=== PATIENT | female | born 1945 | race Caucasian/White ===

== ENCOUNTER → 2021-02-28 | Outpatient (CLI) | payer MEDICARE ==
--- NOTE | 2021-03-12 10:32 | EM ---
EVENT MONITOR SEVEN-DAY EVENT MONITOR: INDICATION: Palpitations. This event monitor shows sinus rhythm with frequent PVCs. There were occasional PVCs also noted. There were episodes of atrial tachycardia. There was one episode of paroxysmal atrial fibrillation. CONCLUSIONS: 1. This seven-day event monitor shows sinus rhythm with frequent PVCs, ventricular bigeminy. 2. There were episodes of paroxysmal atrial tachycardia. 3. There was one episode of paroxysmal atrial fibrillation. MMODL / IJN: [id number] /
== END | disposition home or self-care (01) ==
LOC: RADECHMAIN 12:04
PROVIDERS: ATTEND Family Medicine
DX: I47.1 Supraventricular tachycardia (principal); I48.0 Paroxysmal atrial fibrillation
CPT/HCPCS: 93270

== ENCOUNTER 2022-01-24 15:10 | Inpatient (IN) | payer MEDICARE ==
[2022-01-24 15:44] LABS: Basophils % (A) 1 %; Eosinophils # (A) 0.1 k/uL (0-0.7); Eosinophils % (A) 3 %; HCT 27.1 % (34.0-46.0); HGB 8.7 gm/dL (11.4-16.0); Lymphocytes % (A) 24 %; MCH 36.7 pg (25.0-35.0); MCHC 32.2 g/dL (31.0-37.0); MCV 114.1 fL (80.0-100.0); Macrocytosis Marked; Mean Platelet Volume 7.5; Monocytes # (A) 0.3 k/uL (0-1.0); Monocytes % (A) 7 %; Neutrophils # (A) 2.7 k/uL (1.3-7.7); Neutrophils % (A) 63 %; Platelet Count 251 k/uL (150-450); RBC 2.37 m/uL (3.80-5.40); RDW 13.8 % (11.5-15.5); WBC 4.4 k/uL (3.8-10.6)
--- NOTE | 2022-01-24 15:45 | ED ---
General Adult HPI - General Chief complaint: GI Bleed Stated complaint: fatigue Time Seen by Provider: 01/24/22 15:20 Source: patient, EMS Mode of arrival: EMS Limitations: no limitations - History of Present Illness Initial comments: Dictation was produced using [employer] dictation software. please excuse any grammatical, word or spelling errors. Chief Complaint: 76-year-old female presents to the emergency department for black tarry stools, exertional fatigue and nausea History of Present Illness: 26-year-old female she has multiple comorbidities. Patient has history of A. fib on anticoagulation medications. For the last 5 days patient has been feeling fatigued especially noticeable with exertion. She states she feels so weak and having difficulty ambulating short distances. Patient has been trying to taper herself from alcohol. She does have a history of alcohol abuse. 5 days ago she did have symptoms of myalgias, retching but no vomiting. She does not report any constitutional symptoms. Patient has had black tarry stools. She normally has dark stools because of iron supplementation however her stools were loose and black. Patient states the running black stools has improved over the last 24-48 hours. She does take anticoagulation medications. Patient is brought in by EMS and was found to be hypoxic in the high 80s. She is placed on 2 L nasal cannula. Patient does not were supplemental oxygen at home. The ROS documented in this emergency department record has been reviewed and confirmed by me. Those systems with pertinent positive or negative responses have been documented in the HPI. All other systems are other negative and/or noncontributory. PHYSICAL EXAM: General Impression: Alert and oriented x3, not in acute distress HEENT: Normocephalic atraumatic, extra-ocular movements intact, pupils equal and reactive to light bilaterally, mucous membranes moist. Cardiovascular: Heart regular rate and rhythm Chest: Able to complete full sentences, no retractions, no tachypnea Abdomen: abdomen soft, non-tender, non-distended, no organomegaly Musculoskeletal: Pulses present and equal in all extremities, no peripheral edema Motor: no focal deficits noted Neurological: CN II-XII grossly intact, no focal motor or sensory deficits noted Skin: Intact with no visualized rashes Psych: Normal affect and mood Rectal exam: No fissures, no hemorrhoids, no active bleeding ED course: 76-year-old female presents to the emergency department for multiple complaints. She is to have more systemic constitutional symptoms. She does have reported black tarry stools that have reportedly spontaneously resolved. Vital signs upon arrival are within acceptable limits. She is 99% on 2 L nasal cannula. Laboratory evaluation obtained. Hemoglobin 8.7. Coag panel is unremarkable. Metabolic panel is within acceptable limits. Some occult blood is positive. Patient monitored in the emergency department for 2 hours patient is reevaluated bedside at 5:30 PM found in stable medical condition. Patient has multiple high-risk features given her age, history of anticoagulation use and symptoms of anemia. Patient be admitted to [facility] with consultation to gastroenterology. EKG interpretation: Ventricular rate 67, sinus rhythm,. 179, QS 90, QTC 411. No MN prolongation, no QTC prolongation, no ST changes noted. There is an isolated T-wave inversion in lead 3 No old EKG for comparison. Overall, this EKG is nonspecific - Related Data Allergies Allergy/AdvReac Type Severity Reaction Status Date / Time Sulfa (Sulfonamide Allergy Unknown Verified 01/24/22 15:44 Antibiotics) Review of Systems ROS Statement: Those systems with pertinent positive or pertinent negative responses have been documented in the HPI. ROS Other: All systems not noted in ROS Statement are negative. Past Medical History Past Medical History: Atrial Fibrillation, Hypertension Additional Past Medical History / Comment(s): ETOH abuse History of Any Multi-Drug Resistant Organisms: None Reported Past Surgical History: Cholecystectomy, Hysterectomy, Orthopedic Surgery Additional Past Surgical History / Comment(s): bariatric 2000 Past Psychological History: No Psychological Hx Reported, Anxiety Smoking Status: Never smoker Past Alcohol Use History: Abuse Past Drug Use History: None Reported General Exam Limitations: no limitations Course Vital Signs 01/24/22 15:11 Temperature 97.5 F L Pulse Rate 66 Respiratory 18 Rate Blood Pressure 111/58 O2 Sat by Pulse 99 Oximetry Medical Decision Making - Lab Data Result diagrams: 01/24/22 15:40 01/24/22 15:40 Lab Results 01/24/22 01/24/22 01/24/22 Range/Units 15:40 15:40 15:40 WBC 4.4 (3.8-10.6) k/uL RBC 2.37 L (3.80-5.40) m/uL Hgb 8.7 L (11.4-16.0) gm/dL Hct 27.1 L (34.0-46.0) % MCV 114.1 H (80.0-100.0) fL MCH 36.7 H (25.0-35.0) pg MCHC 32.2 (31.0-37.0) g/dL RDW 13.8 (11.5-15.5) % Plt Count 251 (150-450) k/uL MPV 7.5 Neutrophils % 63 % Lymphocytes % 24 % Monocytes % 7 % Eosinophils % 3 % Basophils % 1 % Neutrophils # 2.7 (1.3-7.7) k/uL Lymphocytes # 1.0 (1.0-4.8) k/uL Monocytes # 0.3 (0-1.0) k/uL Eosinophils # 0.1 (0-0.7) k/uL Basophils # 0.0 (0-0.2) k/uL Manual Slide Review Performed Poikilocytosis (manual Present Macrocytosis Marked A Stomatocytes Present PT 13.4 H (9.0-12.0) sec INR 1.3 H (<1.2) APTT 28.7 (22.0-30.0) sec Sodium 134 L (137-145) mmol/L Potassium 4.1 (3.5-5.1) mmol/L Chloride 104 (98-107) mmol/L Carbon Dioxide 26 (22-30) mmol/L Anion Gap 4 mmol/L BUN 16 (7-17) mg/dL Creatinine 0.89 (0.52-1.04) mg/dL Est GFR (CKD-EPI)AfAm 74 (>60 ml/min/1.73 sqM) Est GFR (CKD-EPI)NonAf 64 (>60 ml/min/1.73 sqM) Glucose 108 H (74-99) mg/dL Plasma Lactic Acid Marcelo (0.7-2.0) mmol/L Calcium 8.4 (8.4-10.2) mg/dL Total Bilirubin 0.5 (0.2-1.3) mg/dL AST 94 H (14-36) U/L ALT 69 H (4-34) U/L Alkaline Phosphatase 119 (38-126) U/L Total Protein 6.2 L (6.3-8.2) g/dL Albumin 3.2 L (3.5-5.0) g/dL Stool Occult Blood (Negative) Blood Type Blood Type Confirm Blood Type Recheck Bld Type Recheck Status Antibody Screen Spec Expiration Date 01/24/22 01/24/22 01/24/22 Range/Units 15:43 15:43 15:43 WBC (3.8-10.6) k/uL RBC (3.80-5.40) m/uL Hgb (11.4-16.0) gm/dL Hct (34.0-46.0) % MCV (80.0-100.0) fL MCH (25.0-35.0) pg MCHC (31.0-37.0) g/dL RDW (11.5-15.5) % Plt Count (150-450) k/uL MPV Neutrophils % % Lymphocytes % % Monocytes % % Eosinophils % % Basophils % % Neutrophils # (1.3-7.7) k/uL Lymphocytes # (1.0-4.8) k/uL Monocytes # (0-1.0) k/uL Eosinophils # (0-0.7) k/uL Basophils # (0-0.2) k/uL Manual Slide Review Poikilocytosis (manual Macrocytosis Stomatocytes PT (9.0-12.0) sec INR (<1.2) APTT (22.0-30.0) sec Sodium (137-145) mmol/L Potassium (3.5-5.1) mmol/L Chloride (98-107) mmol/L Carbon Dioxide (22-30) mmol/L Anion Gap mmol/L BUN (7-17) mg/dL Creatinine (0.52-1.04) mg/dL Est GFR (CKD-EPI)AfAm (>60 ml/min/1.73 sqM) Est GFR (CKD-EPI)NonAf (>60 ml/min/1.73 sqM) Glucose (74-99) mg/dL Plasma Lactic Acid Marcelo 1.2 (0.7-2.0) mmol/L Calcium (8.4-10.2) mg/dL Total Bilirubin (0.2-1.3) mg/dL AST (14-36) U/L ALT (4-34) U/L Alkaline Phosphatase (38-126) U/L Total Protein (6.3-8.2) g/dL Albumin (3.5-5.0) g/dL Stool Occult Blood Positive H (Negative) Blood Type O Positive Blood Type Confirm Blood Type Recheck No Previous Record Bld Type Recheck Status CABO Indicated Antibody Screen NEGATIVE Spec Expiration Date 01/27/2022 - 234201/24/22 Range/Units 15:51 WBC (3.8-10.6) k/uL RBC (3.80-5.40) m/uL Hgb (11.4-16.0) gm/dL Hct (34.0-46.0) % MCV (80.0-100.0) fL MCH (25.0-35.0) pg MCHC (31.0-37.0) g/dL RDW (11.5-15.5) % Plt Count (150-450) k/uL MPV Neutrophils % % Lymphocytes % % Monocytes % % Eosinophils % % Basophils % % Neutrophils # (1.3-7.7) k/uL Lymphocytes # (1.0-4.8) k/uL Monocytes # (0-1.0) k/uL Eosinophils # (0-0.7) k/uL Basophils # (0-0.2) k/uL Manual Slide Review Poikilocytosis (manual Macrocytosis Stomatocytes PT (9.0-12.0) sec INR (<1.2) APTT (22.0-30.0) sec Sodium (137-145) mmol/L Potassium (3.5-5.1) mmol/L Chloride (98-107) mmol/L Carbon Dioxide (22-30) mmol/L Anion Gap mmol/L BUN (7-17) mg/dL Creatinine (0.52-1.04) mg/dL Est GFR (CKD-EPI)AfAm (>60 ml/min/1.73 sqM) Est GFR (CKD-EPI)NonAf (>60 ml/min/1.73 sqM) Glucose (74-99) mg/dL Plasma Lactic Acid Marcelo (0.7-2.0) mmol/L Calcium (8.4-10.2) mg/dL Total Bilirubin (0.2-1.3) mg/dL AST (14-36) U/L ALT (4-34) U/L Alkaline Phosphatase (38-126) U/L Total Protein (6.3-8.2) g/dL Albumin (3.5-5.0) g/dL Stool Occult Blood (Negative) Blood Type Blood Type Confirm O Positive Blood Type Recheck Bld Type Recheck Status Antibody Screen Spec Expiration Date Disposition Clinical Impression: Symptomatic anemia Disposition: ADMITTED IP TO THIS HOSP Condition: Fair Referrals: Benjamin Ashton MD [Primary Care Provider] - 1-2 days Decision Time: 17:37
[2022-01-24 15:52] LABS: Albumin 3.2 g/dL (3.5-5.0); Calcium 8.4 mg/dL (8.4-10.2); Potassium 4.1 mmol/L (3.5-5.1); Total Bilirubin 0.5 mg/dL (0.2-1.3); Total Protein 6.2 g/dL (6.3-8.2)
--- NOTE | 2022-01-24 15:58 | XR ---
EXAMINATION TYPE: XR chest 2V DATE OF EXAM: 01/24/2022 COMPARISON: NONE HISTORY: Shortness of breath TECHNIQUE: Frontal and lateral views of the chest are obtained. FINDINGS: Scattered senescent parenchymal changes noted. No evidence for infiltrate. No evidence for atelectasis. Heart size is stable. Mediastinal structures are stable and grossly unremarkable. No evidence for hilar prominence. Degenerative changes dorsal spine. IMPRESSION: 1. No evidence for acute pulmonary disease.
[2022-01-24 16:24] LABS: INR 1.3 (<1.2); Partial Thromboplastin Time 28.7 sec (22.0-30.0); Prothrombin Time 13.4 sec (9.0-12.0)
[2022-01-24] MEDS ORDERED: PANTOPRAZOLE 40 MG/10 ML VIAL IVP STA (16:42)
[2022-01-24 16:45] LABS: Poikilocytosis (M) Present; Stomatocytes Present
[2022-01-24] MEDS ORDERED: NALOXONE 0.4 MG/ML 1 ML VIAL IV PRN (17:34)
[2022-01-24] MEDS ORDERED: ONDANSETRON 4 MG/2 ML VIAL IVP PRN (17:34)
[2022-01-24] MEDS: SODIUM CHLORIDE 0.9% 1,000 ML IV SCH (17:56)
[2022-01-24] MEDS: LEVOTHYROXINE 75 MCG TAB PO SCH (21:33)
[2022-01-24] MEDS: busPIRone HCl 5 MG TAB PO SCH (21:33)
[2022-01-25] MEDS: ZOLPIDEM 5 MG TAB PO PRN ×2 (00:26→23:00)
--- NOTE | 2022-01-25 01:16 | P.HPIM ---
History of Present Illness H&P Date: 01/24/22 Chief Complaint: GI bleed 76-year-old female with paroxysmal A. fib on Xarelto, hypertension, alcohol abuse Patient comes into the hospital due to 5 day history of progressive fatigue generalized weakness and difficulty ambulating due to feeling weak. She admits to history of heavy alcohol consumption she drinks over 7 beers every day however she's been trying to cut back and she has dropped down to 1 beer a day. Her last drink was 2 days ago however she's been progressively getting weak and tired and she has noticed over the past 2 days some episodes of black tarry stool she reports that Saturday which is yesterday this has started to improve to become mixed with brown stool and since then she hasn't had any bowel movements yet however she comes in today due to increase of feeling weakness and palpitations she gets very fatigued and sweaty when she tries to be active. She denies any passing out or falling. . She denies any history of GI bleeding she reports normal colonoscopies in the past most recent was over 10 years ago. She admits to taking blood thinners for paroxysmal A. fib but denies any NSAIDs however she does admit that on rare occasions she would take 800 mg of ibuprofen but she hasn't done that recently. She denies any recent illness she denies any diarrhea denies any abdominal pain denies any chest pain or trouble breathing denies any history of peptic ulcer disease. In the ED workup showed slightly elevated AST and ALT, virus panel was negative occult blood test and stool was positive INR was 1.3 blood work showed macrocytic anemia there is no baseline blood work to compare She denies any further episodes of GI bleeding for over 24 hours now denies any tobacco smoking or illicit drugs Review of Systems Pertinent positives as noted in HPI. All other systems were reviewed and are negative Past Medical History Past Medical History: Atrial Fibrillation, Hypertension Additional Past Medical History / Comment(s): ETOH abuse History of Any Multi-Drug Resistant Organisms: None Reported Past Surgical History: Cholecystectomy, Hysterectomy, Orthopedic Surgery Additional Past Surgical History / Comment(s): bariatric 2000 Past Psychological History: No Psychological Hx Reported, Anxiety Smoking Status: Never smoker Past Alcohol Use History: Abuse Past Drug Use History: None Reported - Past Family History Mother Additional Family Medical History / Comment(s): kidney cancer. Medications and Allergies Home Medications Medication Instructions Recorded Confirmed Type Ibandronate Sodium 150 mg PO Q30D 01/24/22 01/24/22 History Ibuprofen [Motrin] 800 mg PO Q8H 01/24/22 01/24/22 History Irbesartan [Avapro] 150 mg PO DAILY 01/24/22 01/24/22 History Levothyroxine Sodium [Synthroid] 75 mcg PO HS 01/24/22 01/24/22 History Metoprolol Succinate (ER) [Toprol 100 mg PO DAILY 01/24/22 01/24/22 History Xl] Rivaroxaban [Xarelto] 20 mg PO DAILY 01/24/22 01/24/22 History Venlafaxine HCl [Effexor XR] 225 mg PO DAILY 01/24/22 01/24/22 History busPIRone HCL [Buspar] 7.5 mg PO BID 01/24/22 01/24/22 History traMADol HCL 50 mg PO DAILY@1500 01/24/22 01/24/22 History traMADol HCL 100 mg PO DAILY 01/24/22 01/24/22 History Allergies Allergy/AdvReac Type Severity Reaction Status Date / Time Sulfa (Sulfonamide Allergy Unknown Verified 01/24/22 17:52 Antibiotics) Childhood Physical Exam Vitals: Vital Signs Temp Pulse Resp BP Pulse Ox 01/24/22 18:43 68 18 146/67 99 01/24/22 15:11 97.5 F L 66 18 111/58 99 Intake and Output 01/24/22 01/24/22 01/24/22 06:59 14:59 22:59 Other: Weight 93.894 kg Constitutional: No acute distress, conversant, pleasant Eyes: Anicteric sclerae, moist conjunctiva, Pupils equal round reactive to light ENMT: NC/AT Oropharynx clear, no erythema, or exudates Neck: Supple, FROM, no masses, or JVD No carotid bruits No thyromegaly Lungs: Clear to auscultation Clear to percussion Normal respiratory effort, no accessory muscle use Cardiovascular: Heart regular in rate and rhythm, No murmurs, gallops, or rubs No peripheral edema Abdominal: Soft Nontender, no guarding, rebound or rigidity Abdomen moving with respiration Normoactive bowel sounds No hepatomegaly, No splenomegaly No palpable mass No abdominal wall hernia noted Skin: Normal temperature, tone, texture, turgor No induration No subcutaneous nodules No rash, lesions No ulcers Extremities: No digital cyanosis No clubbing Pedal pulses intact and symmetrical Radial pulses intact and symmetrical No calf tenderness Psychiatric: Alert and oriented to person, place and time Appropriate affect fair judgement Neuro Muscles Strength 4/5 in all 4 extremities Sensation to light touch grossly present throughout Cranial nerves II-XII grossly intact No focal sensory deficits Lymphatics: no palpable cervical or supraclavicular , or inguinal lymph nodes Results CBC & Chem 7: 01/24/22 15:40 01/24/22 15:40 Labs: Abnormal Lab Results - Last 24 Hours (Table) 01/24/22 01/24/22 01/24/22 Range/Units 15:40 15:40 15:40 RBC 2.37 L (3.80-5.40) m/uL Hgb 8.7 L (11.4-16.0) gm/dL Hct 27.1 L (34.0-46.0) % MCV 114.1 H (80.0-100.0) fL MCH 36.7 H (25.0-35.0) pg Macrocytosis Marked A PT 13.4 H (9.0-12.0) sec INR 1.3 H (<1.2) Sodium 134 L (137-145) mmol/L Glucose 108 H (74-99) mg/dL AST 94 H (14-36) U/L ALT 69 H (4-34) U/L Total Protein 6.2 L (6.3-8.2) g/dL Albumin 3.2 L (3.5-5.0) g/dL Stool Occult Blood (Negative) 01/24/22 Range/Units 15:43 RBC (3.80-5.40) m/uL Hgb (11.4-16.0) gm/dL Hct (34.0-46.0) % MCV (80.0-100.0) fL MCH (25.0-35.0) pg Macrocytosis PT (9.0-12.0) sec INR (<1.2) Sodium (137-145) mmol/L Glucose (74-99) mg/dL AST (14-36) U/L ALT (4-34) U/L Total Protein (6.3-8.2) g/dL Albumin (3.5-5.0) g/dL Stool Occult Blood Positive H (Negative) Assessment and Plan Assessment: Symptomatic anemia secondary to GI bleeding Monitor hemoglobin Monitor for any episodes of GI bleeding Fall precautions Gentle IV fluid hydration Nothing by mouth GI consultation Protonix twice a day Hold blood thinners Paroxysmal A. fib on Xarelto Hold blood thinners due to GI bleeding Cardiac monitoring Resume metoprolol Hypertension resume metoprolol and losartan Blood pressure controlled History of alcohol abuse Patient cut back significantly Thiamine twice a day Monitor for any signs and symptoms of alcohol withdrawal DVT prophylaxis mechanical Full code
[2022-01-25 02:06] VITALS: RESP 16
[2022-01-25] MEDS: SODIUM CHLORIDE 0.9% 1,000 ML IV SCH ×2 (05:06→12:08)
[2022-01-25] MEDS: PANTOPRAZOLE 40 MG TABLET PO SCH ×2 (07:58→17:46)
[2022-01-25] MEDS: VENLAFAXINE HCL ER 75 MG CAP PO SCH (08:00)
[2022-01-25] MEDS: METOPROLOL SUCCINATE (ER) 100 MG TAB.ER.24H PO SCH (08:00)
[2022-01-25] MEDS: LOSARTAN 50 MG TAB PO SCH (08:00)
[2022-01-25] MEDS: THIAMINE 100 MG TAB PO SCH (08:00)
[2022-01-25] MEDS: traMADol 50 MG TAB PO SCH ×2 (08:01→15:13)
[2022-01-25] MEDS: busPIRone HCl 5 MG TAB PO SCH ×2 (08:01→20:12)
[2022-01-25] MEDS ORDERED: PANTOPRAZOLE 40 MG/10 ML VIAL IV SCH (09:00)
[2022-01-25 10:48] LABS: HGB 7.5 g/dL (12.0-15.0); MCH 36.2 pg (27.0-32.0); MCHC 31.3 g/dL (32.0-37.0); MCV 115.9 fL (80.0-97.0); Mean Platelet Volume 9.9 fL (9.5-12.2); NRBC Per 100 WBC 0 /100 WBCS (0.0-0.0); Platelet Count 190 X 10*3/uL (140-440); RBC 2.07 X 10*6/uL (4.10-5.20); RDW 14.1 % (11.5-14.5); WBC 4.15 X 10*3/uL (4.50-10.00)
[2022-01-25 10:56] LABS: African American GFR (CKD) 86.5 (60.0-200.0); Anion Gap 9.2 mmol/L (10.00-18.00); BUN/Creat Ratio 12.79 Ratio (12.00-20.00); Calcium 8.1 mg/dL (8.7-10.3); Carbon Dioxide 22.3 mmol/L (20.0-27.5); Non-African American GFR(CKD) 74.7 (60.0-200.0); Potassium 4.1 mmol/L (3.5-5.5)
[2022-01-25 13:46] LABS: Basophils # (A) 0.03 X 10*3/uL (0.00-0.10); Basophils % (A) 0.7 %; Eosinophils # (A) 0.15 X 10*3/uL (0.04-0.35); Eosinophils % (A) 3.6 %; Immature Grans, Automated 0.5 %; Lymphocytes # (A) 1.08 X 10*3/uL (0.90-5.00); Monocytes # (A) 0.47 X 10*3/uL (0.20-1.00); Monocytes % (A) 11.3 %; Neutrophils % (A) 57.9 %
[2022-01-25 13:47] LABS: Macrocytosis (M) 2+
--- NOTE | 2022-01-25 14:08 | P.CONS ---
History of Present Illness - Reason for Consult Consult date: 01/25/22 GI bleed Requesting physician: Shayan Mata - Chief Complaint Melena - History of Present Illness This is a pleasant 76-year-old white female who presented to the emergency department yesterday afternoon and she thought she just had the flu. She has past medical history including atrial fibrillation hypertension, gastric bypass and alcohol abuse. Since Saturday she started having black tarry stools. She continued to have them yesterday so she came to the emergency department for further evaluation. She states she has been feeling increased fatigue and sh ortness of breath with exertion. Denies any previous history of GI bleed. She does take Xarelto last dose on 713. Last colonoscopy was 15 years ago. She has no history of peptic ulcer disease or GERD. She denies any NSAIDs. No previous history of EGD. States she did have a cologuard 3-4 years ago that was normal. Patient does admit to drinking 616 ounce cans of beer a day recently cut back to 2 a day. Last drink was on Saturday. Admitting hemoglobin 8.7 repeat 7.5 Admitting labs WBC 4.4 hemoglobin 8.7 hematocrit 27 MCV 114 MCH 36.7 platelet count 251,000 INR 1.3 BUN 16 creatinine 0.89 total bilirubin 0.5 AST 94 ALT 60 stool occult blood positive Review of Systems REVIEW OF SYSTEMS: CARDIOPULMONARY: No chest pain or shortness of breath. Dyspnea with exertion Gastrointestinal: No abdominal pain. No nausea or vomiting. No hematemesis, coffee-ground emesis. No rectal bleeding, black tarry stool. GENITOURINARY: No dysuria or hematuria. MUSCULOSKELETAL: Reports normal range of motion. SKIN: No rashes. No jaundice. ENDOCRINE: No chills, fevers. No excessive weight gain or loss. No polydipsia or polyuria. PSYCHIATRIC: Alcohol abuse, drinks 616 ounce cans of beer a day, recently down to 216 ounce cans a day. NEUROLOGY: No change in mental status. Denies dizziness, headache. ENT: Vision unremarkable. CONSTITUTIONAL: No recent weight loss. No fever, chills, night sweats. Past Medical History Past Medical History: Atrial Fibrillation, Hypertension Additional Past Medical History / Comment(s): ETOH abuse History of Any Multi-Drug Resistant Organisms: None Reported Past Surgical History: Cholecystectomy, Hysterectomy, Orthopedic Surgery Additional Past Surgical History / Comment(s): bariatric 1999 Past Psychological History: No Psychological Hx Reported, Anxiety Smoking Status: Never smoker Past Alcohol Use History: Abuse Past Drug Use History: None Reported - Past Family History Mother Additional Family Medical History / Comment(s): kidney cancer. Medications and Allergies Home Medications Medication Instructions Recorded Confirmed Type Ibandronate Sodium 150 mg PO Q30D 01/24/22 01/24/22 History Ibuprofen [Motrin] 800 mg PO Q8H 01/24/22 01/24/22 History Irbesartan [Avapro] 150 mg PO DAILY 01/24/22 01/24/22 History Levothyroxine Sodium [Synthroid] 75 mcg PO HS 01/24/22 01/24/22 History Metoprolol Succinate (ER) [Toprol 100 mg PO DAILY 01/24/22 01/24/22 History Xl] Rivaroxaban [Xarelto] 20 mg PO DAILY 01/24/22 01/24/22 History Venlafaxine HCl [Effexor XR] 225 mg PO DAILY 01/24/22 01/24/22 History busPIRone HCL [Buspar] 7.5 mg PO BID 01/24/22 01/24/22 History traMADol HCL 50 mg PO DAILY@1500 01/24/22 01/24/22 History traMADol HCL 100 mg PO DAILY 01/24/22 01/24/22 History Allergies Allergy/AdvReac Type Severity Reaction Status Date / Time Sulfa (Sulfonamide Allergy Unknown Verified 01/24/22 17:52 Antibiotics) Childhood Physical Exam Vitals: Vital Signs Temp Pulse Pulse Resp BP BP Pulse Ox 01/25/22 02:00 97.9 F 80 16 138/82 96 01/24/22 20:03 18 01/24/22 18:43 68 18 146/67 99 01/24/22 15:11 97.5 F L 66 18 111/58 99 Intake and Output 01/24/22 01/25/22 01/25/22 22:59 06:59 14:59 Intake Total 1440 Balance 1440 Intake: Intake, IV Titration 1440 Amount Sodium Chloride 0.9% 1, 1440 000 ml @ 120 mls/hr IV . Q8H20M [facility] Rx#:[id number] Other: Voiding Method Toilet # Voids 2 # Bowel Movements 0 0 Weight 93.894 kg General appearance: The patient is alert, oriented, appears in no acute distress. HET: Head is normocephalic and atraumatic. Conjunctiva pink. Sclera anicteric. Neck: Supple without lymphadenopathy. Trachea midline. Heart: S1 S2. Regular rate and rhythm. Lungs: Clear to auscultation. Abdomen: Soft, nontender, nondistended with bowel sounds. No guarding or rigidity. Skin: No rashes. No jaundice. Extremities: Normal skin color and turgor. No pedal edema. Neurological: No focal deficits. Alert and oriented x3. Results CBC & Chem 7: 01/25/22 06:56 01/25/22 06:56 Labs: Abnormal Lab Results - Last 24 Hours (Table) 01/24/22 01/24/22 01/24/22 Range/Units 15:40 15:40 15:40 RBC 2.37 L (3.80-5.40) m/uL Hgb 8.7 L (11.4-16.0) gm/dL Hct 27.1 L (34.0-46.0) % MCV 114.1 H (80.0-100.0) fL MCH 36.7 H (25.0-35.0) pg Macrocytosis Marked A PT 13.4 H (9.0-12.0) sec INR 1.3 H (<1.2) Sodium 134 L (137-145) mmol/L Glucose 108 H (74-99) mg/dL AST 94 H (14-36) U/L ALT 69 H (4-34) U/L Total Protein 6.2 L (6.3-8.2) g/dL Albumin 3.2 L (3.5-5.0) g/dL Stool Occult Blood (Negative) 01/24/22 Range/Units 15:43 RBC (3.80-5.40) m/uL Hgb (11.4-16.0) gm/dL Hct (34.0-46.0) % MCV (80.0-100.0) fL MCH (25.0-35.0) pg Macrocytosis PT (9.0-12.0) sec INR (<1.2) Sodium (137-145) mmol/L Glucose (74-99) mg/dL AST (14-36) U/L ALT (4-34) U/L Total Protein (6.3-8.2) g/dL Albumin (3.5-5.0) g/dL Stool Occult Blood Positive H (Negative) Assessment and Plan (1) Symptomatic anemia Narrative/Plan: 76-year-old female with a past medical history of atrial fibrillation on Xarelto who presented with complaints of black tarry stool 3 days. The patient also states she has been having some exertional dyspnea and is feeling run down. She was known to have a hemoglobin 8.7 on admission with a drop to 7.5 today. She does admit that she drinks 62-616 ounce cans of beer a day. She has been drinking for several years. She denies any previous history of GI bleed her esophageal varices. Denies any history of peptic ulcer disease or GERD. Denies any use of NSAIDs. No prior history of GI bleed and last colonoscopy was approximately 15 years ago, no prior EGD. Likely we are dealing with an upper GI source of bleeding however cannot rule out a lower source and considering patient has not had colonoscopy in greater than 15 years with recommend proceeding with both upper and lower endoscopy. Patient is agreeable. Current Visit: Yes Status: Acute Code(s): D64.9 - ANEMIA, UNSPECIFIED SNOMED Code(s): 747506195 (2) Melena Current Visit: Yes Status: Acute Code(s): K92.1 - MELENA SNOMED Code(s): 9895379 (3) Alcohol abuse Current Visit: Yes Status: Acute Code(s): F10.10 - ALCOHOL ABUSE, UNCOMPLICATED SNOMED Code(s): 99347939 Plan: 1. Continue symptomatic and supportive care 2. Protonix 40 mg twice a day 3. Daily CBC, transfuse her hemoglobin less than 7 4. Clear liquid diet 5. Nothing by mouth after midnight 6. Bowel prep this evening 7. Alcohol abstinence Thank you for this consultation, we'll continue to follow. Dr. Rico Juares I agree with the dictator's note, documented as a scribe by Faiza Barton.
--- NOTE | 2022-01-25 16:16 | P.PN ---
Subjective Progress Note Date: 01/25/22 Principal diagnosis: Melena Patient seen and examined. No acute events overnight. Patient reports no current complaints. No bowel movement today. Hemoglobin dropped to 7.5. She denies any chest pain, shortness of breath or palpitations. No lightheadedness. Plans for EGD and colonoscopy tomorrow. Objective - Vital Signs Vital signs: Vital Signs Temp 99.1 F 01/25/22 08:00 Pulse 85 01/25/22 08:00 Resp 16 01/25/22 08:00 BP 127/68 01/25/22 08:00 Pulse Ox 96 01/25/22 08:00 FiO2 Intake & Output 01/24/22 01/25/22 01/25/22 18:59 06:59 18:59 Intake Total 1440 Balance 1440 Weight 93.894 kg 93.894 kg Intake: Intake, IV Titration 1440 Amount Sodium Chloride 0.9% 1, 1440 000 ml @ 120 mls/hr IV . Q8H20M [facility] Rx#:[id number] Other: Voiding Method Toilet # Voids 2 # Bowel Movements 0 - Exam General: [non toxic], [no distress], [appears at stated age] Derm: [warm], [dry] Head: [atraumatic], [normocephalic], [symmetric] Eyes: [EOMI], [no lid lag], [anicteric sclera] Mouth: [no lip lesion], [mucus membranes moist] Cardiovascular: [S1S2 reg], [no murmur] Lungs: [CTA bilateral], [no rhonchi, no rales] , [no accessory muscle use] Abdominal: [soft], [ nontender to palpation], [no guarding], [no appreciable organomegaly] Ext: [no gross muscle atrophy], [no edema], [no contractures] Neuro: [no focal neuro deficits] Psych: [Alert], [oriented], [appropriate affect] - Labs CBC & Chem 7: 01/25/22 06:56 01/25/22 06:56 Labs: Abnormal Lab Results - Last 24 Hours (Table) 01/24/22 01/25/22 01/25/22 Range/Units 15:40 06:56 06:56 WBC 4.15 L (4.50-10.00) X 10*3/uL RBC 2.07 L (4.10-5.20) X 10*6/uL Hgb 7.5 L (12.0-15.0) g/dL Hct 24.0 L (37.2-46.3) % MCV 115.9 H (80.0-97.0) fL MCH 36.2 H (27.0-32.0) pg MCHC 31.3 L (32.0-37.0) g/dL PT 13.4 H (9.0-12.0) sec INR 1.3 H (<1.2) Anion Gap 9.20 L (10.00-18.00) mmol/L Calcium 8.1 L (8.7-10.3) mg/dL Assessment and Plan Assessment: Symptomatic anemia secondary to GI bleeding Monitor hemoglobin Monitor for any episodes of GI bleeding Fall precautions Gentle IV fluid hydration Nothing by mouth GI consultation Protonix twice a day Hold blood thinners Plans for EGD tomorrow Paroxysmal A. fib on Xarelto Hold blood thinners due to GI bleeding Cardiac monitoring Resume metoprolol Hypertension resume metoprolol and losartan Blood pressure controlled History of alcohol abuse Patient cut back significantly Thiamine twice a day Monitor for any signs and symptoms of alcohol withdrawal DVT prophylaxis mechanical FULL CODE
[2022-01-25] MEDS ORDERED: PEG 3350 (236 GM/BTL) + LYTES 4,000 ML BOTTLE PO ONE (17:00)
[2022-01-25] MEDS: LEVOTHYROXINE 75 MCG TAB PO SCH (20:12)
[2022-01-26] MEDS: SODIUM CHLORIDE 0.9% 1,000 ML IV SCH ×3 (08:03→13:55)
[2022-01-26] MEDS: METOPROLOL SUCCINATE (ER) 100 MG TAB.ER.24H PO SCH (08:03)
[2022-01-26] MEDS: LOSARTAN 50 MG TAB PO SCH (08:03)
[2022-01-26] MEDS: traMADol 50 MG TAB PO SCH ×2 (08:03→16:08)
[2022-01-26] MEDS: PANTOPRAZOLE 40 MG TABLET PO SCH ×2 (08:03→17:18)
[2022-01-26] MEDS: busPIRone HCl 5 MG TAB PO SCH (08:03)
[2022-01-26] MEDS: VENLAFAXINE HCL ER 75 MG CAP PO SCH (08:03)
[2022-01-26] MEDS: THIAMINE 100 MG TAB PO SCH (08:05)
[2022-01-26 09:15] LABS: % Iron Saturation 15.32 (12.00-45.00)
[2022-01-26 12:56] LABS: HCT 26.3 % (34.0-46.0); HGB 8.3 gm/dL (11.4-16.0); Hypochromasia Moderate; MCH 36.8 pg (25.0-35.0); MCHC 31.4 g/dL (31.0-37.0); MCV 117.1 fL (80.0-100.0); Mean Platelet Volume 8.8; Platelet Count 255 k/uL (150-450); RBC 2.25 m/uL (3.80-5.40); RDW 14.4 % (11.5-15.5)
[2022-01-26 12:58] LABS: Macrocytosis Marked
[2022-01-26 15:42] VITALS: BP 123/70; PULSE 66; TEMP 98.3
[2022-01-26] MEDS ORDERED: LACTATED RINGERS 1,000 ML IV ONE ×2 (15:47→16:03)
--- NOTE | 2022-01-26 16:04 | P.PCN ---
Date of Procedure: 01/26/22 Procedure(s) Performed: Brief history: Patient is a pleasant 76-year-old white female admitted hospital with symptomatic anemia and black tarry stools. Hemoglobin was 7.4 g/dL. She has been on Xarelto for A. fib which is currently on hold. She is scheduled for an upper endoscopy as well as colonoscopy to evaluate the source of GI bleed Procedure performed: Esophagogastroduodenoscopy with biopsy Colonoscopy with cold biopsy Preoperative diagnosis: After stools and severe symptomatic anemia Anesthesia: MAC Procedure: After informed consent was obtained from the patient was brought into the endoscopy unit and IV sedation was administered by anesthesia under continuous monitoring. Initially upper endoscopy was done. The Olympus GF 160 video endoscope was inserted inserted into the mouth and esophagus intubated without any difficulty and was gradually advanced into the gastric pouch and there was evidence of Belen-en-Y anastomosis noted. The scope was advanced into the jejunum and appeared normal. 60 cm of the jejunum was visualized and appeared normal. Biopsies were done from this area. The scope was then withdrawn into the gastric pouch and the mucosa appeared normal. The scope was then withdrawn into the esophagus. Hiatal hernia noted. The GE junction was located at 40 cm to the incisors. It appeared regular with no erythema erosions or ulcerations. Rest of the esophagus appeared normal. Patient tolerated the procedure well. At this time the patient continued to remain sedation. Initial digital rectal examination was normal. Olympus CF 160 video colonoscope was then inserted into the rectum and gradually advanced to the cecum without any difficulty. Careful examination was performed as the scope was gradually being withdrawn. The prep was excellent. The cecum, ascending colon, appeared normal .n the transverse colon there was a 5 mm polyp that was removed by cold biopsy. Rest of the transverse colon, descending colon, sigmoid colon and rectum appeared normal. The sigmoid diverticulosis. Retroflexion was performed in the rectum and no lesions were noted. Patient tolerated the procedure well. Impression: 1. Upper endoscopy revealed evidence of previous gastric bypass surgery with Belen-en-Y anastomosis appeared normal. No evidence of anastomotic ulcer 2. Colonoscopy will a 5 mm transverse colon polyp status post cold biopsy and scattered sigmoid diverticulosis Recommendations: Findings of this examination were discussed with the patient as well as her family. She was advised to follow with the biopsy results. Start iron supplementation monitor CBC . She has persistent iron deficiency anemia will consider a small bowel capsule endoscopy as an outpatient. Resume anticoagulation.
--- NOTE | 2022-01-26 16:17 | P.DS ---
Providers Date of admission: 01/24/22 17:35 Expected date of discharge: 01/26/22 Attending physician: Jasvir Shaikh MD Consults: 01/24/22 17:34 Consult Physician Routine Consulting Provider: Huong Juares Consult Reason/Comments: gi bleed Do you want consulting provider notified?: Yes Primary care physician: [facility] Course: 76-year-old female with paroxysmal A. fib on Xarelto, hypertension, alcohol abuse Patient comes into the hospital due to 5 day history of progressive fatigue generalized weakness and difficulty ambulating due to feeling weak. She admits to history of heavy alcohol consumption she drinks over 7 beers every day however she's been trying to cut back and she has dropped down to 1 beer a day. Her last drink was 2 days ago however she's been progressively getting weak and tired and she has noticed over the past 2 days some episodes of black tarry stool she reports that Saturday which is yesterday this has started to improve to become mixed with brown stool and since then she hasn't had any bowel movements yet however she comes in today due to increase of feeling weakness and palpitations she gets very fatigued and sweaty when she tries to be active. She denies any passing out or falling. . She denies any history of GI bleeding she reports normal colonoscopies in the past most recent was over 10 years ago. She admits to taking blood thinners for paroxysmal A. fib but denies any NSAIDs however she does admit that on rare occasions she would take 800 mg of ibuprofen but she hasn't done that recently. She denies any recent illness she denies any diarrhea denies any abdominal pain denies any chest pain or trouble breathing denies any history of peptic ulcer disease. In the ED workup showed slightly elevated AST and ALT, virus panel was negative occult blood test and stool was positive INR was 1.3 blood work showed macrocytic anemia there is no baseline blood work to compare She denies any further episodes of GI bleeding for over 24 hours now denies any tobacco smoking or illicit drugs. Her Xarelto was held and she was started on Protonix by mouth twice a day. She had no further melena during her hospitalization. Hemoglobin trended 8.7, 7.5 and 8.3. GI was consulted and recommended EGD and colonoscopy. Colonoscopy showed a 5 mm transverse colonic polyp which was biopsied. GI recommended restarting anticoagulation. Patient was discharged on 01/26/2022. General: [non toxic], [no distress], [appears at stated age] Derm: [warm], [dry] Head: [atraumatic], [normocephalic], [symmetric] Eyes: [EOMI], [no lid lag], [anicteric sclera] Mouth: [no lip lesion], [mucus membranes moist] Cardiovascular: [S1S2 reg], [no murmur] Lungs: [CTA bilateral], [no rhonchi, no rales] , [no accessory muscle use] Abdominal: [soft], [ nontender to palpation], [no guarding], [no appreciable organomegaly] Ext: [no gross muscle atrophy], [no edema], [no contractures] Neuro: [no focal neuro deficits] Psych: [Alert], [oriented], [appropriate affect] Discharge diagnosis: Microcytic anemia due to GI bleed Transaminitis Paroxysmal atrial for ablation on Xarelto Hypertension History of alcohol abuse This complex discharge took about 45 minutes to complete. Pertinent Studies: Chest x-ray, EKG Procedures: EGD, colonoscopy Patient Condition at Discharge: Stable Plan - Discharge Summary Discharge Rx Participant: Yes New Discharge Prescriptions: New Pantoprazole [Protonix] 40 mg PO AC-BID #60 tab Continue Ibandronate Sodium 150 mg PO Q30D traMADol HCL 100 mg PO DAILY Venlafaxine HCl [Effexor XR] 225 mg PO DAILY Rivaroxaban [Xarelto] 20 mg PO DAILY Metoprolol Succinate (ER) [Toprol XL] 100 mg PO DAILY Levothyroxine Sodium [Synthroid] 75 mcg PO HS Irbesartan [Avapro] 150 mg PO DAILY traMADol HCL 50 mg PO DAILY@1500 busPIRone HCL [Buspar] 7.5 mg PO BID Discontinued Ibuprofen [Motrin] 800 mg PO Q8H Discharge Medication List Ibandronate Sodium 150 mg PO Q30D 01/24/22 [History] Irbesartan [Avapro] 150 mg PO DAILY 01/24/22 [History] Levothyroxine Sodium [Synthroid] 75 mcg PO HS 01/24/22 [History] Metoprolol Succinate (ER) [Toprol XL] 100 mg PO DAILY 01/24/22 [History] Rivaroxaban [Xarelto] 20 mg PO DAILY 01/24/22 [History] Venlafaxine HCl [Effexor XR] 225 mg PO DAILY 01/24/22 [History] busPIRone HCL [Buspar] 7.5 mg PO BID 01/24/22 [History] traMADol HCL 50 mg PO DAILY@1500 01/24/22 [History] traMADol HCL 100 mg PO DAILY 01/24/22 [History] Pantoprazole [Protonix] 40 mg PO AC-BID #60 tab 01/26/22 [Rx] Follow up Appointment(s)/Referral(s): Benjamin Ashton MD [Primary Care Provider] - 1-2 days Huong Juares MD [STAFF PHYSICIAN] - 1 Week Activity/Diet/Wound Care/Special Instructions: Diet: Cardiac Follow-up with PCP within 1-2 days of discharge. Follow-up with GI within 1 week of discharge. Take all medications as advised. Come back to the ED for worsening rectal bleeding, chest pain, shortness of breath, palpitations or lightheadedness. Discharge Disposition: HOME SELF-CARE
== END 2022-01-26 17:39 | disposition home or self-care (01) | DRG 379 ==
LOC: EC 15:10 → 4SSUR 17:35
PROVIDERS: ADMIT Student in an Organized Health Care Education/Training Program; ATTEND Student in an Organized Health Care Education/Training Program
PROC: 0DBL8ZX Excision of Transverse Colon, Via Natural or Artificial Opening Endoscopic, Diagnostic (ICD-10-PCS; principal; 2022-01-24)
PROC: 0DBA8ZX Excision of Jejunum, Via Natural or Artificial Opening Endoscopic, Diagnostic (ICD-10-PCS; 2022-01-24)
DX: K57.31 Diverticulosis of large intestine without perforation or abscess with bleeding (principal); F10.10 Alcohol abuse, uncomplicated; I48.0 Paroxysmal atrial fibrillation; Z20.822 Contact with and (suspected) exposure to COVID-19; D50.0 Iron deficiency anemia secondary to blood loss (chronic); D53.9 Nutritional anemia, unspecified; I10 Essential (primary) hypertension; K44.9 Diaphragmatic hernia without obstruction or gangrene; K63.5 Polyp of colon; R09.02 Hypoxemia; Z79.899 Other long term (current) drug therapy; Z79.890 Hormone replacement therapy; Z79.01 Long term (current) use of anticoagulants; Z88.2 Allergy status to sulfonamides; Z80.51 Family history of malignant neoplasm of kidney; Z90.710 Acquired absence of both cervix and uterus; Z98.84 Bariatric surgery status; Z71.41 Alcohol abuse counseling and surveillance of alcoholic; Z90.49 Acquired absence of other specified parts of digestive tract
CPT/HCPCS: 36415; 71046; 80048; 80053; 80320; 82272; 82728; 83540; 83550; 83605; 85025; 85027; 85610; 85730; 86850; 86900; 86901; 87636; 93005

== ENCOUNTER → 2022-02-15 | Day surgery (SDC) | payer MEDICARE ==
[2022-02-08 11:12] VITALS: BMI 32.8
[~2022-02-15] MED LIST: SIMETHICONE 40 MG/0.6 ML DROPS 2,000 MG/30 ML BOTTLE PO ONE
[2022-02-15 06:25] VITALS: BP 117/68; PULSE 103; RESP 16; TEMP 97
== END ==
LOC: ORWHC2ENDO 06:02
PROVIDERS: ATTEND Internal Medicine Gastroenterology
DX: K92.1 Melena (principal); Z88.2 Allergy status to sulfonamides; Z79.890 Hormone replacement therapy; Z79.899 Other long term (current) drug therapy; Z79.01 Long term (current) use of anticoagulants; Z79.1 Long term (current) use of non-steroidal anti-inflammatories (NSAID); Z80.51 Family history of malignant neoplasm of kidney
CPT/HCPCS: 91110

== ENCOUNTER 2022-09-28 05:33 | Inpatient (IN) | payer MEDICARE ==
--- NOTE | 2022-09-28 06:00 | ED ---
General Adult HPI - General Chief complaint: Fall Stated complaint: Fall Time Seen by Provider: 09/28/22 05:50 Source: patient Mode of arrival: EMS Limitations: physical limitation - History of Present Illness Initial comments: Dictation was produced using [employer] dictation software. please excuse any grammatical, word or spelling errors. Chief Complaint: 77-year-old female presents with right hip pain History of Present Illness: Patient 77-year-old female she has a past medical history of A. fib. She takes anticoagulation medications. Patient has history of chronic debility. She stretches he has chairs allover household to help her ambulate area patient got up in the 90s the bathroom. She missed one of her chairs fell landing on her right hip. Patient that she has pain at the right proximal lower extremity. Denies any numbness and paresthesias to the right foot. Patient has a head injury. No head pain or neck pain. No chest pain or abdominal pain. The ROS documented in this emergency department record has been reviewed and confirmed by me. Those systems with pertinent positive or negative responses have been documented in the HPI. All other systems are other negative and/or noncontributory. PHYSICAL EXAM: General Impression: Alert and oriented x3, not in acute distress HEENT: Normocephalic atraumatic, extra-ocular movements intact, pupils equal and reactive to light bilaterally, mucous membranes moist. Cardiovascular: Heart regular rate and rhythm Chest: Able to complete full sentences, no retractions, no tachypnea Abdomen: abdomen soft, non-tender, non-distended, no organomegaly Musculoskeletal: Pulses present and equal in all extremities, no peripheral edema, shortened externally rotated right lower extremity Motor: no focal deficits noted Neurological: CN II-XII grossly intact, no focal motor or sensory deficits noted Skin: Intact with no visualized rashes Psych: Normal affect and mood ED course: 77-year-old female presents with right hip pain after fall. Physical examination is suspicious for right hip fracture. Vital signs upon arrival are within acceptable limits. Nursing notes and chart review was performed EKG interpreted by me: Ventricular rate 111, a flutter, QRS 90, QTC 382. no QTC prolongation, no ST or T-wave changes noted. Overall, this EKG is unremarkable Was pt. sent in by a medical professional or institution (, PA, MACHINIST HELPER MARINE, urgent care, hospital, or halfway...) When possible be specific @ -No Did you speak to anyone other than the patient for history (EMS, parent, family, police, friend...)? What history was obtained from this source @ -EMS Did you review nursing and triage notes (agree or disagree)? Why? @ -I reviewed and agree with nursing and triage notes Were old charts reviewed (outside hosp., previous admission, EMS record, old EKG, old radiological studies, urgent care reports/EKG's, halfway records)? Report findings @ -No old charts were reviewed Differential Diagnosis (chest pain, altered mental status, abdominal pain women, abdominal pain men, vaginal bleeding, musculoskeletal, weakness, fever, dyspnea, syncope, headache, dizziness, GI bleed, back pain, seizure, CVA, palpatations, mental health)? @ -Differential Musculoskeletal: Muscular strain, contusion, ligament sprain, fracture, arthritis, septic arthritis, bursitis, cellulitis, muscle spasm, nerve compression, DVT, arterial occlusion, herpes zoster, electrolyte abnormality, tumor.... This is not meant to be in all inclusive list EKG interpreted by me (3pts min.). @ -See above X-rays interpreted by me (1pt min.). @ -Chest x-ray nonacute. Pelvis x-ray and hip x-ray shows acute right femoral neck fracture CT interpreted by me (1pt min.). @ -CT brain and C-spine shows no acute traumatic injuries U/S interpreted by me (1pt. min.). @ -None done What testing was considered but not performed or refused? (CT, X-rays, U/S, labs)? Why? @ -See above What meds were considered but not given or refused? Why? @ -See above Did you discuss the management of the patient with other professionals (professionals i.e. Dr., PA, MACHINIST HELPER MARINE, lab, RT, psych nurse, psychotherapist social worker, hedis coordinator, teacher, protective officer, case packer and sealer)? Give summary @ -Case discussed with orthopedic surgery Dr. gardner for admission. Was smoking cessation discussed for >3mins.? @ -No Was critical care preformed (if so, how long)? @ -No Were there social determinants of health that impacted care today? How? (Homelessness, low income, unemployed, alcoholism, drug addiction, transportation, low edu. Level, literacy, decrease access to med. care, halfway, rehab)? @ -No Was there de-escalation of care discussed even if they declined (Discuss DNR or withdrawal of care, Hospice)? DNR status @ -No What co-morbidities impacted this encounter? (DM, HTN, Smoking, COPD, CAD, Cancer, CVA, ARF, Chemo, Hep., AIDS, mental health diagnosis, sleep apnea, morbid obesity)? @ -Debility Was patient admitted / discharged? Hospital course, mention meds given and route, prescriptions, significant lab abnormalities, going to OR and other pertinent info. @ -77-year-old male presents emergency department after mechanical fall. She is history of debility. She has a fracture to her right hip. No other traumati c injuries noted. Patient be admitted to orthopedic surgery Undiagnosed new problem with uncertain prognosis? @ -No Drug Therapy requiring intensive monitoring for toxicity (Heparin, Nitro, Insulin, Cardizem)? @ -No Were any procedures done? @ -No Diagnosis/symptom? Acute, or Chronic, or Acute on Chronic? Uncomplicated (without systemic symptoms) or Complicated (systemic symptoms)? @ -1. Acute right hip fracture Side effects of treatment? @ -No Exacerbation, Progression, or Severe Exacerbation? @ -No Poses a threat to life or bodily function? How? (Chest pain, [place], [place], pneumonia, PE, COPD, DKA, ARF, appy, cholecystitis, CVA, Diverticulitis, Homicidal, Suicidal, threat to staff... and all critical care pts) @ -yes - Related Data Home Medications Medication Instructions Recorded Confirmed Irbesartan [Avapro] 150 mg PO DAILY 01/24/22 02/08/22 Levothyroxine Sodium [Synthroid] 75 mcg PO DAILY 01/24/22 02/08/22 Metoprolol Succinate (ER) [Toprol 100 mg PO DAILY 01/24/22 02/08/22 XL] Rivaroxaban [Xarelto] 20 mg PO DAILY 01/24/22 02/08/22 Venlafaxine HCl [Effexor XR] 225 mg PO DAILY 01/24/22 02/08/22 busPIRone HCL [Buspar] 7.5 mg PO BID 01/24/22 02/08/22 traMADol HCL 50 mg PO BID 01/24/22 02/08/22 Calcium Carbonate [Calcium] 500 mg PO DAILY 02/08/22 02/08/22 Ferrous Sulfate [Feosol] 325 mg PO BID 02/08/22 02/08/22 Ibandronate Sodium [Boniva] 150 mg PO QMONTHLY 02/08/22 02/08/22 Multivit-Min/FA/Lycopen/Lutein 1 each PO DAILY 02/08/22 02/08/22 [Centrum Silver Tablet] Pantoprazole [Protonix] 40 mg PO DAILY 02/08/22 02/08/22 Vitamin B Complex 1 each PO DAILY 02/08/22 02/08/22 Allergies Allergy/AdvReac Type Severity Reaction Status Date / Time Sulfa (Sulfonamide Allergy Unknown Verified 09/28/22 05:39 Antibiotics) Childhood Review of Systems ROS Statement: Those systems with pertinent positive or pertinent negative responses have been documented in the HPI. ROS Other: All systems not noted in ROS Statement are negative. Past Medical History Past Medical History: Atrial Fibrillation, Hypertension, Osteoarthritis (OA), Sleep Apnea/CPAP/BIPAP, Thyroid Disorder Additional Past Medical History / Comment(s): ETOH abuse, back pain, states positive blood in stool-hospitalized 01/24 to 01/26/22 History of Any Multi-Drug Resistant Organisms: None Reported Past Surgical History: Bariatric Surgery, Cholecystectomy, Hernia Repair, Hysterectomy, Joint Replacement Additional Past Surgical History / Comment(s): bariatric -STOMACH STAPLING (DR ARORA 1999)., HERNIA WITH MESH & REACTION TO MESH WITH REMOVAL., TOTAL LEFT KNEE Past Anesthesia/Blood Transfusion Reactions: No Reported Reaction Past Psychological History: Anxiety, Depression Smoking Status: Former smoker Past Alcohol Use History: Abuse Past Drug Use History: None Reported - Past Family History Mother Additional Family Medical History / Comment(s): kidney cancer. Father Family Medical History: Cancer Additional Family Medical History / Comment(s): PROSTATE CANCER Sister(s) Family Medical History: Cancer Additional Family Medical History / Comment(s): ESOPHAGEAL AND THYROID CANCER General Exam Limitations: physical limitation Course Vital Signs 09/28/22 05:35 Temperature 97.7 F Pulse Rate 112 H Respiratory 16 Rate Blood Pressure 133/90 O2 Sat by Pulse 100 Oximetry Medical Decision Making - Lab Data Result diagrams: 09/28/22 05:43 Lab Results 09/28/22 Range/Units 05:43 WBC 5.2 (3.8-10.6) k/uL RBC 3.53 L (3.80-5.40) m/uL Hgb 12.5 (11.4-16.0) gm/dL Hct 37.6 (34.0-46.0) % MCV 106.7 H (80.0-100.0) fL MCH 35.4 H (25.0-35.0) pg MCHC 33.2 (31.0-37.0) g/dL RDW 13.0 (11.5-15.5) % Plt Count 326 (150-450) k/uL MPV 7.2 Neutrophils % 58 % Lymphocytes % 31 % Monocytes % 5 % Eosinophils % 2 % Basophils % 1 % Neutrophils # 3.1 (1.3-7.7) k/uL Lymphocytes # 1.6 (1.0-4.8) k/uL Monocytes # 0.3 (0-1.0) k/uL Eosinophils # 0.1 (0-0.7) k/uL Basophils # 0.0 (0-0.2) k/uL Macrocytosis Moderate Disposition Clinical Impression: Hip fracture Disposition: ADMITTED IP TO THIS HOSP Condition: Serious Referrals: Benjamin Ashton MD [Primary Care Provider] - 1-2 days Decision Time: 06:26
[2022-09-28] MEDS ORDERED: MORPHINE SULFATE 4 MG/ML SYRINGE IV STA (06:12)
--- NOTE | 2022-09-28 06:12 | XR ---
EXAMINATION TYPE: XR chest 1V portable DATE OF EXAM: 09/28/2022 COMPARISON: Chest x-ray January 24, 2022 HISTORY: Fall injury with pain TECHNIQUE: Single frontal supine view of the chest is obtained. FINDINGS: There is no suspicious narrowing focal air space opacity, pleural effusion, or pneumothora x seen. The cardiac silhouette size remains within normal limits. Surgical clips epigastric region are redemonstrated. Old left-sided rib fractures are again seen . IMPRESSION: No acute process.
[2022-09-28 06:14] LABS: Basophils % (A) 1 %; Eosinophils # (A) 0.1 k/uL (0-0.7); Eosinophils % (A) 2 %; HCT 37.6 % (34.0-46.0); HGB 12.5 gm/dL (11.4-16.0); Lymphocytes # (A) 1.6 k/uL (1.0-4.8); Lymphocytes % (A) 31 %; MCH 35.4 pg (25.0-35.0); MCHC 33.2 g/dL (31.0-37.0); MCV 106.7 fL (80.0-100.0); Macrocytosis Moderate; Mean Platelet Volume 7.2; Monocytes # (A) 0.3 k/uL (0-1.0); Monocytes % (A) 5 %; Neutrophils # (A) 3.1 k/uL (1.3-7.7); Neutrophils % (A) 58 %; Platelet Count 326 k/uL (150-450); RBC 3.53 m/uL (3.80-5.40); WBC 5.2 k/uL (3.8-10.6)
--- NOTE | 2022-09-28 06:14 | XR ---
EXAMINATION TYPE: XR Hip RT and AP Pelvis DATE OF EXAM: 09/28/2022 COMPARISON: NONE HISTORY: Fall injury with pain TECHNIQUE: A single AP view of the pelvis is obtained. Two views of the right hip are obtained. FINDINGS: There is acute basicervical femoral neck displaced comminuted impacted fracture of the righ t proximal femur. No hip joint dislocation. Vted-ak-fernilfe axial joint space loss in both hips no additional acute displaced fracture in the pelvis. Pubic symphysis is intact. Linear external densiti es overlie the bilateral superior pelvic rami. Sacroiliac joints are preserved. IMPRESSION: There is acute comminuted displaced impacted fracture basicervical level femoral neck of the right proximal femur.
--- NOTE | 2022-09-28 06:21 | CT ---
EXAMINATION TYPE: CT brain varinder figueroa DATE OF EXAM: 09/28/2022 COMPARISON: NONE HISTORY: fall injury with headache and neck pain CT DLP: 1515.9 mGycm. Automated Exposure Control for Dose Reduction was Utilized. TECHNIQUE: CT scan of the head and cervical spine are performed without contrast. FINDINGS: There is no acute intracranial hemorrhage or midline shift identified. There is mild to m oderate ventricular and sulcal prominence. There is mild low attenuation in the periventricular whit e matter. The calvarium is intact. The visualized sinuses are clear. Bilateral aphakia is present Cervical spine is visualized in its entirety from C1 through upper thoracic levels and demonstrates d extroconvex scoliosis centered in the thoracic spine with exaggerated cervical curvature with moderat e height loss and sclerosis consistent with subacute or chronic fracture at T3 level. No posterior re tropulsion. No linear lucency to suggest acute fracture. Vertebral body heights are maintained. Mild to moderate disc space narrowing C3-C4 and C5-C6 levels.. Prevertebral soft tissue appears within no rmal limits. The C1-C2 articulation is within normal limits on the coronal images. Posterior spur d isc complex effaces the anterior thecal sac at C5-C6 level. Axial images show multilevel uncovertebra l facet degenerative changes. Lung apices show no pneumothorax. 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 IMPRESSION: 1. There is no acute fracture or dislocation evident in the cervical spine. 2. No acute intracranial hemorrhage or midline shift is seen.
[2022-09-28] MEDS ORDERED: MORPHINE SULFATE 4 MG/ML SYRINGE IV PRN (06:23)
[2022-09-28] MEDS ORDERED: ACETAMINOPHEN TAB 325 MG TAB PO PRN (06:23)
[2022-09-28] MEDS ORDERED: ONDANSETRON 4 MG/2 ML VIAL IVP PRN (06:23)
[2022-09-28] MEDS ORDERED: NALOXONE 0.4 MG/ML 1 ML VIAL IV PRN (06:23)
[2022-09-28] MEDS: SODIUM CHLORIDE 0.9% 1,000 ML IV SCH ×3 (06:32→20:22)
[2022-09-28 06:33] LABS: Potassium 4.2 mmol/L (3.5-5.1)
[2022-09-28 06:41] LABS: INR 1.4 (<1.2); Partial Thromboplastin Time 31.8 sec (22.0-30.0); Prothrombin Time 14.5 sec (9.0-12.0)
[2022-09-28] MEDS ORDERED: CYCLOBENZAPRINE 10 MG TAB PO PRN (09:35)
--- NOTE | 2022-09-28 09:35 | P.HPOR ---
History of Present Illness H&P Date: 09/28/22 Chief Complaint: Right hip pain Patient is a 77-year-old female who presents to the emergency department at [facility] status post fall at home. Patient does have a past medical history of atrial fibrillation, osteoarthritis, hypertension, COPD. Patient was seen at bedside this morning in the emergency department lying in semirecumbent position with the right leg shortened and externally rotated. Patient says she woke this morning around 5 AM to get up and use the restroom and when she gets to the restroom she went to sit down on a chair when she slipped and fell landing on her right side. Patient denies hitting her head/losing consciousness. Patient states since the fall she has had right hip pain. Patient denies any other locations of pain. Patient says she was unable to get up under her own power after she fell. Patient complains of pain to the right hip. Patient denies numbness/tingling down the right leg. Patient rates the pain as 10/10 currently. Patient feels that the morphine has not touched her pain. Patient says she does take Xarelto for a blood thinner and her last dose of medication was yesterday. Patient does take this due to atrial fibrillation. Patient does have previous medical history of left total knee replacement pe rformed by Dr. Hinojosa patient believes in 2018.. Patient denies any other orthopedic surgical history. Patient says normally she does ambulate independently at home. Patient says she does live at home with her . Patient says she has had some breathing issues over the past few years. Patient denies chest pain, fever, increasing shortness of breath, nausea, vomiting, change in vision, loss of bowel/bladder control. Past Medical History Past Medical History: Atrial Fibrillation, Hypertension, Osteoarthritis (OA), Sleep Apnea/CPAP/BIPAP, Thyroid Disorder Additional Past Medical History / Comment(s): ETOH abuse, back pain, states positive blood in stool-hospitalized 01/24 to 01/26/22 History of Any Multi-Drug Resistant Organisms: None Reported Past Surgical History: Bariatric Surgery, Cholecystectomy, Hernia Repair, Hysterectomy, Joint Replacement Additional Past Surgical History / Comment(s): bariatric -STOMACH STAPLING (DR ARORA 1999)., HERNIA WITH MESH & REACTION TO MESH WITH REMOVAL., TOTAL LEFT KNEE Past Anesthesia/Blood Transfusion Reactions: No Reported Reaction Past Psychological History: Anxiety, Depression Smoking Status: Former smoker Past Alcohol Use History: Abuse Past Drug Use History: None Reported - Past Family History Mother Additional Family Medical History / Comment(s): kidney cancer. Father Family Medical History: Cancer Additional Family Medical History / Comment(s): PROSTATE CANCER Sister(s) Family Medical History: Cancer Additional Family Medical History / Comment(s): ESOPHAGEAL AND THYROID CANCER Medications and Allergies Home Medications Medication Instructions Recorded Confirmed Type Irbesartan [Avapro] 150 mg PO DAILY 01/24/22 09/28/22 History Levothyroxine Sodium [Synthroid] 75 mcg PO DAILY 01/24/22 09/28/22 History Metoprolol Succinate (ER) [Toprol 100 mg PO BID 01/24/22 09/28/22 History XL] Rivaroxaban [Xarelto] 20 mg PO HS 01/24/22 09/28/22 History Venlafaxine HCl [Effexor XR] 225 mg PO DAILY 01/24/22 09/28/22 History busPIRone HCL [Buspar] 7.5 mg PO BID 01/24/22 09/28/22 History traMADol HCL 50 mg PO TID PRN 01/24/22 09/28/22 History Pantoprazole [Protonix] 40 mg PO DAILY 02/08/22 09/28/22 History Amiodarone [Cordarone] 200 mg PO BID 09/28/22 09/28/22 History Furosemide [Lasix] 40 mg PO TUFR 09/28/22 09/28/22 History Allergies Allergy/AdvReac Type Severity Reaction Status Date / Time Sulfa (Sulfonamide Allergy Unknown Verified 09/28/22 07:26 Antibiotics) Childhood Physical Examination Inspection: Right leg is shortened and externally rotated. There is minimal bruising along the lateral aspect of the right hip. Negative for any open fractures, significant ecchymosis/erythema/ulcers. Sensation: Sensation is equal, symmetric, bilaterally intact throughout the upper and lower extremities. Palpation: Significant tenderness of sensation diffusely throughout the right hip. Nontender to palpation throughout rest exam Range of motion: Patient has full range of motion in bilateral upper extremities and left lower extremity on exam. Patient does have limited range of motion right lower extremity secondary to right hip fracture. Patient does have full range of motion right ankle in dorsi/plantar flexion. Motor: 5/5 in all major motor groups in bilateral upper extremities and left lower extremity on exam right lower extremity 4-/5 in resisted right ankle dorsi/plantar flexion. Right knee and right hip motor exam not performed due to injury. Neurovascular status: Radial pulses intact, 2+5. DVT pulses palpable bilaterally. Cap refill under 3 seconds in digits upper extremities. Special tests: Negative Homans bilaterally. Positive log roll maneuver on the right. Results - Labs Labs: Abnormal Lab Results - Last 24 Hours (Table) 09/28/22 09/28/22 09/28/22 Range/Units 05:43 05:43 05:43 RBC 3.53 L (3.80-5.40) m/uL MCV 106.7 H (80.0-100.0) fL MCH 35.4 H (25.0-35.0) pg PT 14.5 H (9.0-12.0) sec INR 1.4 H (<1.2) APTT 31.8 H (22.0-30.0) sec Sodium 133 L (137-145) mmol/L Carbon Dioxide 21 L (22-30) mmol/L Creatinine 1.14 H (0.52-1.04) mg/dL Glucose 105 H (74-99) mg/dL H & H 09/28/22 Range/Units 05:43 Hgb 12.5 (11.4-16.0) gm/dL Hct 37.6 (34.0-46.0) % Coagulation 09/28/22 Range/Units 05:43 INR 1.4 H (<1.2) Result Diagrams: 09/28/22 05:43 09/28/22 05:43 - Diagnostic results Hip x-ray: report reviewed, image reviewed (Right hip x-ray reveals right hip IT fracture) Assessment and Plan Assessment: 1. Right hip IT fracture 2. Multiple medical comorbidities Plan: 1. Right hip IT fracture - x-rays of the right hip does demonstrate right hip IT fracture. Patient stable at bedside this morning. Surgery has been scheduled for tomorrow, 09/29/2022 - right hip IM nail Patient to remain nothing by mouth beginning at midnight tonight. Nonweightbearing right lower extremity. Pain medication as needed. Patient does need medical and cardiac clearance. Patient does have a history of atrial fibrillation for which she takes Xarelto. We'll continue to follow patient during her stay in hospital 2. Appreciate medical management and cardiac management. Patient does need medical and cardiac clearance for surgery 3. Pain management - Morphine; tylenol; norco; flexeril 4. DVT prophylaxis - withhold thinners at this time 5. GI prophylaxis - senna 6. PT/OT - remain nonweightbearing right lower extremity 7. Encourage incentive spirometer use Time with Patient: Less than 30
[2022-09-28] MEDS: SENNOSIDES 8.6 MG TAB PO SCH ×2 (10:21→10:22)
[2022-09-28] MEDS: PANTOPRAZOLE 40 MG TABLET PO SCH (11:13)
[2022-09-28] MEDS: VENLAFAXINE HCL ER 75 MG CAP PO SCH (11:13)
[2022-09-28] MEDS: LEVOTHYROXINE 75 MCG TAB PO SCH (11:13)
[2022-09-28] MEDS: busPIRone HCl 5 MG TAB PO SCH ×2 (11:13→20:22)
[2022-09-28] MEDS: METOPROLOL SUCCINATE (ER) 100 MG TAB.ER.24H PO SCH ×2 (11:13→20:22)
[2022-09-28] MEDS: HYDROcodone/APAP 5-325MG 1 EACH TAB PO PRN ×3 (11:14→23:42)
[2022-09-28] MEDS: AMIODARONE 200 MG TAB PO SCH ×2 (11:16→20:22)
--- NOTE | 2022-09-28 12:47 | P.CRDCN ---
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 We consulted to see the patient for preoperative cardiac assessment before noncardiac surgery. The patient was in her usual state of health until this coin machine supervisor when she woke up from sleep to go to the bathroom and she tripped with a chair in the bathroom usually she uses it to get up. Apparently the patient fell on the ground and landed on the right side and she fractured her right femur. She was seen by the orthopedic surgery service. She was deemed to be benefits from hip surgery and we consulted to see the patient for further cardiac evaluation. The patient does not recall having any dizziness or lightheadedness or any heart racing or fluttering or any symptoms of chest pain or chest discomfort around episode. Before that episode she was quite active and she reported no pain in the chest or shortness of breath. She does have history of paroxysmal a chair fibrillation she has been maintaining normal sinus mechanism using amiodarone and she was receiving also oral anticoagulation. The patient was seen and evaluated this morning. She is not in any pain or any distress and she is not in any overt congestive heart failure. She is a slightly tachycardic with a resting heart rate around 110 which is likely related to the pain she is experiencing and currently she is on pain medication. Oral anticoagulation is on hold for potential surgery. Currently she is on metoprolol and amiodarone which was resumed. The examination is remarkable for tachycardia with systolic murmur at the right upper sternal border and left upper sternal border with clear breathing sounds bilaterally and no lower extremity edema noted. Assessment Status post fall with right hip fracture Paroxysmal atrial fibrillation on anticoagulation as well as an amiodarone and beta lorri Multiple comorbid conditions including hypertension and thyroid disease Plan Continue the current medical regimen Continue amiodarone and metoprolol The patient can proceed with the surgery Restart the patient back on oral anticoagulation as soon as possible and safe after the surgery Past Medical History Past Medical History: Atrial Fibrillation, Hypertension, Osteoarthritis (OA), Sleep Apnea/CPAP/BIPAP, Thyroid Disorder Additional Past Medical History / Comment(s): ETOH abuse, back pain, states positive blood in stool-hospitalized 01/24 to 01/26/22 History of Any Multi-Drug Resistant Organisms: None Reported Past Surgical History: Bariatric Surgery, Cholecystectomy, Hernia Repair, Hysterectomy, Joint Replacement Additional Past Surgical History / Comment(s): bariatric -STOMACH STAPLING (DR ARORA 1999)., HERNIA WITH MESH & REACTION TO MESH WITH REMOVAL., TOTAL LEFT KNEE Past Anesthesia/Blood Transfusion Reactions: No Reported Reaction Past Psychological History: Anxiety, Depression Smoking Status: Former smoker Past Alcohol Use History: Abuse Past Drug Use History: None Reported - Past Family History Mother Additional Family Medical History / Comment(s): kidney cancer. Father Family Medical History: Cancer Additional Family Medical History / Comment(s): PROSTATE CANCER Sister(s) Family Medical History: Cancer Additional Family Medical History / Comment(s): ESOPHAGEAL AND THYROID CANCER Medications and Allergies Home Medications Medication Instructions Recorded Confirmed Type Irbesartan [Avapro] 150 mg PO DAILY 01/24/22 09/28/22 History Levothyroxine Sodium [Synthroid] 75 mcg PO DAILY 01/24/22 09/28/22 History Metoprolol Succinate (ER) [Toprol 100 mg PO BID 01/24/22 09/28/22 History XL] Rivaroxaban [Xarelto] 20 mg PO HS 01/24/22 09/28/22 History Venlafaxine HCl [Effexor XR] 225 mg PO DAILY 01/24/22 09/28/22 History busPIRone HCL [Buspar] 7.5 mg PO BID 01/24/22 09/28/22 History traMADol HCL 50 mg PO TID PRN 01/24/22 09/28/22 History Pantoprazole [Protonix] 40 mg PO DAILY 02/08/22 09/28/22 History Amiodarone [Cordarone] 200 mg PO BID 09/28/22 09/28/22 History Furosemide [Lasix] 40 mg PO TUFR 09/28/22 09/28/22 History Allergies Allergy/AdvReac Type Severity Reaction Status Date / Time Sulfa (Sulfonamide Allergy Unknown Verified 09/28/22 07:26 Antibiotics) Childhood Physical Exam Vitals: Vital Signs Temp Pulse Pulse Resp BP BP Pulse Ox 09/28/22 12:01 97.8 F 116 H 18 136/91 97 09/28/22 08:49 97.7 F 113 H 18 134/90 97 09/28/22 07:25 113 H 18 134/90 97 09/28/22 05:35 97.7 F 112 H 16 133/90 100 Intake and Output 09/27/22 09/28/22 09/28/22 22:59 06:59 14:59 Other: Weight 81.193 kg 81.193 kg Results 09/28/22 05:43 09/28/22 05:43 Coagulation 09/28/22 Range/Units 05:43 PT 14.5 H (9.0-12.0) sec APTT 31.8 H (22.0-30.0) sec CBC 09/28/22 Range/Units 05:43 WBC 5.2 (3.8-10.6) k/uL RBC 3.53 L (3.80-5.40) m/uL Hgb 12.5 (11.4-16.0) gm/dL Hct 37.6 (34.0-46.0) % Plt Count 326 (150-450) k/uL Comprehensive Metabolic Panel 09/28/22 Range/Units 05:43 Sodium 133 L (137-145) mmol/L Potassium 4.2 (3.5-5.1) mmol/L Chloride 100 (98-107) mmol/L Carbon Dioxide 21 L (22-30) mmol/L BUN 12 (7-17) mg/dL Creatinine 1.14 H (0.52-1.04) mg/dL Glucose 105 H (74-99) mg/dL Calcium 9.0 (8.4-10.2) mg/dL Current Medications Generic Name Dose Route Start Last Admin Trade Name Freq PRN Reason Stop Dose Admin Acetaminophen 650 mg 09/28/22 06:23 Acetaminophen Tab 325 Mg Tab PO Q6HR PRN Mild Pain or Fever > 100.5 Hydrocodone Bitart/Acetaminophen 1 each 09/28/22 09:36 09/28/22 11:14 Hydrocodone/Apap 5-325mg 1 Each Tab PO 1 each Q6HR PRN Administration Pain Amiodarone HCl 200 mg 09/28/22 10:45 09/28/22 11:16 Amiodarone 200 Mg Tab PO 200 mg BID CONNER Administration Buspirone HCl 7.5 mg 09/28/22 10:45 09/28/22 11:13 Buspirone Hcl 5 Mg Tab PO 7.5 mg BID CONNER Administration Cyclobenzaprine HCl 10 mg 09/28/22 09:35 Cyclobenzaprine 10 Mg Tab PO BID PRN Muscle Spasm Sodium Chloride 1,000 mls @ 130 mls/hr 09/28/22 06:30 09/28/22 06:32 Saline 0.9% IV 130 mls/hr .[id number] CONNER Administration Levothyroxine Sodium 75 mcg 09/28/22 10:45 09/28/22 11:13 Levothyroxine 75 Mcg Tab PO 75 mcg DAILY@0630 CONNER Administration Metoprolol Succinate 100 mg 09/28/22 10:45 09/28/22 11:13 Metoprolol Succinate (Er) 100 Mg Tab.Er.24h PO 100 mg BID CONNER Administration Morphine Sulfate 4 mg 09/28/22 06:23 09/28/22 07:40 Morphine Sulfate 4 Mg/Ml Syringe IV 4 mg Q4HR PRN Administration Severe Pain (Scale 7 to 10) Naloxone HCl 0.2 mg 09/28/22 06:23 Naloxone 0.4 Mg/Ml 1 Ml Vial IV Q2M PRN Opioid Reversal Ondansetron HCl 4 mg 09/28/22 06:23 Ondansetron 4 Mg/2 Ml Vial IVP Q8HR PRN Nausea And Vomiting Pantoprazole Sodium 40 mg 09/28/22 10:45 09/28/22 11:13 Pantoprazole 40 Mg Tablet PO 40 mg [id number] CONNER Administration Senna 8.6 mg 09/28/22 09:45 09/28/22 10:22 Sennosides 8.6 Mg Tab PO Not Given DAILY CONNER Venlafaxine HCl 225 mg 09/28/22 10:45 09/28/22 11:13 Venlafaxine Hcl Er 75 Mg Cap PO 225 mg DAILY CONNER Administration Intake and Output 09/27/22 09/28/22 09/28/22 22:59 06:59 14:59 Other: Weight 81.193 kg 81.193 kg Patient Weight 09/29/22 06:59 Weight 81.193 kg 09/28/22 05:43 09/28/22 05:43
--- NOTE | 2022-09-28 15:10 | P.CONS ---
History of Present Illness - Reason for Consult Consult date: 09/28/22 - History of Present Illness Patient is a 77-year-old female with history of paroxysmal atrial fibrillation on anticoagulation, hypertension, hypothyroidism presenting after mechanical fall. She claims that she woke up at 4 AM, and went to the bathroom, tripped and fell while it was dark. She denies any chest pain, shortness of breath, abdominal pain, palpitations, lightheadedness, urinary or bowel complaints. [facility] physicians has been consulted for medical management and preoperative evaluation. In the ED, she was tachycardic up to 113, normotensive, respiratory rate 16, afebrile, saturating at 100% on room air. Right hip x-ray showed acute comminuted displaced impacted right proximal femoral fracture. Head and cervical spine CT showed no acute fractures. Chest x-ray showed no acute proc ess. EKG shows sinus tachycardia. Patient seen and examined at bedside. Pertinent positives and negatives as discussed in HPI, a complete review of systems was performed and all other systems are negative. Vital signs reviewed General: nontoxic, no distress, appears at stated age Derm: warm, dry Head: atraumatic, normocephalic, symmetric Eyes: EOMI, no lid lag, anicteric sclera, pupils equal round reactive to light ENT: Nose and ears atraumatic Neck: No thyromegaly, supple Mouth: no lip lesion, mucus membranes moist Cardiovascular: S1S2 reg, no murmur, no edema Lungs: clear to auscultation bilateral, no rhonchi, no rales, no wheeze, no accessory muscle use Abdominal: soft, nontender to palpation, no guarding, no appreciable organomegaly Ext: no gross muscle atrophy, unable to move right lower extremity due to pain, externally rotated Neuro: CN II-XII grossly intact Psych: Alert, oriented, appropriate affect Data reviewed today: Sodium 133, bicarbonate 21, creatinine 1.1. Chest x-ray independently interpreted, no opacities Assessment/Plan: Preoperative evaluation Traumatic right femoral fracture Paroxysmal atrial fibrillation Sinus tachycardia Mild acute kidney injury Mild hyponatremia, likely hypovolemic Hypertension Hypothyroidism Depression -Per NSQIP risk calculator, she has below average risk of serious complications of 5.6%, any complications at 7.4%, increased risk for discharge to [place] [facility] or rehab facility at 50.5%, however this is still lower than average risk compared to population in her age. -Cardiology note reviewed: Continue current management, restart anticoagulation when deemed safe by orthopedic surgery -Holding ARB in anticipation of surgery tomorrow -Continue amiodarone, metoprolol -EKG as independently interpreted, shows sinus tachycardia, likely in the setting of pain and dehydration -Continue telemetry -Currently on normal saline at 130 mL an hour -Repeat BMP tomorrow to monitor renal function -Rest of the medications reviewed and reconciled -Patient is medically optimized for surgical intervention tomorrow -Currently on IV morphine, oral [place], and oral Tylenol for pain Thank you for allowing us to participate in the care of this pleasant patient. Do not hesitate to contact us with questions. Someone can be reached from the [facility] hospitalist group all hours of the day at [phone] or via [employer]. Past Medical History Past Medical History: Atrial Fibrillation, Hypertension, Osteoarthritis (OA), Sleep Apnea/CPAP/BIPAP, Thyroid Disorder Additional Past Medical History / Comment(s): ETOH abuse, back pain, states positive blood in stool-hospitalized 01/24 to 01/26/22 History of Any Multi-Drug Resistant Organisms: None Reported Past Surgical History: Bariatric Surgery, Cholecystectomy, Hernia Repair, Hyster ectomy, Joint Replacement Additional Past Surgical History / Comment(s): bariatric -STOMACH STAPLING (DR ARORA 1999)., HERNIA WITH MESH & REACTION TO MESH WITH REMOVAL., TOTAL LEFT KNEE Past Anesthesia/Blood Transfusion Reactions: No Reported Reaction Past Psychological History: Anxiety, Depression Smoking Status: Former smoker Past Alcohol Use History: Abuse Past Drug Use History: None Reported - Past Family History Mother Additional Family Medical History / Comment(s): kidney cancer. Father Family Medical History: Cancer Additional Family Medical History / Comment(s): PROSTATE CANCER Sister(s) Family Medical History: Cancer Additional Family Medical History / Comment(s): ESOPHAGEAL AND THYROID CANCER Medications and Allergies Home Medications Medication Instructions Recorded Confirmed Type Irbesartan [Avapro] 150 mg PO DAILY 01/24/22 09/28/22 History Levothyroxine Sodium [Synthroid] 75 mcg PO DAILY 01/24/22 09/28/22 History Metoprolol Succinate (ER) [Toprol 100 mg PO BID 01/24/22 09/28/22 History XL] Rivaroxaban [Xarelto] 20 mg PO HS 01/24/22 09/28/22 History Venlafaxine HCl [Effexor XR] 225 mg PO DAILY 01/24/22 09/28/22 History busPIRone HCL [Buspar] 7.5 mg PO BID 01/24/22 09/28/22 History traMADol HCL 50 mg PO TID PRN 01/24/22 09/28/22 History Pantoprazole [Protonix] 40 mg PO DAILY 02/08/22 09/28/22 History Amiodarone [Cordarone] 200 mg PO BID 09/28/22 09/28/22 History Furosemide [Lasix] 40 mg PO TUFR 09/28/22 09/28/22 History Allergies Allergy/AdvReac Type Severity Reaction Status Date / Time Sulfa (Sulfonamide Allergy Unknown Verified 09/28/22 07:26 Antibiotics) Childhood Physical Exam Vitals: Vital Signs Temp Pulse Pulse Resp BP BP Pulse Ox 09/28/22 12:01 97.8 F 116 H 18 136/91 97 09/28/22 08:49 97.7 F 113 H 18 134/90 97 09/28/22 07:25 113 H 18 134/90 97 09/28/22 05:35 97.7 F 112 H 16 133/90 100 Intake and Output 09/27/22 09/28/22 09/28/22 22:59 06:59 14:59 Other: Weight 81.193 kg 81.193 kg Results CBC & Chem 7: 09/28/22 05:43 09/28/22 05:43 Labs: Abnormal Lab Results - Last 24 Hours (Table) 09/28/22 09/28/22 09/28/22 Range/Units 05:43 05:43 05:43 RBC 3.53 L (3.80-5.40) m/uL MCV 106.7 H (80.0-100.0) fL MCH 35.4 H (25.0-35.0) pg PT 14.5 H (9.0-12.0) sec INR 1.4 H (<1.2) APTT 31.8 H (22.0-30.0) sec Sodium 133 L (137-145) mmol/L Carbon Dioxide 21 L (22-30) mmol/L Creatinine 1.14 H (0.52-1.04) mg/dL Glucose 105 H (74-99) mg/dL
[2022-09-29] MEDS: LEVOTHYROXINE 75 MCG TAB PO SCH (06:05)
[2022-09-29] MEDS: SODIUM CHLORIDE 0.9% 1,000 ML IV SCH ×2 (06:05→17:53)
[2022-09-29] MEDS: PANTOPRAZOLE 40 MG TABLET PO SCH (07:32)
[2022-09-29] MEDS ORDERED: TRANEXAMIC ACID 1,000 MG in SODIUM CHLORIDE 0.9% 100 ML IVPB PRN (08:46)
[2022-09-29] MEDS: METOPROLOL SUCCINATE (ER) 100 MG TAB.ER.24H PO SCH ×3 (09:11→21:24)
[2022-09-29 09:45] LABS: African American GFR (CKD) 63.8 (60.0-200.0); Anion Gap 5.9 mmol/L (10.00-18.00); BUN/Creat Ratio 12.9 Ratio (12.00-20.00); Blood Urea Nitrogen 12.9 mg/dL (9.0-27.0); Calcium 8.3 mg/dL (8.7-10.3); Carbon Dioxide 26.1 mmol/L (20.0-27.5); Non-African American GFR(CKD) 55.1 (60.0-200.0); Potassium 5.4 mmol/L (3.5-5.5)
[2022-09-29 09:48] LABS: HCT 32.9 % (37.2-46.3); HGB 10.5 g/dL (12.0-15.0); MCH 34.9 pg (27.0-32.0); MCHC 31.9 g/dL (32.0-37.0); MCV 109.3 fL (80.0-97.0); Mean Platelet Volume 9.6 fL (9.5-12.2); NRBC Per 100 WBC 0 /100 WBCS (0.0-0.0); Platelet Count 271 X 10*3/uL (140-440); RBC 3.01 X 10*6/uL (4.10-5.20); RDW 13.6 % (11.5-14.5); WBC 7.25 X 10*3/uL (4.50-10.00)
[2022-09-29] MEDS ORDERED: DEXAMETHASONE SOD PHOS (MDV) 100 MG/10 ML VIAL ONE (09:52)
[2022-09-29] MEDS ORDERED: LACTATED RINGERS 1,000 ML IV ONE (09:52)
[2022-09-29] MEDS ORDERED: ONDANSETRON 4 MG/2 ML VIAL ONE (09:52)
[2022-09-29] MEDS ORDERED: SUCCINYLCHOLINE CHLORIDE 200 MG/10 ML VIAL IV ONE (09:52)
[2022-09-29] MEDS ORDERED: GLYCOPYRROLATE 0.2 MG/ML 2 ML VIAL ONE (09:52)
[2022-09-29] MEDS ORDERED: LIDOCAINE 2% INJ 20 MG/ML (2 ML VIAL) ONE (09:52)
[2022-09-29] MEDS ORDERED: ROCURONIUM 10 MG/ML (5 ML VIAL) IV ONE (09:52)
[2022-09-29] MEDS ORDERED: NEOSTIGMINE 1 MG/ML 10 ML VIAL ONE (09:52)
[2022-09-29] MEDS ORDERED: HYDROmorphone (PF) 1 MG/ML ONE (09:52)
[2022-09-29] MEDS ORDERED: TRANEXAMIC ACID IN NACL,ISO-OS 1,000 MG/100 ML BAG ONE (09:52)
[2022-09-29] MEDS ORDERED: fentaNYL (PF) 50 MCG/ML 2 ML AMP ONE (09:52)
[2022-09-29] MEDS ORDERED: PROPOFOL 10 MG/ML 20 ML VIAL IV ONE (09:52)
[2022-09-29] MEDS ORDERED: SODIUM CHLORIDE 0.9% 100 ML with ceFAZolin 2,000 MG IV ONE ×2 (10:10)
[2022-09-29] MEDS ORDERED: ceFAZolin 1,000 MG in SODIUM CHLORIDE 0.9% 1,000 ML IRRIGATION ONE (10:23)
[2022-09-29 10:48] LABS: Basophils # (A) 0.05 X 10*3/uL (0.00-0.10); Basophils % (A) 0.7 %; Eosinophils # (A) 0.05 X 10*3/uL (0.04-0.35); Eosinophils % (A) 0.7 %; Immature Grans, Automated 0.6 %; Lymphocytes # (A) 0.79 X 10*3/uL (0.90-5.00); Lymphocytes % (A) 10.9 %; Monocytes # (A) 0.89 X 10*3/uL (0.20-1.00); Monocytes % (A) 12.3 %; Neutrophils # (A) 5.43 X 10*3/uL (1.80-7.70); Neutrophils % (A) 74.8 %
[2022-09-29] MEDS ORDERED: NALOXONE 0.4 MG/ML 1 ML VIAL IV PRN (11:03)
[2022-09-29] MEDS ORDERED: HYDROmorphone 0.5 MG/0.5 ML SYRINGE IVP PRN ×3 (11:03)
--- NOTE | 2022-09-29 11:03 | P.OP ---
Date of Procedure: 09/29/22 Preoperative Diagnosis: Comminuted displaced right hip intertrochanteric fracture Postoperative Diagnosis: Comminuted displaced right hip intertrochanteric fracture Procedure(s) Performed: Trochanteric nailing right hip intertrochanteric fracture Implants: Arthrex trochanteric nail 11 x 130 with a 90 mm lag screw and a 32 mm 5.0 distal locking screw Anesthesia: MARIELENAA Surgeon: Aguilar Quiroz Lap Hand Tool #1: Juan Elizalde Estimated Blood Loss (ml): 25 Pathology: none sent Condition: stable Disposition: PACU Indications for Procedure: 77-year-old patient who was seen with a comminuted displaced right hip intertrochanteric fracture. I discussed trochanteric nailing. Patient was agreeable. Consent was obtained. Preoperative medical clearance was obtained. Operative Findings: See description of procedure Description of Procedure: Patient was taken to the operative suite. The patient underwent a general anesthetic by the department of anesthesia. The patient did receive preoperative IV antibiotics. The patient was transferred over to the [place] fracture table. The right lower extremity placed in standard longitudinal traction with adduction and internal rotation. The left lower extremity was placed in well-padded well-leg weber. The C-arm was brought into the field revealing adequate reduction of the fracture. The C-arm was pulled back. The right hip was prepped and draped in the normal sterile orthopedic fashion. The C-arm was brought in. We again noted adequate reduction of the comminuted displaced fracture. I now made an incision measuring approximately 6 cm proximal to the greater trochanter sharply through skin. I dissected down to the iliotibial band. I made a longitudinal incision through the iliotibial band. I now introduced my guidewire into the tip of the trochanter driving it down the intramedullary canal. I confirmed under fluoroscopic guidance. We now used a soft tissue protector along with a opening reamer. I now chose a Arthrex 11 mm with 130 short trochanteric nail. The nail was placed over the guidewire and introduced in the proximal femoral canal and then tapped down to the appropriate position confirming this under direct fluoroscopic guidance. I now utilized the outrigger for lag screw guidewire positioning. The skin incision was made. The the guide was introduced on the lateral cortex of the femur. The guidewire was driven into the head neck complex. I confirmed adequate positioning of the guidewire under AP and lateral intraoperative imaging. We then reamed over our guidewire. We then chose a 90 mm lag screw. The last was introduced into head neck complex noted good fixation and purchase. At was now locked in position. The guide was removed. I now utilized our distal femoral locking screw guide. An incision was made through the skin and that guide was placed through the outrigger pushing into the wound making sure it came up along the lateral cortex of that distal locking screw. Under fluoroscopic guidance we drill a distal locking screw. We chose a 5 mm x 32 mm distal locking screw. It was introduced with good fixation and purchase noted. The outrigger was now removed. The entire construct was reviewed under AP and lateral operative imaging. I noted adequate reduction of fracture and good positioning of internal fixation. Spot films were obtained to document that. The C-arm was pulled back. All wounds were copiously irrigated with sterile solution. The IT band proximal was repaired with #1 Vicryl. The subcu soft tissues repaired in layers with 2-0 Vicryl. All skin incisions were proximal skin tracy. Sterile dressings were now applied. The patient was awakened, transferred to a bed and recovery in stable condition. Refugio PEREIRA assisted with all aspect of this procedure.
--- NOTE | 2022-09-29 11:07 | P.PN ---
Subjective Progress Note Date: 09/29/22 Patient is a 77-year-old female with paroxysmal atrial fibrillation on anticoagulation with Xarelto, hypertension, and hypothyroidism who presented to the hospital with hip pain after a mechanical fall. In the ER she underwent an extensive evaluation and was found to have a acute, unit displaced impacted right proximal femoral fracture. CT head and cervical spine showed no acute process. Chest x-ray showed no acute process. EKG showed sinus tachycardia. She was subsequently admitted and we were consulted for medical clearance. Patient seen and examined at bedside. Vital signs reviewed General: nontoxic, no distress, appears at stated age Cardiovascular: S1S2 reg, no murmur, positive posterior tibial pulse bilateral, Lungs: CTA bilateral, no rhonchi, no rales , no accessory muscle use Abdominal: soft, nontender to palpation, no guarding, no appreciable organomegaly Ext: no gross muscle atrophy, no edema, no contractures Neuro: CN II-XI grossly intact, no focal neuro deficits Psych: Alert, oriented, appropriate affect Assessment: Patient is a 77 yo feaml admitted for right femoral fracute due to fall Paroxysmal atrial fibrillation Sinus tachycardia Hypertension Hypothyroidism Depression Mild acute kidney injury, resovled Mild hyponatremia, likely hypovolemic, resolved Data Review: Laboratory reviewed and remarkable for hemoglobin of 10.5, likely secondary to acute blood loss from fracture as well as IV hydration, sodium 135 (increased from yesterday at 133, creatinine 1 (decreased from yesterday at 1.14) Plan: -Plan is for OR today. -Continue with metoprolol 100 mg twice daily and amiodarone 200 mg twice daily -Synthroid 75 g daily -Cardiology note reviewed and they recommend resumption of anticoagulation as soon as possible after surgery -Orthopedic note reviewed and surgery planned for 09/29 with right hip IM nailing -Patient will need repeat CBC and basic metabolic profile given the need for surgery today to ensure stability of her renal function and hemoglobin. DVT prophylaxis: Per orthopedic surgery Thank you for allowing us to participate in the care of this pleasant patient. Do not hesitate to contact us with questions. Someone can be reached from the [facility] hospitalist group all hours of the day at [phone] or via [email or web address]. This dictation was prepared using [employer] voice recognition software. Though every attempt is made to correct errors during during dictation some may still exist. Objective - Vital Signs Vital signs: Vital Signs Temp 98.3 F 09/29/22 07:35 Pulse 113 H 09/29/22 07:35 Resp 18 09/29/22 07:35 BP 128/81 09/29/22 07:35 Pulse Ox 92 L 09/29/22 07:35 FiO2 Intake & Output 09/28/22 09/29/22 09/29/22 18:59 06:59 18:59 Intake Total 260 601 Output Total 75 Balance 260 526 Weight 81.193 kg Intake: IV 601 Intake, IV Titration 260 Amount Sodium Chloride 0.9% 1, 260 000 ml @ 130 mls/hr IV . Q7H42M [facility] Rx#:[id number] Output: Urine 50 Estimated Blood Loss 25 Other: Voiding Method External Catheter External Catheter # Voids 1 - Labs CBC & Chem 7: 09/29/22 05:37 09/29/22 05:37 Labs: Abnormal Lab Results - Last 24 Hours (Table) 09/29/22 09/29/22 Range/Units 05:37 05:37 RBC 3.01 L (4.10-5.20) X 10*6/uL Hgb 10.5 L (12.0-15.0) g/dL Hct 32.9 L (37.2-46.3) % MCV 109.3 H (80.0-97.0) fL MCH 34.9 H (27.0-32.0) pg MCHC 31.9 L (32.0-37.0) g/dL Lymphocytes # 0.79 L (0.90-5.00) X 10*3/uL Anion Gap 5.90 L (10.00-18.00) mmol/L Est GFR (CKD-EPI)NonAf 55.1 L (60.0-200.0) Glucose 127 H (70-110) mg/dL Calcium 8.3 L (8.7-10.3) mg/dL
[2022-09-29] MEDS ORDERED: SODIUM CHLORIDE 0.9% 1,000 ML IV SCH (11:15)
--- NOTE | 2022-09-29 11:18 | XR ---
EXAMINATION TYPE: XR Hip Complete RT, [place] guidance operating room DATE OF EXAM: 09/29/2022 Comparison: None Clinical History: 77-year-old female RT IT NAIL Findings: Intraoperative fluoroscopy. Antegrade intramedullary nail with screw fixation across the patient's IT fracture right hip. FLUOROSCOPY Fluoroscopy time of 42 seconds was used during right hip by female. 2 image/s document/s the procedu re. DAP: 3.695 IMPRESSION: Intraoperative fluoroscopy as above.
[2022-09-29] MEDS: busPIRone HCl 5 MG TAB PO SCH ×2 (12:36→21:24)
[2022-09-29] MEDS: AMIODARONE 200 MG TAB PO SCH ×2 (12:36→21:24)
[2022-09-29] MEDS: VENLAFAXINE HCL ER 75 MG CAP PO SCH (12:37)
[2022-09-29] MEDS: SENNOSIDES 8.6 MG TAB PO SCH (12:57)
[2022-09-29] MEDS: MULTIVITAMINS, THERA 1 EACH TAB PO SCH (12:57)
[2022-09-29 15:10] LABS: Basophils % (A) 0 %; Eosinophils % (A) 0 %; HCT 33.2 % (34.0-46.0); HGB 10.7 gm/dL (11.4-16.0); Lymphocytes # (A) 0.3 k/uL (1.0-4.8); Lymphocytes % (A) 4 %; MCH 35.4 pg (25.0-35.0); MCHC 32.3 g/dL (31.0-37.0); MCV 109.7 fL (80.0-100.0); Macrocytosis Marked; Mean Platelet Volume 7.4; Monocytes # (A) 0.2 k/uL (0-1.0); Monocytes % (A) 3 %; Neutrophils % (A) 93 %; Platelet Count 230 k/uL (150-450); RBC 3.02 m/uL (3.80-5.40); RDW 13.2 % (11.5-15.5); WBC 7.6 k/uL (3.8-10.6)
--- NOTE | 2022-09-29 15:48 | P.PN ---
Subjective The patient is a pleasant 77-year-old female patient who sees a power hair clipper out of the town with a past medical history significant for paroxysmal atrial fibrillation as well as hypertension and dyslipidemia and hypothyroidism as well as sleep apnea. We consulted to see the patient for preoperative cardiac assessment before noncardiac surgery. The patient was in her usual state of health until this calculation clerk when she woke up from sleep to go to the bathroom and she tripped with a chair in the bathroom usually she uses it to get up. Apparently the patient fell on the ground and landed on the right side and she fractured her right femur. She was seen by the orthopedic surgery service. She was deemed to be benefits from hip surgery and we consulted to see the patient for further cardiac evaluation. The patient does not recall having any dizziness or lightheadedness or any heart racing or fluttering or any symptoms of chest pain or chest discomfort around episode. Before that episode she was quite active and she reported no pain in the chest or shortness of breath. She does have history of paroxysmal a chair fibrillation she has been maintaining normal sinus mechanism using amiodarone and she was receiving also oral ant icoagulation. The patient was seen and evaluated this morning. She is not in any pain or any distress and she is not in any overt congestive heart failure. She is a slightly tachycardic with a resting heart rate around 110 which is likely related to the pain she is experiencing and currently she is on pain medication. Oral anticoagulation is on hold for potential surgery. Currently she is on metoprolol and amiodarone which was resumed. The examination is remarkable for tachycardia with systolic murmur at the right upper sternal border and left upper sternal border with clear breathing sounds bilaterally and no lower extremity edema noted. 09/29 Patient seen and examined. Patient remains in atrial flutter with heart rate predominantly fixed at 112-115. Denies any chest pain or pressure. Denies any change in chronic shortness breath. It appears she has been in atrial flutter and tachycardic in the past and primary power hair clipper has discussed possible repeat cardioversion. PHYSICAL EXAMINATION Vital signs reviewed. CONSTITUTIONAL: No apparent distress. HEENT: Head is normocephalic. Pupils are equal, round. Sclerae anicteric. Mucous membranes of the mouth are moist. No JVD. No carotid bruit. CHEST EXAMINATION: Lungs are clear to auscultation. No chest wall tenderness is noted on palpation or with deep breathing. HEART EXAMINATION: Tachy rate and regular rhythm. S1, S2 heard. No murmurs, gallops or rub. ABDOMEN: Soft, nontender. Positive bowel sounds. EXTREMITIES: 2+ peripheral pulses, no lower extremity edema and no calf tenderness. NEUROLOGIC EXAMINATION: Patient is awake, alert and oriented x3. Assessment Status post fall with right hip fracture Paroxysmal atrial fibrillation on anticoagulation as well as an amiodarone and beta lorri, s/p ablation Atypical atrial flutter/ atrial tachycardia Multiple comorbid conditions including hypertension and thyroid disease Plan Patient remains tachycardic however fairly well compensated. Patient underwent surgery without incident. She appears to be doing well. Restart anticoagulation when cleared from surgery. Discussed if she continues to be short of breath as an outpatient may consider repeat cardioversion. Continue with amiodarone and beta lorri. No further recommendations from cardiology standpoint. Please call with any questions. Objective - Vital Signs Vital signs: Vital Signs Temp 97.6 F 09/29/22 12:04 Pulse 109 H 09/29/22 12:04 Resp 18 09/29/22 12:04 BP 135/82 09/29/22 12:04 Pulse Ox 93 L 09/29/22 12:04 FiO2 Intake & Output 09/28/22 09/29/22 09/29/22 18:59 06:59 18:59 Intake Total 260 901 Output Total 75 Balance 260 826 Weight 81.193 kg Intake: IV 901 Intake, IV Titration 260 Amount Sodium Chloride 0.9% 1, 260 000 ml @ 130 mls/hr IV . Q7H42M [facility] Rx#:[id number] Output: Urine 50 Estimated Blood Loss 25 Other: Voiding Method External Catheter External Catheter # Voids 1 - Labs CBC & Chem 7: 09/29/22 14:34 09/29/22 05:37 Labs: Abnormal Lab Results - Last 24 Hours (Table) 09/29/22 09/29/22 09/29/22 Range/Units 05:37 05:37 14:34 RBC 3.01 L 3.02 L (4.10-5.20) X 10*6/uL Hgb 10.5 L 10.7 L (12.0-15.0) g/dL Hct 32.9 L 33.2 L (37.2-46.3) % MCV 109.3 H 109.7 H (80.0-97.0) fL MCH 34.9 H 35.4 H (27.0-32.0) pg MCHC 31.9 L (32.0-37.0) g/dL Lymphocytes # 0.79 L (0.90-5.00) X 10*3/uL Macrocytosis Marked A Anion Gap 5.90 L (10.00-18.00) mmol/L Est GFR (CKD-EPI)NonAf 55.1 L (60.0-200.0) Glucose 127 H (70-110) mg/dL Calcium 8.3 L (8.7-10.3) mg/dL
[2022-09-29] MEDS: HYDROcodone/APAP 5-325MG 1 EACH TAB PO PRN (16:12)
[2022-09-29] MEDS ORDERED: RIVAROXABAN 15 MG TAB PO SCH (17:30)
[2022-09-29] MEDS: SENNOSIDES-DOCUSATE SODIUM 1 EACH TAB PO SCH (21:24)
[2022-09-30] MEDS: LEVOTHYROXINE 75 MCG TAB PO SCH (05:35)
[2022-09-30] MEDS: HYDROcodone/APAP 5-325MG 1 EACH TAB PO PRN ×3 (05:40→20:47)
[2022-09-30] MEDS: AMIODARONE 200 MG TAB PO SCH ×2 (06:35→20:45)
[2022-09-30] MEDS: METOPROLOL SUCCINATE (ER) 100 MG TAB.ER.24H PO SCH ×2 (07:49→20:45)
[2022-09-30] MEDS: SENNOSIDES 8.6 MG TAB PO SCH (07:49)
[2022-09-30] MEDS: VENLAFAXINE HCL ER 75 MG CAP PO SCH (07:49)
[2022-09-30] MEDS: busPIRone HCl 5 MG TAB PO SCH ×2 (07:49→20:45)
[2022-09-30] MEDS: PANTOPRAZOLE 40 MG TABLET PO SCH (07:49)
[2022-09-30] MEDS ORDERED: ENOXAPARIN 40 MG/0.4 ML SYRINGE SQ SCH (09:00)
[2022-09-30 09:42] LABS: HCT 28.9 % (37.2-46.3); MCH 34.7 pg (27.0-32.0); MCHC 31.1 g/dL (32.0-37.0); MCV 111.6 fL (80.0-97.0); Mean Platelet Volume 9.9 fL (9.5-12.2); NRBC Per 100 WBC 0 /100 WBCS (0.0-0.0); Platelet Count 252 X 10*3/uL (140-440); RBC 2.59 X 10*6/uL (4.10-5.20); RDW 13.5 % (11.5-14.5); WBC 8.73 X 10*3/uL (4.50-10.00)
[2022-09-30 09:44] LABS: African American GFR (CKD) 72.5 (60.0-200.0); Anion Gap 7.2 mmol/L (10.00-18.00); BUN/Creat Ratio 13.56 Ratio (12.00-20.00); Blood Urea Nitrogen 12.2 mg/dL (9.0-27.0); Calcium 7.7 mg/dL (8.7-10.3); Carbon Dioxide 22.8 mmol/L (20.0-27.5); Non-African American GFR(CKD) 62.5 (60.0-200.0); Potassium 4.6 mmol/L (3.5-5.5)
--- NOTE | 2022-09-30 11:21 | P.PN ---
Subjective Progress Note Date: 09/30/22 Patient is a 77-year-old female with paroxysmal atrial fibrillation on anticoagulation with Xarelto, hypertension, and hypothyroidism who presented to the hospital with hip pain after a mechanical fall. In the ER she underwent an extensive evaluation and was found to have a acute, unit displaced impacted right proximal femoral fracture. CT head and cervical spine showed no acute process. Chest x-ray showed no acute process. EKG showed sinus tachycardia. She was subsequently admitted and we were consulted for medical clearance. She underwent IM nailing on 09/29 without any immediate postoperative complications. She was seen by cardiology and continued to have atrial tachycardia. Patient seen and examined at bedside. Denies any chest pain, shortness breath, nausea, vomiting. Her pain is well-controlled. She has not been out of bed yet. Vital signs reviewed General: nontoxic, no distress, appears at stated age Cardiovascular: S1S2 reg, no murmur, positive posterior tibial pulse bilateral, Lungs: Decreased bs bilateral, no rhonchi, no rales , no accessory muscle use Abdominal: soft, nontender to palpation, no guarding, no appreciable organomegaly Ext: no gross muscle atrophy, no edema, no contractures Neuro: CN II-XI grossly intact, no focal neuro deficits Psych: Alert, oriented, appropriate affect Assessment: Patient is a 77 yo feaml admitted for right femoral fracute due to fall Paroxysmal atrial fibrillation, atrial tachycardia Acute blood loss anemia Hypertension Hypothyroidism Depression Mild acute kidney injury, resolved Mild hyponatremia, likely hypovolemic, resolved Imaging: None new other than fluoro intraop Data Review: Laboratory analysis from 09/30 reviewed and remarkable for hemoglobin 9 (down from 10.7), MCV 111.6, BUN 12, creatinine 0.9 Plan: - D/W paz Elizalde from ortho and Ethan for Xarelto, he has placed the order - will continue to monitor HR, currently asymptomatic. Continue Amio 200 mg BID and Toprol 100 mg daily - Pain control with norco, require Dilaudid 0.5 mg X 1 in the last 24 hours. - follow BP - no indication for transfusion, repeat CBC in AM to ensure stability of HgB. DVT prophylaxis: Donaldo Thank you for allowing us to participate in the care of this pleasant patient. Do not hesitate to contact us with questions. Someone can be reached from the [facility] hospitalist group all hours of the day at [phone] or via [employer] serve. This dictation was prepared using [employer] voice recognition software. Though every attempt is made to correct errors during during dictation some may still exist. Objective - Vital Signs Vital signs: Vital Signs Temp 98.3 F 09/30/22 06:37 Pulse 122 H 09/30/22 06:37 Resp 18 09/30/22 06:37 BP 103/71 09/30/22 06:37 Pulse Ox 94 L 09/30/22 06:37 FiO2 Intake & Output 09/29/22 09/30/22 09/30/22 18:59 06:59 18:59 Intake Total 1381 118 Output Total 75 1050 Balance 1306 -932 Intake: IV 901 Intake, IV Titration 480 Amount Sodium Chloride 0.9% 1, 480 000 ml @ 80 mls/hr IV . [id number] [facility] Rx#:[id number] Oral 118 Output: Urine 50 1050 Estimated Blood Loss 25 Other: Voiding Method External Catheter Indwelling Catheter - Labs CBC & Chem 7: 09/30/22 05:28 09/30/22 05:28 Labs: Abnormal Lab Results - Last 24 Hours (Table) 09/29/22 09/30/22 09/30/22 Range/Units 14:34 05:28 05:28 RBC 3.02 L 2.59 L (3.80-5.40) m/uL Hgb 10.7 L 9.0 L (11.4-16.0) gm/dL Hct 33.2 L 28.9 L (34.0-46.0) % MCV 109.7 H 111.6 H (80.0-100.0) fL MCH 35.4 H 34.7 H (25.0-35.0) pg MCHC 31.1 L (32.0-37.0) g/dL Lymphocytes # 0.3 L (1.0-4.8) k/uL Macrocytosis Marked A Anion Gap 7.20 L (10.00-18.00) mmol/L Calcium 7.7 L (8.7-10.3) mg/dL
--- NOTE | 2022-09-30 12:36 | P.PN ---
Subjective Progress Note Date: 09/30/22 Principal diagnosis: Status post IM nail of right intertrochanteric femur fracture patient evaluated at bedside today, she is resting comfortably. Patient's having minimal pain at this time, she did notice an increase when ambulating with therapy. She denies headaches, lightheadedness, chest pain or shortness of breath. Objective - Vital Signs Vital signs: Vital Signs Temp 98.3 F 09/30/22 06:37 Pulse 122 H 09/30/22 06:37 Resp 18 09/30/22 06:37 BP 103/71 09/30/22 06:37 Pulse Ox 94 L 09/30/22 06:37 FiO2 Intake & Output 09/29/22 09/30/22 09/30/22 18:59 06:59 18:59 Intake Total 1381 118 Output Total 75 1050 40 Balance 1306 -932 -40 Intake: IV 901 Intake, IV Titration 480 Amount Sodium Chloride 0.9% 1, 480 000 ml @ 80 mls/hr IV . [id number] [facility] Rx#:[id number] Oral 118 Output: Urine 50 1050 40 Estimated Blood Loss 25 Other: Voiding Method External Catheter Indwelling Catheter - Exam Right lower extremity: Postoperative dressing is in good position and condition, no active drainage visualized. There is minimal soft tissue swelling and ecchymosis surrounding the medial and lateral aspects of the incision. Calf is soft, no tenderness with palpation. Plantar flexion, dorsiflexion, EHL, FHL are intact. Sensory exam to light touch throughout the extremity is intact, dorsal pedis pulses 2+. - Labs CBC & Chem 7: 09/30/22 05:28 09/30/22 05:28 Labs: Abnormal Lab Results - Last 24 Hours (Table) 09/29/22 09/30/22 09/30/22 Range/Units 14:34 05:28 05:28 RBC 3.02 L 2.59 L (3.80-5.40) m/uL Hgb 10.7 L 9.0 L (11.4-16.0) gm/dL Hct 33.2 L 28.9 L (34.0-46.0) % MCV 109.7 H 111.6 H (80.0-100.0) fL MCH 35.4 H 34.7 H (25.0-35.0) pg MCHC 31.1 L (32.0-37.0) g/dL Lymphocytes # 0.3 L (1.0-4.8) k/uL Macrocytosis Marked A Anion Gap 7.20 L (10.00-18.00) mmol/L Calcium 7.7 L (8.7-10.3) mg/dL Assessment and Plan Assessment: Postoperative day #1 status post intramedullary nail right intertrochanteric femur fracture Plan: Pain control, continue with current medications DVT prophylaxis, patient has resumed xarelto Encourage incentive spirometer WBAT, utilize walker at all times PT/OT Medical recommendations Discharge planning: Patient would like to avoid subcu rehab, we will continue to monitor over the next 24-48 hours. Discuss case management on 10/01/2022 options for discharge. Time with Patient: Less than 30
[2022-09-30] MEDS: MULTIVITAMINS, THERA 1 EACH TAB PO SCH (12:39)
[2022-09-30] MEDS: CYCLOBENZAPRINE 5 MG TAB PO PRN (14:15)
[2022-09-30] MEDS: RIVAROXABAN 20 MG TAB PO SCH (17:38)
[2022-09-30] MEDS: SENNOSIDES-DOCUSATE SODIUM 1 EACH TAB PO SCH (20:45)
[2022-10-01] MEDS: HYDROcodone/APAP 5-325MG 1 EACH TAB PO PRN ×3 (02:29→21:20)
[2022-10-01] MEDS: LEVOTHYROXINE 75 MCG TAB PO SCH (05:49)
[2022-10-01] MEDS: METOPROLOL SUCCINATE (ER) 100 MG TAB.ER.24H PO SCH ×2 (08:52→20:31)
[2022-10-01] MEDS: VENLAFAXINE HCL ER 75 MG CAP PO SCH (08:52)
[2022-10-01] MEDS: busPIRone HCl 5 MG TAB PO SCH ×2 (08:52→20:31)
[2022-10-01] MEDS: PANTOPRAZOLE 40 MG TABLET PO SCH (08:52)
[2022-10-01] MEDS: MULTIVITAMINS, THERA 1 EACH TAB PO SCH (08:52)
[2022-10-01] MEDS: AMIODARONE 200 MG TAB PO SCH ×2 (08:52→20:31)
[2022-10-01] MEDS: SENNOSIDES 8.6 MG TAB PO SCH (08:52)
[2022-10-01] MEDS: CYCLOBENZAPRINE 5 MG TAB PO PRN ×2 (08:52→20:31)
[2022-10-01 10:45] LABS: Basophils % (A) 0 %; Eosinophils # (A) 0.1 k/uL (0-0.7); Eosinophils % (A) 2 %; HCT 27.9 % (34.0-46.0); Lymphocytes # (A) 1.1 k/uL (1.0-4.8); Lymphocytes % (A) 17 %; MCH 36.3 pg (25.0-35.0); MCV 110.2 fL (80.0-100.0); Macrocytosis Marked; Mean Platelet Volume 7.3; Monocytes # (A) 0.6 k/uL (0-1.0); Monocytes % (A) 10 %; Neutrophils # (A) 4.4 k/uL (1.3-7.7); Neutrophils % (A) 69 %; Platelet Count 252 k/uL (150-450); RBC 2.53 m/uL (3.80-5.40); RDW 13.5 % (11.5-15.5); WBC 6.3 k/uL (3.8-10.6)
[2022-10-01 10:57] LABS: HGB 9.2 gm/dL (11.4-16.0)
--- NOTE | 2022-10-01 11:04 | P.PN ---
Subjective Progress Note Date: 10/01/22 Patient is a 77-year-old female with paroxysmal atrial fibrillation on anticoagulation with Xarelto, hypertension, and hypothyroidism who presented to the hospital with hip pain after a mechanical fall. In the ER she underwent an extensive evaluation and was found to have a acute, unit displaced impacted right proximal femoral fracture. CT head and cervical spine showed no acute process. Chest x-ray showed no acute process. EKG showed sinus tachycardia. She was subsequently admitted and we were consulted for medical clearance. She underwent IM nailing on 09/29 without any immediate postoperative complications. She was seen by cardiology and continued to have atrial tachycardia. Patient seen and examined at bedside. Denies any pain, wants to go home and not to rehab, No chest pain, no shortness of breath, no nausea. Vital signs reviewed General: nontoxic, no distress, appears at stated age Cardiovascular: S1S2 reg, no murmur, positive posterior tibial pulse bilateral, Lungs: CTA bilateral, no rhonchi, no rales , no accessory muscle use Abdominal: soft, nontender to palpation, no guarding, no appreciable organomegaly Ext: no gross muscle atrophy, trace edema, no contractures Neuro: CN II-XI grossly intact, no focal neuro deficits Psych: Alert, oriented, appropriate affect Assessment: Patient is a 77 yo female admitted for right femoral fracute due to fall Paroxysmal atrial fibrillation, atrial tachycardia Acute blood loss anemia Hypertension Hypothyroidism Depression Mild acute kidney injury, resolved Mild hyponatremia, likely hypovolemic, resolved Plan: - hold Irbasartan on discharge as BP low normal - will continue to monitor HR, currently asymptomatic. Continue Amio 200 mg BID and Toprol 100 mg daily - follow-up with Dr. Ashton in 1-2 weeks - if Hgb stable than medically optimized for discharge - discharge med rec addressed DVT prophylaxis: Donaldo Thank you for allowing us to participate in the care of this pleasant patient. Do not hesitate to contact us with questions. Someone can be reached from the [facility] hospitalist group all hours of the day at [phone] or via [employer]. This dictation was prepared using [employer] voice recognition software. Though every attempt is made to correct errors during during dictation some may still exist. Objective - Vital Signs Vital signs: Vital Signs Temp 98.3 F 10/01/22 07:16 Pulse 105 H 10/01/22 08:00 Resp 16 10/01/22 07:16 BP 113/69 10/01/22 07:16 Pulse Ox 97 10/01/22 07:16 FiO2 Intake & Output 09/30/22 10/01/22 10/01/22 18:59 06:59 18:59 Output Total 140 400 Balance -140 -400 Output: Urine 140 400 Straight 400 Other: Voiding Method Bedside Commode Bedside Commode # Voids 1 0 - Labs CBC & Chem 7: 10/01/22 10:21 09/30/22 05:28 Labs: Abnormal Lab Results - Last 24 Hours (Table) 10/01/22 Range/Units 10:21 RBC 2.53 L (3.80-5.40) m/uL Hgb 9.2 L D (11.4-16.0) gm/dL Hct 27.9 L (34.0-46.0) % MCV 110.2 H (80.0-100.0) fL MCH 36.3 H (25.0-35.0) pg Macrocytosis Marked A
--- NOTE | 2022-10-01 12:50 | P.PN ---
Subjective Progress Note Date: 10/01/22 Principal diagnosis: Status post IM nail of right intertrochanteric femur fracture patient evaluated at bedside today, she is resting comfortably. Patient did have difficulty and needs extra assistance with getting up today. The pain is currently controlled. She denies headaches, lightheadedness, chest pain or shortness of breath. Objective - Vital Signs Vital signs: Vital Signs Temp 98.3 F 10/01/22 07:16 Pulse 105 H 10/01/22 08:00 Resp 16 10/01/22 07:16 BP 113/69 10/01/22 07:16 Pulse Ox 97 10/01/22 07:16 FiO2 Intake & Output 09/30/22 10/01/22 10/01/22 18:59 06:59 18:59 Output Total 140 400 Balance -140 -400 Output: Urine 140 400 Straight 400 Other: Voiding Method Bedside Commode Bedside Commode # Voids 1 0 - Exam Right lower extremity: Postoperative dressing is in good position and condition, no active drainage visualized. There is minimal soft tissue swelling and ecchymosis surrounding the medial and lateral aspects of the incision. Calf is soft, no tenderness with palpation. Plantar flexion, dorsiflexion, EHL, FHL are intact. Sensory exam to light touch throughout the extremity is intact, dorsal pedis pulses 2+. - Labs CBC & Chem 7: 10/01/22 10:21 09/30/22 05:28 Labs: Abnormal Lab Results - Last 24 Hours (Table) 10/01/22 Range/Units 10:21 RBC 2.53 L (3.80-5.40) m/uL Hgb 9.2 L D (11.4-16.0) gm/dL Hct 27.9 L (34.0-46.0) % MCV 110.2 H (80.0-100.0) fL MCH 36.3 H (25.0-35.0) pg Macrocytosis Marked A Assessment and Plan Assessment: Postoperative day #2 status post intramedullary nail right intertrochanteric femur fracture Plan: Pain control, continue with current medications DVT prophylaxis, patient has resumed xarelto Encourage incentive spirometer WBAT, utilize walker at all times PT/OT Medical recommendations Discharge planning: Discussed with patient that subacute rehab would be better option for her to start of discharge, I did discuss this with case management also. We will begin this process with hopeful discharge in the next 2448 hours Time with Patient: Less than 30
[2022-10-01] MEDS: FERROUS SULFATE 325 MG TAB PO SCH (12:52)
[2022-10-01] MEDS: RIVAROXABAN 20 MG TAB PO SCH (17:51)
[2022-10-01] MEDS: SENNOSIDES-DOCUSATE SODIUM 1 EACH TAB PO SCH (20:31)
[2022-10-01] MEDS ORDERED: SODIUM CHLORIDE 0.9% 500 ML 500 ML IV ONE (23:01)
[2022-10-02] MEDS: LEVOTHYROXINE 75 MCG TAB PO SCH (05:26)
[2022-10-02] MEDS: HYDROcodone/APAP 5-325MG 1 EACH TAB PO PRN ×3 (05:26→20:20)
[2022-10-02] MEDS: METOPROLOL SUCCINATE (ER) 100 MG TAB.ER.24H PO SCH ×2 (06:26→20:20)
--- NOTE | 2022-10-02 10:13 | P.PN ---
Subjective Progress Note Date: 10/02/22 Patient is a 77-year-old female with paroxysmal atrial fibrillation on anticoagulation with Xarelto, hypertension, and hypothyroidism who presented to the hospital with hip pain after a mechanical fall. In the ER she underwent an extensive evaluation and was found to have a acute, unit displaced impacted right proximal femoral fracture. CT head and cervical spine showed no acute process. Chest x-ray showed no acute process. EKG showed sinus tachycardia. She was subsequently admitted and we were consulted for medical clearance. She underwent IM nailing on 09/29 without any immediate postoperative complications. She was seen by cardiology and continued to have atrial tachycardia. Patient seen and examined at bedside. Denies any chest pain, SOB, or lightheadedness. She did have some dizziness with standing when ambulating to the chair which has resolved. Vital signs reviewed General: nontoxic, no distress, appears at stated age Cardiovascular: S1S2 reg, no murmur, positive posterior tibial pulse bilateral, Lungs: CTA bilateral, no rhonchi, no rales , no accessory muscle use Abdominal: soft, nontender to palpation, no guarding, no appreciable organomegaly Ext: no gross muscle atrophy, trace edema, no contractures Neuro: CN II-XI grossly intact, no focal neuro deficits Psych: Alert, oriented, appropriate affect Assessment: Patient is a 77 yo female admitted for right femoral fracture due to fall Paroxysmal atrial fibrillation, atrial tachycardia Urinary retention, with romero, post-op Acute blood loss anemia Hypertension Hypothyroidism Depression Mild acute kidney injury, resolved Mild hyponatremia, likely hypovolemic, resolved Plan: - hold Irbasartan on discharge as BP low normal, patient is now willing to go to rehab. - will continue to monitor HR, currently asymptomatic. Continue Amio 200 mg BID and Toprol 100 mg daily. Received 1L bolus last night. - follow-up with Dr. Ashton in 1-2 weeks - if Hgb stable than medically optimized for discharge - discharge med rec addressed, unchagned - Maintain romero for the next 4 days and then voiding trial, leg bag ordered. Orders added to discharge tab - medically optimized for discharge when deemed appropriate by ortho. DVT prophylaxis: Donaldo Thank you for allowing us to participate in the care of this pleasant patient. Do not hesitate to contact us with questions. Someone can be reached from the [facility] hospitalist group all hours of the day at [phone] or via perfect serve. This dictation was prepared using [employer] voice recognition software. Though every attempt is made to correct errors during during dictation some may still exist. Objective - Vital Signs Vital signs: Vital Signs Temp 97.9 F 10/02/22 08:00 Pulse 116 H 10/02/22 08:00 Resp 17 10/02/22 08:00 BP 132/90 10/02/22 08:00 Pulse Ox 98 10/02/22 08:00 FiO2 Intake & Output 10/01/22 10/02/22 10/02/22 18:59 06:59 18:59 Intake Total 350 Output Total 525 450 Balance -525 -100 Intake: Oral 350 Output: Urine 525 450 Other: Voiding Method Bedside Commode Indwelling Catheter Indwelling Catheter - Labs CBC & Chem 7: 10/01/22 10:21 09/30/22 05:28 Labs: Abnormal Lab Results - Last 24 Hours (Table) 10/01/22 Range/Units 10:21 RBC 2.53 L (3.80-5.40) m/uL Hgb 9.2 L D (11.4-16.0) gm/dL Hct 27.9 L (34.0-46.0) % MCV 110.2 H (80.0-100.0) fL MCH 36.3 H (25.0-35.0) pg Macrocytosis Marked A
[2022-10-02] MEDS: VENLAFAXINE HCL ER 75 MG CAP PO SCH (10:25)
[2022-10-02] MEDS: PANTOPRAZOLE 40 MG TABLET PO SCH (10:25)
[2022-10-02] MEDS: AMIODARONE 200 MG TAB PO SCH ×2 (10:25→20:19)
[2022-10-02] MEDS: busPIRone HCl 5 MG TAB PO SCH ×2 (10:26→20:19)
[2022-10-02] MEDS: SENNOSIDES 8.6 MG TAB PO SCH (10:26)
--- NOTE | 2022-10-02 11:37 | P.DS ---
Providers Date of admission: 09/28/22 06:24 Expected date of discharge: 10/02/22 Attending physician: Aguilar Quiroz Consults: 09/28/22 06:23 Consult Physician Routine Consulting Provider: Eusebio Dawson Consult Reason/Comments: medicine consult Do you want consulting provider notified?: Yes Primary care physician: Benjamin Reyes [facility] Course: Date of admission: 09/28/2022 Date of discharge: 10/02/2022 Admission diagnosis: Right hip IT fracture Discharge diagnosis: Same Attending physician: Dr. Quiroz Surgical procedures: Right hip IM nail Brief history: Patient is a 77-year-old female with a history of right hip IT fracture status post fall. At this point patient has failed conservative treatment measures and has opted to proceed with a elective right hip IM nail. Hospital course: Details of patient's surgery can be found in operative report. Patient tolerated the procedure well and was subsequently transported to orthopedic floor. Patient's orthopeidc and medical care was provided daily. Patient had daily laboratory tests performed for evaluation of overall blood counts. Patient had daily physical therapy to include strengthening range of motion as well as education with walker ambulation. Patient was treated with Xarelto for their postoperative DVT prophylaxis during their inpatient stay. Patient was noted to have a relatively uneventful postoperative course. Patient reported satisfactory pain control with oral pain medications by postoperative day 3. Patient showed satisfactory progress with physical therapy. Patient moved steadily through the program and had no difficulty meeting the goals by postoperative day 3. Given patient's otherwise satisfactory course and having met physical therapy goals, plan is to discharge patient to rehab on postoperative day 3. Discharge condition/disposition: Patient will be discharged to rehab in stable condition. Discharge medications: Instructions are given on resumption of patient's normal daily medications per primary care recommendation, in addition patient will be prescribed senna; Xarelto; [place]; Flexeril. Discharge instructions: 1. Wound care and infection precautions, keep incision dry and covered while showering, no lotions, creams, moisturizers. No soaking, tubs, pools, hottubs. Do not scrub over the incision. 2. Weight-bear as tolerated with walker / cane until follow-up. 3. Ice and elevate when necessary. Do not exceed 20 minutes per hour with ice pack. 4. Utilize compression sleeve until seen at first follow up appointment. 5. Nursing care. 6. Physical therapy 7. Pain meds and anticoagulants per prescription. 8. Pain medication has potential to cause constipation. Increase oral fluid and fiber intake. Contact primary care provider if you have not had a bowel movement within 48 hours after discharge 9. No anti-inflammatory medication until discussed at first post operative visit, this including Motrin, Aleve, Mobic, Diclofenac 10. Follow up in office at 2 weeks postop with Refugio Elizalde PA-C / Shawn Crawley PA-C 11. Follow up with your primary care doctor 7-10 days after discharge. 12. Contact [facility] with any questions, . Keep incision clean, dry, intact. While showering, cover dressing with Saran wrap. Dressing may removed on 10/06/2022. May shower directly over incision beginning 10/06/2022. Assessment: Right hip IT fracture Procedures: Right hip IM nail Patient Condition at Discharge: Serious Plan - Discharge Summary Discharge Rx Participant: Yes New Discharge Prescriptions: New Ferrous Sulfate [Feosol] 325 mg PO DAILY #30 tab Sennosides/Docusate Sodium [Senna Plus 8.6-50 mg Softgel] 1 each PO DAILY #20 capsule Cyclobenzaprine [Flexeril] 5 mg PO HS #14 tab Multivitamins, Thera [Multivitamin (formulary)] 1 each PO DAILY@1200 tab HYDROcodone/APAP 5-325MG [[place] 5-325] 1 tab PO Q6HR PRN #24 tab PRN Reason: Pain Continue Pantoprazole [Protonix] 40 mg PO DAILY Amiodarone [Cordarone] 200 mg PO BID Venlafaxine HCl [Effexor XR] 225 mg PO DAILY Rivaroxaban [Xarelto] 20 mg PO HS Metoprolol Succinate (ER) [Toprol XL] 100 mg PO BID Levothyroxine Sodium [Synthroid] 75 mcg PO DAILY busPIRone HCL [Buspar] 7.5 mg PO BID Discontinued Irbesartan [Avapro] 150 mg PO DAILY No Action traMADol HCL 50 mg PO TID PRN PRN Reason: Pain Furosemide [Lasix] 40 mg PO TUFR Discharge Medication List Levothyroxine Sodium [Synthroid] 75 mcg PO DAILY 01/24/22 [History] Metoprolol Succinate (ER) [Toprol XL] 100 mg PO BID 01/24/22 [History] Rivaroxaban [Xarelto] 20 mg PO HS 01/24/22 [History] Venlafaxine HCl [Effexor XR] 225 mg PO DAILY 01/24/22 [History] busPIRone HCL [Buspar] 7.5 mg PO BID 01/24/22 [History] traMADol HCL 50 mg PO TID PRN 01/24/22 [History] Pantoprazole [Protonix] 40 mg PO DAILY 02/08/22 [History] Amiodarone [Cordarone] 200 mg PO BID 09/28/22 [History] Furosemide [Lasix] 40 mg PO TUFR 09/28/22 [History] Ferrous Sulfate [Feosol] 325 mg PO DAILY #30 tab 10/01/22 [Rx] Multivitamins, Thera [Multivitamin (formulary)] 1 each PO DAILY@1200 tab 10/01/22 [Rx] Cyclobenzaprine [Flexeril] 5 mg PO HS #14 tab 10/02/22 [Rx] HYDROcodone/APAP 5-325MG [[place] 5-325] 1 tab PO Q6HR PRN #24 tab 10/02/22 [Rx] Sennosides/Docusate Sodium [Senna Plus 8.6-50 mg Softgel] 1 each PO DAILY #20 capsule 10/02/22 [Rx] Follow up Appointment(s)/Referral(s): Sadi Suresh MD [STAFF PHYSICIAN] - 2 Weeks Benjamin Ashton MD [Primary Care Provider] - 1-2 days Juan Elizalde PAC [PHYSICIAN [employer] KEEPER HELPER] - 2 Weeks Patient Instructions/Handouts: ORIF of Hip Fracture (DC) Activity/Diet/Wound Care/Special Instructions: Special Instructions: Patient has known atrial tachycardia and follow with cardiology, her HR is often 110-130 and does not require intervention at those rates if she remains asymptomatic Patient has Ch catheter secondary to urinary retention and failed one voiding trial. Maintain Ch catheter 4 additional days and then proceed with voiding trial. Discharge instructions: 1. Wound care and infection precautions, keep incision dry and covered while showering, no lotions, creams, moisturizers. No soaking, tubs, pools, hottubs. Do not scrub over the incision. 2. Weight-bear as tolerated with walker / cane until follow-up. 3. Ice and elevate when necessary. Do not exceed 20 minutes per hour with ice pack. 4. Utilize compression sleeve until seen at first follow up appointment. 5. Nursing care. 6. Physical therapy 7. Pain meds and anticoagulants per prescription. 8. Pain medication has potential to cause constipation. Increase oral fluid and fiber intake. Contact primary care provider if you have not had a bowel movement within 48 hours after discharge 9. No anti-inflammatory medication until discussed at first post operative visit, this including Motrin, Aleve, Mobic, Diclofenac 10. Follow up in office at 2 weeks postop with Refugio Elizalde PA-C / Shawn Crawley PA-C 11. Follow up with your primary care doctor 7-10 days after discharge. 12. Contact [facility] with any questions, . Keep incision clean, dry, intact. While showering, cover dressing with Saran wrap. Dressing may removed on 10/06/2022. May shower directly over incision beginning 10/06/2022. Discharge Disposition: TRANSFER TO SNF/ECF
[2022-10-02] MEDS: FERROUS SULFATE 325 MG TAB PO SCH (11:49)
[2022-10-02] MEDS: MULTIVITAMINS, THERA 1 EACH TAB PO SCH (11:49)
--- NOTE | 2022-10-02 12:25 | P.PN ---
Subjective Progress Note Date: 10/02/22 Principal diagnosis: Right hip IT fracture Patient was seen at bedside this morning sitting up in chair with legs elevated. Ch/catheter is in place currently. Patient says she did work with physical therapy this morning and walked out into [facility] using walker. Patient says she is doing much better today than she has over the past couple days. Patient rates her pain as 4/10 currently. Patient denies any radiation of pain. Patient says it is localized to the right hip at this time. Patient says she is looking forward to going to rehab upon discharge later this afternoon. Patient denies chest pain, fever, shortness breath, nausea, vomiting, change in vision, loss of bowel/bladder control Objective - Vital Signs Vital signs: Vital Signs Temp 97.9 F 10/02/22 08:00 Pulse 98 10/02/22 10:49 Resp 17 10/02/22 08:00 BP 132/90 10/02/22 08:00 Pulse Ox 98 10/02/22 08:00 FiO2 Intake & Output 10/01/22 10/02/22 10/02/22 18:59 06:59 18:59 Intake Total 350 Output Total 676 368 6773 Balance -525 -100 -1000 Intake: Oral 350 Output: Urine 291 476 4852 Other: Voiding Method Bedside Commode Indwelling Catheter Indwelling Catheter - Exam Right hip: Incision is clean, dry, and intact. The dressing is in good condition. There is minimal soft tissue swelling and ecchymosis surrounding the medial and lateral aspects of the incision. Calf is soft, no tenderness with palpation. Plantar flexion, dorsiflexion, EHL, FHL are intact. Sensory exam to light touch throughout the extremity is intact, dorsal pedis pulses 2+. - Labs CBC & Chem 7: 10/01/22 10:21 09/30/22 05:28 Assessment and Plan Assessment: 1. Right hip IT fracture - Postop day #3 status post right hip IM nail Plan: 1. Right hip IT fracture - right hip IM nail surgery performed 09/29/2022. patient stable at bedside this morning. Discharge to rehab today. 2. Appreciate medical management 3. Pain management - norco; flexeril 4. DVT prophylaxis - Xarelto 5. GI prophylaxis - senna 6. PT/OT - weightbearing as tolerated with walker 7. Encourage incentive spirometer use 8. Discharge planning - discharge to rehab today. Time with Patient: Less than 30
[2022-10-02] MEDS: RIVAROXABAN 20 MG TAB PO SCH (17:25)
[2022-10-02] MEDS: SENNOSIDES-DOCUSATE SODIUM 1 EACH TAB PO SCH (20:20)
[2022-10-02] MEDS: CYCLOBENZAPRINE 5 MG TAB PO PRN (23:27)
[2022-10-03] MEDS: HYDROcodone/APAP 5-325MG 1 EACH TAB PO PRN ×2 (02:20→12:50)
[2022-10-03] MEDS: LEVOTHYROXINE 75 MCG TAB PO SCH (06:03)
[2022-10-03 07:58] VITALS: BP 124/80; PULSE 131; RESP 17; TEMP 97.9
--- NOTE | 2022-10-03 08:22 | P.PN ---
Subjective Progress Note Date: 10/03/22 Principal diagnosis: Right hip IT fracture Patient was seen at bedside this morning sitting up in bed drinking coffee. Ch/catheter is in place currently. Patient says she feels the past couple days have been saurabh well. Patient rates her pain as 4/10 currently. Patient denies any radiation of pain. Patient says it is localized to the right hip at this time. Patient says she is looking forward to going to rehab upon discharge later this afternoon. Patient denies chest pain, fever, shortness breath, nausea, vomiting, change in vision, loss of bowel/bladder control Objective - Vital Signs Vital signs: Vital Signs Temp 97.9 F 10/03/22 07:57 Pulse 131 H 10/03/22 07:57 Resp 17 10/03/22 07:57 BP 124/80 10/03/22 07:57 Pulse Ox 98 10/03/22 07:57 FiO2 Intake & Output 10/02/22 10/03/22 10/03/22 18:59 06:59 18:59 Output Total 1250 400 Balance -1250 -400 Output: Urine 1250 400 Other: Voiding Method Indwelling Catheter Indwelling Catheter # Voids 1 - Exam Right hip: Incision is clean, dry, and intact. The dressing is in good condition. There is minimal soft tissue swelling and ecchymosis surrounding the medial and lateral aspects of the incision. Calf is soft, no tenderness with palpation. Plantar flexion, dorsiflexion, EHL, FHL are intact. Sensory exam to light touch throughout the extremity is intact, dorsal pedis pulses 2+. - Labs CBC & Chem 7: 10/01/22 10:21 09/30/22 05:28 Assessment and Plan Assessment: 1. Right hip IT fracture - Postop day #4 status post right hip IM nail Plan: 1. Right hip IT fracture - right hip IM nail surgery performed 09/29/2022. patient stable at bedside this morning. Discharge to rehab today. 2. Appreciate medical management 3. Pain management - norco; flexeril 4. DVT prophylaxis - Xarelto 5. GI prophylaxis - senna 6. PT/OT - weightbearing as tolerated with walker 7. Encourage incentive spirometer use 8. Discharge planning - discharge to rehab today. Time with Patient: Less than 30
[2022-10-03] MEDS: VENLAFAXINE HCL ER 75 MG CAP PO SCH (08:37)
[2022-10-03] MEDS: PANTOPRAZOLE 40 MG TABLET PO SCH (08:37)
[2022-10-03] MEDS: AMIODARONE 200 MG TAB PO SCH (08:37)
[2022-10-03] MEDS: SENNOSIDES 8.6 MG TAB PO SCH (08:38)
[2022-10-03] MEDS: METOPROLOL SUCCINATE (ER) 100 MG TAB.ER.24H PO SCH (08:38)
[2022-10-03] MEDS: busPIRone HCl 5 MG TAB PO SCH (08:38)
--- NOTE | 2022-10-03 11:39 | P.PN ---
Subjective Progress Note Date: 10/03/22 Patient is a 77-year-old female with paroxysmal atrial fibrillation on anticoagulation with Xarelto, hypertension, and hypothyroidism who presented to the hospital with hip pain after a mechanical fall. In the ER she underwent an extensive evaluation and was found to have a acute, unit displaced impacted right proximal femoral fracture. CT head and cervical spine showed no acute process. Chest x-ray showed no acute process. EKG showed sinus tachycardia. She was subsequently admitted and we were consulted for medical clearance. She underwent IM nailing on 09/29 without any immediate postoperative complications. She was seen by cardiology and continued to have atrial tachycardia. Patient seen and examined at bedside. Again denies any chest pain, lightheadedness, dizziness, and shortness of breath. Vital signs reviewed General: nontoxic, no distress, appears at stated age Cardiovascular: S1S2 reg, no murmur, positive posterior tibial pulse bilateral, Lungs: CTA bilateral, no rhonchi, no rales , no accessory muscle use Abdominal: soft, nontender to palpation, no guarding, no appreciable organomegaly Ext: no gross muscle atrophy, trace edema, no contractures Neuro: CN II-XI grossly intact, no focal neuro deficits Psych: Alert, oriented, appropriate affect Assessment: Patient is a 77 yo female admitted for right femoral fracture due to fall Paroxysmal atrial fibrillation, atrial tachycardia Urinary retention, with romero, post-op Acute blood loss anemia Hypertension Hypothyroidism Depression Mild acute kidney injury, resolved Mild hyponatremia, likely hypovolemic, resolved Plan: - Continue to hold Irbasartan on discharge as BP low normal, patient is now willing to go to rehab. - Continue Amio 200 mg BID and Toprol 100 mg daily. - follow-up with Dr. Ashton in 1-2 weeks - discharge med rec addressed, unchanged - Maintain romero for the next 3 days and then voiding trial, leg bag ordered. Orders added to discharge tab - medically optimized for discharge when deemed appropriate by ortho. DVT prophylaxis: Donaldo Thank you for allowing us to participate in the care of this pleasant patient. Do not hesitate to contact us with questions. Someone can be reached from the [facility] hospitalist group all hours of the day at [phone] or via perfect serve. This dictation was prepared using [employer] voice recognition software. Though every attempt is made to correct errors during during dictation some may still exist. Objective - Vital Signs Vital signs: Vital Signs Temp 97.9 F 10/03/22 07:57 Pulse 131 H 10/03/22 07:57 Resp 17 10/03/22 07:57 BP 124/80 10/03/22 07:57 Pulse Ox 98 10/03/22 07:57 FiO2 Intake & Output 10/02/22 10/03/22 10/03/22 18:59 06:59 18:59 Output Total 1250 400 Balance -1250 -400 Output: Urine 1250 400 Other: Voiding Method Indwelling Catheter Indwelling Catheter # Voids 1 - Labs CBC & Chem 7: 10/01/22 10:21 09/30/22 05:28
[2022-10-03] MEDS: FERROUS SULFATE 325 MG TAB PO SCH (12:50)
[2022-10-03] MEDS: MULTIVITAMINS, THERA 1 EACH TAB PO SCH (12:50)
== END 2022-10-03 13:50 | DRG 481 ==
LOC: EC 05:33 → 4SSUR 06:24 → 5NMEDONC 08:25
PROVIDERS: ADMIT Orthopaedic Surgery; ATTEND Orthopaedic Surgery
PROC: 0QS604Z Reposition Right Upper Femur with Internal Fixation Device, Open Approach (ICD-10-PCS; principal; 2022-09-29 10:25)
DX: S72.141A Displaced intertrochanteric fracture of right femur, initial encounter for closed fracture (principal); D62 Acute posthemorrhagic anemia; N17.9 Acute kidney failure, unspecified; I47.1 Supraventricular tachycardia; I48.4 Atypical atrial flutter; E87.1 Hypo-osmolality and hyponatremia; S09.90XA Unspecified injury of head, initial encounter; I48.0 Paroxysmal atrial fibrillation; E86.0 Dehydration; E03.9 Hypothyroidism, unspecified; I10 Essential (primary) hypertension; F32.A Depression, unspecified; J44.9 Chronic obstructive pulmonary disease, unspecified; R53.81 Other malaise; E78.5 Hyperlipidemia, unspecified; G47.30 Sleep apnea, unspecified; R01.1 Cardiac murmur, unspecified; E86.1 Hypovolemia; M19.90 Unspecified osteoarthritis, unspecified site; R33.9 Retention of urine, unspecified; W01.0XXA Fall on same level from slipping, tripping and stumbling without subsequent striking against object, initial encounter; Y92.009 Unspecified place in unspecified non-institutional (private) residence as the place of occurrence of the external cause; Z96.652 Presence of left artificial knee joint; Z87.891 Personal history of nicotine dependence; Z28.310 Unvaccinated for COVID-19; Z98.84 Bariatric surgery status; Z88.2 Allergy status to sulfonamides; Z79.899 Other long term (current) drug therapy; Z79.01 Long term (current) use of anticoagulants; Z79.890 Hormone replacement therapy
CPT/HCPCS: 36415; 70450; 71045; 72125; 73502; 80048; 85025; 85027; 85610; 85730; 86850; 86900; 86901; 93005; 96374; 96376; 99285

== ENCOUNTER 2022-10-10 18:20 | Observation (INO) | payer MEDICARE ==
[2022-10-10] MEDS ORDERED: HEPARIN SODIUM 1,000 UN/ML (10ML VL) IV ONE (18:32)
[2022-10-10] MEDS ORDERED: DILTIAZEM DRIP BOLUS FROM BAG 1 MG SOLN IV ONE (18:39)
[2022-10-10] MEDS ORDERED: HEPARIN SOD,PORK IN 0.45% NACL 25,000 UNIT in 0.45% NACL 1 250ML.BAG IV SCH (18:45)
--- NOTE | 2022-10-10 18:47 | ED ---
General Adult HPI - General Chief complaint: Arrhythmia/Palpitations Stated complaint: AFib Time Seen by Provider: 10/10/22 18:20 Source: patient, RN notes reviewed, old records reviewed Mode of arrival: EMS Limitations: no limitations - History of Present Illness Initial comments: This is a 77-year-old female who presents to the emergency department in [facility] with rapid ventricular response. 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 Once the patient got the nursing she decided it was better to come to the hospital so she did. Patient denies chest pain palpitations difficulty breathing or shortness of breath. Patient states she has noticed increased swelling bilaterally to her legs of last few days. Patient states about 11 days ago she had a hip replacement on the right and is on Xarelto still. Patient denies any fever chills or cough per patient denies any abdominal pain patient denies any nausea vomiting diarrhea. - Related Data Home Medications Medication Instructions Recorded Confirmed Levothyroxine Sodium [Synthroid] 75 mcg PO DAILY 01/24/22 10/10/22 Metoprolol Succinate (ER) [Toprol 150 mg PO BID 01/24/22 10/10/22 XL] Rivaroxaban [Xarelto] 20 mg PO HS 01/24/22 10/10/22 busPIRone HCL [Buspar] 7.5 mg PO BID 01/24/22 10/10/22 traMADol HCL 50 mg PO TID PRN 01/24/22 10/10/22 Pantoprazole [Protonix] 40 mg PO BID 02/08/22 10/10/22 Amiodarone [Cordarone] 200 mg PO BID 09/28/22 10/10/22 Furosemide [Lasix] 40 mg PO TUFR 09/28/22 10/10/22 Clotrimazole/Betameth Cream 1 applic TOPICAL BID 10/10/22 10/10/22 [Lotrisone] Multivitamins, Thera [Multivitamin 1 tab PO DAILY 10/10/22 10/10/22 (formulary)] Sennosides/Docusate Sodium [Senna 1 cap PO DAILY 10/10/22 10/10/22 Plus 8.6-50 mg Softgel] Venlafaxine HCl [Effexor] 225 mg PO DAILY 10/10/22 10/10/22 Previous Rx's Medication Instructions Recorded Ferrous Sulfate [Feosol] 325 mg PO DAILY #30 tab 10/01/22 Cyclobenzaprine [Flexeril] 5 mg PO HS #14 tab 10/02/22 HYDROcodone/APAP 5-325MG [[place] 1 tab PO Q6HR PRN #24 tab 10/02/22 5-325] Allergies Allergy/AdvReac Type Severity Reaction Status Date / Time Sulfa (Sulfonamide Allergy Unknown Verified 10/10/22 19:36 Antibiotics) Childhood Review of Systems ROS Statement: Those systems with pertinent positive or pertinent negative responses have been documented in the HPI. ROS Other: All systems not noted in ROS Statement are negative. Past Medical History Past Medical History: Atrial Fibrillation, Hypertension, Osteoarthritis (OA), Sleep Apnea/CPAP/BIPAP, Thyroid Disorder Additional Past Medical History / Comment(s): ETOH abuse, back pain, states positive blood in stool-hospitalized 01/24 to 01/26/22 History of Any Multi-Drug Resistant Organisms: None Reported Past Surgical History: Bariatric Surgery, Cholecystectomy, Hernia Repair, Hysterectomy, Joint Replacement Additional Past Surgical History / Comment(s): bariatric -STOMACH STAPLING (DR ARORA 1999)., HERNIA WITH MESH & REACTION TO MESH WITH REMOVAL., TOTAL LEFT KNEE Past Anesthesia/Blood Transfusion Reactions: No Reported Reaction Past Psychological History: Anxiety, Depression Smoking Status: Former smoker Past Alcohol Use History: Abuse Past Drug Use History: None Reported - Past Family History Mother Additional Family Medical History / Comment(s): kidney cancer. Father Family Medical History: Cancer Additional Family Medical History / Comment(s): PROSTATE CANCER Sister(s) Family Medical History: Cancer Additional Family Medical History / Comment(s): ESOPHAGEAL AND THYROID CANCER General Exam - General Exam Comments Initial Comments: GENERAL: Patient is well-developed and well-nourished. Patient is nontoxic and well- hydrated and is in mild distress. ENT: Neck is soft and supple. No significant lymphadenopathy is noted. Oropharynx is clear. Moist mucous membranes. Neck has full range of motion without eliciting any pain. EYES: The sclera were anicteric and conjunctiva were pink and moist. Extraocular movements were intact and pupils were equal round and reactive to light. Eyelids were unremarkable. PULMONARY: Unlabored respirations. Good breath sounds bilaterally. No audible rales rhonchi or wheezing was noted. CARDIOVASCULAR: Patient's heart rate is about 140 beats a minute. It is irregularly irregular ABDOMEN: Soft and nontender with normal bowel sounds. SKIN: Skin is clear with no lesions or rashes and otherwise unremarkable. NEUROLOGIC: Patient is alert and oriented x3. Cranial nerves II through XII are grossly intact. Motor and sensory are also intact. Normal speech, volume and content. Symmetrical smile. MUSCULOSKELETAL: Normal extremities with adequate strength and full range of motion. 2+ edema bilaterally LYMPHATICS: No significant lymphadenopathy is noted PSYCHIATRIC: Normal psychiatric evaluation. Limitations: no limitations Course Vital Signs 10/10/22 10/10/22 10/10/22 18:30 19:32 20:00 Temperature 98 F Pulse Rate 140 H 133 H 134 H Respiratory 18 18 18 Rate Blood Pressure 147/60 132/98 129/83 O2 Sat by Pulse 100 98 98 Oximetry Medical Decision Making - Medical Decision Making EKG was interpreted by myself that shows atrial fibrillation with rapid ventricular response at 122 bpm QRS is 91 QT interval 326 QTC is 398. EMS did state at one point they had her@160 beats a minute and route to the hospital Was pt. sent in by a medical professional or institution (, PA, ELECTRICAL CONTROL ASSEMBLER, urgent care, hospital, or [place] [facility]...) When possible be specific @ -Patient's vice president tax directed her to come to the emergency department Did you speak to anyone other than the patient for history (EMS, parent, family, police, friend...)? What history was obtained from this source @ -EMS gave quite a bit of the history. Did you review nursing and triage notes (agree or disagree)? Why? @ -I reviewed and agree with nursing and triage notes Were old charts reviewed (outside hosp., previous admission, EMS record, old EKG, old radiological studies, urgent care reports/EKG's, [place] [facility] records)? Report findings @ -I reviewed prior lab work as well as prior EKGs Differential Diagnosis (chest pain, altered mental status, abdominal pain women, abdominal pain men, vaginal bleeding, weakness, fever, dyspnea, syncope, headache, dizziness, GI bleed, back pain, seizure, CVA, palpatations, mental health, musculoskeletal)? @ -Differential Palpitations Ventricular arrhythmias, atrial arrhythmias, myocardial infarction, anemia, thyrotoxicosis, electrolyte imbalance, hypokalemia, pulmonary embolism, pulmonary disease, drugs, alcohol, anxiety, stress.... This is not meant to be an all-inclusive list. EKG interpreted by me (3pts min.). @ -As above X-rays interpreted by me (1pt min.). @ -Chest x-ray was interpreted by myself shows no acute abnormality CT interpreted by me (1pt min.). @ -None done U/S interpreted by me (1pt. min.). @ -None done What testing was considered but not performed or refused? (CT, X-rays, U/S, labs)? Why? @ -None What meds were considered but not given or refused? Why? @ -None Did you discuss the management of the patient with other professionals (elaine conte i.e. , PA, ELECTRICAL CONTROL ASSEMBLER, lab, RT, psych nurse, social secretary, assistant professor of german, teacher, ambulance officer, case hardener)? Give summary @ -I spoke to Dr. Dawson and he agreed to admit the patient admitted the patient wrote admitting orders Was smoking cessation discussed for >3mins.? @ -No Was critical care preformed (if so, how long)? @ -35 minutes Were there social determinants of health that impacted care today? How? (Homelessness, low income, unemployed, alcoholism, drug addiction, transport ation, low edu. Level, literacy, decrease access to med. care, fpc, rehab)? @ -No Was there de-escalation of care discussed even if they declined (Discuss DNR or withdrawal of care, Hospice)? DNR status @ -No What co-morbidities impacted this encounter? (DM, HTN, Smoking, COPD, CAD, Cancer, CVA, ARF, Chemo, Hep., AIDS, mental health diagnosis, sleep apnea, morbid obesity)? @ -None Was patient admitted / discharged? Hospital course, mention meds given and route, prescriptions, significant lab abnormalities, going to OR and other pertinent info. @ -Patient came in in new-onset A. fib with rapid ventricular response and started patient on Cardizem and it appeared according to nursing notes that she had not received Xarelto since yesterday and also started her on heparin. I spoke with Dr. Dawson and he agreed to admit the patient and the patient wrote admitting orders Undiagnosed new problem with uncertain prognosis? @ -No Drug Therapy requiring intensive monitoring for toxicity (Heparin, Nitro, Ins ulin, Cardizem)? @ -No Were any procedures done? @ -No Diagnosis/symptom? @ -New onset A. fib with rapid ventricular response Acute, or Chronic, or Acute on Chronic? @ -Acute Uncomplicated (without systemic symptoms) or Complicated (systemic symptoms)? @ -Complicated Side effects of treatment? @ -No Exacerbation, Progression, or Severe Exacerbation? @ -No Poses a threat to life or bodily function? How? (Chest pain, [place], MT, pneumonia, PE, COPD, DKA, ARF, appy, cholecystitis, CVA, Diverticulitis, Homicidal, Suicidal, threat to staff... and all critical care pts) @ -Yes this could lead to poor perfusion and eventually end organ dysfunction - Lab Data Result diagrams: 10/10/22 19:01 10/10/22 19:01 Lab Results 10/10/22 10/10/22 10/10/22 Range/Units 19:01 19:01 19:01 WBC 10.6 (3.8-10.6) k/uL RBC 3.01 L (3.80-5.40) m/uL Hgb 10.6 L (11.4-16.0) gm/dL Hct 33.1 L (34.0-46.0) % MCV 109.8 H (80.0-100.0) fL MCH 35.1 H (25.0-35.0) pg MCHC 31.9 (31.0-37.0) g/dL RDW 13.6 (11.5-15.5) % Plt Count 547 H D (150-450) k/uL MPV 7.5 Neutrophils % 78 % Lymphocytes % 14 % Monocytes % 4 % Eosinophils % 2 % Basophils % 0 % Neutrophils # 8.3 H (1.3-7.7) k/uL Lymphocytes # 1.5 (1.0-4.8) k/uL Monocytes # 0.5 (0-1.0) k/uL Eosinophils # 0.2 (0-0.7) k/uL Basophils # 0.0 (0-0.2) k/uL Hypochromasia Slight Macrocytosis Marked A PT 11.6 (9.0-12.0) sec INR 1.1 (<1.2) APTT 28.9 (22.0-30.0) sec Sodium 134 L (137-145) mmol/L Potassium 3.7 (3.5-5.1) mmol/L Chloride 100 (98-107) mmol/L Carbon Dioxide 23 (22-30) mmol/L Anion Gap 11 mmol/L BUN 20 H (7-17) mg/dL Creatinine 0.97 (0.52-1.04) mg/dL Est GFR (CKD-EPI)AfAm 66 (>60 ml/min/1.73 sqM) Est GFR (CKD-EPI)NonAf 58 (>60 ml/min/1.73 sqM) Glucose 102 H (74-99) mg/dL Calcium 8.9 (8.4-10.2) mg/dL Magnesium 1.9 (1.6-2.3) mg/dL Total Bilirubin 0.9 (0.2-1.3) mg/dL AST 35 (14-36) U/L ALT 20 (4-34) U/L Alkaline Phosphatase 146 H (38-126) U/L Troponin I (0.000-0.034) ng/mL NT-Pro-B Natriuret Pep pg/mL Total Protein 6.6 (6.3-8.2) g/dL Albumin 3.3 L (3.5-5.0) g/dL 10/10/22 10/10/22 Range/Units 19:01 19:01 WBC (3.8-10.6) k/uL RBC (3.80-5.40) m/uL Hgb (11.4-16.0) gm/dL Hct (34.0-46.0) % MCV (80.0-100.0) fL MCH (25.0-35.0) pg MCHC (31.0-37.0) g/dL RDW (11.5-15.5) % Plt Count (150-450) k/uL MPV Neutrophils % % Lymphocytes % % Monocytes % % Eosinophils % % Basophils % % Neutrophils # (1.3-7.7) k/uL Lymphocytes # (1.0-4.8) k/uL Monocytes # (0-1.0) k/uL Eosinophils # (0-0.7) k/uL Basophils # (0-0.2) k/uL Hypochromasia Macrocytosis PT (9.0-12.0) sec INR (<1.2) APTT (22.0-30.0) sec Sodium (137-145) mmol/L Potassium (3.5-5.1) mmol/L Chloride (98-107) mmol/L Carbon Dioxide (22-30) mmol/L Anion Gap mmol/L BUN (7-17) mg/dL Creatinine (0.52-1.04) mg/dL Est GFR (CKD-EPI)AfAm (>60 ml/min/1.73 sqM) Est GFR (CKD-EPI)NonAf (>60 ml/min/1.73 sqM) Glucose (74-99) mg/dL Calcium (8.4-10.2) mg/dL Magnesium (1.6-2.3) mg/dL Total Bilirubin (0.2-1.3) mg/dL AST (14-36) U/L ALT (4-34) U/L Alkaline Phosphatase (38-126) U/L Troponin I <0.012 (0.000-0.034) ng/mL NT-Pro-B Natriuret Pep 2640 pg/mL Total Protein (6.3-8.2) g/dL Albumin (3.5-5.0) g/dL Critical Care Time Critical Care Time: Yes Total Critical Care Time: 35 Disposition Clinical Impression: Atrial fibrillation with rapid ventricular response Disposition: ADMITTED IP TO THIS HOSP Referrals: Benjamin Ashton MD [Primary Care Provider] - 1-2 days Time of Disposition: 20:24
[2022-10-10 19:23] LABS: Basophils % (A) 0 %; Eosinophils # (A) 0.2 k/uL (0-0.7); Eosinophils % (A) 2 %; HCT 33.1 % (34.0-46.0); HGB 10.6 gm/dL (11.4-16.0); Hypochromasia Slight; Lymphocytes # (A) 1.5 k/uL (1.0-4.8); Lymphocytes % (A) 14 %; MCH 35.1 pg (25.0-35.0); MCHC 31.9 g/dL (31.0-37.0); MCV 109.8 fL (80.0-100.0); Macrocytosis Marked; Mean Platelet Volume 7.5; Monocytes # (A) 0.5 k/uL (0-1.0); Monocytes % (A) 4 %; Neutrophils # (A) 8.3 k/uL (1.3-7.7); Neutrophils % (A) 78 %; RBC 3.01 m/uL (3.80-5.40); RDW 13.6 % (11.5-15.5); WBC 10.6 k/uL (3.8-10.6)
[2022-10-10 19:30] LABS: Platelet Count 547 k/uL (150-450)
[2022-10-10] MEDS: DILTIAZEM 125 MG in SODIUM CHLORIDE 0.9% 100 ML IV SCH (19:35)
[2022-10-10 19:36] LABS: Albumin 3.3 g/dL (3.5-5.0); Calcium 8.9 mg/dL (8.4-10.2); Magnesium 1.9 mg/dL (1.6-2.3); Potassium 3.7 mmol/L (3.5-5.1); Total Bilirubin 0.9 mg/dL (0.2-1.3); Total Protein 6.6 g/dL (6.3-8.2)
[2022-10-10 19:43] LABS: INR 1.1 (<1.2); Partial Thromboplastin Time 28.9 sec (22.0-30.0); Prothrombin Time 11.6 sec (9.0-12.0)
--- NOTE | 2022-10-10 19:50 | XR ---
EXAMINATION TYPE: XR chest 2V DATE OF EXAM: 10/10/2022 COMPARISON: 09/28/2022 HISTORY: Chest pain TECHNIQUE: 2 views FINDINGS: Heart is normal. Lungs are clear of infiltrate. No heart failure. There are no hilar masses . Thoracic aorta is atheromatous. IMPRESSION: Atheromatous aorta. No active cardiopulmonary disease. Normal heart. No significant owens e.
[2022-10-10] MEDS ORDERED: NITROGLYCERIN SL TABS 0.4 MG TAB SUBLINGUAL PRN (20:25)
[2022-10-10] MEDS ORDERED: HYDROcodone/APAP 5-325MG 1 EACH TAB PO STA (21:26)
[2022-10-11] MEDS: HYDROcodone/APAP 5-325MG 1 EACH TAB PO PRN ×4 (02:32→21:41)
[2022-10-11] MEDS: RIVAROXABAN 20 MG TAB PO SCH ×2 (02:33→20:12)
--- NOTE | 2022-10-11 03:18 | P.HPIM ---
History of Present Illness H&P Date: 10/11/22 The patient is a 77-year-old female with a PMH of A. fib on Xarelto, hypothyroidism, and R hip replacement 11 days ago who presents to the emergency room sent from her pen rider Dr. Norris's office for A. fib with RVR. The patient reports that upon waking up this morning, she noticed that she had new onset of bilateral lower extremity edema. She did not think much of it and was was currently seen at her previously scheduled pen rider appointment where she was noted to be in A. fib with RVR. The patient was advised to go to the emergency room, which she initially refused and returned to her intermediate. She subsequently decided to come back in for evaluation. The patient reports feeling at her baseline at the time of interview. She denied experiencing chest discomfort or shortness of breath. She reports that she was previously noted to have some lower extremity edema and was started on Lasix 40 mg 3 times a week. She denied experiencing palpitations, nausea, vomiting, diaphoresis. In the emergency room, the patient underwent an extensive evaluation. A chest x -ray revealed an atheromatous aorta. EKG revealed A. fib with RVR 122 bpm with T-wave inversions in the inferior leads II, III, and aVF. Laboratory evaluation was remarkable for Coumadin 10.6, platelets 547, sodium 134, BUN 20, creatinine 0.97, alk phos 146, troponin less than 0.012, and proBNP 2640. Review of systems: Pertinent positives and negatives as discussed in HPI, a complete review of systems was performed and all other systems are negative. Physical examination: Vital signs reviewed General: non toxic, no distress, appears at stated age, normal weight Derm: no unusual rashes/lesions, warm Head: atraumatic, normocephalic, symmetric Eyes: EOMI, no lid lag, anicteric sclera, pupils equal round reactive to light ENT: Nose and ears atraumatic Neck: No cervical lymphadenopathy, trachea midline, supple Mouth: no lip lesion, mucus membranes moist Cardiovascular: S1S2 reg, no murmur, positive dorsalis pedis pulse bilateral, 2+ bilateral lower extremity pitting edema, no calf tenderness Lungs: CTA bilateral, no rhonchi, no rales, no accessory muscle use Abdominal: soft, nontender to palpation, no guarding Ext: muscle strength 5 out of 5 in bilateral upper extremities, strength 4 out of 5 of left lower extremity with strength 2 out of 5 of right lower extremity due to pain postsurgically, no gross muscle atrophy, no contractures, Neuro: CN II-XI grossly intact, no gross focal neuro deficits Psych: Alert, oriented, appropriate affect Assessment: A. fib with RVR Thrombocytosis Macrocytic anemia, at baseline Chronic conditions: Hypothyroidism Imaging: A chest x-ray revealed an atheromatous aorta. EKG revealed A. fib with RVR 122 bpm with T-wave inversions in the inferior leads II, III, and aVF. Data Review: Laboratory evaluation was remarkable for Coumadin 10.6, platelets 547, sodium 134, BUN 20, creatinine 0.97, alk phos 146, troponin less than 0.012, and proBNP 2640. Plan: Continue Cardizem infusion Continue patient's home Xarelto 20 mg by mouth daily at bedtime dose Cardiology consulted Continue cardiac monitoring Trend troponin Unclear etiology of thrombocytosis, monitor for now Macrocytic anemia at baseline DVT prophylaxis: Xarelto The patient is admitted with an anticipated greater than 2 midnight stay for e valuation of afib CODE STATUS: Full Code Discussed with: Patient Anticipated discharge place: Home Past Medical History Past Medical History: Atrial Fibrillation, Hypertension, Osteoarthritis (OA), Sleep Apnea/CPAP/BIPAP, Thyroid Disorder Additional Past Medical History / Comment(s): ETOH abuse, back pain, states positive blood in stool-hospitalized 01/24 to 01/26/22 History of Any Multi-Drug Resistant Organisms: None Reported Past Surgical History: Bariatric Surgery, Cholecystectomy, Hernia Repair, Hysterectomy, Joint Replacement Additional Past Surgical History / Comment(s): bariatric -STOMACH STAPLING (DR ARORA 1999)., HERNIA WITH MESH & REACTION TO MESH WITH REMOVAL., TOTAL LEFT KNEE Past Anesthesia/Blood Transfusion Reactions: No Reported Reaction Past Psychological History: Anxiety, Depression Smoking Status: Former smoker Past Alcohol Use History: Abuse Additional Past Alcohol Use History / Comment(s): HX OF 2PPD., STARTED SMOKING AGE 18 AND QUIT 20 YRS OLD. DRINKS (2) 12 OZ BEERS DAILY, HX OF 7-8 BEERS DAILY. Past Drug Use History: None Reported - Past Family History Mother History Unknown: Yes Additional Family Medical History / Comment(s): kidney cancer. Father History Unknown: Yes Family Medical History: Cancer Additional Family Medical History / Comment(s): PROSTATE CANCER Sister(s) History Unknown: Yes Family Medical History: Cancer Additional Family Medical History / Comment(s): ESOPHAGEAL AND THYROID CANCER Medications and Allergies Home Medications Medication Instructions Recorded Confirmed Type Levothyroxine Sodium [Synthroid] 75 mcg PO DAILY 01/24/22 10/10/22 History Metoprolol Succinate (ER) [Toprol 150 mg PO BID 01/24/22 10/10/22 History XL] Rivaroxaban [Xarelto] 20 mg PO HS 01/24/22 10/10/22 History busPIRone HCL [Buspar] 7.5 mg PO BID 01/24/22 10/10/22 History traMADol HCL 50 mg PO TID PRN 01/24/22 10/10/22 History Pantoprazole [Protonix] 40 mg PO BID 02/08/22 10/10/22 History Amiodarone [Cordarone] 200 mg PO BID 09/28/22 10/10/22 History Furosemide [Lasix] 40 mg PO TUFR 09/28/22 10/10/22 History Ferrous Sulfate [Feosol] 325 mg PO DAILY #30 tab 10/01/22 10/10/22 Rx Cyclobenzaprine [Flexeril] 5 mg PO HS #14 tab 10/02/22 10/10/22 Rx HYDROcodone/APAP 5-325MG [[place] 1 tab PO Q6HR PRN #24 tab 10/02/22 10/10/22 Rx 5-325] Clotrimazole/Betameth Cream 1 applic TOPICAL BID 10/10/22 10/10/22 History [Lotrisone] Multivitamins, Thera [Multivitamin 1 tab PO DAILY 10/10/22 10/10/22 History (formulary)] Sennosides/Docusate Sodium [[place]enna 1 cap PO DAILY 10/10/22 10/10/22 History Plus 8.6-50 mg Softgel] Venlafaxine HCl [Effexor] 225 mg PO DAILY 10/10/22 10/10/22 History Allergies Allergy/AdvReac Type Severity Reaction Status Date / Time Sulfa (Sulfonamide Allergy Unknown Verified 10/10/22 19:36 Antibiotics) Childhood Physical Exam Vitals: Vital Signs Temp Pulse Pulse Resp BP BP Pulse Ox 10/10/22 22:25 98.0 F 135 H 18 134/61 99 10/10/22 22:24 97.2 F L 132 H 18 98 10/10/22 22:00 132/88 10/10/22 21:58 134 H 18 140/97 98 10/10/22 21:00 132 H 18 137/92 98 10/10/22 20:00 134 H 18 129/83 98 10/10/22 19:32 133 H 18 132/98 98 10/10/22 18:30 98 F 140 H 18 147/60 100 Intake and Output 10/10/22 10/10/22 10/11/22 14:59 22:59 06:59 Intake Total 138 Balance 138 Intake: IV 20 Invasive Line 1 10 Invasive Line 2 10 Oral 118 Other: Weight 81.193 kg Results CBC & Chem 7: 10/10/22 19:01 10/10/22 19:01 Labs: Abnormal Lab Results - Last 24 Hours (Table) 10/10/22 10/10/22 Range/Units 19:01 19:01 RBC 3.01 L (3.80-5.40) m/uL Hgb 10.6 L (11.4-16.0) gm/dL Hct 33.1 L (34.0-46.0) % MCV 109.8 H (80.0-100.0) fL MCH 35.1 H (25.0-35.0) pg Plt Count 547 H D (150-450) k/uL Neutrophils # 8.3 H (1.3-7.7) k/uL Macrocytosis Marked A Sodium 134 L (137-145) mmol/L BUN 20 H (7-17) mg/dL Glucose 102 H (74-99) mg/dL Alkaline Phosphatase 146 H (38-126) U/L Albumin 3.3 L (3.5-5.0) g/dL Thrombosis Risk Factor Assmnt - Choose All That Apply Any of the Below Risk Factors Present?: Yes Each Factor Represents 1 point: History of prior major surgery (<1month) Each Risk Factor Represents 2 Points: Major surgery Each Risk Factor Represents 3 Points: Age 75 years or older Other congenital or acquired thrombophilia - If yes, enter type in comment: No Thrombosis Risk Factor Assessment Total Risk Factor Score: 6 Thrombosis Risk Factor Assessment Level: High Risk
[2022-10-11] MEDS: LEVOTHYROXINE 75 MCG TAB PO SCH (06:39)
--- NOTE | 2022-10-11 07:49 | P.PN ---
Subjective Progress Note Date: 10/11/22 Patient is a 77-year-old female with known A. fib on Xarelto, hypothyroidism, and right total hip replacement 11 days ago presented to the emergency room at the direction of staff office for A. fib with RVR. In the emergency department she underwent an extensive evaluation. Her initial EKG showed A. fib with rapid ventricular response at a rate of 122. Laboratory analysis was re markable for hemoglobin 10.6, platelets 547, sodium 134, BUN 20, and BNP of 2640. Chest x-ray showed Atheromatous aorta but no acute process. In the ER she was given a bolus of Cardizem and started on a Cardizem infusion. Arrangements were made for admission for atrial fibrillation with rapid kacy tricular response. Of note patient was seen for continuous atrial tachycardia during her [facility] her [facility]. At that time she was on amiodarone as well as a beta lorri. They felt that due to her being asymptomatic from her tachycardia she can continue on same therapy and consider repeat cardioversion as an outpatient. Patient seen and examined at bedside. She denies any chest pain, shortness of breath, nausea, vomiting Vital signs reviewed General: nontoxic, no distress, appears at stated age Cardiovascular: S1S2 regular, no murmur, positive posterior tibial pulse bilateral, Lungs: CTA bilateral, no rhonchi, no rales , no accessory muscle use Abdominal: soft, nontender to palpation, no guarding, no appreciable organomegaly Ext: no gross muscle atrophy, no edema, no contractures Neuro: CN II-XI grossly intact, no focal neuro deficits Psych: Alert, oriented, appropriate affect Assessment: Paroxysmal atrial fibrillation with rapid ventricular response Thrombocytosis Microcytic anemia, improved from discharge on 10/01. Hypothyroidism Recent right femoral fracture secondary to fall Imaging: no new for review Data Review: Vitals reviewed from this morning and temperature 97.7, heart rate 141, respirations 12, blood pressure 116/77, O2 sat 99% on room air Laboratory analysis reviewed: Cholesterol profile within normal limits, TSH 7.350 in the setting of the use of Synthroid. Plan: -Cardiology note reviewed: Plan is for DARIA and cardioversion tomorrow with Dr. Suresh -Continue with Cardizem drip, metoprolol 150 mg twice daily, and amiodarone 200 mg daily. Continue Xarelto 20 mg at night. -Increase Synthroid to 88 g daily with goal of 100 g if patient tolerates. Will need repeat TSH in 4-6 weeks. -Check CBC given anemia and thrombocytosis in a.m. DVT prophylaxis: Xarelto Anticipated discharge date: Pending clinical course Anticipated discharge place: Pending clinical course This dictation was prepared using [employer] voice recognition software. Though every attempt is made to correct errors during during dictation some may still exist. Objective - Vital Signs Vital signs: Vital Signs Temp 97.7 F 10/11/22 07:15 Pulse 141 H 10/11/22 07:15 Resp 12 10/11/22 07:15 BP 116/77 10/11/22 07:15 Pulse Ox 99 10/11/22 07:15 FiO2 Intake & Output 10/10/22 10/11/22 10/11/22 18:59 06:59 18:59 Intake Total 201.032 Balance 201.032 Weight 81.193 kg 81.193 kg Intake: IV 40 Invasive Line 1 20 Invasive Line 2 20 Intake, IV Titration 43.032 Amount Heparin Sod,Pork in 0.45% 43.032 NaCl 25,000 unit In 0.45 % NaCl 1 250ml.bag @ 12 UNITS/KG/HR 9.743 mls/hr IV .Q24H [facility] Rx#: [id number] Oral 118 Other: Voiding Method Toilet # Voids 1 - Labs CBC & Chem 7: 10/10/22 19:01 10/10/22 19:01 Labs: Abnormal Lab Results - Last 24 Hours (Table) 10/10/22 10/10/22 Range/Units 19:01 19:01 RBC 3.01 L (3.80-5.40) m/uL Hgb 10.6 L (11.4-16.0) gm/dL Hct 33.1 L (34.0-46.0) % MCV 109.8 H (80.0-100.0) fL MCH 35.1 H (25.0-35.0) pg Plt Count 547 H D (150-450) k/uL Neutrophils # 8.3 H (1.3-7.7) k/uL Macrocytosis Marked A Sodium 134 L (137-145) mmol/L BUN 20 H (7-17) mg/dL Glucose 102 H (74-99) mg/dL Alkaline Phosphatase 146 H (38-126) U/L Albumin 3.3 L (3.5-5.0) g/dL
[2022-10-11] MEDS: METOPROLOL SUCCINATE (ER) 50 MG TAB.ER.24H PO SCH ×2 (09:37→20:13)
[2022-10-11] MEDS: VENLAFAXINE HCL 75 MG TAB PO SCH (09:37)
[2022-10-11] MEDS: MULTIVITAMINS, THERA 1 EACH TAB PO SCH (09:37)
[2022-10-11] MEDS: busPIRone HCl 5 MG TAB PO SCH ×2 (09:37→20:13)
[2022-10-11] MEDS: PANTOPRAZOLE 40 MG TABLET PO SCH ×2 (09:37→20:13)
[2022-10-11 09:58] LABS: Chol/HDL Ratio 3.01 Ratio
[2022-10-11] MEDS: SODIUM CHLORIDE 0.9% 1,000 ML IV SCH ×2 (10:32)
--- NOTE | 2022-10-11 11:02 | P.CRDCN ---
History of Present Illness Consult date: 10/11/22 Consult reason: atrial fibrillation (New onset with RVR) History of present illness: This is a 77-year-old female patient who sees a commissions analyst out of the town in [place] and at [facility] with a past medical history significant for p aroxysmal atrial fibrillation with previous ablation in June [address] Sharp, history of hypertension, dyslipidemia and hypothyroidism as well as sleep apnea. We have been asked to see the patient regarding A. fib with RVR. Patient was recently hospitalized and seen by Dr. Suresh on September 28 after a fall sustaining a right hip fracture and preop clearance was given at that time. Patient 1 follow-up in the office yesterday for which she was found to be tachycardic with a heart rate of 130 and it was recommended that patient go to the emergency center for hospitalization the patient chose to return to her rehab facility, [facility]. Once she arrived she decided she would go to the hospital. She came into [facility] emergency center for evaluation. She was found to be in Afib w RVR and started on Cardizem drip at 5 mg. Patient denies having any chest pain or shortness of breath. She has noticed increased edema in her feet. Patient believes that she has been on am iodarone for last 2-3 months. She does not recall having a cardioversion in the past. She denies missing any doses of Xarelto. EKG atrial fibrillation at 122 bpm Chest x-ray: No active cardiopulmonary disease. Normal heart. WBC 10.6, hemoglobin 10.6, platelet count 547. INR 1.1. Sodium 134, potassium 3.7, BUN 20, creatinine 0.97. Troponin negative 3. Triglycerides 119, cholesterol 145, LDL 73, HDL 48. Home cardiac medications: Amiodarone 200 mg twice daily, Lasix 40 mg on Tuesdays and Fridays, Toprol-XL 150 mg twice daily, Xarelto 20 mg at bedtime, levothyroxine 75 g daily. Review Of Systems: At the time of my evaluation: Constitutional: No fever, no chills. No weakness, fatigue or lethargy. EENT: No headache. No dizziness. Lungs: No shortness of breath, cough, no sputum production. No wheezing. Cardiovascular: No chest pain, reports lower extremity edema. No palpitations. No paroxysmal nocturnal dyspnea. No orthopnea. No lightheadedness or dizziness. No syncopal episodes. Abdominal: No abdominal pain. No nausea, vomiting. No diarrhea. No constipation. No bloody or tarry stools. Genitourinary: No dysuria. No urinary retention. Musculoskeletal: No myalgias. No muscle weakness, no frequent falls. No back pain. No neck pain. Integumentary: No wounds. No rash. No unusual bruising. Neurologic: No aphasia. No facial droop. No change in mentation. No head injury. No headache. Physical examination: Gen: This is a 77-year-old female. She is lying flat in bed and appears to be comfortable and in no acute distress. VS: reviewed HEENT: Head is atraumatic, normocephalic. Pupils equal, round. Sclerae is anicteric. NECK: Supple. No JVD. . LUNGS: Clear to auscultation. No wheezes or rhonchi. No intercostal retractions. HEART: Irregular rate and rhythm. Systolic murmur at the right upper sternal border and left upper sternal border. ABDOMEN: Soft No tenderness. EXTREMITIES: 1+ pedal edema. No calf tenderness. NEUROLOGICAL: Patient is awake, alert and oriented x3. Assessment: Paroxysmal atrial fibrillation with RVR, uncontrolled Hypertension Hyperlipidemia Hypothyroidism Obstructive sleep apnea Plan: Schedule patient for DARIA and cardioversion for tomorrow with Dr. Suresh Continue patient on her home cardiac medications Obtain TSH Further recommendations to follow based upon clinical course Thank you kindly for this consultation. Nurse practitioner note has been reviewed, I agree with documented findings and plan of care. Patient was seen and examined. Past Medical History Past Medical History: Atrial Fibrillation, Hypertension, Osteoarthritis (OA), Sleep Apnea/CPAP/BIPAP, Thyroid Disorder Additional Past Medical History / Comment(s): ETOH abuse, back pain, states positive blood in stool-hospitalized 01/24 to 01/26/22 History of Any Multi-Drug Resistant Organisms: None Reported Past Surgical History: Bariatric Surgery, Cholecystectomy, Hernia Repair, Hysterectomy, Joint Replacement Additional Past Surgical History / Comment(s): bariatric -STOMACH STAPLING (DR ARORA 1999)., HERNIA WITH MESH & REACTION TO MESH WITH REMOVAL., TOTAL LEFT KNEE Past Anesthesia/Blood Transfusion Reactions: No Reported Reaction Past Psychological History: Anxiety, Depression Smoking Status: Former smoker Past Alcohol Use History: Abuse Additional Past Alcohol Use History / Comment(s): HX OF 2PPD., STARTED SMOKING AGE 18 AND QUIT 20 YRS OLD. DRINKS (2) 12 OZ BEERS DAILY, HX OF 7-8 BEERS DAILY. Past Drug Use History: None Reported - Past Family History Mother History Unknown: Yes Additional Family Medical History / Comment(s): kidney cancer. Father History Unknown: Yes Family Medical History: Cancer Additional Family Medical History / Comment(s): PROSTATE CANCER Sister(s) History Unknown: Yes Family Medical History: Cancer Additional Family Medical History / Comment(s): ESOPHAGEAL AND THYROID CANCER Medications and Allergies Home Medications Medication Instructions Recorded Confirmed Type Levothyroxine Sodium [Synthroid] 75 mcg PO DAILY 01/24/22 10/10/22 History Metoprolol Succinate (ER) [Toprol 150 mg PO BID 01/24/22 10/10/22 History XL] Rivaroxaban [Xarelto] 20 mg PO HS 01/24/22 10/10/22 History busPIRone HCL [Buspar] 7.5 mg PO BID 01/24/22 10/10/22 History traMADol HCL 50 mg PO TID PRN 01/24/22 10/10/22 History Pantoprazole [Protonix] 40 mg PO BID 02/08/22 10/10/22 History Amiodarone [Cordarone] 200 mg PO BID 09/28/22 10/10/22 History Furosemide [Lasix] 40 mg PO TUFR 09/28/22 10/10/22 History Ferrous Sulfate [Feosol] 325 mg PO DAILY #30 tab 10/01/22 10/10/22 Rx Cyclobenzaprine [Flexeril] 5 mg PO HS #14 tab 10/02/22 10/10/22 Rx HYDROcodone/APAP 5-325MG [[place] 1 tab PO Q6HR PRN #24 tab 10/02/22 10/10/22 Rx 5-325] Clotrimazole/Betameth Cream 1 applic TOPICAL BID 10/10/22 10/10/22 History [Lotrisone] Multivitamins, Thera [Multivitamin 1 tab PO DAILY 10/10/22 10/10/22 History (formulary)] Sennosides/Docusate Sodium [Senna 1 cap PO DAILY 10/10/22 10/10/22 History Plus 8.6-50 mg Softgel] Venlafaxine HCl [Effexor] 225 mg PO DAILY 10/10/22 10/10/22 History Allergies Allergy/AdvReac Type Severity Reaction Status Date / Time Sulfa (Sulfonamide Allergy Unknown Verified 10/10/22 19:36 Antibiotics) Childhood Physical Exam Vitals: Vital Signs Temp Pulse Pulse Resp BP BP Pulse Ox 10/11/22 07:15 97.7 F 141 H 12 116/77 99 10/11/22 03:38 97.9 F 142 H 18 116/77 97 10/11/22 01:12 18 10/10/22 23:55 98.1 F 132 H 18 110/71 100 10/10/22 22:26 132 H 18 10/10/22 22:25 98.0 F 135 H 18 134/61 99 10/10/22 22:24 97.2 F L 132 H 18 98 10/10/22 22:00 132/88 10/10/22 21:58 134 H 18 140/97 98 10/10/22 21:00 132 H 18 137/92 98 10/10/22 20:00 134 H 18 129/83 98 10/10/22 19:32 133 H 18 132/98 98 10/10/22 18:30 98 F 140 H 18 147/60 100 Intake and Output 10/10/22 10/11/22 10/11/22 22:59 06:59 14:59 Intake Total 138 63.032 Balance 138 63.032 Intake: IV 20 20 Invasive Line 1 10 10 Invasive Line 2 10 10 Intake, IV Titration 43.032 Amount Heparin Sod,Pork in 0.45% 43.032 NaCl 25,000 unit In 0.45 % NaCl 1 250ml.bag @ 12 UNITS/KG/HR 9.743 mls/hr IV .Q24H [facility] Rx#: [id number] Oral 118 Other: Voiding Method Toilet Toilet # Voids 1 Weight 81.193 kg Results 10/10/22 19:01 10/10/22 19:01 Cardiac Enzymes 10/10/22 10/10/22 10/10/22 Range/Units 19:01 19:01 22:28 AST 35 (14-36) U/L Troponin I <0.012 <0.012 (0.000-0.034) ng/mL 10/11/22 Range/Units 02:10 AST (14-36) U/L Troponin I <0.012 (0.000-0.034) ng/mL Coagulation 10/10/22 Range/Units 19:01 PT 11.6 (9.0-12.0) sec APTT 28.9 (22.0-30.0) sec CBC 10/10/22 Range/Units 19:01 WBC 10.6 (3.8-10.6) k/uL RBC 3.01 L (3.80-5.40) m/uL Hgb 10.6 L (11.4-16.0) gm/dL Hct 33.1 L (34.0-46.0) % Plt Count 547 H D (150-450) k/uL Comprehensive Metabolic Panel 10/10/22 Range/Units 19:01 Sodium 134 L (137-145) mmol/L Potassium 3.7 (3.5-5.1) mmol/L Chloride 100 (98-107) mmol/L Carbon Dioxide 23 (22-30) mmol/L BUN 20 H (7-17) mg/dL Creatinine 0.97 (0.52-1.04) mg/dL Glucose 102 H (74-99) mg/dL Calcium 8.9 (8.4-10.2) mg/dL AST 35 (14-36) U/L ALT 20 (4-34) U/L Alkaline Phosphatase 146 H (38-126) U/L Total Protein 6.6 (6.3-8.2) g/dL Albumin 3.3 L (3.5-5.0) g/dL Current Medications Generic Name Dose Route Start Last Admin Trade Name Freq PRN Reason Stop Dose Admin Hydrocodone Bitart/Acetaminophen 1 each 10/11/22 02:15 10/11/22 02:32 Hydrocodone/Apap 5-325mg 1 Each Tab PO 1 each Q6HR PRN Administration Pain Buspirone HCl 7.5 mg 10/11/22 09:00 Buspirone Hcl 5 Mg Tab PO BID [facility] Cyclobenzaprine HCl 5 mg 10/11/22 21:00 Cyclobenzaprine 5 Mg Tab PO HS [facility] Furosemide 40 mg 10/12/22 09:00 Furosemide 40 Mg Tab PO TuFr@0900 [facility] Diltiazem HCl 125 mg/ Sodium 125 mls @ 5 mls/hr 10/10/22 19:00 10/10/22 19:35 Chloride IV 5 mg/hr .Q24H [facility] 5 mls/hr Administration 5 MG/HR Levothyroxine Sodium 75 mcg 10/11/22 06:30 10/11/22 06:39 Levothyroxine 75 Mcg Tab PO 75 mcg DAILY@0630 [facility] Administration Metoprolol Succinate 150 mg 10/11/22 09:00 Metoprolol Succinate (Er) 50 Mg Tab.Er.24h PO BID [facility] Multivitamins 1 each 10/11/22 09:00 Multivitamins, Thera 1 Each Tab PO DAILY [facility] Nitroglycerin 0.4 mg 10/10/22 20:25 Nitroglycerin Sl Tabs 0.4 Mg Tab SUBLINGUAL Q5M PRN Chest Pain Pantoprazole Sodium 40 mg 10/11/22 09:00 Pantoprazole 40 Mg Tablet PO BID [facility] Rivaroxaban 20 mg 10/11/22 02:15 10/11/22 02:33 Rivaroxaban 20 Mg Tab PO 20 mg HS [facility] Administration Protocol Venlafaxine HCl 225 mg 10/11/22 09:00 Venlafaxine Hcl 75 Mg Tab PO DAILY [facility] Intake and Output 10/10/22 10/11/22 10/11/22 22:59 06:59 14:59 Intake Total 138 63.032 Balance 138 63.032 Intake: IV 20 20 Invasive Line 1 10 10 Invasive Line 2 10 10 Intake, IV Titration 43.032 Amount Heparin Sod,Pork in 0.45% 43.032 NaCl 25,000 unit In 0.45 % NaCl 1 250ml.bag @ 12 UNITS/KG/HR 9.743 mls/hr IV .Q24H [facility] Rx#: [id number] Oral 118 Other: Voiding Method Toilet Toilet # Voids 1 Weight 81.193 kg 10/10/22 19:01 10/10/22 19:01
[2022-10-11 14:28] LABS: T4, Free (Free Thyroxine) 2.79 ng/dL (0.78-2.19)
[2022-10-11] MEDS: AMIODARONE 200 MG TAB PO SCH ×2 (14:36→20:12)
[2022-10-11] MEDS: DILTIAZEM 125 MG in SODIUM CHLORIDE 0.9% 100 ML IV SCH (16:14)
[2022-10-11] MEDS ORDERED: CYCLOBENZAPRINE 5 MG TAB PO SCH (21:00)
[2022-10-12] MEDS: SODIUM CHLORIDE 0.9% 1,000 ML IV SCH ×2 (04:46→04:54)
[2022-10-12] MEDS: HYDROcodone/APAP 5-325MG 1 EACH TAB PO PRN (04:52)
[2022-10-12] MEDS: busPIRone HCl 5 MG TAB PO SCH (05:41)
[2022-10-12] MEDS: PANTOPRAZOLE 40 MG TABLET PO SCH (05:41)
[2022-10-12] MEDS: LEVOTHYROXINE 75 MCG TAB PO SCH (05:41)
[2022-10-12] MEDS: METOPROLOL SUCCINATE (ER) 50 MG TAB.ER.24H PO SCH (05:41)
[2022-10-12] MEDS: AMIODARONE 200 MG TAB PO SCH (05:41)
[2022-10-12] MEDS: MULTIVITAMINS, THERA 1 EACH TAB PO SCH (05:41)
[2022-10-12] MEDS: VENLAFAXINE HCL 75 MG TAB PO SCH (06:00)
[2022-10-12 06:14] LABS: Glucose,Whole Blood 108 mg/dL (70-110)
[2022-10-12] MEDS ORDERED: SODIUM CHLORIDE 0.9% 1,000 ML IV ONE ×2 (07:45)
[2022-10-12 07:47] VITALS: RESP 16
[2022-10-12] MEDS ORDERED: PROPOFOL 10 MG/ML 20 ML VIAL IV ONE (08:08)
[2022-10-12] MEDS ORDERED: LIDOCAINE 2% INJ 20 MG/ML (2 ML VIAL) ONE (08:08)
--- NOTE | 2022-10-12 08:48 | P.PCN ---
Date of Procedure: 10/12/22 Operative Findings: TRANSESOPHAGEAL ECHOCARDIOGRAM FREELANCE DIGITAL PROJECT MANAGER: ARLEEN TIDWELL MD, RPVI INDICATION: Atrial fibrillation with RVR. The patient is scheduled to undergo cardioversion SEDATION: Conscious sedation COMPLICATION: None LEVEL OF SEDATION The procedure was performed using propofol with NEON MOLDER and the procedure was performed at the recovery room PROCEDURE DESCRIPTION: After obtaining an informed consent, the patient was brought to transesophageal echocardiogram room. Pulse oximetry and heart monitors were attached to the patient. The patient throat was sprayed using lidocaine. The patient was turned into left lateral position. After that a bite guard was placed. After an appropriate conscious sedation was initiated, the transesophageal echocardiogram was advanced through a bite guard into the mid esophagus. A 2-D echocardiogram images, color Doppler images, continuous wave images, pulse-wave images, of various cardiac structure were performed. After that the transesophageal echocardiogram probe was advanced into the stomach and fixed to obtain transgastric view was. The probe was brought into the mid esophagus. Inter-atrial septum was interrogated using 2D images, color Doppler images, and then contrast study. After that transesophageal echocardiogram was withdrawn out and upon withdrawing the descending thoracic aorta all the way up to the arch was evaluated. FINDING: The left ventricular dimension and systolic function appeared to be within normal limits the EF appears to be in the range of 50%. The right ventricle appeared to be of normal size and function. The left a sharp is dilated. The left atrial appendage appeared to be free from any thrombus. The interatrial septum appeared to have possible small patent foramen ovale with [id number] shunt identified on contrast to study. The aortic valve is trileaflet valve with no stenosis but mild insufficiency. The mitral valve appeared to be thickened with moderate mitral regurgitation. There is moderate tricuspid regurgitation and moderate pulmonic insufficiency identified. CONCLUSION: 1. Intact left atrial appendage with no thrombus. 2. Normal biventricular dimension and systolic function 3. Aortic sclerosis was no stenosis with mild insufficiency 4. Moderate mitral regurgitation 5. Moderate tricuspid regurgitation and moderate pulmonic insufficiency 6. No evidence of pericardial effusion
--- NOTE | 2022-10-12 08:49 | P.PCN ---
Date of Procedure: 10/12/22 Operative Findings: Cardioversion Report Performing physician Sadi Suresh M.D. Procedure performed Successful cardioversion of atrial fibrillation to normal sinus mechanism using 200 J at first attempt Indication Symptomatic atrial fibrillation Complication None Level of sedation The procedure was performed under deep sedation using propofol with REPAIR CLERK in the room Procedure description After obtaining an informed consent the patient was brought to the recovery room. Sedation was introduced using propofol with REPAIR CLERK in the room. Subsequently transesophageal echocardiogram and intracardiac thrombus was ruled out Subsequently the patient cardioverted from atrial fibrillation to normal sinus mechanism using 200 J and first attempt Conclusion Successful cardioversion of atrial fibrillation to normal sinus mechanism using 200 J Postprocedure management Continue the current medical regimen Continue oral anticoagulation Follow-up with the patient
[2022-10-12] MEDS ORDERED: FUROSEMIDE 40 MG TAB PO SCH (09:00)
[2022-10-12 12:38] VITALS: BP 135/88; PULSE 69; TEMP 97.5
--- NOTE | 2022-10-12 13:07 | P.DS ---
Providers Date of admission: 10/10/22 20:25 Expected date of discharge: 10/12/22 Attending physician: Eusebio Dawson MD Consults: 10/10/22 20:25 Consult Physician Urgent Consulting Provider: [facility] Consult Reason/Comments: New-onset A. fib Do you want consulting provider notified?: Yes Primary care physician: Benjamin Ashton [facility] Course: Discharge Diagnosis: Paroxysmal atrial fibrillation with rapid ventricular response Thrombocytosis Microcytic anemia, improved from discharge on 10/01. Hypothyroidism Recent right femoral fracture secondary to fall Hospital Course: Patient is a 77-year-old female with known A. fib on Xarelto, hypothyroidism, and right total hip replacement 11 days ago presented to the emergency room at the direction of staff office for A. fib with RVR. In the emergency department she underwent an extensive evaluation. Her initial EKG showed A. fib with rapid ventricular response at a rate of 122. Laboratory analysis was remarkable for hemoglobin 10.6, platelets 547, sodium 134, BUN 20, and BNP of 2640. Chest x-ray showed Atheromatous aorta but no acute process. In the ER she was given a bolus of Cardizem and started on a Cardizem infusion. Arrangements were made for admission for atrial fibrillation with rapid ventricular response. Of note patient was seen for continuous atrial tachycardia during her last hospital stay for her hip replacement. At that time she was on amiodarone as well as a beta lorri. They felt that due to her being asymptomatic from her tachycardia she can continue on same therapy and consider repeat cardioversion as an outpatient. She was seen by cardiology who recommended DARIA with cardioversion. This was completed on the morning of 10/12/22 with sabianism of normal sinus rhythm. Patient was asymptomatic. She was cleared by cardiology for discharge. Follow-up: Dr. Alonso next week, keep appointment with Juan morrissey PA-C in one week, follow-up with Dr. Ashton on discharge from [facility]. Continue with postop hip fracture instructions. Patient seen and examined at bedside. Denies any chest pain, shortness breath, nausea, vomiting. Family present at bedside. All questions answered. Vital signs reviewed and stable. General: nontoxic, no distress, appears at stated age Derm: warm, dry Head: atraumatic, normocephalic, symmetric Eyes: EOMI, no lid lag, anicteric sclera Mouth: no lip lesion, mucus membranes moist Cardiovascular: S1S2 reg, no murmur, positive posterior tibial pulse bilateral, Lungs: CTA bilateral, no rhonchi, no rales , no accessory muscle use Abdominal: soft, nontender to palpation, no guarding, no appreciable organomegaly Ext: no gross muscle atrophy, no edema, no contractures Neuro: CN II-XI grossly intact, no focal neuro deficits Psych: Alert, oriented, appropriate affect A total of 32 minutes of time were spent preparing this complex discharge guajardo mmary. Patient was discharged on 10/12/22. This dictation was prepared using [employer] voice recognition software. Though every attempt is made to correct errors during during dictation some may still exist. Plan - Discharge Summary Discharge Rx Participant: No New Discharge Prescriptions: Continue Pantoprazole [Protonix] 40 mg PO BID Amiodarone [Cordarone] 200 mg PO BID Ferrous Sulfate [Feosol] 325 mg PO DAILY #30 tab Cyclobenzaprine [Flexeril] 5 mg PO HS #14 tab Venlafaxine HCl [Effexor] 225 mg PO DAILY Sennosides/Docusate Sodium [Senna Plus 8.6-50 mg Softgel] 1 cap PO DAILY Rivaroxaban [Xarelto] 20 mg PO HS Metoprolol Succinate (ER) [Toprol XL] 150 mg PO BID Levothyroxine Sodium [Synthroid] 75 mcg PO DAILY busPIRone HCL [Buspar] 7.5 mg PO BID Furosemide [Lasix] 40 mg PO TUFR Clotrimazole/Betameth Cream [Lotrisone] 1 applic TOPICAL BID Multivitamins, Thera [Multivitamin (formulary)] 1 tab PO DAILY HYDROcodone/APAP 5-325MG [Delta 5-325] 1 tab PO Q6HR PRN #9 tab PRN Reason: Pain Discontinued traMADol HCL 50 mg PO TID PRN PRN Reason: Pain Discharge Medication List Levothyroxine Sodium [Synthroid] 75 mcg PO DAILY 01/24/22 [History] Metoprolol Succinate (ER) [Toprol XL] 150 mg PO BID 01/24/22 [History] Rivaroxaban [Xarelto] 20 mg PO HS 01/24/22 [History] busPIRone HCL [Buspar] 7.5 mg PO BID 01/24/22 [History] Pantoprazole [Protonix] 40 mg PO BID 02/08/22 [History] Amiodarone [Cordarone] 200 mg PO BID 09/28/22 [History] Furosemide [Lasix] 40 mg PO TUFR 09/28/22 [History] Ferrous Sulfate [Feosol] 325 mg PO DAILY #30 tab 10/01/22 [Rx] Cyclobenzaprine [Flexeril] 5 mg PO HS #14 tab 10/02/22 [Rx] Clotrimazole/Betameth Cream [Lotrisone] 1 applic TOPICAL BID 10/10/22 [History] Multivitamins, Thera [Multivitamin (formulary)] 1 tab PO DAILY 10/10/22 [History] Sennosides/Docusate Sodium [Senna Plus 8.6-50 mg Softgel] 1 cap PO DAILY 10/10/22 [History] Venlafaxine HCl [Effexor] 225 mg PO DAILY 10/10/22 [History] HYDROcodone/APAP 5-325MG [Delta 5-325] 1 tab PO Q6HR PRN #9 tab 10/12/22 [Rx] Follow up Appointment(s)/Referral(s): Benjamin Ashton MD [Primary Care Provider] - 1-2 days Quyen Alonso MD [REFERRING] - 1 Week Activity/Diet/Wound Care/Special Instructions: Activity: as tolerated Diet: heart healthy Discharge Disposition: TRANSFER TO SNF/ECF
== END 2022-10-12 15:12 ==
LOC: EC 18:20 → 3SCARD 20:25 → INTOOBSV 20:25 → 3SCARD 21:41 → UNDODISIN 10-12 15:12
PROVIDERS: ADMIT Internal Medicine; ATTEND Internal Medicine
DX: I48.0 Paroxysmal atrial fibrillation (principal); D75.839 Thrombocytosis, unspecified; D53.9 Nutritional anemia, unspecified; I08.3 Combined rheumatic disorders of mitral, aortic and tricuspid valves; I70.0 Atherosclerosis of aorta; I10 Essential (primary) hypertension; I47.1 Supraventricular tachycardia; M19.90 Unspecified osteoarthritis, unspecified site; E03.9 Hypothyroidism, unspecified; F10.10 Alcohol abuse, uncomplicated; E78.5 Hyperlipidemia, unspecified; G47.33 Obstructive sleep apnea (adult) (pediatric); S72.001D Fracture of unspecified part of neck of right femur, subsequent encounter for closed fracture with routine healing; W19.XXXD Unspecified fall, subsequent encounter; F32.A Depression, unspecified; F41.9 Anxiety disorder, unspecified; Z79.01 Long term (current) use of anticoagulants; Z79.890 Hormone replacement therapy; Z79.899 Other long term (current) drug therapy; Z88.2 Allergy status to sulfonamides; Z96.641 Presence of right artificial hip joint; Z87.891 Personal history of nicotine dependence; Z90.49 Acquired absence of other specified parts of digestive tract; Z98.84 Bariatric surgery status; Z90.710 Acquired absence of both cervix and uterus; Z96.652 Presence of left artificial knee joint; Z80.51 Family history of malignant neoplasm of kidney; Z80.0 Family history of malignant neoplasm of digestive organs; Z80.42 Family history of malignant neoplasm of prostate; Z80.8 Family history of malignant neoplasm of other organs or systems
CPT/HCPCS: 96365 ×2; 96366 ×4; 96376; 96368; 99291; 36415; 94760; 93005 ×2; 93312; 93320; 93325; 97116; 97162; 97530; 97535 ×2; 97166; 92960; 84439; 83880; 80061; 80053; 84443; 83735; 84484 ×2; 85025; 85610; 85730; 71046; G0378 ×3; J1644 ×2; J2704; J2001

== ENCOUNTER 2022-10-26 13:26 | Inpatient (IN) | payer MEDICARE ==
[2022-10-26] MEDS ORDERED: SODIUM CHLORIDE 0.9% 1,000 ML IV STA (14:13)
--- NOTE | 2022-10-26 14:20 | ED ---
General Adult HPI - General Chief complaint: Extremity Injury, Lower Stated complaint: Weakness Time Seen by Provider: 10/26/22 13:45 Source: patient Mode of arrival: EMS Limitations: physical limitation - History of Present Illness Initial comments: Dictation was produced using [employer] dictation software. please excuse any grammatical, word or spelling errors. Chief Complaint: 77-year-old female brought to the emergency Department from home for low blood pressure generalized weakness History of Present Illness: 77-year-old female she denies any chest pain or shortness of breath. Patient is almost one month post operation for right hip surgery performed by Dr. Nika Esposito. Patient had home health care visit her today. She is found have a low blood pressure. Patient is complaining about weakness. States that she's had chronic pain since a surgery to her right hip. Denies any nausea or vomiting. She denies any headache. No chest pain or shortness of breath. No abdominal pain. No numbness and paresthesias to the arms or legs The ROS documented in this emergency department record has been reviewed and confirmed by me. Those systems with pertinent positive or negative responses have been documented in the HPI. All other systems are other negative and/or noncontributory. - Related Data Home Medications Medication Instructions Recorded Confirmed Levothyroxine Sodium [Synthroid] 75 mcg PO DAILY 01/24/22 10/26/22 Metoprolol Succinate (ER) [Toprol 150 mg PO BID 01/24/22 10/26/22 XL] Rivaroxaban [Xarelto] 20 mg PO HS 01/24/22 10/26/22 busPIRone HCL [Buspar] 7.5 mg PO BID 01/24/22 10/26/22 Pantoprazole [Protonix] 40 mg PO BID 02/08/22 10/26/22 Amiodarone [Cordarone] 200 mg PO BID 09/28/22 10/26/22 Furosemide [Lasix] 40 mg PO TUFR 09/28/22 10/26/22 Sennosides/Docusate Sodium [Senna 1 cap PO DAILY 10/10/22 10/26/22 Plus 8.6-50 mg Softgel] Venlafaxine HCl [Effexor] 225 mg PO DAILY 10/10/22 10/26/22 Ibandronate Sodium 150 mg PO Q30D 10/26/22 10/26/22 Irbesartan [Avapro] 150 mg PO DAILY 10/26/22 10/26/22 traMADol HCL 50 mg PO HS PRN 10/26/22 10/26/22 traMADol HCL 100 mg PO DAILY PRN 10/26/22 10/26/22 Previous Rx's Medication Instructions Recorded Cyclobenzaprine [Flexeril] 5 mg PO HS #14 tab 10/02/22 Allergies Allergy/AdvReac Type Severity Reaction Status Date / Time Sulfa (Sulfonamide Allergy Unknown Verified 10/26/22 15:28 Antibiotics) Childhood Review of Systems ROS Statement: Those systems with pertinent positive or pertinent negative responses have been documented in the HPI. ROS Other: All systems not noted in ROS Statement are negative. Past Medical History Past Medical History: Atrial Fibrillation, Hypertension, Osteoarthritis (OA), Sleep Apnea/CPAP/BIPAP, Thyroid Disorder Additional Past Medical History / Comment(s): ETOH abuse, back pain, states positive blood in stool-hospitalized 01/24 to 01/26/22 History of Any Multi-Drug Resistant Organisms: None Reported Past Surgical History: Bariatric Surgery, Cholecystectomy, Hernia Repair, Hysterectomy, Joint Replacement Additional Past Surgical History / Comment(s): bariatric -STOMACH STAPLING (DR ARORA 1999)., HERNIA WITH MESH & REACTION TO MESH WITH REMOVAL., TOTAL LEFT KNEE, right hip surgery 09/28/22, Past Anesthesia/Blood Transfusion Reactions: No Reported Reaction Past Psychological History: Anxiety, Depression Smoking Status: Former smoker Past Alcohol Use History: Daily Past Drug Use History: None Reported - Past Family History Mother History Unknown: Yes Additional Family Medical History / Comment(s): kidney cancer. Father History Unknown: Yes Family Medical History: Cancer Additional Family Medical History / Comment(s): PROSTATE CANCER Sister(s) History Unknown: Yes Family Medical History: Cancer Additional Family Medical History / Comment(s): ESOPHAGEAL AND THYROID CANCER General Exam - General Exam Comments Initial Comments: PHYSICAL EXAM: General Impression: Alert and oriented x3, not in acute distress HEENT: Normocephalic atraumatic, extra-ocular movements intact, pupils equal and reactive to light bilaterally, dry mucous membranes moist. Cardiovascular: Heart regular rate and rhythm Chest: Able to complete full sentences, no retractions, no tachypnea Abdomen: abdomen soft, non-tender, non-distended, no organomegaly Musculoskeletal: Pulses present and equal in all extremities, no peripheral edema Right hip: Surgical site clean dry and intact, no induration swelling or ecchymoses Motor: no focal deficits noted Neurological: CN II-XII grossly intact, no focal motor or sensory deficits noted Skin: Intact with no visualized rashes Psych: Normal affect and mood Limitations: physical limitation Course Vital Signs 10/26/22 10/26/22 10/26/22 13:31 14:25 15:28 Temperature 98.7 F Pulse Rate 109 H 105 H 104 H Respiratory 18 18 18 Rate Blood Pressure 86/49 92/75 104/56 O2 Sat by Pulse 96 92 L 95 Oximetry Medical Decision Making - Medical Decision Making Was pt. sent in by a medical professional or institution (, PA, COATING MANAGER, urgent care, hospital, or assisted...) When possible be specific @ -Home health care nurse Did you speak to anyone other than the patient for history (EMS, parent, family, police, friend...)? What history was obtained from this source @ -No Did you review nursing and triage notes (agree or disagree)? Why? @ -I reviewed and agree with nursing and triage notes Were old charts reviewed (outside hosp., previous admission, EMS record, old EKG, old radiological studies, urgent care reports/EKG's, assisted records)? Report findings @ -No old charts were reviewed Differential Diagnosis (chest pain, altered mental status, abdominal pain women, abdominal pain men, vaginal bleeding, musculoskeletal, weakness, fever, dysp bull, syncope, headache, dizziness, GI bleed, back pain, seizure, CVA, palpatations, mental health)? @ -Differential Weakness: Hypoglycemia, shock, sepsis, hyponatremia, anemia, infection, IN, ETOH, adverse medicine reaction, overdose, stroke, this is not meant to be an all-inclusive list. EKG interpreted by me (3pts min.). @ -None done X-rays interpreted by me (1pt min.). @ -No acute processes in the chest CT interpreted by me (1pt min.). @ -None done U/S interpreted by me (1pt. min.). @ -None done What testing was considered but not performed or refused? (CT, X-rays, U/S, labs)? Why? @ -None What meds were considered but not given or refused? Why? @ -None Did you discuss the management of the patient with other professionals (professionals i.e. , PA, COATING MANAGER, lab, RT, psych nurse, delinquency prevention social worker, retail associate manager bilingual, teacher, financial aid officer, caseworker protective services)? Give summary @ -Discussed with hospitalist for admission Was smoking cessation discussed for >3mins.? @ -No Was critical care preformed (if so, how long)? @ -No Were there social determinants of health that impacted care today? How? (Homelessness, low income, unemployed, alcoholism, drug addiction, transportation, low edu. Level, literacy, decrease access to med. care, skilled nursing, rehab)? @ -No Was there de-escalation of care discussed even if they declined (Discuss DNR or withdrawal of care, Hospice)? DNR status @ -No What co-morbidities impacted this encounter? (DM, HTN, Smoking, COPD, CAD, Cancer, CVA, ARF, Chemo, Hep., AIDS, mental health diagnosis, sleep apnea, morbid obesity)? @ -None Was patient admitted / discharged? Hospital course, mention meds given and route, prescriptions, significant lab abnormalities, going to OR and other pertinent info. @ -77-year-old female presents to emergency department for hypertension. Patient did not have any focal symptoms. She is well-appearing with mildly dry mucous membranes. Laboratory evaluation obtained. Elevated renal markers suggesting likely dehydration causing hypotension. Patient's blood pressures improved with some fluids. Given patient's social situation and comorbidities patient's considered high risk and would benefit from observation admission for continued IV fluids and medical monitoring. Undiagnosed new problem with uncertain prognosis? @ -No Drug Therapy requiring intensive monitoring for toxicity (Heparin, Nitro, Insulin, Cardizem)? @ -No Were any procedures done? @ -No Diagnosis/symptom? Acute, or Chronic, or Acute on Chronic? Uncomplicated (without systemic symptoms) or Complicated (systemic symptoms)? @ -1. Acute hypotension Side effects of treatment? @ -No Exacerbation, Progression, or Severe Exacerbation? @ -No Poses a threat to life or bodily function? How? (Chest pain, USA, IN, pneumonia, PE, COPD, DKA, ARF, appy, cholecystitis, CVA, Diverticulitis, Homicidal, Suicidal, threat to staff... and all critical care pts) @ -yes - Lab Data Result diagrams: 10/26/22 14:23 10/26/22 14:23 Lab Results 10/26/22 10/26/22 10/26/22 Range/Units 14: 14: 14:23 WBC 9.1 (3.8-10.6) k/uL RBC 3.28 L (3.80-5.40) m/uL Hgb 11.3 L (11.4-16.0) gm/dL Hct 35.5 (34.0-46.0) % MCV 108.3 H (80.0-100.0) fL MCH 34.4 (25.0-35.0) pg MCHC 31.8 (31.0-37.0) g/dL RDW 12.9 (11.5-15.5) % Plt Count 428 (150-450) k/uL MPV 7.2 Neutrophils % 86 % Lymphocytes % 7 % Monocytes % 4 % Eosinophils % 1 % Basophils % 1 % Neutrophils # 7.9 H (1.3-7.7) k/uL Lymphocytes # 0.6 L (1.0-4.8) k/uL Monocytes # 0.4 (0-1.0) k/uL Eosinophils # 0.1 (0-0.7) k/uL Basophils # 0.1 (0-0.2) k/uL Hypochromasia Slight Macrocytosis Moderate PT 15.6 H (9.0-12.0) sec INR 1.6 H (<1.2) APTT 33.5 H (22.0-30.0) sec Sodium 134 L (137-145) mmol/L Potassium 3.9 (3.5-5.1) mmol/L Chloride 102 (98-107) mmol/L Carbon Dioxide 24 (22-30) mmol/L Anion Gap 8 mmol/L BUN 25 H (7-17) mg/dL Creatinine 1.30 H (0.52-1.04) mg/dL Est GFR (CKD-EPI)AfAm 47 (>60 ml/min/1.73 sqM) Est GFR (CKD-EPI)NonAf 40 (>60 ml/min/1.73 sqM) Glucose 94 (74-99) mg/dL Plasma Lactic Acid Marcelo (0.7-2.0) mmol/L Calcium 8.0 L (8.4-10.2) mg/dL Magnesium 2.0 (1.6-2.3) mg/dL Total Bilirubin 0.7 (0.2-1.3) mg/dL AST 39 H (14-36) U/L ALT 24 (4-34) U/L Alkaline Phosphatase 174 H (38-126) U/L Total Protein 6.1 L (6.3-8.2) g/dL Albumin 2.8 L (3.5-5.0) g/dL 10/26/22 Range/Units 14:23 WBC (3.8-10.6) k/uL RBC (3.80-5.40) m/uL Hgb (11.4-16.0) gm/dL Hct (34.0-46.0) % MCV (80.0-100.0) fL MCH (25.0-35.0) pg MCHC (31.0-37.0) g/dL RDW (11.5-15.5) % Plt Count (150-450) k/uL MPV Neutrophils % % Lymphocytes % % Monocytes % % Eosinophils % % Basophils % % Neutrophils # (1.3-7.7) k/uL Lymphocytes # (1.0-4.8) k/uL Monocytes # (0-1.0) k/uL Eosinophils # (0-0.7) k/uL Basophils # (0-0.2) k/uL Hypochromasia Macrocytosis PT (9.0-12.0) sec INR (<1.2) APTT (22.0-30.0) sec Sodium (137-145) mmol/L Potassium (3.5-5.1) mmol/L Chloride (98-107) mmol/L Carbon Dioxide (22-30) mmol/L Anion Gap mmol/L BUN (7-17) mg/dL Creatinine (0.52-1.04) mg/dL Est GFR (CKD-EPI)AfAm (>60 ml/min/1.73 sqM) Est GFR (CKD-EPI)NonAf (>60 ml/min/1.73 sqM) Glucose (74-99) mg/dL Plasma Lactic Acid Marcelo 2.3 H* (0.7-2.0) mmol/L Calcium (8.4-10.2) mg/dL Magnesium (1.6-2.3) mg/dL Total Bilirubin (0.2-1.3) mg/dL AST (14-36) U/L ALT (4-34) U/L Alkaline Phosphatase (38-126) U/L Total Protein (6.3-8.2) g/dL Albumin (3.5-5.0) g/dL Disposition Clinical Impression: Hypotension Disposition: ADMITTED IP TO THIS HOSP Condition: Fair Referrals: Benjamin Ashton MD [Primary Care Provider] - 1-2 days Decision Time: 16:00
[2022-10-26 14:34] LABS: Basophils # (A) 0.1 k/uL (0-0.2); Basophils % (A) 1 %; Eosinophils # (A) 0.1 k/uL (0-0.7); Eosinophils % (A) 1 %; HCT 35.5 % (34.0-46.0); HGB 11.3 gm/dL (11.4-16.0); Hypochromasia Slight; Lymphocytes # (A) 0.6 k/uL (1.0-4.8); Lymphocytes % (A) 7 %; MCH 34.4 pg (25.0-35.0); MCHC 31.8 g/dL (31.0-37.0); MCV 108.3 fL (80.0-100.0); Macrocytosis Moderate; Mean Platelet Volume 7.2; Monocytes # (A) 0.4 k/uL (0-1.0); Monocytes % (A) 4 %; Neutrophils # (A) 7.9 k/uL (1.3-7.7); Neutrophils % (A) 86 %; Platelet Count 428 k/uL (150-450); RBC 3.28 m/uL (3.80-5.40); RDW 12.9 % (11.5-15.5); WBC 9.1 k/uL (3.8-10.6)
[2022-10-26 14:45] LABS: INR 1.6 (<1.2); Partial Thromboplastin Time 33.5 sec (22.0-30.0); Prothrombin Time 15.6 sec (9.0-12.0)
--- NOTE | 2022-10-26 14:48 | XR ---
EXAMINATION TYPE: XR chest 1V portable DATE OF EXAM: 10/26/2022 2:43 PM COMPARISON: Chest radiographs from 10/10/2022 TECHNIQUE: XR chest 1V portable Frontal view of the chest. CLINICAL INDICATION:Female, 77 years old with history of weakness; FINDINGS: Lungs/Pleura: There is no evidence of pleural effusion, focal consolidation, or pneumothorax. Pulmonary vascularity: Unremarkable. Heart/mediastinum: Cardiomediastinal silhouette is unremarkable. Atherosclerotic calcifications are seen in the aorta. Musculoskeletal: There is a fracture line through the posterior right rib #4 as well as left ribs 4 a nd 5. Surgical clips in the upper abdomen. IMPRESSION: 1. No acute cardiopulmonary disease process. 2. Redemonstration of rib fractures from prior on 10/10/2022.
[2022-10-26 14:57] LABS: Albumin 2.8 g/dL (3.5-5.0); Potassium 3.9 mmol/L (3.5-5.1); Total Bilirubin 0.7 mg/dL (0.2-1.3); Total Protein 6.1 g/dL (6.3-8.2)
[2022-10-26] MEDS ORDERED: NALOXONE 0.4 MG/ML 1 ML VIAL IV PRN (16:28)
[2022-10-26] MEDS ORDERED: traMADol 50 MG TAB PO PRN (16:52)
--- NOTE | 2022-10-26 16:56 | P.HPIM ---
History of Present Illness H&P Date: 10/26/22 Patient is a 77-year-old female with known history of atrial fibrillation on several time, hypothyroidism, recent right total hip arthroplasty presenting from home after her home care nurse noted low blood pressure. Patient was reportedly feeling and shaky at that time. She was then brought to the ED. She denies any recent other changes. She denies any chest pain, palpitation, shortness of breath, orthopnea, PND, abdominal pain, urinary or bowel complaints. She has chronic lower extremity lymphedema. She has been taking her diuretics at home. She denies any smoking or illicit drug use. She drinks a glass of wine every night, but did have 9 glasses of wine last night. In the ED, on arrival, temperature was 98.7, tachycardic to 109, respiratory rate 18, blood pressure 86/49, 96% on room air. Laboratory workup showed WBC 9.1, hemoglobin 11.3, platelets 428, INR 1.6, APTT 33.5, sodium 134, creatinine 1.30, lactic acid 2.3. EKG reviewed by me showed normal sinus rhythm. Chest x- ray shows prior rib fractures, no acute process. Patient was given normal saline in the ED 1 L, improvement in blood pressure. Patient being admitted for acute kidney injury, and dehydration. Pertinent positives and negatives as discussed in HPI, a complete review of systems was performed and all other systems are negative. Patient seen and examined at bedside. Vital signs reviewed General: nontoxic, no distress, appears at stated age Derm: warm, dry Head: atraumatic, normocephalic, symmetric Eyes: EOMI, no lid lag, anicteric sclera, pupils equal round reactive to light ENT: Nose and ears atraumatic Neck: No thyromegaly, supple Mouth: no lip lesion, mucus membranes moist Cardiovascular: S1S2 reg, no murmur, no edema Lungs: clear to auscultation bilateral, no rhonchi, no rales, no wheeze, no accessory muscle use Abdominal: soft, nontender to palpation, no guarding, no appreciable organomegaly Ext: no gross muscle atrophy, muscle strength muscle strength 5 out of 5 in all 4 extremities, no contractures Neuro: CN II-XII grossly intact Psych: Alert, oriented, appropriate affect Assessment/Plan: Active: Acute kidney injury, nonoliguric Lactic acidosis Dehydration Hypotension Daily alcohol use Generalized weakness -Continue IV fluids 75 mL normal saline an hour -Encourage oral intake -Repeat lactate ordered -Blood cultures pending -Holding MICK inhibitor and diuretics -Repeat BMP tomorrow -Thiamine 100 mg daily ordered, monitor for alcohol withdrawal -PT/OT consult ordered Chronic: Paroxysmal atrial fibrillation on xarelto Depression/anxiety Hypertension history GERD The patient is admitted with an anticipated less than 2 midnight stay as observation status for evaluation of dehydration. Surrogate decision-maker: Spouse CODE STATUS: Full code DVT prophylaxis: xarelto Anticipated discharge date: Pending clinical course Anticipated discharge place: Pending clinical course A total of 55 minutes was spent on the care of this complex patient more than 50% of the time was spent in counseling and care coordination. Past Medical History Past Medical History: Atrial Fibrillation, Hypertension, Osteoarthritis (OA), Sleep Apnea/CPAP/BIPAP, Thyroid Disorder Additional Past Medical History / Comment(s): ETOH abuse, back pain, states positive blood in stool-hospitalized 01/24 to 01/26/22 History of Any Multi-Drug Resistant Organisms: None Reported Past Surgical History: Bariatric Surgery, Cholecystectomy, Hernia Repair, Hysterectomy, Joint Replacement Additional Past Surgical History / Comment(s): bariatric -STOMACH STAPLING (DR ARORA 1999)., HERNIA WITH MESH & REACTION TO MESH WITH REMOVAL., TOTAL LEFT KNEE, right hip surgery 09/28/22, Past Anesthesia/Blood Transfusion Reactions: No Reported Reaction Past Psychological History: Anxiety, Depression Smoking Status: Former smoker Past Alcohol Use History: Daily Past Drug Use History: None Reported - Past Family History Mother History Unknown: Yes Additional Family Medical History / Comment(s): kidney cancer. Father History Unknown: Yes Family Medical History: Cancer Additional Family Medical History / Comment(s): PROSTATE CANCER Sister(s) History Unknown: Yes Family Medical History: Cancer Additional Family Medical History / Comment(s): ESOPHAGEAL AND THYROID CANCER Medications and Allergies Home Medications Medication Instructions Recorded Confirmed Type Levothyroxine Sodium [Synthroid] 75 mcg PO DAILY 01/24/22 10/26/22 History Metoprolol Succinate (ER) [Toprol 150 mg PO BID 01/24/22 10/26/22 History XL] Rivaroxaban [Xarelto] 20 mg PO HS 01/24/22 10/26/22 History busPIRone HCL [Buspar] 7.5 mg PO BID 01/24/22 10/26/22 History Pantoprazole [Protonix] 40 mg PO BID 02/08/22 10/26/22 History Amiodarone [Cordarone] 200 mg PO BID 09/28/22 10/26/22 History Furosemide [Lasix] 40 mg PO TUFR 09/28/22 10/26/22 History Cyclobenzaprine [Flexeril] 5 mg PO HS #14 tab 10/02/22 10/26/22 Rx Sennosides/Docusate Sodium [Senna 1 cap PO DAILY 10/10/22 10/26/22 History Plus 8.6-50 mg Softgel] Venlafaxine HCl [Effexor] 225 mg PO DAILY 10/10/22 10/26/22 History Ibandronate Sodium 150 mg PO Q30D 10/26/22 10/26/22 History Irbesartan [Avapro] 150 mg PO DAILY 10/26/22 10/26/22 History traMADol HCL 50 mg PO HS PRN 10/26/22 10/26/22 History traMADol HCL 100 mg PO DAILY PRN 10/26/22 10/26/22 History Allergies Allergy/AdvReac Type Severity Reaction Status Date / Time Sulfa (Sulfonamide Allergy Unknown Verified 10/26/22 15:28 Antibiotics) Childhood Physical Exam Vitals: Vital Signs Temp Pulse Resp BP Pulse Ox 10/26/22 15:28 104 H 18 104/56 95 10/26/22 14:25 105 H 18 92/75 92 L 10/26/22 13:31 98.7 F 109 H 18 86/49 96 Intake and Output 10/26/22 10/26/22 10/26/22 06:59 14:59 22:59 Other: Weight 81.193 kg Results CBC & Chem 7: 10/26/22 14:23 10/26/22 14:23 Labs: Abnormal Lab Results - Last 24 Hours (Table) 10/26/22 10/26/22 10/26/22 Range/Units 14:23 14:23 14:23 RBC 3.28 L (3.80-5.40) m/uL Hgb 11.3 L (11.4-16.0) gm/dL MCV 108.3 H (80.0-100.0) fL Neutrophils # 7.9 H (1.3-7.7) k/uL Lymphocytes # 0.6 L (1.0-4.8) k/uL PT 15.6 H (9.0-12.0) sec INR 1.6 H (<1.2) APTT 33.5 H (22.0-30.0) sec Sodium 134 L (137-145) mmol/L BUN 25 H (7-17) mg/dL Creatinine 1.30 H (0.52-1.04) mg/dL Plasma Lactic Acid Marcelo (0.7-2.0) mmol/L Calcium 8.0 L (8.4-10.2) mg/dL AST 39 H (14-36) U/L Alkaline Phosphatase 174 H (38-126) U/L Total Protein 6.1 L (6.3-8.2) g/dL Albumin 2.8 L (3.5-5.0) g/dL 10/26/22 Range/Units 14:23 RBC (3.80-5.40) m/uL Hgb (11.4-16.0) gm/dL MCV (80.0-100.0) fL Neutrophils # (1.3-7.7) k/uL Lymphocytes # (1.0-4.8) k/uL PT (9.0-12.0) sec INR (<1.2) APTT (22.0-30.0) sec Sodium (137-145) mmol/L BUN (7-17) mg/dL Creatinine (0.52-1.04) mg/dL Plasma Lactic Acid Marcelo 2.3 H* (0.7-2.0) mmol/L Calcium (8.4-10.2) mg/dL AST (14-36) U/L Alkaline Phosphatase (38-126) U/L Total Protein (6.3-8.2) g/dL Albumin (3.5-5.0) g/dL
[2022-10-26] MEDS: SODIUM CHLORIDE 0.9% 1,000 ML IV SCH (17:07)
[2022-10-26] MEDS: PANTOPRAZOLE 40 MG TABLET PO SCH (17:07)
[2022-10-26] MEDS: HYDROcodone/APAP 5-325MG 1 EACH TAB PO PRN ×2 (17:07→22:39)
[2022-10-26] MEDS ORDERED: SODIUM CHLORIDE 0.9% 1,000 ML IV ONE (20:58)
[2022-10-26] MEDS: busPIRone HCl 5 MG TAB PO SCH (22:28)
[2022-10-26] MEDS: RIVAROXABAN 20 MG TAB PO SCH (22:29)
[2022-10-26] MEDS: AMIODARONE 200 MG TAB PO SCH (22:29)
[2022-10-26] MEDS: CYCLOBENZAPRINE 5 MG TAB PO SCH (22:29)
[2022-10-26 23:58] LABS: Appearance,Urine Turbid (Clear); Bacteria,Urine Occasional /hpf; Bilirubin,Urine Negative (Negative); Blood,Urine Small (Negative); Color,Urine Yellow; Glucose,Urine (UA) Negative (Negative); Hyaline Casts,Urine 20 /lpf (0-2); Ketones,Urine Negative (Negative); Leukocyte Esterase,Urine Large (Negative); Mucus,Urine Occasional /hpf; Nitrite,Urine Negative (Negative); PH, Urine 5.5 (5.0-8.0); Protein,Urine Trace (Negative); RBC,Urine 9 /hpf (0-5); Specific Gravity,Urine 1.017 (1.001-1.035); Urobilinogen,Urine <2.0 mg/dL (<2.0); WBC,Urine >182 /hpf (0-5)
[2022-10-27] MEDS: METOPROLOL SUCCINATE (ER) 50 MG TAB.ER.24H PO SCH ×3 (00:05→21:53)
[2022-10-27] MEDS ORDERED: AMIODARONE 360 MG in DEXTROSE 5% IN WATER 200 ML IV ONE ×2 (03:52)
[2022-10-27] MEDS ORDERED: SODIUM CHLORIDE 0.9% 500 ML 500 ML IV ONE (03:53)
[2022-10-27] MEDS ORDERED: DEXTROSE 5% IN WATER 100 ML with AMIODARONE 150 MG IV ONE (04:00)
[2022-10-27] MEDS ORDERED: AMIODARONE 450 MG in DEXTROSE 5% IN WATER 250 ML IV SCH ×2 (04:00)
[2022-10-27] MEDS ORDERED: METOPROLOL SUCCINATE (ER) 100 MG TAB.ER.24H PO STA (04:02)
[2022-10-27] MEDS: HYDROcodone/APAP 5-325MG 1 EACH TAB PO PRN ×4 (04:11→21:54)
--- NOTE | 2022-10-27 04:15 | P.EN ---
RN notified me about patient being hypotensive and heart rate ranging 80-120. EKG showed afib with RVR at time of my evaluation , patient clinically looks stable, denies chest pain, trouble breathing, dizziness, lightheadedness. blood pressure improved after 1 L normal saline bolus, but then dropped again to 89 systolic, again patient continues to be asymptomatic. current heart rate 70-109 patient RN did hold PM dose of metoprolol due to low blood pressure patient was also having trouble urinating , RN did a bladder scan and >400 cc urine retention, straight cath done and UA sent General alert oriented to place person and time. pleasant lungs good breath sounds bilaterally clear to auscultation heart , regular normal S1 S2 abd soft , no tenderness Plan P. Afib with RVR continue xarelto continue amiodarone 200 mg bid give one time dose of metoprolol 100 mg po (patient skipped PM dose of metoprolol today), then resume metoprolol 150 mg po BID in AM give bolus normal saline 500 cc cardiology consult UTI follow up cultures start Rocephine 1 gm IVPB daily , first dose now IVF with normal saline at 120 cc per hour (after the bolus ) will reassess in 1 hour, if continues to be hypotensive with afib RVR, then will transfer to and start Amiodarone drip
[2022-10-27] MEDS: SODIUM CHLORIDE 0.9% 1,000 ML IV SCH (05:12)
[2022-10-27] MEDS: LEVOTHYROXINE 75 MCG TAB PO SCH (05:15)
[2022-10-27] MEDS: PANTOPRAZOLE 40 MG TABLET PO SCH ×2 (05:15→17:44)
[2022-10-27 07:39] LABS: African American GFR (CKD) 61 (>60 ml/min/1.73 sqM); Anion Gap 3 mmol/L; Blood Urea Nitrogen 23 mg/dL (7-17); Calcium 7.1 mg/dL (8.4-10.2); Carbon Dioxide 25 mmol/L (22-30); Chloride 106 mmol/L (98-107); Glucose 74 mg/dL (74-99); Non-African American GFR(CKD) 53 (>60 ml/min/1.73 sqM); Potassium 3.8 mmol/L (3.5-5.1); Sodium 134 mmol/L (137-145)
[2022-10-27] MEDS: SENNOSIDES-DOCUSATE SODIUM 1 EACH TAB PO SCH (09:37)
[2022-10-27] MEDS: busPIRone HCl 5 MG TAB PO SCH ×2 (09:37→21:53)
[2022-10-27] MEDS: AMIODARONE 200 MG TAB PO SCH (09:37)
[2022-10-27] MEDS: VENLAFAXINE HCL ER 75 MG CAP PO SCH (09:37)
[2022-10-27] MEDS: THIAMINE 100 MG TAB PO SCH (09:37)
[2022-10-27] MEDS ORDERED: DIGOXIN 250 MCG/ML 2 ML AMP IVP STA (10:30)
--- NOTE | 2022-10-27 10:33 | P.CRDCN ---
History of Present Illness History of present illness: This is a 77-year-old female patient who sees a filler mixer out of the town in [place] and at [facility] with a past medical history significant for paroxysmal atrial fibrillation with previous ablation in June [address] Sharp, history of hypertension, dyslipidemia and hypothyroidism as well as sleep apnea. Patient has had 3 hospitalizations in the last 1 month beginning with a hip fracture and preop clearance on September 28. Patient has had intermittent episodes of A. fib with RVR and had previously been placed on Cardizem as well as started on amiodarone. Amiodarone dose apparently has been a 200 mg twice a day. She underwent cardioversion last admission approximately 2 weeks ago. She was discharged home and undergoing rehab and visiting nurse stated she looked white as a ghost and not well and advised to go to ER. She has been noted to be hypotensive with blood pressures in the 80s over 50s as well as borderline tachycardic with heart rates in the 100s to 120s. She received IV fluids and continued on her home Toprol. Her irbesartan has been held. She mainly admits to generalized fatigue however no significant shortness of breath. She does have increased lower extremity edema which she states is more compared to a few weeks ago. She has not follow-up with her primary filler mixer and states she has an appointment in December. She admits she felt somewhat better after the cardioversion 2 weeks ago. Review Of Systems: At the time of my evaluation: Constitutional: No fever, no chills. No weakness, fatigue or lethargy. EENT: No headache. No dizziness. Lungs: No shortness of breath, cough, no sputum production. No wheezing. Cardiovascular: No chest pain, reports lower extremity edema. No palpitations. No paroxysmal nocturnal dyspnea. No orthopnea. No lightheadedness or dizziness. No syncopal episodes. Abdominal: No abdominal pain. No nausea, vomiting. No diarrhea. No constipation. No bloody or tarry stools. Genitourinary: No dysuria. No urinary retention. Musculoskeletal: No myalgias. No muscle weakness, no frequent falls. No back pain. No neck pain. Integumentary: No wounds. No rash. No unusual bruising. Neurologic: No aphasia. No facial droop. No change in mentation. No head injury. No headache. Physical examination: Gen: This is a 77-year-old female. She is lying flat in bed and appears to be comfortable and in no acute distress. VS: reviewed HEENT: Head is atraumatic, normocephalic. Pupils equal, round. Sclerae is anicteric. NECK: Supple. No JVD. . LUNGS: Clear to auscultation. No wheezes or rhonchi. No intercostal retractions. HEART: Irregular rate and rhythm. Systolic murmur at the right upper sternal border and left upper sternal border. ABDOMEN: Soft No tenderness. EXTREMITIES: 2+ pedal edema. No calf tenderness. NEUROLOGICAL: Patient is awake, alert and oriented x3. Assessment: Persistent atrial fibrillation with RVR, uncontrolled Hypertension, currently hypotensive may be in part related to UTI Hyperlipidemia Hypothyroidism, previously high TSH with high T4 Obstructive sleep apnea Chronic diastolic heart failure Lower extremity edema likely some component of venous insufficiency Urinary tract infection Plan: Continue with Toprol 150 mg twice a day with hold parameters. Add digoxin for better rate control. Decrease amiodarone down to 200 mg daily dosing. Check TSH given abnormalities last admission for completeness sake. Attempt to rate control and monitor response. Much of symptoms may be related to UTI. Continue supportive care. Patient will likely need diuresis at some point with increase in lower extremity edema however monitor clinically. May consider repeat DARIA cardioversion if continues to have significant tachycardia. Past Medical History Past Medical History: Atrial Fibrillation, Hypertension, Osteoarthritis (OA), Sleep Apnea/CPAP/BIPAP, Thyroid Disorder Additional Past Medical History / Comment(s): ETOH abuse, back pain, states positive blood in stool-hospitalized 01/24 to 01/26/22 History of Any Multi-Drug Resistant Organisms: None Reported Past Surgical History: Bariatric Surgery, Cholecystectomy, Hernia Repair, Hysterectomy, Joint Replacement Additional Past Surgical History / Comment(s): bariatric -STOMACH STAPLING (DR ARORA 1999)., HERNIA WITH MESH & REACTION TO MESH WITH REMOVAL., TOTAL LEFT KNEE, right hip surgery 09/28/22, Past Anesthesia/Blood Transfusion Reactions: No Reported Reaction Smoking Status: Former smoker - Past Family History Mother History Unknown: Yes Additional Family Medical History / Comment(s): kidney cancer. Father History Unknown: Yes Family Medical History: Cancer Additional Family Medical History / Comment(s): PROSTATE CANCER Sister(s) History Unknown: Yes Family Medical History: Cancer Additional Family Medical History / Comment(s): ESOPHAGEAL AND THYROID CANCER Medications and Allergies Home Medications Medication Instructions Recorded Confirmed Type Levothyroxine Sodium [Synthroid] 75 mcg PO DAILY 01/24/22 10/26/22 History Metoprolol Succinate (ER) [Toprol 150 mg PO BID 01/24/22 10/26/22 History XL] Rivaroxaban [Xarelto] 20 mg PO HS 01/24/22 10/26/22 History busPIRone HCL [Buspar] 7.5 mg PO BID 01/24/22 10/26/22 History Pantoprazole [Protonix] 40 mg PO BID 02/08/22 10/26/22 History Amiodarone [Cordarone] 200 mg PO BID 09/28/22 10/26/22 History Furosemide [Lasix] 40 mg PO TUFR 09/28/22 10/26/22 History Cyclobenzaprine [Flexeril] 5 mg PO HS #14 tab 10/02/22 10/26/22 Rx Sennosides/Docusate Sodium [Senna 1 cap PO DAILY 10/10/22 10/26/22 History Plus 8.6-50 mg Softgel] Ibandronate Sodium 150 mg PO Q30D 10/26/22 10/26/22 History Irbesartan [Avapro] 150 mg PO DAILY 10/26/22 10/26/22 History Venlafaxine HCl ER [Effexor Xr] 225 mg PO DAILY 10/26/22 10/26/22 History traMADol HCL 50 mg PO HS PRN 10/26/22 10/26/22 History traMADol HCL 100 mg PO DAILY PRN 10/26/22 10/26/22 History Allergies Allergy/AdvReac Type Severity Reaction Status Date / Time Sulfa (Sulfonamide Allergy Unknown Verified 10/26/22 15:28 Antibiotics) Childhood Physical Exam Vitals: Vital Signs Temp Pulse Pulse Resp BP BP Pulse Ox 10/27/22 07:00 98.1 F 104 H 17 89/53 97 10/27/22 06:20 104 H 88/55 10/27/22 04:10 97.6 F 114 H 18 98/63 100 10/27/22 02:07 97.7 F 112 H 19 89/57 99 10/27/22 00:02 97 93/63 10/26/22 22:26 62 103/67 95 10/26/22 21:09 98.0 F 61 17 88/58 93 L 10/26/22 18:46 98.3 F 65 20 96/69 92 L 10/26/22 17:06 110 H 18 114/75 94 L 10/26/22 15:28 104 H 18 104/56 95 10/26/22 14:25 105 H 18 92/75 92 L 10/26/22 13:31 98.7 F 109 H 18 86/49 96 Intake and Output 10/26/22 10/27/22 10/27/22 22:59 06:59 14:59 Intake Total 118 Output Total 800 Balance -800 118 Intake: Oral 118 Output: Urine 800 Straight 400 Other: Voiding Method External Catheter External Catheter # Voids 1 Weight 81.193 kg Results 10/26/22 14:23 10/27/22 06:38 Cardiac Enzymes 10/26/22 Range/Units 14: AST 39 H (14-36) U/L Coagulation 10/26/22 Range/Units 14: PT 15.6 H (9.0-12.0) sec APTT 33.5 H (22.0-30.0) sec CBC 10/26/22 Range/Units 14:23 WBC 9.1 (3.8-10.6) k/uL RBC 3.28 L (3.80-5.40) m/uL Hgb 11.3 L (11.4-16.0) gm/dL Hct 35.5 (34.0-46.0) % Plt Count 428 (150-450) k/uL Comprehensive Metabolic Panel 10/26/22 10/27/22 Range/Units 14:23 06:38 Sodium 134 L 134 L (137-145) mmol/L Potassium 3.9 3.8 (3.5-5.1) mmol/L Chloride 102 106 (98-107) mmol/L Carbon Dioxide 24 25 (22-30) mmol/L BUN 25 H 23 H (7-17) mg/dL Creatinine 1.30 H 1.04 (0.52-1.04) mg/dL Glucose 94 74 (74-99) mg/dL Calcium 8.0 L 7.1 L (8.4-10.2) mg/dL AST 39 H (14-36) U/L ALT 24 (4-34) U/L Alkaline Phosphatase 174 H (38-126) U/L Total Protein 6.1 L (6.3-8.2) g/dL Albumin 2.8 L (3.5-5.0) g/dL Current Medications Generic Name Dose Route Start Last Admin Trade Name Freq PRN Reason Stop Dose Admin Hydrocodone Bitart/Acetaminophen 1 each 10/26/22 16:28 10/27/22 09:37 Hydrocodone/Apap 5-325mg 1 Each Tab PO 1 each Q4HR PRN Administration Moderate Pain (Scale 4 to 6) Amiodarone HCl 200 mg 10/26/22 21:00 10/27/22 09:37 Amiodarone 200 Mg Tab PO 200 mg BID CONNER Administration Buspirone HCl 7.5 mg 10/26/22 21:00 10/27/22 09:37 Buspirone Hcl 5 Mg Tab PO 7.5 mg BID CONNER Administration Cyclobenzaprine HCl 5 mg 10/26/22 21:00 10/26/22 22:29 Cyclobenzaprine 5 Mg Tab PO 5 mg HS CONNER Administration Sodium Chloride 1,000 mls @ 120 mls/hr 10/26/22 16:30 10/27/22 05:12 Saline 0.9% IV 120 mls/hr .Q8H20M CONNER Administration Ceftriaxone Sodium 1 gm/ 50 mls @ 100 mls/hr 10/27/22 05:00 10/27/22 05:11 Sodium Chloride IVPB 100 mls/hr Q24H CONNER Administration Protocol Levothyroxine Sodium 75 mcg 10/27/22 06:30 10/27/22 05:15 Levothyroxine 75 Mcg Tab PO 75 mcg DAILY@0630 CONNER Administration Metoprolol Succinate 150 mg 10/26/22 21:00 10/27/22 00:05 Metoprolol Succinate (Er) 50 Mg Tab.Er.24h PO Not Given BID CONNER Naloxone HCl 0.2 mg 10/26/22 16:28 Naloxone 0.4 Mg/Ml 1 Ml Vial IV Q2M PRN Opioid Reversal Pantoprazole Sodium 40 mg 10/26/22 17:30 10/27/22 05:15 Pantoprazole 40 Mg Tablet PO 40 mg AC-BID CONNER Administration Rivaroxaban 20 mg 10/26/22 21:00 10/26/22 22:29 Rivaroxaban 20 Mg Tab PO 20 mg HS CONNER Administration Protocol Senna/Docusate Sodium 1 each 10/27/22 09:00 10/27/22 09:37 Sennosides-Docusate Sodium 1 Each Tab PO 1 each DAILY CONNER Administration Thiamine HCl 100 mg 10/27/22 09:00 10/27/22 09:37 Thiamine 100 Mg Tab PO 100 mg DAILY CONNER Administration Tramadol HCl 50 mg 10/26/22 16:52 Tramadol 50 Mg Tab PO HS PRN Pain Tramadol HCl 100 mg 10/26/22 16:52 Tramadol 50 Mg Tab PO DAILY PRN Pain Venlafaxine HCl 225 mg 10/27/22 09:00 10/27/22 09:37 Venlafaxine Hcl Er 75 Mg Cap PO 225 mg DAILY CONNER Administration Intake and Output 10/26/22 10/27/22 10/27/22 22:59 06:59 14:59 Intake Total 118 Output Total 800 Balance -800 118 Intake: Oral 118 Output: Urine 800 Straight 400 Other: Voiding Method External Catheter External Catheter # Voids 1 Weight 81.193 kg 10/26/22 14:23 10/27/22 06:38
--- NOTE | 2022-10-27 12:31 | P.PN ---
Subjective Progress Note Date: 10/27/22 Hospital Course: 77-year-old female with known history of atrial fibrillation on several time, hypothyroidism, recent right total hip arthroplasty presenting from home after her home care nurse noted low blood pressure. In the ED, on arrival, temperature was 98.7, tachycardic to 109, respiratory rate 18, blood pressure 86/49, 96% on room air. Laboratory workup showed WBC 9.1, hemoglobin 11.3, platelets 428, INR 1.6, APTT 33.5, sodium 134, creatinine 1.30, lactic acid 2.3. EKG reviewed by me showed normal sinus rhythm. Chest x-ray shows prior rib fractures, no acute process. Patient was given normal saline in the ED 1 L, improvement in blood pressure. Patient being admitted for acute kidney injury, and dehydration. Overnight on 10/27, patient became tachycardic in a flutter, and hypotensive. She was given more fluids and started on ceftriaxone for possible UTI. Cardiol ursula was consulted. Subjective: Seen and examined at bedside. Overnight, patient was tachycardic and hypotensive. She denies any symptoms related to tachycardia or hypotension. She denies any chest pain, shortness of breath, abdominal pain, nausea, vomiting, diarrhea, constipation. She had a urinary retention, and had straight catheterization overnight. She claims that she does have some lower abdominal tenderness Pertinent positives and negatives as discussed above, a complete review of systems was performed and all other systems are negative. Vitals Signs Reviewed. General: nontoxic, no distress, appears at stated age Derm: warm, dry Head: atraumatic, normocephalic, symmetric Eyes: EOMI, no lid lag, anicteric sclera Mouth: no lip lesion, mucus membranes moist Cardiovascular: S1S2 reg, tachycardic, no murmur Lungs: CTA bilateral, no rhonchi, no rales , no accessory muscle use Abdominal: soft, nontender to palpation, no guarding, no appreciable organomegaly Ext: no gross muscle atrophy, no edema, no contractures Neuro: CN II-XI grossly intact, no focal neuro deficits Psych: Alert, oriented, appropriate affect Data Reviewed Today: Pertinent Labs: Sodium 134, creatinine 1.04 EKG personally interpreted shows atrial fibrillation Assessment and Plan: Patient is now critically ill, needs further workup for persistent hypertension, will be changed from observation to inpatient. Persistent hypotension Persistent atrial fibrillation with RVR Acute kidney injury, nonoliguric, improving Urinary tract infection Urinary retention status post straight cath Dehydration Daily alcohol use Generalized weakness -Cardiology note reviewed: Amiodarone decreased to 20 mg daily, started on digoxin 250 g daily, metoprolol 150 mg twice a day continued -Patient may need diuretics at some point, cardiology to further consider DARIA with cardioversion if A. fib persistent -TSH and T4 pending -Blood cultures pending, urine cultures pending -Continue ceftriaxone 1 g daily -Holding MICK inhibitor and diuretics -Renal function is improving -Repeat BMP tomorrow -Thiamine 100 mg daily, monitor for alcohol withdrawal -PT/OT consult ordered Resolved: Lactic acidosis Chronic: Depression/anxiety Hypertension history GERD DVT ppx: [email or web address] Code status: Full code Anticipated discharge place: Pending clinical course Anticipated discharge time: And clinical course Objective - Vital Signs Vital signs: Vital Signs Temp 98.1 F 10/27/22 07:00 Pulse 111 H 10/27/22 10:29 Resp 17 10/27/22 07:00 BP 102/69 10/27/22 10:29 Pulse Ox 97 10/27/22 07:00 FiO2 Intake & Output 10/26/22 10/27/22 10/27/22 18:59 06:59 18:59 Intake Total 118 Output Total 800 Balance -800 118 Weight 81.193 kg 81.193 kg Intake: Oral 118 Output: Urine 800 Straight 400 Other: Voiding Method External Catheter External Catheter # Voids 1 - Labs CBC & Chem 7: 10/26/22 14:23 10/27/22 06:38 Labs: Abnormal Lab Results - Last 24 Hours (Table) 10/26/22 10/26/22 10/26/22 Range/Units 14: 14: 14: RBC 3.28 L (3.80-5.40) m/uL Hgb 11.3 L (11.4-16.0) gm/dL MCV 108.3 H (80.0-100.0) fL Neutrophils # 7.9 H (1.3-7.7) k/uL Lymphocytes # 0.6 L (1.0-4.8) k/uL PT 15.6 H (9.0-12.0) sec INR 1.6 H (<1.2) APTT 33.5 H (22.0-30.0) sec Sodium 134 L (137-145) mmol/L BUN 25 H (7-17) mg/dL Creatinine 1.30 H (0.52-1.04) mg/dL Plasma Lactic Acid Marcelo (0.7-2.0) mmol/L Calcium 8.0 L (8.4-10.2) mg/dL AST 39 H (14-36) U/L Alkaline Phosphatase 174 H (38-126) U/L Total Protein 6.1 L (6.3-8.2) g/dL Albumin 2.8 L (3.5-5.0) g/dL Urine Appearance (Clear) Urine Protein (Negative) Urine Blood (Negative) Ur Leukocyte Esterase (Negative) Urine RBC (0-5) /hpf Urine WBC (0-5) /hpf Urine WBC Clumps (None) /hpf Urine Bacteria (None) /hpf Hyaline Casts (0-2) /lpf Urine Mucus (None) /hpf 10/26/22 10/26/22 10/27/22 Range/Units 14:23 23:29 06:38 RBC (3.80-5.40) m/uL Hgb (11.4-16.0) gm/dL MCV (80.0-100.0) fL Neutrophils # (1.3-7.7) k/uL Lymphocytes # (1.0-4.8) k/uL PT (9.0-12.0) sec INR (<1.2) APTT (22.0-30.0) sec Sodium 134 L (137-145) mmol/L BUN 23 H (7-17) mg/dL Creatinine (0.52-1.04) mg/dL Plasma Lactic Acid Marcelo 2.3 H* (0.7-2.0) mmol/L Calcium 7.1 L (8.4-10.2) mg/dL AST (14-36) U/L Alkaline Phosphatase (38-126) U/L Total Protein (6.3-8.2) g/dL Albumin (3.5-5.0) g/dL Urine Appearance Turbid H (Clear) Urine Protein Trace H (Negative) Urine Blood Small H (Negative) Ur Leukocyte Esterase Large H (Negative) Urine RBC 9 H (0-5) /hpf Urine WBC >182 H (0-5) /hpf Urine WBC Clumps Many H (None) /hpf Urine Bacteria Occasional H (None) /hpf Hyaline Casts 20 H (0-2) /lpf Urine Mucus Occasional H (None) /hpf
[2022-10-27] MEDS ORDERED: DIGOXIN 250 MCG/ML 2 ML AMP IVP ONE (14:30)
[2022-10-27] MEDS: CYCLOBENZAPRINE 5 MG TAB PO SCH (21:53)
[2022-10-27] MEDS: RIVAROXABAN 20 MG TAB PO SCH (21:53)
[2022-10-28] MEDS: HYDROcodone/APAP 5-325MG 1 EACH TAB PO PRN ×3 (02:46→20:57)
[2022-10-28] MEDS: LEVOTHYROXINE 75 MCG TAB PO SCH (05:56)
[2022-10-28] MEDS: PANTOPRAZOLE 40 MG TABLET PO SCH ×2 (05:56→16:26)
[2022-10-28] MEDS: DIGOXIN 250 MCG TAB PO SCH (08:19)
[2022-10-28] MEDS: busPIRone HCl 5 MG TAB PO SCH ×2 (08:19→20:50)
[2022-10-28] MEDS: THIAMINE 100 MG TAB PO SCH (08:20)
[2022-10-28] MEDS: METOPROLOL SUCCINATE (ER) 50 MG TAB.ER.24H PO SCH (08:20)
[2022-10-28] MEDS: VENLAFAXINE HCL ER 75 MG CAP PO SCH (08:20)
[2022-10-28] MEDS: SENNOSIDES-DOCUSATE SODIUM 1 EACH TAB PO SCH (08:20)
[2022-10-28] MEDS: AMIODARONE 200 MG TAB PO SCH (08:20)
--- NOTE | 2022-10-28 10:16 | P.PN ---
Subjective This is a 77-year-old female patient who sees a erector operator out of the town in [place] and at [facility] with a past medical history significant for paroxysmal atrial fibrillation with previous ablation in June [address] Sharp, history of hypertension, dyslipidemia and hypothyroidism as well as sleep apnea. Patient has had 3 hospitalizations in the last 1 month beginning with a hip fracture and preop clearance on September 28. Patient has had intermittent episodes of A. fib with RVR and had previously been placed on Cardizem as well as started on amiodarone. Amiodarone dose apparently has been a 200 mg twice a day. She underwent cardioversion last admission approximately 2 weeks ago. She was discharged home and undergoing rehab and visiting nurse stated she looked white as a ghost and not well and advised to go to ER. She has been noted to be hypotensive with blood pressures in the 80s over 50s as well as borderline tachycardic with heart rates in the 100s to 120s. She received IV fluids and continued on her home Toprol. Her irbesartan has been held. She mainly admits to generalized fatigue however no significant shortness of breath. She does have increased lower extremity edema which she states is more compared to a few weeks ago. She has not follow-up with her primary erector operator and states she has an appointment in December. She admits she felt somewhat better after the cardioversion 2 weeks ago. 10/28 Patient seen and examined. Patient was started on digoxin yesterday with improvement in heart rates down to the 70s and 80s. She still feels fatigued. She still has lower extremity edema. She had a hypotensive episode yesterday afternoon with blood pressure into the 70s over 40s which was asymptomatic. No repeat blood work yet from this morning. Physical examination: Gen: This is a 77-year-old female. She is lying flat in bed and appears to be comfortable and in no acute distress. VS: reviewed HEENT: Head is atraumatic, normocephalic. Pupils equal, round. Sclerae is anicte nia. NECK: Supple. No JVD. . LUNGS: Clear to auscultation. No wheezes or rhonchi. No intercostal retractions. HEART: Irregular rate and rhythm. Systolic murmur at the right upper sternal border and left upper sternal border. ABDOMEN: Soft No tenderness. EXTREMITIES: 2+ pedal edema. No calf tenderness. NEUROLOGICAL: Patient is awake, alert and oriented x3. Assessment: Persistent atrial fibrillation with RVR, uncontrolled Hypertension, currently hypotensive may be in part related to UTI Hyperlipidemia Hypothyroidism, previously high TSH with high T4 Obstructive sleep apnea Chronic diastolic heart failure Lower extremity edema likely some component of venous insufficiency Urinary tract infection Plan: Decrease the Toprol down to 75 mg twice a day given hypotension and continue wit h the amiodarone and digoxin with much better rate control. May consider repeat DARIA cardioversion if still symptomatic from the A. fib. Otherwise much of the symptoms appear related to UTI and continue supportive care. Likely restart diuretics tomorrow if blood pressure remains stable. Objective - Vital Signs Vital signs: Vital Signs Temp 98.1 F 10/28/22 07:00 Pulse 95 10/28/22 07:00 Resp 18 10/28/22 07:00 BP 103/68 10/28/22 07:00 Pulse Ox 98 10/28/22 07:00 FiO2 Intake & Output 10/27/22 10/28/22 10/28/22 18:59 06:59 18:59 Intake Total 118 Output Total 1100 Balance 118 -1100 Intake: Oral 118 Output: Urine 1100 Straight 550 Other: Voiding Method Bedside Commode External Catheter Bedside Commode # Voids 1 0 - Labs CBC & Chem 7: 10/26/22 14:23 10/27/22 06:38 Labs: Microbiology - Last 24 Hours (Table) 10/26/22 14:23 Blood Culture - Preliminary Blood No Growth after 24 hours 10/26/22 23:29 Urine Culture - Preliminary Urine,Voided
--- NOTE | 2022-10-28 12:27 | P.PN ---
Subjective Progress Note Date: 10/28/22 Hospital Course: 77-year-old female with known history of atrial fibrillation on several time, hypothyroidism, recent right total hip arthroplasty presenting from home after her home care nurse noted low blood pressure. In the ED, on arrival, temperature was 98.7, tachycardic to 109, respiratory rate 18, blood pressure 86/49, 96% on room air. Laboratory workup showed WBC 9.1, hemoglobin 11.3, platelets 428, INR 1.6, APTT 33.5, sodium 134, creatinine 1.30, lactic acid 2.3. EKG reviewed by me showed normal sinus rhythm. Chest x-ray shows prior rib fractures, no acute process. Patient was given normal saline in the ED 1 L, improvement in blood pressure. Patient being admitted for acute kidney injury, and dehydration. Overnight on 10/27, patient became tachycardic in a flutter, and hypotensive. She was given more fluids and started on ceftriaxone for possible UTI. Cardiolo gy was consulted. Metoprolol dose decreased, amiodarone dose decreased, digoxin added, will likely be restarted on diuretics tomorrow. Subjective: Seen and examined at bedside. She is still having some abdominal fullness, and intermittent urinary retention. She denies any dysuria or increased urinary frequency. She denies any chest pain, shortness breath, palpitations, lightheadedness. Pertinent positives and negatives as discussed above, a complete review of systems was performed and all other systems are negative. Vitals Signs Reviewed. General: nontoxic, no distress, appears at stated age Derm: warm, dry Head: atraumatic, normocephalic, symmetric Eyes: EOMI, no lid lag, anicteric sclera Mouth: no lip lesion, mucus membranes moist Cardiovascular: S1S2 reg, tachycardic, no murmur Lungs: CTA bilateral, no rhonchi, no rales , no accessory muscle use Abdominal: soft, nontender to palpation, no guarding, no appreciable organomegaly Ext: no gross muscle atrophy, no edema, no contractures Neuro: CN II-XI grossly intact, no focal neuro deficits Psych: Alert, oriented, appropriate affect Data Reviewed Today: Urine culture shows gram-negative bacilli The cultures negative growth to date BMP pending Assessment and Plan: Severe sepsis secondary to Urinary tract infection Intermittent urinary retention Persistent atrial fibrillation, now rate controlled Acute kidney injury, nonoliguric, resolved Dehydration Daily alcohol use Generalized weakness -Currently on IV ceftriaxone 1 g every 24 hours -Urine culture positive for gram-negative bacilli, speciation pending -Blood cultures negative growth to date -Currently holding MICK inhibitor and diuretics -Low blood pressure likely in the setting of severe sepsis -Cardiology note reviewed: Amiodarone decreased to 200 mg daily, started on digoxin 250 g daily, metoprolol decreased to 75 mg twice a day -Patient may need diuretics tomorrow once blood pressure improved, cardiology to further consider DARIA with cardioversion if A. fib persistent -TSH and T4 pending and cortisol levels pending -Blood cultures pending, urine cultures pending -Thiamine 100 mg daily, monitor for alcohol withdrawal -PT/OT consult ordered Resolved: Lactic acidosis Acute kidney injury Atrial fibrillation with RVR Chronic: Depression/anxiety Hypertension history GERD DVT ppx: [email or web address] Code status: Full code Anticipated discharge place: Pending clinical course Anticipated discharge time: Pending clinical course Objective - Vital Signs Vital signs: Vital Signs Temp 98.1 F 10/28/22 07:00 Pulse 95 10/28/22 07:00 Resp 18 10/28/22 07:00 BP 103/68 10/28/22 07:00 Pulse Ox 98 10/28/22 07:00 FiO2 Intake & Output 10/27/22 10/28/22 10/28/22 18:59 06:59 18:59 Intake Total 118 Output Total 1100 Balance 118 -1100 Intake: Oral 118 Output: Urine 1100 Straight 550 Other: Voiding Method Bedside Commode External Catheter Bedside Commode # Voids 1 0 - Labs CBC & Chem 7: 10/26/22 14:23 10/27/22 06:38 Labs: Microbiology - Last 24 Hours (Table) 10/26/22 23:29 Urine Culture - Preliminary Urine,Voided Gram Neg Bacilli 10/26/22 14:23 Blood Culture - Preliminary Blood No Growth after 24 hours
[2022-10-28] MEDS: CYCLOBENZAPRINE 5 MG TAB PO SCH (20:50)
[2022-10-28] MEDS: RIVAROXABAN 20 MG TAB PO SCH (20:50)
[2022-10-28] MEDS: METOPROLOL SUCCINATE (ER) 25 MG TAB.ER.24H PO SCH (20:51)
[2022-10-29] MEDS: HYDROcodone/APAP 5-325MG 1 EACH TAB PO PRN ×5 (00:32→18:00)
[2022-10-29] MEDS: LEVOTHYROXINE 75 MCG TAB PO SCH (05:38)
[2022-10-29] MEDS: PANTOPRAZOLE 40 MG TABLET PO SCH ×2 (05:38→18:00)
[2022-10-29] MEDS: THIAMINE 100 MG TAB PO SCH (08:59)
[2022-10-29] MEDS: METOPROLOL SUCCINATE (ER) 25 MG TAB.ER.24H PO SCH ×2 (08:59→20:39)
[2022-10-29] MEDS: SENNOSIDES-DOCUSATE SODIUM 1 EACH TAB PO SCH (08:59)
[2022-10-29] MEDS: busPIRone HCl 5 MG TAB PO SCH ×2 (08:59→20:37)
[2022-10-29] MEDS: DIGOXIN 250 MCG TAB PO SCH (09:00)
[2022-10-29] MEDS: AMIODARONE 200 MG TAB PO SCH (09:00)
[2022-10-29] MEDS: VENLAFAXINE HCL ER 75 MG CAP PO SCH (09:00)
[2022-10-29 09:06] LABS: African American GFR (CKD) 56.9 (60.0-200.0); Albumin 2.9 g/dL (3.8-4.9); Anion Gap 13.8 mmol/L (10.00-18.00); BUN/Creat Ratio 17.91 Ratio (12.00-20.00); Blood Urea Nitrogen 19.7 mg/dL (9.0-27.0); Carbon Dioxide 19.2 mmol/L (20.0-27.5); Non-African American GFR(CKD) 49.1 (60.0-200.0); Phosphorus 2.6 mg/dL (2.4-5.1); Potassium 4.5 mmol/L (3.5-5.5)
[2022-10-29] MEDS ORDERED: FUROSEMIDE 10 MG TAB PO SCH (10:00)
--- NOTE | 2022-10-29 10:35 | P.PN ---
Subjective Progress Note Date: 10/29/22 This is a 77-year-old female patient who sees a cable maker out of the town in [place] and at [facility] with a past medical history significant for paroxysmal atrial fibrillation with previous ablation in June [address] Sharp, history of hypertension, dyslipidemia and hypothyroidism as well as sleep apnea. Patient has had 3 hospitalizations in the last 1 month beginning with a hip fracture and preop clearance on September 28. Patient has had intermittent episodes of A. fib with RVR and had previously been placed on Cardizem as well as started on amiodarone. Amiodarone dose apparently has been a 200 mg twice a day. She underwent cardioversion last admission approximately 2 weeks ago. She was discharged home and undergoing rehab and visiting nurse stated she looked white as a ghost and not well and advised to go to ER. She has been noted to be hypotensive with blood pressures in the 80s over 50s as well as borderline tachycardic with heart rates in the 100s to 120s. She received IV fluids and continued on her home Toprol. Her irbesartan has been held. She mainly admits to generalized fatigue however no significant shortness of breath. She does have increased lower extremity edema which she states is more compared to a few weeks ago. She has not follow-up with her primary cable maker and states she has an appointment in December. She admits she felt somewhat better after the cardioversion 2 weeks ago. 10/28 Patient seen and examined. Patient was started on digoxin yesterday with improvement in heart rates down to the 70s and 80s. She still feels fatigued. She still has lower extremity edema. She had a hypotensive episode yesterday afternoon with blood pressure into the 70s over 40s which was asymptomatic. No repeat blood work yet from this morning. 10/29 Patient is seen today in follow-up. She states she's not feeling well, does not have any appetite. She denies having chest pain or shortness of breath at rest. Medications were adjusted yesterday by decreasing the Toprol and adding digoxin. Heart rate is now 60-70s in atrial fibrillation. Patient will be resumed on low dose of Lasix. Physical examination: Gen: This is a 77-year-old female. She is lying flat in bed and appears to be comfortable and in no acute distress. VS: reviewed HEENT: Head is atraumatic, normocephalic. Pupils equal, round. Sclerae is anicteric. NECK: Supple. No JVD. LUNGS: Clear to auscultation. No wheezes or rhonchi. No intercostal retractions . HEART: Irregular rate and rhythm. Systolic murmur at the right upper sternal border and left upper sternal border. ABDOMEN: Soft No tenderness. EXTREMITIES: 1+ pedal edema. No calf tenderness. NEUROLOGICAL: Patient is awake, alert and oriented x3. Assessment: Persistent atrial fibrillation with RVR, uncontrolled Hypertension, has been hypotensive may be in part related to UTI Hyperlipidemia Hypothyroidism, previously high TSH with high T4 Obstructive sleep apnea Chronic diastolic heart failure Lower extremity edema likely some component of venous insufficiency Urinary tract infection Plan: Continue current cardiac medications including amiodarone 200 mg daily, digoxin 250 g daily and Toprol-XL 75 mg twice daily Continue patient on Xarelto Start patient on Lasix 10 mg oral daily No plan for DARIA cardioversion Continue UTI treatment Further recommendations as patient progresses Nurse practitioner note has been reviewed, I agree with the documented findings and plan of care. Patient was seen and examined. Objective - Vital Signs Vital signs: Vital Signs Temp 98.1 F 10/29/22 07:00 Pulse 78 10/29/22 07:00 Resp 17 10/29/22 07:00 BP 124/79 10/29/22 07:00 Pulse Ox 98 10/29/22 07:00 FiO2 Intake & Output 10/28/22 10/29/22 10/29/22 18:59 06:59 18:59 Intake Total 360 Output Total 400 400 Balance -40 -400 Intake: Oral 360 Output: Urine 400 400 Other: Voiding Method Bedside Commode Bedside Commode # Voids 1 1 - Labs CBC & Chem 7: 10/26/22 14:23 10/28/22 11:39 Labs: Microbiology - Last 24 Hours (Table) 10/26/22 14:23 Blood Culture - Preliminary Blood No Growth after 48 hours 10/26/22 23:29 Urine Culture - Preliminary Urine,Voided Gram Neg Bacilli
[2022-10-29] MEDS: FUROSEMIDE 20 MG TAB PO SCH (12:40)
--- NOTE | 2022-10-29 18:47 | P.PN ---
Subjective Progress Note Date: 10/29/22 Hospital Course: 77-year-old female with known history of atrial fibrillation on several time, hypothyroidism, recent right total hip arthroplasty presenting from home after her home care nurse noted low blood pressure. In the ED, on arrival, temperature was 98.7, tachycardic to 109, respiratory rate 18, blood pressure 86/49, 96% on room air. Laboratory workup showed WBC 9.1, hemoglobin 11.3, platelets 428, INR 1.6, APTT 33.5, sodium 134, creatinine 1.30, lactic acid 2.3. EKG reviewed by me showed normal sinus rhythm. Chest x-ray shows prior rib fractures, no acute process. Patient was given normal saline in the ED 1 L, improvement in blood pressure. Patient being admitted for acute kidney injury, and dehydration. Overnight on 10/27, patient became tachycardic in a flutter, and hypotensive. She was given more fluids and started on ceftriaxone for possible UTI. Card iology was consulted. Metoprolol dose decreased, amiodarone dose decreased, digoxin added, will likely be restarted on diuretics tomorrow. Physical examination: Py seen and examined at bedside. She reports feeling better and currently denies having any abdominal pain, dysuria or increased urinary frequency. She denies any chest pain, shortness breath, palpitations, lightheadedness. Pertinent p ositives and negatives as discussed above, a complete review of systems was performed and all other systems are negative. Vitals Signs Reviewed. General: nontoxic, no distress, appears at stated age Derm: warm, dry Head: atraumatic, normocephalic, symmetric Eyes: EOMI, no lid lag, anicteric sclera Mouth: no lip lesion, mucus membranes moist Cardiovascular: S1S2 reg, tachycardic, no murmur Lungs: CTA bilateral, no rhonchi, no rales , no accessory muscle use Abdominal: soft, nontender to palpation, no guarding, no appreciable organomegaly Ext: no gross muscle atrophy, no edema, no contractures Neuro: CN II-XI grossly intact, no focal neuro deficits Psych: Alert, oriented, appropriate affect Assessment and Plan of Care: Severe sepsis secondary to Urinary tract infection Intermittent urinary retention Persistent atrial fibrillation, now rate controlled Acute kidney injury, nonoliguric, resolved Dehydration Daily alcohol use Generalized weakness Hypothyroidism -Continue IV ceftriaxone 1 g every 24 hours -Urine culture positive for gram-negative bacilli, speciation pending -Blood cultures negative growth to date -Currently holding MICK inhibitor and diuretics -Low blood pressure likely in the setting of severe sepsis -Cardiology note reviewed: Amiodarone decreased to 200 mg daily, started on digoxin 250 g daily, metoprolol decreased to 75 mg twice a day -Patient may need diuretics tomorrow once blood pressure improved, cardiology to further consider DARIA with cardioversion if A. fib persistent -TSH Elevated at 8.550 with free T4 of 2.050. Levothyroxine increased to 100 g daily and patient will require repeat testing on thyroid in 6 weeks. -Cortisol levels elevated at 25.0, however cortisol was drawn at 11:30 AM order placed for repeat cortisol level timed for tomorrow morning at 5 AM. -Continue Thiamine 100 mg daily -PT/OT consult ordered Resolved: Lactic acidosis Acute kidney injury Atrial fibrillation with RVR Chronic: Depression/anxiety Hypertension history GERD CODE STATUS: Full code DVT prophylaxis: Xarelto Discussed with: Pt and RN Anticipated discharge date: pending insurance authorization Anticipated discharge place: [facility] Patient was seen independently by Nurse Pracitioner. This document was prepared using [employer] dictation software. Please allow for errors in e business manager, while rare they do occur. I reviewed the documentation as provided by the SUSIE above, who is the original author of this note. I agree with the documented assessment and plan, with the following changes: none Objective - Vital Signs Vital signs: Vital Signs Temp 98.1 F 10/29/22 07:00 Pulse 78 10/29/22 07:00 Resp 17 10/29/22 07:00 BP 124/79 10/29/22 07:00 Pulse Ox 98 10/29/22 07:00 FiO2 Intake & Output 10/28/22 10/29/22 10/29/22 18:59 06:59 18:59 Intake Total 360 Output Total 400 400 Balance -40 -400 Intake: Oral 360 Output: Urine 400 400 Other: Voiding Method Bedside Commode Bedside Commode # Voids 1 1 - Labs CBC & Chem 7: 10/26/22 14:23 10/28/22 11:39 Labs: Abnormal Lab Results - Last 24 Hours (Table) 10/28/22 Range/Units 11:39 Carbon Dioxide 19.2 L (20.0-27.5) mmol/L Est GFR (CKD-EPI)AfAm 56.9 L (60.0-200.0) Est GFR (CKD-EPI)NonAf 49.1 L (60.0-200.0) Calcium 8.0 L (8.7-10.3) mg/dL Albumin 2.9 L (3.8-4.9) g/dL Microbiology - Last 24 Hours (Table) 10/26/22 14:23 Blood Culture - Preliminary Blood No Growth after 48 hours 10/26/22 23:29 Urine Culture - Preliminary Urine,Voided Gram Neg Bacilli
[2022-10-29] MEDS: CYCLOBENZAPRINE 5 MG TAB PO SCH (20:37)
[2022-10-29] MEDS: traMADol 50 MG TAB PO PRN (20:38)
[2022-10-29] MEDS ORDERED: RIVAROXABAN 15 MG TAB PO SCH (21:00)
[2022-10-30] MEDS: HYDROcodone/APAP 5-325MG 1 EACH TAB PO PRN ×3 (00:32→14:14)
[2022-10-30] MEDS: PANTOPRAZOLE 40 MG TABLET PO SCH (05:29)
[2022-10-30] MEDS ORDERED: LEVOTHYROXINE 100 MCG TAB PO SCH (06:30)
[2022-10-30] MEDS: METOPROLOL SUCCINATE (ER) 25 MG TAB.ER.24H PO SCH (09:33)
[2022-10-30] MEDS: SENNOSIDES-DOCUSATE SODIUM 1 EACH TAB PO SCH (09:34)
[2022-10-30] MEDS: VENLAFAXINE HCL ER 75 MG CAP PO SCH (09:36)
[2022-10-30] MEDS: AMIODARONE 200 MG TAB PO SCH (09:37)
[2022-10-30] MEDS: FUROSEMIDE 20 MG TAB PO SCH (09:37)
[2022-10-30] MEDS: DIGOXIN 250 MCG TAB PO SCH (09:37)
[2022-10-30] MEDS: THIAMINE 100 MG TAB PO SCH (09:37)
[2022-10-30] MEDS: busPIRone HCl 5 MG TAB PO SCH (09:38)
--- NOTE | 2022-10-30 11:27 | P.PN ---
Subjective Progress Note Date: 10/30/22 This is a 77-year-old female patient who sees a insole doubler out of the town in [place] and at [facility] with a past medical history significant for paroxysmal atrial fibrillation with previous ablation in June [address] Sharp, history of hypertension, dyslipidemia and hypothyroidism as well as sleep apnea. Patient has had 3 hospitalizations in the last 1 month beginning with a hip fracture and preop clearance on September 28. Patient has had intermittent episodes of A. fib with RVR and had previously been placed on Cardizem as well as started on amiodarone. Amiodarone dose apparently has been a 200 mg twice a day. She underwent cardioversion last admission approximately 2 weeks ago. She was discharged home and undergoing rehab and visiting nurse stated she looked white as a ghost and not well and advised to go to ER. She has been noted to be hypotensive with blood pressures in the 80s over 50s as well as borderline tachycardic with heart rates in the 100s to 120s. She received IV fluids and continued on her home Toprol. Her irbesartan has been held. She mainly admits to generalized fatigue however no significant shortness of breath. She does have increased lower extremity edema which she states is more compared to a few weeks ago. She has not follow-up with her primary insole doubler and states she has an appointment in December. She admits she felt somewhat better after the cardioversion 2 weeks ago. 10/28 Patient seen and examined. Patient was started on digoxin yesterday with improvement in heart rates down to the 70s and 80s. She still feels fatigued. She still has lower extremity edema. She had a hypotensive episode yesterday afternoon with blood pressure into the 70s over 40s which was asymptomatic. No repeat blood work yet from this morning. 10/29 Patient is seen today in follow-up. She states she's not feeling well, does not have any appetite. She denies having chest pain or shortness of breath at rest. Medications were adjusted yesterday by decreasing the Toprol and adding digoxin. Heart rate is now 60-70s in atrial fibrillation. Patient will be resumed on low dose of Lasix. 10/30 Patient is seen today in follow-up. She states she is feeling better but nervous about going home. Heart rate has been in the 60s and 80s, atrial fibrillation. Blood pressure this morning 145/81. Physical examination: Gen: This is a 77-year-old female. She is lying flat in bed and appears to be comfortable and in no acute distress. VS: reviewed HEENT: Head is atraumatic, normocephalic. Pupils equal, round. Sclerae is anicteric. NECK: Supple. No JVD. LUNGS: Clear to auscultation. No wheezes or rhonchi. No intercostal retract ions. HEART: Irregular rate and rhythm. Systolic murmur at the right upper sternal border and left upper sternal border. ABDOMEN: Soft No tenderness. EXTREMITIES: 1+ pedal edema. No calf tenderness. NEUROLOGICAL: Patient is awake, alert and oriented x3. Assessment: Persistent atrial fibrillation with RVR, uncontrolled Hypertension, has been hypotensive may be in part related to UTI Hyperlipidemia Hypothyroidism, previously high TSH with high T4 Obstructive sleep apnea Chronic diastolic heart failure Lower extremity edema likely some component of venous insufficiency Urinary tract infection Plan: Continue current cardiac medications including amiodarone 200 mg daily, digoxin 250 g daily and Toprol-XL 75 mg twice daily Continue patient on Xarelto Continue patient on Lasix 10 mg oral daily No plan for DARIA cardioversion Continue UTI treatment Patient is cleared for discharge home today. Cardiology will follow on an as needed basis. Please reconsult for new concerns. Nurse practitioner note has been reviewed, I agree with the documented findings and plan of care. Patient was seen and examined. Objective - Vital Signs Vital signs: Vital Signs Temp 98.3 F 10/30/22 06:45 Pulse 83 10/30/22 06:45 Resp 18 10/30/22 06:45 BP 145/81 10/30/22 06:45 Pulse Ox 96 10/30/22 06:45 FiO2 Intake & Output 10/29/22 10/30/22 10/30/22 18:59 06:59 18:59 Intake Total 230 Output Total 400 Balance -170 Intake: Intake, IV Titration 50 Amount cefTRIAXone 1 gm In 50 Sodium Chloride 0.9% 50 ml @ 100 mls/hr IVPB Q24H [facility] Rx#:[id number] Oral 180 Output: Urine 400 Other: # Voids 1 - Labs CBC & Chem 7: 10/26/22 14:23 10/28/22 11:39 Labs: Abnormal Lab Results - Last 24 Hours (Table) 10/28/22 10/28/22 Range/Units 11:39 11:39 Carbon Dioxide 19.2 L (20.0-27.5) mmol/L Est GFR (CKD-EPI)AfAm 56.9 L (60.0-200.0) Est GFR (CKD-EPI)NonAf 49.1 L (60.0-200.0) Calcium 8.0 L (8.7-10.3) mg/dL Albumin 2.9 L (3.8-4.9) g/dL TSH 8.550 H (0.350-5.500) uIU/mL Free (T4) Reflex I 2.050 H (0.800-1.800) ng/dL Cortisol 25.0 H (3.1-22.4) ug/dL Microbiology - Last 24 Hours (Table) 10/26/22 14:23 Blood Culture - Preliminary Blood No Growth after 72 hours 10/26/22 23:29 Urine Culture - Final Urine,Voided Escherichia coli
--- NOTE | 2022-10-30 11:59 | CA ---
Transthoracic Echo Report Name: Lizet He Age: 77 Gender: F : 1945 Exam Date: 10/30/2022 09:37 Exam Location: [facility] Ht (in): 65 Wt (lb): 179 Ordering Physician: Jenny Moya Attending/Referring Phys: [id number], Griffin Conversion Man Valentine Kumar RDCS Procedure CPT: Indications: LVF Cardiac Hx: Technical Quality: Fair Contrast 1: Total Dose (mL): Contrast 2: Total Dose (mL): MEASUREMENTS (Male / Female) Normal Values 2D ECHO LV Diastolic Diameter PLAX 4.0 cm 4.2 - 5.9 / 3.9 - 5.3 cm LV Systolic Diameter PLAX 2.8 cm IVS Diastolic Thickness 1.2 cm 0.6 - 1.0 / 0.6 - 0.9 cm LVPW Diastolic Thickness 1.2 cm 0.6 - 1.0 / 0.6 - 0.9 cm LV Relative Wall Thickness 0.6 RV Internal Dim ED PLAX 3.4 cm LA Volume 70.3 cm??? 18 - 58 / 22 - 52 cm??? M-MODE Aortic Root Diameter MM 3.1 cm LA Systolic Diameter MM 3.9 cm LA Ao Ratio MM 1.3 AV Cusp Separation MM 1.8 cm DOPPLER AV Peak Velocity 108.8 cm/s AV Peak Gradient 4.7 mmHg AV Mean Velocity 76.7 cm/s AV Mean Gradient 2.6 mmHg AV Velocity Time Integral 23.9 cm AI Peak Velocity 182.2 cm/s AI Peak Gradient 13.3 mmHg AI Pressure Half Time 404.3 ms LVOT Peak Velocity 75.3 cm/s LVOT Peak Gradient 2.3 mmHg Mitral E Point Velocity 120.0 cm/s Mitral A Point Velocity 0.6 cm/s Mitral E to A Ratio 194.1 MV E' Velocity 8.1 cm/s Mitral E to MV E' Ratio 14.8 TR Peak Velocity 350.4 cm/s TR Peak Gradient 49.1 mmHg Right Ventricular Systolic Press 52.4 mmHg FINDINGS Left Ventricle Left ventricular ejection fraction is estimated at 50-55 %. Left ventricular cavity size normal. Mildly increased septal wall thickness. Mildly increased posterior wall thickness. No obvious regional wall motion abnormalities. Right Ventricle Mild right ventricular dilatation. Moderate pulmonary hypertension. Right Atrium Normal right atrial size. Left Atrium Moderately increased left atrial volume. Mildly increased left atrial area. Mitral Valve Mitral valve thickened. Mild mitral annular calcification. Modertae mitral regurgitation. Aortic Valve Trileaflet aortic valve. Focal thickening of the aortic valve cusps. Trace to mild aortic regurgitation. Tricuspid Valve Structurally normal tricuspid valve. Mild tricuspid regurgitation. Pulmonic Valve Structurally normal pulmonic valve. Trace pulmonic regurgitation. Pericardium No pericardial effusion. Normal pericardium. Aorta Normal size aortic root and proximal ascending aorta. CONCLUSIONS Normal LV systolic function Moderate pulmonary hypertension Moderate mitral regurgitation Previewed by: Dr. Dale Juares MD (Electronically Signed) Final Date: 30 October 2022 11:58
[2022-10-30 14:17] VITALS: BP 115/77; PULSE 80; RESP 16; TEMP 97.8
--- NOTE | 2022-10-30 14:28 | P.DS ---
Providers Date of admission: 10/27/22 12:31 Expected date of discharge: 10/30/22 Attending physician: Peewee James MD Consults: 10/27/22 03:47 Consult Physician Urgent Consulting Provider: Sadi Suresh Consult Reason/Comments: Afib, low BP Do you want consulting provider notified?: Yes Primary care physician: Benjamin Reyes [facility] Course: Discharge Diagnosis: E. coli Urinary tract infection. Patient received 4 day course of IV antibiotics with Rocephin 1 g IVPB and being discharged home on Keflex 500 mg every 8 hours 3 additional days for completion of 7 day treatment course for UTI. Sepsis, secondary to above. Intermittent urinary retention Persistent atrial fibrillation, now rate controlled Acute kidney injury, nonoliguric, resolved Dehydration, resolved Daily alcohol use, recommend cessation of use Generalized weakness Hypothyroidism Lactic acidosis, resolved Depression/anxiety Hypertension history GERD Hospital Course: 77-year-old female with known history of atrial fibrillation on several time, hypothyroidism, recent right total hip arthroplasty presenting from home after her home care nurse noted low blood pressure. In the ED, on arrival, temperature was 98.7, tachycardic to 109, respiratory rate 18, blood pressure 86/49, 96% on room air. Laboratory workup showed WBC 9.1, hemoglobin 11.3, platelets 428, INR 1.6, APTT 33.5, sodium 134, creatinine 1.30, lactic acid 2.3. EKG reviewed by me showed normal sinus rhythm. Chest x-ray shows prior rib fractures, no acute process. Patient was given normal saline in the ED 1 L, improvement in blood pressure. Patient being admitted for acute kidney injury, and dehydration. Overnight on 10/27, patient became tachycardic in a flutter, and hypotensive. She was given more fluids and started on ceftriaxone for possible UTI. Cardiology was consulted. Metoprolol dose decreased, amiodarone dose decreased, digoxin added. Patient medically stable at this time. Arrangements were made for transfer to [facility], [facility]. Irbesartan was discontinued and patient discharged home on digoxin 250 g daily, thiamine 100 mg daily, and Keflex 500 mg every 8 hours 3 additional days for completion of treatment of UTI. Patient to follow up outpatient with PCP in 1-2 days and cardiology in 1 week. Physical examination: Vitals Signs Reviewed. General: nontoxic, no distress, appears at stated age Derm: warm, dry Head: atraumatic, normocephalic, symmetric Eyes: EOMI, no lid lag, anicteric sclera Mouth: no lip lesion, mucus membranes moist Cardiovascular: S1S2 reg, regular rate no murmur Lungs: CTA bilateral, no rhonchi, no rales , no accessory muscle use Abdominal: soft, nontender to palpation, no guarding, no appreciable organomegaly Ext: no gross muscle atrophy, no edema, no contractures Neuro: CN II-XI grossly intact, no focal neuro deficits Psych: Alert, oriented, appropriate affect A total of 32 minutes of time were spent preparing this complex discharge summary. Pt was discharged on 10/30/22 at 2:26 PM. Patient was seen independently by Nurse Practitioner. This document was prepared using [employer] dictation software. Please allow for errors in forge hand while rare they do occur. Jayy Astudillo NP rendered care for this patient independently, reviewed the findings and plan as documented in the note above. I did not physically speak with or examine the patient on this date. Patient Condition at Discharge: Stable Plan - Discharge Summary New Discharge Prescriptions: New Digoxin [Lanoxin] 250 mcg PO DAILY tab Thiamine [Vitamin B-1] 100 mg PO DAILY tab Cephalexin [Keflex] 500 mg PO Q8HR 3 Days #9 cap HYDROcodone/APAP 5-325MG [[place] 5-325] 1 each PO Q6H PRN 3 Days #12 tab PRN Reason: Moderate Pain (Scale 4 To 6) Continue Pantoprazole [Protonix] 40 mg PO BID Amiodarone [Cordarone] 200 mg PO BID Cyclobenzaprine [Flexeril] 5 mg PO HS #14 tab Sennosides/Docusate Sodium [Senna Plus 8.6-50 mg Softgel] 1 cap PO DAILY Rivaroxaban [Xarelto] 20 mg PO HS Metoprolol Succinate (ER) [Toprol XL] 150 mg PO BID Levothyroxine Sodium [Synthroid] 75 mcg PO DAILY busPIRone HCL [Buspar] 7.5 mg PO BID Furosemide [Lasix] 40 mg PO TUFR Ibandronate Sodium 150 mg PO Q30D Venlafaxine HCl ER [Effexor XR] 225 mg PO DAILY traMADol HCL 50 mg PO HS PRN 3 Days #3 tab PRN Reason: Pain traMADol HCL 100 mg PO DAILY PRN 3 Days #6 tab PRN Reason: Pain Discontinued Irbesartan [Avapro] 150 mg PO DAILY Discharge Medication List Levothyroxine Sodium [Synthroid] 75 mcg PO DAILY 01/24/22 [History] Metoprolol Succinate (ER) [Toprol XL] 150 mg PO BID 01/24/22 [History] Rivaroxaban [Xarelto] 20 mg PO HS 01/24/22 [History] busPIRone HCL [Buspar] 7.5 mg PO BID 01/24/22 [History] Pantoprazole [Protonix] 40 mg PO BID 02/08/22 [History] Amiodarone [Cordarone] 200 mg PO BID 09/28/22 [History] Furosemide [Lasix] 40 mg PO TUFR 09/28/22 [History] Cyclobenzaprine [Flexeril] 5 mg PO HS #14 tab 10/02/22 [Rx] Sennosides/Docusate Sodium [Senna Plus 8.6-50 mg Softgel] 1 cap PO DAILY 10/10/22 [History] Ibandronate Sodium 150 mg PO Q30D 10/26/22 [History] Venlafaxine HCl ER [Effexor XR] 225 mg PO DAILY 10/26/22 [History] Cephalexin [Keflex] 500 mg PO Q8HR 3 Days #9 cap 10/30/22 [Rx] Digoxin [Lanoxin] 250 mcg PO DAILY tab 10/30/22 [Rx] HYDROcodone/APAP 5-325MG [[place] 5-325] 1 each PO Q6H PRN 3 Days #12 tab 10/30/22 [Rx] Thiamine [Vitamin B-1] 100 mg PO DAILY tab 10/30/22 [Rx] traMADol HCL 50 mg PO HS PRN 3 Days #3 tab 10/30/22 [Rx] traMADol HCL 100 mg PO DAILY PRN 3 Days #6 tab 10/30/22 [Rx] Follow up Appointment(s)/Referral(s): Andrews Castañeda DO [STAFF PHYSICIAN] - 1 Week Benjamin Ashton MD [Primary Care Provider] - 1-2 days Discharge Disposition: TRANSFER TO SNF/ECF
[2022-10-30] MEDS: traMADol 50 MG TAB PO PRN (17:23)
--- NOTE | 2022-11-01 11:47 | CDI ---
Documentation Clarification Form Date: 11/01/22 From: Alina Russ Admit Date: 10/27/2022 12:31:00 PM Patient Name: Lizet He Visit Number: [id number] Discharge Date: 10/30/2022 5:48:00 PM ATTENTION: The Clinical Documentation Specialists (CDI) and [facility] Coding Staff appreciate your assistance in clarifying documentation. Please respond to the clarification below the line at the bottom and electronically sign. The CDI & [facility] Coding staff will review the response and follow-up if needed. Please note: Queries are made part of the Legal Health Record. If you have any questions, please contact the author of this message via ITS. Dr. Peewee James, Atrial Flutter is documented in your progress notes 10/27, 10/28 & 10/29 and discharge summary. Additional clarification regarding the type of Atrial Flutter is requested. History/Risk factors: Persistent atrial fibrillation, underwent cardioversion approximately 2 weeks ago, Hypertension with chronic diastolic CHF Clinical Indicators: Patient became tachycardia in a. flutter and hypotensive on 10/27. 10/27/22 EKG/telemetry: Vent rate 96 bpm, QRS 96 ms, QT/QTc 350/442 ms Treatment: Given more fluids, Metoprolol dose decreased, Amiodarone does decreased, Digoxin added, will restart diuretics 10/29. Please clarify the type of Atrial Flutter, if known: [ ] Typical/Type I [ ] Atypical/Type II [ ] Other, please specify [ x] Unable to determine MTDD
--- NOTE | 2022-11-01 12:19 | CDI ---
Documentation Clarification Form Date: 11/01/22 From: Jessica Cobian Admit Date: 10/27/2022 12:31:00 PM Patient Name: Lizet He Visit Number: [id number] Discharge Date: 10/30/2022 5:48:00 PM ATTENTION: The Clinical Documentation Specialists (CDI) and [facility] Coding Staff appreciate your assistance in clarifying documentation. Please respond to the clarification below the line at the bottom and electronically sign. The CDI & [facility] Coding staff will review the response and follow-up if needed. Please note: Queries are made part of the Legal Health Record. If you have any questions, please contact the author of this message via ITS. Dr. Peewee James, Your patient has an abnormal sodium lab value: (10/26-10/28) 134, 134, 137. Please clarify if there is an additional diagnosis and/or clinical significance related to this value. History/Risk Factors: History of hyponatremia, E-coli Sepsis severe, MIGUEL ANGEL, Hypertension with Chronic Diastolic CHF, UTI, Hypotension. Clinical indicators: Sodium 134 Treatment: Sodium Chloride 0.9% @ 1000 ml IV 999 mls/hr Is there an additional diagnosis and/or clinical significance related to the above lab result/information? [ ] Hyponatremia [ x ] No additional diagnosis/Not clinically significant [ ] Other, please specify [ ] Unable to determine MTDD
--- NOTE | 2022-11-14 13:56 | CDI ---
Date: 11/14/2022 1:50:00 PM From: Demond Bell Admit Date: 10/27/2022 12:31:00 PM Patient Name: Lizet He Visit Number: [id number] Discharge Date: 10/30/2022 5:48:00 PM ATTENTION: The Clinical Documentation Specialists (CDI) and [facility] Coding Staff appreciate your assistance in clarifying documentation. Please respond to the clarification below the line at the bottom and electronically sign. The CDI & [facility] Coding staff will review the response and follow-up if needed. Please note: Queries are made part of the Legal Health Record. If you have any questions, please contact the author of this message via ITS. Dr. Peewee James There is documentation of Low blood pressure likely in the setting of severe sepsis per the 10/28 IM note Additional clarification is requested regarding the low blood pressure. History/Risk Factors: 77-year-old female with known history of atrial fibrillation on several time, hypothyroidism, recent right total hip arthroplasty presenting from home after her home care nurse noted low blood pressure. Clinical Indicators: 10/28 IM note: Severe sepsis secondary to Urinary tract infection, Low blood pressure likely in the setting of severe sepsis: Patient was given normal saline in the ED 1 L, improvement in blood pressure. Patient being admitted for acute kidney injury, and dehydration. Overnight on 10/27, patient became tachycardic in a flutter, and hypotensive. She was given more fluids and started on ceftriaxone for possible UTI. 10/29 Cardiology note: Persistent atrial fibrillation with RVR, uncontrolled, Hypertension, has been hypotensive may be in part related to UTI: Continue current cardiac medications including amiodarone 200 mg daily, digoxin 250 g daily and Toprol-XL 75 mg twice daily. 10/29 IM note: Low blood pressure likely in the setting of severe sepsis: Cardiology note reviewed: Amiodarone decreased to 200 mg daily, started on digoxin 250 g daily, metoprolol decreased to 75 mg twice a day. Blood Pressures per EMR: Date 10/26 10/27 10/28 10/29 10/30 BP 88/59 76/47 90/61 135/78 145/81 MAP 68 56 70 97 102 Treatment: Amiodarone decreased to 200 mg daily, started on digoxin 250 g daily, metoprolol decreased to 75 mg twice a day, Ceftriaxone 1gm Q24 (10/27- 10/30), 0.9% NS 3.5L total (10/26-10/27). Can you please clarify if there is an additional diagnosis relating to the low blood pressure in the setting of severe sepsis, if known? [ x ] Septic Shock [ ] Hypovolemic Shock [ ] Shock (Please specify type) [ ] Other, please specify [ ] Unable to determine (Template Last Revised: September 2020) MTDD
== END 2022-10-30 17:48 | DRG 871 ==
LOC: EC 13:26 → 6NMEDSUR 16:29 → OBSVTOIN 10-27 12:31
PROVIDERS: ADMIT Student in an Organized Health Care Education/Training Program; ATTEND Student in an Organized Health Care Education/Training Program
DX: A41.51 Sepsis due to Escherichia coli [E. coli] (principal); R65.21 Severe sepsis with septic shock; N17.9 Acute kidney failure, unspecified; I48.19 Other persistent atrial fibrillation; I48.92 Unspecified atrial flutter; I50.32 Chronic diastolic (congestive) heart failure; N39.0 Urinary tract infection, site not specified; R65.20 Severe sepsis without septic shock; I11.0 Hypertensive heart disease with heart failure; I95.9 Hypotension, unspecified; E86.0 Dehydration; Z28.310 Unvaccinated for COVID-19; E03.9 Hypothyroidism, unspecified; F32.A Depression, unspecified; F41.9 Anxiety disorder, unspecified; G89.29 Other chronic pain; M25.551 Pain in right hip; M54.9 Dorsalgia, unspecified; M19.90 Unspecified osteoarthritis, unspecified site; G47.33 Obstructive sleep apnea (adult) (pediatric); K21.9 Gastro-esophageal reflux disease without esophagitis; I89.0 Lymphedema, not elsewhere classified; I87.2 Venous insufficiency (chronic) (peripheral); F10.10 Alcohol abuse, uncomplicated; E78.5 Hyperlipidemia, unspecified; R33.9 Retention of urine, unspecified; Z79.890 Hormone replacement therapy; Z79.01 Long term (current) use of anticoagulants; Z79.899 Other long term (current) drug therapy; Z87.891 Personal history of nicotine dependence; Z98.84 Bariatric surgery status; Z88.2 Allergy status to sulfonamides; Z71.41 Alcohol abuse counseling and surveillance of alcoholic; Z96.643 Presence of artificial hip joint, bilateral
CPT/HCPCS: 36415; 71045; 80048; 80053; 80069; 81001; 82533; 83605; 83735; 84439; 84443; 85025; 85610; 85730; 87040; 87077; 87086; 87186; 93005; 93306; 96360; 99285

== ENCOUNTER 2022-11-19 12:26 | Inpatient (IN) | payer MEDICARE ==
[2022-11-19] MEDS ORDERED: SODIUM CHLORIDE 0.9% 500 ML 500 ML IV ONE (13:08)
[2022-11-19 13:51] LABS: Basophils % (A) 0 %; Eosinophils # (A) 0.1 k/uL (0-0.7); Eosinophils % (A) 1 %; HGB 13.1 gm/dL (11.4-16.0); Hypochromasia Marked; Lymphocytes # (A) 1.2 k/uL (1.0-4.8); Lymphocytes % (A) 16 %; MCH 32.3 pg (25.0-35.0); MCHC 30.4 g/dL (31.0-37.0); MCV 106.2 fL (80.0-100.0); Macrocytosis Moderate; Mean Platelet Volume 7.5; Monocytes # (A) 0.5 k/uL (0-1.0); Monocytes % (A) 6 %; Neutrophils # (A) 5.8 k/uL (1.3-7.7); Neutrophils % (A) 76 %; Platelet Count 494 k/uL (150-450); RBC 4.05 m/uL (3.80-5.40); RDW 13.8 % (11.5-15.5); WBC 7.6 k/uL (3.8-10.6)
[2022-11-19 14:01] LABS: Glucose,Whole Blood 89 mg/dL (70-110)
[2022-11-19 14:12] LABS: ALT 34 U/L (4-34); AST 65 U/L (14-36); African American GFR (CKD) 87 (>60 ml/min/1.73 sqM); Albumin 3.6 g/dL (3.5-5.0); Alcohol <10 mg/dL; Alkaline Phosphatase 218 U/L (38-126); Anion Gap 10 mmol/L; Blood Urea Nitrogen 15 mg/dL (7-17); Calcium 8.8 mg/dL (8.4-10.2); Carbon Dioxide 26 mmol/L (22-30); Chloride 100 mmol/L (98-107); Creatine Kinase 28 U/L (30-135); Glucose 84 mg/dL (74-99); Non-African American GFR(CKD) 76 (>60 ml/min/1.73 sqM); Sodium 136 mmol/L (137-145); Total Bilirubin 0.8 mg/dL (0.2-1.3); Total Protein 7.8 g/dL (6.3-8.2)
[2022-11-19 14:14] LABS: Potassium 4.3 mmol/L (3.5-5.1)
--- NOTE | 2022-11-19 14:14 | ED ---
Altered Mental Status HPI - General Chief Complaint: Altered Mental Status Stated Complaint: confusion Time Seen by Provider: 11/19/22 12:50 Source: patient, EMS Mode of arrival: EMS Limitations: altered mental status - History of Present Illness Initial Comments: 77-year-old female presents history of A. fib presents to the emergency department from [facility]. They report that the patient has been having visual and auditory hallucinations. She was recently hospitalized for a fall and right hip fracture. She had A. fib with RVR during her hospitalization for which she is on digoxin, amiodarone and metoprolol. She has had several urinary tract in fections and is currently not on any antibiotics at this time. There has been no falls. Patient has no complaints. Family at bedside reports that she is just markedly confused. No other alleviating, Perceptin or modifying factors - Related Data Home Medications Medication Instructions Recorded Confirmed Rivaroxaban [Xarelto] 20 mg PO HS 01/24/22 11/19/22 busPIRone HCL [Buspar] 7.5 mg PO BID 01/24/22 11/19/22 Furosemide [Lasix] 40 mg PO TUFR@0600 09/28/22 11/19/22 Sennosides/Docusate Sodium [Senna 1 cap PO DAILY 10/10/22 11/19/22 Plus 8.6-50 mg Softgel] Ibandronate Sodium 150 mg PO QMONTHLY 10/26/22 11/19/22 Venlafaxine HCl ER [Effexor XR] 225 mg PO DAILY 10/26/22 11/19/22 Acetaminophen Tab [Tylenol] 650 mg PO Q6H PRN 11/19/22 11/19/22 Losartan [Cozaar] 50 mg PO BID 11/19/22 11/19/22 Omeprazole [PriLOSEC] 20 mg PO DAILY@0600 11/19/22 11/19/22 Previous Rx's Medication Instructions Recorded Thiamine [Vitamin B-1] 100 mg PO DAILY tab 10/30/22 Cefdinir [Omnicef] 300 mg PO Q12HR #14 capsule 11/22/22 Levothyroxine Sodium [Synthroid] 88 mcg PO DAILY@0630 tab 11/22/22 Allergies Allergy/AdvReac Type Severity Reaction Status Date / Time Sulfa (Sulfonamide Allergy Unknown Verified 11/19/22 16:19 Antibiotics) Childhood Review of Systems ROS Statement: Those systems with pertinent positive or pertinent negative responses have been documented in the HPI. ROS Other: All systems not noted in ROS Statement are negative. Past Medical History Past Medical History: Atrial Fibrillation, Hypertension, Osteoarthritis (OA), Sleep Apnea/CPAP/BIPAP, Thyroid Disorder Additional Past Medical History / Comment(s): ETOH abuse, back pain, states positive blood in stool-hospitalized 01/24 to 01/26/22 History of Any Multi-Drug Resistant Organisms: None Reported Past Surgical History: Bariatric Surgery, Cholecystectomy, Hernia Repair, Hysterectomy, Joint Replacement Additional Past Surgical History / Comment(s): bariatric -STOMACH STAPLING (DR ARORA 1999)., HERNIA WITH MESH & REACTION TO MESH WITH REMOVAL., TOTAL LEFT KNEE, right hip surgery 09/28/22, Past Anesthesia/Blood Transfusion Reactions: No Reported Reaction Past Psychological History: Anxiety, Depression Smoking Status: Former smoker Past Alcohol Use History: None Reported Past Drug Use History: None Reported - Past Family History Mother History Unknown: Yes Additional Family Medical History / Comment(s): kidney cancer. Father History Unknown: Yes Family Medical History: Cancer Additional Family Medical History / Comment(s): PROSTATE CANCER Sister(s) History Unknown: Yes Family Medical History: Cancer Additional Family Medical History / Comment(s): ESOPHAGEAL AND THYROID CANCER General Exam Limitations: altered mental status General appearance: alert, in no apparent distress Head exam: Present: atraumatic, normocephalic, normal inspection Eye exam: Present: normal appearance, PERRL, EOMI. Absent: scleral icterus, conjunctival injection, periorbital swelling ENT exam: Present: normal exam, mucous membranes moist Neck exam: Present: normal inspection. Absent: tenderness, meningismus, lymphadenopathy Respiratory exam: Present: normal lung sounds bilaterally. Absent: respiratory distress, wheezes, rales, rhonchi, stridor Cardiovascular Exam: Present: regular rate, bradycardia, normal heart sounds. Absent: systolic murmur, diastolic murmur, rubs, gallop, clicks GI/Abdominal exam: Present: soft, normal bowel sounds. Absent: distended, tenderness, guarding, rebound, rigid Extremities exam: Present: normal inspection, full ROM, normal capillary refill. Absent: tenderness, pedal edema, joint swelling, calf tenderness Back exam: Present: normal inspection Neurological exam: Present: alert, altered, CN II-XII intact Psychiatric exam: Present: normal affect, normal mood Skin exam: Present: warm, dry, intact, normal color. Absent: rash Course Vital Signs 11/19/22 11/19/22 11/19/22 12:47 13:31 15:14 Temperature 98.2 F Pulse Rate 42 L 50 L 43 L Respiratory 18 18 18 Rate Blood Pressure 134/67 159/84 154/87 O2 Sat by Pulse 98 98 96 Oximetry 11/19/22 11/19/22 16:00 17:55 Temperature Pulse Rate 48 L 56 L Respiratory 18 18 Rate Blood Pressure 148/90 141/76 O2 Sat by Pulse 97 Oximetry Medical Decision Making - Medical Decision Making Was pt. sent in by a medical professional or institution (RANDALL Garland, RESOLUTION ANALYST, urgent care, hospital, or care home...) When possible be specific @ -ECF Did you speak to anyone other than the patient for history (EMS, parent, family, police, friend...)? What history was obtained from this source @ -Patients daughter Did you review nursing and triage notes (agree or disagree)? Why? @ -I reviewed and agree with nursing and triage notes Were old charts reviewed (outside hosp., previous admission, EMS record, old EKG, old radiological studies, urgent care reports/EKG's, care home records)? Report findings @ -Old charts were reviewed - patient just here for same complaint Differential Diagnosis (chest pain, altered mental status, abdominal pain women, abdominal pain men, vaginal bleeding, weakness, fever, dyspnea, syncope, headache, dizziness, GI bleed, back pain, seizure, CVA, palpatations, mental health, musculoskeletal)? @ -uti, sepsis, bradycardia, head injury, SAH, sDH EKG interpreted by me (3pts min.). @ -EKG interpreted by me - see above X-rays interpreted by me (1pt min.). @ -interpreted by me - normal CT interpreted by me (1pt min.). @ -interpreted by me - normal U/S interpreted by me (1pt. min.). @ -None done What testing was considered but not performed or refused? (CT, X-rays, U/S, labs)? Why? @ -None What meds were considered but not given or refused? Why? @ -None Did you discuss the management of the patient with other professionals (professionals i.e. DrAnderson, PA, RESOLUTION ANALYST, lab, RT, psych nurse, social security assessor, machine heddle cleaner, teacher, u[employer]s. revenue officer, continuous pillowcase cutter)? Give summary @ -Discussed admission with Dr. Andrade Was smoking cessation discussed for >3mins.? @ -No Was critical care preformed (if so, how long)? @ -No Were there social determinants of health that impacted care today? How? (Homelessness, low income, unemployed, alcoholism, drug addiction, transporta tion, low edu. Level, literacy, decrease access to med. care, mcc, rehab)? @ -Patient residing at rehab facility Was there de-escalation of care discussed even if they declined (Discuss DNR or withdrawal of care, Hospice)? DNR status @ -No What co-morbidities impacted this encounter? (DM, HTN, Smoking, COPD, CAD, Cancer, CVA, ARF, Chemo, Hep., AIDS, mental health diagnosis, sleep apnea, morbid obesity)? @ -Dementia, htn, afib Was patient admitted / discharged? Hospital course, mention meds given and route, prescriptions, significant lab abnormalities, going to OR and other perti nent info. @ -Upon arrival patient is placed into room 18. Thorough history and physical exam was performed. Patient is markedly bradycardic. EKG is obtained and demonstrates A. fib with a slow ventricular response. Laboratory studies are conducted and reviewed. Troponin mildly elevated at 0.041. Urinalysis demonstrates large leukocyte esterase with moderate white blood cell clumps and occasional bacteria. Patient will be initiated on antibiotics. I spoke with Dr. Andrade for admission. Undiagnosed new problem with uncertain prognosis? @ -Yes Drug Therapy requiring intensive monitoring for toxicity (Heparin, Nitro, Insulin, Cardizem)? @ -No Were any procedures done? @ -No Diagnosis/symptom? @ -acute encephalopathy, acute uti, acute bradycardia Acute, or Chronic, or Acute on Chronic? @ -acute Uncomplicated (without systemic symptoms) or Complicated (systemic symptoms)? @ -complicated Side effects of treatment? @ -No Exacerbation, Progression, or Severe Exacerbation? @ -No Poses a threat to life or bodily function? How? (Chest pain, USA, SD, pneumonia, PE, COPD, DKA, ARF, appy, cholecystitis, CVA, Diverticulitis, Homicidal, Suicidal, threat to staff... and all critical care pts) @ -Yes - Lab Data Result diagrams: 11/21/22 06:59 11/21/22 06:59 Lab Results 11/19/22 11/19/22 11/19/22 Range/Units 13:28 13:28 13:28 WBC 7.6 (3.8-10.6) k/uL RBC 4.05 (3.80-5.40) m/uL Hgb 13.1 (11.4-16.0) gm/dL Hct 43.0 (34.0-46.0) % MCV 106.2 H (80.0-100.0) fL MCH 32.3 (25.0-35.0) pg MCHC 30.4 L (31.0-37.0) g/dL RDW 13.8 (11.5-15.5) % Plt Count 494 H (150-450) k/uL MPV 7.5 Neutrophils % 76 % Lymphocytes % 16 % Monocytes % 6 % Eosinophils % 1 % Basophils % 0 % Neutrophils # 5.8 (1.3-7.7) k/uL Lymphocytes # 1.2 (1.0-4.8) k/uL Monocytes # 0.5 (0-1.0) k/uL Eosinophils # 0.1 (0-0.7) k/uL Basophils # 0.0 (0-0.2) k/uL Hypochromasia Marked Macrocytosis Moderate PT 14.7 H (9.0-12.0) sec INR 1.5 H (<1.2) APTT 31.7 H (22.0-30.0) sec Sodium 136 L (137-145) mmol/L Potassium 4.3 (3.5-5.1) mmol/L Chloride 100 (98-107) mmol/L Carbon Dioxide 26 (22-30) mmol/L Anion Gap 10 mmol/L BUN 15 (7-17) mg/dL Creatinine 0.77 (0.52-1.04) mg/dL Est GFR (CKD-EPI)AfAm 87 (>60 ml/min/1.73 sqM) Est GFR (CKD-EPI)NonAf 76 (>60 ml/min/1.73 sqM) Glucose 84 (74-99) mg/dL POC Glucose (mg/dL) (70-110) mg/dL POC Glu Cooperative Education Coordinator ID Calcium 8.8 (8.4-10.2) mg/dL Total Bilirubin 0.8 (0.2-1.3) mg/dL AST 65 H (14-36) U/L ALT 34 (4-34) U/L Alkaline Phosphatase 218 H (38-126) U/L Creatine Kinase 28 L (30-135) U/L Troponin I (0.000-0.034) ng/mL Total Protein 7.8 (6.3-8.2) g/dL Albumin 3.6 (3.5-5.0) g/dL Urine Color Urine Appearance (Clear) Urine pH (5.0-8.0) Ur Specific Dexter (1.001-1.035) Urine Protein (Negative) Urine Glucose (UA) (Negative) Urine Ketones (Negative) Urine Blood (Negative) Urine Nitrite (Negative) Urine Bilirubin (Negative) Urine Urobilinogen (<2.0) mg/dL Ur Leukocyte Esterase (Negative) Urine RBC (0-5) /hpf Urine WBC (0-5) /hpf Urine WBC Clumps (None) /hpf Ur Squamous Epith Cells (0-4) /hpf Ur Transition Epith Cell (0-1) /hpf Amorphous Sediment (None) /hpf Urine Bacteria (None) /hpf Urine Opiates Screen (NotDetected) Ur Oxycodone Screen (NotDetected) Urine Methadone Screen (NotDetected) Ur Propoxyphene Screen (NotDetected) Ur Barbiturates Screen (NotDetected) U Tricyclic Antidepress (NotDetected) Ur Phencyclidine Scrn (NotDetected) Ur Amphetamines Screen (NotDetected) U Methamphetamines Scrn (NotDetected) U Benzodiazepines Scrn (NotDetected) Urine Cocaine Screen (NotDetected) U Marijuana (THC) Screen (NotDetected) Serum Alcohol <10 mg/dL 11/19/22 11/19/22 11/19/22 Range/Units 13:28 13:56 15:50 WBC (3.8-10.6) k/uL RBC (3.80-5.40) m/uL Hgb (11.4-16.0) gm/dL Hct (34.0-46.0) % MCV (80.0-100.0) fL MCH (25.0-35.0) pg MCHC (31.0-37.0) g/dL RDW (11.5-15.5) % Plt Count (150-450) k/uL MPV Neutrophils % % Lymphocytes % % Monocytes % % Eosinophils % % Basophils % % Neutrophils # (1.3-7.7) k/uL Lymphocytes # (1.0-4.8) k/uL Monocytes # (0-1.0) k/uL Eosinophils # (0-0.7) k/uL Basophils # (0-0.2) k/uL Hypochromasia Macrocytosis PT (9.0-12.0) sec INR (<1.2) APTT (22.0-30.0) sec Sodium (137-145) mmol/L Potassium (3.5-5.1) mmol/L Chloride (98-107) mmol/L Carbon Dioxide (22-30) mmol/L Anion Gap mmol/L BUN (7-17) mg/dL Creatinine (0.52-1.04) mg/dL Est GFR (CKD-EPI)AfAm (>60 ml/min/1.73 sqM) Est GFR (CKD-EPI)NonAf (>60 ml/min/1.73 sqM) Glucose (74-99) mg/dL POC Glucose (mg/dL) 89 (70-110) mg/dL POC Glu Cooperative Education Coordinator ID Ji, Maria Isabel Calcium (8.4-10.2) mg/dL Total Bilirubin (0.2-1.3) mg/dL AST (14-36) U/L ALT (4-34) U/L Alkaline Phosphatase (38-126) U/L Creatine Kinase (30-135) U/L Troponin I 0.041 H* (0.000-0.034) ng/mL Total Protein (6.3-8.2) g/dL Albumin (3.5-5.0) g/dL Urine Color Urine Appearance (Clear) Urine pH (5.0-8.0) Ur Specific Dexter (1.001-1.035) Urine Protein (Negative) Urine Glucose (UA) (Negative) Urine Ketones (Negative) Urine Blood (Negative) Urine Nitrite (Negative) Urine Bilirubin (Negative) Urine Urobilinogen (<2.0) mg/dL Ur Leukocyte Esterase (Negative) Urine RBC (0-5) /hpf Urine WBC (0-5) /hpf Urine WBC Clumps (None) /hpf Ur Squamous Epith Cells (0-4) /hpf Ur Transition Epith Cell (0-1) /hpf Amorphous Sediment (None) /hpf Urine Bacteria (None) /hpf Urine Opiates Screen Not Detected (NotDetected) Ur Oxycodone Screen Not Detected (NotDetected) Urine Methadone Screen Not Detected (NotDetected) Ur Propoxyphene Screen Not Detected (NotDetected) Ur Barbiturates Screen Not Detected (NotDetected) U Tricyclic Antidepress Detected H (NotDetected) Ur Phencyclidine Scrn Not Detected (NotDetected) Ur Amphetamines Screen Not Detected (NotDetected) U Methamphetamines Scrn Not Detected (NotDetected) U Benzodiazepines Scrn Not Detected (NotDetected) Urine Cocaine Screen Not Detected (NotDetected) U Marijuana (THC) Screen Not Detected (NotDetected) Serum Alcohol mg/dL 11/19/22 Range/Units 15:50 WBC (3.8-10.6) k/uL RBC (3.80-5.40) m/uL Hgb (11.4-16.0) gm/dL Hct (34.0-46.0) % MCV (80.0-100.0) fL MCH (25.0-35.0) pg MCHC (31.0-37.0) g/dL RDW (11.5-15.5) % Plt Count (150-450) k/uL MPV Neutrophils % % Lymphocytes % % Monocytes % % Eosinophils % % Basophils % % Neutrophils # (1.3-7.7) k/uL Lymphocytes # (1.0-4.8) k/uL Monocytes # (0-1.0) k/uL Eosinophils # (0-0.7) k/uL Basophils # (0-0.2) k/uL Hypochromasia Macrocytosis PT (9.0-12.0) sec INR (<1.2) APTT (22.0-30.0) sec Sodium (137-145) mmol/L Potassium (3.5-5.1) mmol/L Chloride (98-107) mmol/L Carbon Dioxide (22-30) mmol/L Anion Gap mmol/L BUN (7-17) mg/dL Creatinine (0.52-1.04) mg/dL Est GFR (CKD-EPI)AfAm (>60 ml/min/1.73 sqM) Est GFR (CKD-EPI)NonAf (>60 ml/min/1.73 sqM) Glucose (74-99) mg/dL POC Glucose (mg/dL) (70-110) mg/dL POC Glu Cooperative Education Coordinator ID Calcium (8.4-10.2) mg/dL Total Bilirubin (0.2-1.3) mg/dL AST (14-36) U/L ALT (4-34) U/L Alkaline Phosphatase (38-126) U/L Creatine Kinase (30-135) U/L Troponin I (0.000-0.034) ng/mL Total Protein (6.3-8.2) g/dL Albumin (3.5-5.0) g/dL Urine Color Yellow Urine Appearance Cloudy H (Clear) Urine pH 6.0 (5.0-8.0) Ur Specific Dexter 1.017 (1.001-1.035) Urine Protein Trace H (Negative) Urine Glucose (UA) Negative (Negative) Urine Ketones 1+ H (Negative) Urine Blood Trace H (Negative) Urine Nitrite Negative (Negative) Urine Bilirubin Negative (Negative) Urine Urobilinogen <2.0 (<2.0) mg/dL Ur Leukocyte Esterase Large H (Negative) Urine RBC 2 (0-5) /hpf Urine WBC 160 H (0-5) /hpf Urine WBC Clumps Moderate H (None) /hpf Ur Squamous Epith Cells <1 (0-4) /hpf Ur Transition Epith Cell 1 (0-1) /hpf Amorphous Sediment Rare H (None) /hpf Urine Bacteria Occasional H (None) /hpf Urine Opiates Screen (NotDetected) Ur Oxycodone Screen (NotDetected) Urine Methadone Screen (NotDetected) Ur Propoxyphene Screen (NotDetected) Ur Barbiturates Screen (NotDetected) U Tricyclic Antidepress (NotDetected) Ur Phencyclidine Scrn (NotDetected) Ur Amphetamines Screen (NotDetected) U Methamphetamines Scrn (NotDetected) U Benzodiazepines Scrn (NotDetected) Urine Cocaine Screen (NotDetected) U Marijuana (THC) Screen (NotDetected) Serum Alcohol mg/dL - EKG Data EKG Comments: EKG demonstrates A. fib with a slow ventricular response. Rate of 50. QRS 100. QTC of 357. No acute ST segment elevation Disposition Clinical Impression: Atrial fibrillation with slow ventricular response, Encephalopathy acute, UTI (urinary tract infection) Disposition: ADMITTED IP TO THIS HOSP Condition: Stable Is patient prescribed a controlled substance at d/c from ED?: No Time of Disposition: 16:33 Decision to Admit Reason: Admit from EC Decision Date: 11/19/22 Decision Time: 16:33
[2022-11-19 14:19] LABS: INR 1.5 (<1.2); Partial Thromboplastin Time 31.7 sec (22.0-30.0); Prothrombin Time 14.7 sec (9.0-12.0)
--- NOTE | 2022-11-19 14:59 | XR ---
EXAMINATION TYPE: XR chest 2V DATE OF EXAM: 11/19/2022 COMPARISON: 10/26/2022 TECHNIQUE: PA and lateral views submitted. HISTORY: altered mental status FINDINGS: The lungs are clear and there is no pneumothorax, pleural effusion, or focal pneumonia. Heart size normal and no overt failure. Osseous structures demonstrate hypertrophic and degenerative changes of the spine. There is a chronic-appearing wedge deformity and thoracolumbar junction. Atherosclerotic change aorta. Surgical clips epigastrium. Diffuse osteopenia with arthropathy of the shoulders. There is a chronic rib deformities on the left and there is a mildly displaced fracture in volving the right fourth rib posterolaterally. Arthropathy of the shoulders. IMPRESSION: 1. No acute process. Multiple rib fractures.
--- NOTE | 2022-11-19 15:05 | CT ---
EXAMINATION TYPE: CT brain wo con DATE OF EXAM: 11/19/2022 COMPARISON: 09/28/2022 HISTORY: Altered mental status CT DLP: 1094.4 mGycm Automated exposure control for dose reduction was used. FINDINGS: Moderate generalized degenerative changes with low attenuation in the white matter. No evidence of mi dline shift or mass effect. No acute hemorrhage. Orbits are symmetric. Calvarium intact. Craniocervical junction maintained. Sella turcica has a kandy l appearance. Sinuses are clear. IMPRESSION: DEGENERATIVE AND NONSPECIFIC WHITE MATTER CHANGE MOST TYPICAL REMOTE WHITE MATTER IS
[2022-11-19 16:13] LABS: Amorphous Sediment,Urine Rare /hpf; Appearance,Urine Cloudy (Clear); Bacteria,Urine Occasional /hpf; Bilirubin,Urine Negative (Negative); Blood,Urine Trace (Negative); Color,Urine Yellow; Glucose,Urine (UA) Negative (Negative); Ketones,Urine 1+ (Negative); Leukocyte Esterase,Urine Large (Negative); Nitrite,Urine Negative (Negative); Protein,Urine Trace (Negative); RBC,Urine 2 /hpf (0-5); Specific Gravity,Urine 1.017 (1.001-1.035); Squamous Epithelial Cell,Urine <1 /hpf (0-4); Transitional Epi Cells,Urine 1 /hpf (0-1); Urobilinogen,Urine <2.0 mg/dL (<2.0); WBC,Urine 160 /hpf (0-5)
[2022-11-19 16:30] LABS: Amphetamine Screen,Urine Not Detected (NotDetected); Barbiturate Screen,Urine Not Detected (NotDetected); Benzodiazepines Screen,Urine Not Detected (NotDetected); Cocaine Screen,Urine Not Detected (NotDetected); Methadone Screen, Urine Not Detected (NotDetected); Opiate Screen,Urine Not Detected (NotDetected); Oxycodone Screen, Urine Not Detected (NotDetected); Phencyclidine Screen,Urine Not Detected (NotDetected); Tricyclic Antidepressant,Urine Detected (NotDetected); Urn Cannabinoid Scrn Not Detected (NotDetected)
[2022-11-19] MEDS ORDERED: NALOXONE 0.4 MG/ML 1 ML VIAL IV PRN (16:33)
[2022-11-19] MEDS ORDERED: cefTRIAXone IN SWFI 1,000 MG/10 ML SYRINGE IVP STA (16:35)
[2022-11-19] MEDS ORDERED: ACETAMINOPHEN TAB 325 MG TAB PO PRN (17:46)
--- NOTE | 2022-11-19 18:12 | P.HPIM ---
History of Present Illness H&P Date: 11/19/22 Chief Complaint: Altered mental status Patient is a 77-year-old female with a past medical history of atrial fibrillation, hypothyroidism, recent right total hip arthroplasty was admitted last month for acute kidney injury and dehydration and A. fib with RVR and UTI. Patient was discharged to [facility] halfway facility. Patient currently is a poor historian secondary to altered mental status so history was obtained from the daughter at bedside. Per daughter patient has been having confusion and hallucinations that started 1 week ago. She states that at [facility] they obtained a urinalysis however it got misplaced. Patient was empirically started on keflex. Patient did have some improvement in her symptoms however today it got much worse so she was sent to the ED. Patient is a poor history secondary to encephalopathy. She denies any acute complaints Review of symptoms: 10 ROS reviewed and are negative except as noted in HPI Physical exam General: [Patient is AAO 1, she appears chronically debilitated]. Eye: [No scleral icterus or lid lag]. HENT: [Normocephalic, clear tympanic membranes, normal hearing, moist oral mucosa]. Neck: [Supple, non-tender, no carotid bruits, no JVD, no lymphadenopathy]. Lungs: [Clear to auscultation and percussion, non-labored respiration]. Heart: [Normal rate, regular rhythm, no murmur, gallop, +2 pitting edema in bilateral lower extremities]. Abdomen: [Soft, non-tender, non-distended, normal bowel sounds, no masses]. Musculoskeletal: [Normal range of motion and strength, no tenderness or swelling]. Neurologic: [Patient is following simple commands, no focal deficits]. Psychiatric: [Patient is mild to moderately confused, lacks judgment]. Assessment Vital signs reviewed: Heart rate in the 40s, blood pressure 148/90, 96% on room air, temperature 98.2 Data reviewed: Labs are unremarkable except for AST 65, ALT 34 and ALP 218 and troponin 0.041. Urine culture shows occasional bacteria, WBC 160 and large leukocytes esterase. CT head showed degenerative and nonspecific white matter c hange, chest x-ray showed no acute process. Multiple rib fractures that appear chronic. Echocardiogram from 10/2022 showed normal LV and moderate pulmonary hypertension and moderate mitral regurg Toxic encephalopathy Urinary tract infection (does not meet sepsis criteria) A. fib with slow ventricular response Elevated LFTs Recent right total hip arthroplasty Chronic conditions Hypertension Hypothyroidism Plan On previous admission patient had pansensitive E. coli. So will start patient on Rocephin 2 g daily Obtain blood cultures ID consult for recurrent UTIs Will hold off on sedating medications which include Flexeril, Narco and tramadol Patient's heart rate is currently in the 40s. We'll hold off on amiodarone, digoxin, metoprolol. Resume Xarelto We'll consult cardiology Patient's LFTs have been gradually increasing since September 2022 Resume Lasix 40 mg by mouth Tuesdays and Saturday Resume levothyroxine 75 g by mouth daily Resume losartan 50 mg by mouth twice a day Patient will follow up outpatient with orthopedic surgeon for the recent right hip arthroplasty DVT prophylaxis: Xarelto Past Medical History Past Medical History: Atrial Fibrillation, Hypertension, Osteoarthritis (OA), Sleep Apnea/CPAP/BIPAP, Thyroid Disorder Additional Past Medical History / Comment(s): ETOH abuse, back pain, states positive blood in stool-hospitalized 01/24 to 01/26/22 History of Any Multi-Drug Resistant Organisms: None Reported Past Surgical History: Bariatric Surgery, Cholecystectomy, Hernia Repair, Hysterectomy, Joint Replacement Additional Past Surgical History / Comment(s): bariatric -STOMACH STAPLING (DR ARORA 1999)., HERNIA WITH MESH & REACTION TO MESH WITH REMOVAL., TOTAL LEFT KNEE, right hip surgery 09/28/22, Past Anesthesia/Blood Transfusion Reactions: No Reported Reaction Past Psychological History: Anxiety, Depression Smoking Status: Former smoker Past Alcohol Use History: None Reported Past Drug Use History: None Reported - Past Family History Mother History Unknown: Yes Additional Family Medical History / Comment(s): kidney cancer. Father History Unknown: Yes Family Medical History: Cancer Additional Family Medical History / Comment(s): PROSTATE CANCER Sister(s) History Unknown: Yes Family Medical History: Cancer Additional Family Medical History / Comment(s): ESOPHAGEAL AND THYROID CANCER Medications and Allergies Home Medications Medication Instructions Recorded Confirmed Type Levothyroxine Sodium [Synthroid] 75 mcg PO DAILY@0600 01/24/22 11/19/22 History Rivaroxaban [Xarelto] 20 mg PO HS 01/24/22 11/19/22 History busPIRone HCL [Buspar] 7.5 mg PO BID 01/24/22 11/19/22 History Amiodarone [Cordarone] 200 mg PO BID 09/28/22 11/19/22 History Furosemide [Lasix] 40 mg PO TUFR@0600 09/28/22 11/19/22 History Cyclobenzaprine [Flexeril] 5 mg PO HS #14 tab 10/02/22 11/19/22 Rx Sennosides/Docusate Sodium [Senna 1 cap PO DAILY 10/10/22 11/19/22 History Plus 8.6-50 mg Softgel] Ibandronate Sodium 150 mg PO QMONTHLY 10/26/22 11/19/22 History Venlafaxine HCl ER [Effexor XR] 225 mg PO DAILY 10/26/22 11/19/22 History Thiamine [Vitamin B-1] 100 mg PO DAILY tab 10/30/22 11/19/22 Rx traMADol HCL 50 mg PO HS PRN 3 Days #3 tab 10/30/22 11/19/22 Rx traMADol HCL 100 mg PO DAILY PRN 3 Days #6 tab 10/30/22 11/19/22 Rx Acetaminophen Tab [Tylenol] 650 mg PO Q6H PRN 11/19/22 11/19/22 History Digoxin [Lanoxin] 125 mcg PO DAILY 11/19/22 11/19/22 History HYDROcodone/APAP 5-325MG [[place] 1 tab PO Q6H PRN 11/19/22 11/19/22 History 5-325] Losartan [Cozaar] 50 mg PO BID 11/19/22 11/19/22 History Metoprolol Tartrate [Lopressor] 50 mg PO BID 11/19/22 11/19/22 History Omeprazole [PriLOSEC] 20 mg PO DAILY@0600 11/19/22 11/19/22 History Allergies Allergy/AdvReac Type Severity Reaction Status Date / Time Sulfa (Sulfonamide Allergy Unknown Verified 11/19/22 16:19 Antibiotics) Childhood Physical Exam Osteopathic Statement: *. No significant issues noted on an osteopathic structural exam other than those noted in the History and Physical/Consult. Vitals: Vital Signs Temp Pulse Resp BP Pulse Ox 11/19/22 17:55 56 L 18 141/76 97 11/19/22 16:00 48 L 18 148/90 11/19/22 15:14 43 L 18 154/87 96 11/19/22 13:31 50 L 18 159/84 98 11/19/22 12:47 98.2 F 42 L 18 134/67 98 Intake and Output 11/19/22 11/19/22 11/19/22 06:59 14:59 22:59 Other: Weight 77.564 kg Results CBC & Chem 7: 11/19/22 13:28 11/19/22 13:28 Labs: Abnormal Lab Results - Last 24 Hours (Table) 11/19/22 11/19/22 11/19/22 Range/Units 13:28 13:28 13:28 MCV 106.2 H (80.0-100.0) fL MCHC 30.4 L (31.0-37.0) g/dL Plt Count 494 H (150-450) k/uL PT 14.7 H (9.0-12.0) sec INR 1.5 H (<1.2) APTT 31.7 H (22.0-30.0) sec Sodium 136 L (137-145) mmol/L AST 65 H (14-36) U/L Alkaline Phosphatase 218 H (38-126) U/L Creatine Kinase 28 L (30-135) U/L Troponin I (0.000-0.034) ng/mL Urine Appearance (Clear) Urine Protein (Negative) Urine Ketones (Negative) Urine Blood (Negative) Ur Leukocyte Esterase (Negative) Urine WBC (0-5) /hpf Urine WBC Clumps (None) /hpf Amorphous Sediment (None) /hpf Urine Bacteria (None) /hpf U Tricyclic Antidepress (NotDetected) 11/19/22 11/19/22 11/19/22 Range/Units 13:28 15:50 15:50 MCV (80.0-100.0) fL MCHC (31.0-37.0) g/dL Plt Count (150-450) k/uL PT (9.0-12.0) sec INR (<1.2) APTT (22.0-30.0) sec Sodium (137-145) mmol/L AST (14-36) U/L Alkaline Phosphatase (38-126) U/L Creatine Kinase (30-135) U/L Troponin I 0.041 H* (0.000-0.034) ng/mL Urine Appearance Cloudy H (Clear) Urine Protein Trace H (Negative) Urine Ketones 1+ H (Negative) Urine Blood Trace H (Negative) Ur Leukocyte Esterase Large H (Negative) Urine WBC 160 H (0-5) /hpf Urine WBC Clumps Moderate H (None) /hpf Amorphous Sediment Rare H (None) /hpf Urine Bacteria Occasional H (None) /hpf U Tricyclic Antidepress Detected H (NotDetected)
[2022-11-19] MEDS: busPIRone HCl 5 MG TAB PO SCH (21:04)
[2022-11-19] MEDS: RIVAROXABAN 20 MG TAB PO SCH (21:05)
[2022-11-19] MEDS: LOSARTAN 50 MG TAB PO SCH (21:05)
[2022-11-20] MEDS: FUROSEMIDE 40 MG TAB PO SCH (06:26)
[2022-11-20] MEDS: LEVOTHYROXINE 75 MCG TAB PO SCH (06:26)
[2022-11-20] MEDS: PANTOPRAZOLE 40 MG TABLET PO SCH (06:26)
[2022-11-20 08:39] LABS: Basophils # (A) 0.1 k/uL (0-0.2); Basophils % (A) 1 %; Eosinophils # (A) 0.1 k/uL (0-0.7); Eosinophils % (A) 1 %; HGB 10.9 gm/dL (11.4-16.0); Hypochromasia Marked; Lymphocytes # (A) 1.2 k/uL (1.0-4.8); Lymphocytes % (A) 14 %; MCH 32.3 pg (25.0-35.0); MCHC 29.6 g/dL (31.0-37.0); MCV 109.4 fL (80.0-100.0); Macrocytosis Marked; Monocytes # (A) 0.5 k/uL (0-1.0); Monocytes % (A) 6 %; Neutrophils # (A) 6.5 k/uL (1.3-7.7); Neutrophils % (A) 76 %; Platelet Count 337 k/uL (150-450); RBC 3.39 m/uL (3.80-5.40); RDW 13.9 % (11.5-15.5); WBC 8.6 k/uL (3.8-10.6)
--- NOTE | 2022-11-20 08:49 | US ---
EXAMINATION TYPE: US abdomen limited DATE OF EXAM: 11/20/2022 COMPARISON: NONE CLINICAL INDICATION: Female, 77 years old with history of elevated LFTs; Elevated LFT's. Patient has had cholecystectomy per RN. TECHNIQUE: Multiple sonographic images of the right upper quadrant are obtained. FINDINGS: EXAM MEASUREMENTS: Liver Length: 12.2 cm Gallbladder Wall: Surgically absent CBD: Obscured Right Kidney: 11.4 x 4.7 x 4.8 cm MAIL ROOM NOTES: Exam is very limited diagnostically due to great amount of overlying bowel gas. Pancreas: Obscured Liver: Unable to visualize left lobe. Limited. Appears coarse. Gallbladder: Surgically absent Evidence for sonographic Rico's sign: No CBD: Obscured Right Kidney: No hydronephrosis or masses seen IMPRESSION: Limited exam demonstrates findings liver is coarsened echo pattern, correlate for hepatic steatosis o r hepatocellular disease.
[2022-11-20 08:52] LABS: ALT 26 U/L (4-34); AST 41 U/L (14-36); African American GFR (CKD) >90 (>60 ml/min/1.73 sqM); Albumin 2.6 g/dL (3.5-5.0); Alkaline Phosphatase 178 U/L (38-126); Anion Gap 9 mmol/L; Blood Urea Nitrogen 13 mg/dL (7-17); Calcium 8.3 mg/dL (8.4-10.2); Carbon Dioxide 21 mmol/L (22-30); Chloride 107 mmol/L (98-107); Glucose 72 mg/dL (74-99); Non-African American GFR(CKD) 84 (>60 ml/min/1.73 sqM); Sodium 137 mmol/L (137-145); Total Bilirubin 0.5 mg/dL (0.2-1.3); Total Protein 5.8 g/dL (6.3-8.2)
[2022-11-20] MEDS: LOSARTAN 50 MG TAB PO SCH (09:05)
[2022-11-20] MEDS: THIAMINE 100 MG TAB PO SCH (09:05)
[2022-11-20] MEDS: busPIRone HCl 5 MG TAB PO SCH ×2 (09:06→20:12)
[2022-11-20] MEDS: VENLAFAXINE HCL ER 75 MG CAP PO SCH ×2 (09:06→09:17)
--- NOTE | 2022-11-20 09:15 | P.CRDCN ---
History of Present Illness Consult date: 11/20/22 Consult reason: atrial fibrillation History of present illness: This is a 77-year-old female patient who sees a pressure control supervisor out of the town in [place] and at [facility] with a past medical history significant for paroxysmal atrial fibrillation with previous ablation in June [address] Sharp, history of hypertension, dyslipidemia and hypothyroidism as well as sleep apnea. Patient has had several hospitalizations in the last few month beginning with a hip fracture and preop clearance on September 28. She subsequently underwent cardioversion on 10/[address] Suresh. Most recently patient was seen during her hospitalization in October at which time she had RVR uncontrolled and digoxin was added. Patient was also treated for urinary tract infection, stabilized and discharged to [facility]. Patient now presents from [facility] with change in mental status. She has been found to have atrial fibrillation with bradycardic in the 40s. Patient has a sitter at the bedside and is unable to provide any information. Apparently patient was confused all through the night. All rate control medications were placed on hold. Treatment has started for urinary tract infection. EKG atrial fibrillation with ventricular rate of 50 CAT scan of the brain showed degenerative and nonspecific white matter changes. Chest x-ray no acute changes. Home cardiac medications: Amiodarone 200 mg twice daily, digoxin 125 g daily, losartan 50 mg twice daily, Lopressor 50 mg twice daily, Xarelto 20 mg at bedtime, levothyroxine 75 g daily Review Of Systems: At the time of my evaluation: Unable to obtain due to patient's mental status. Physical examination: Gen: This is a 77-year-old female. She is lying flat in bed and appears to be comfortable and in no acute distress. coat checker is at bedside. VS: reviewed HEENT: Head is atraumatic, normocephalic. Pupils equal, round. Sclerae is anicteric. NECK: Supple. No JVD. . LUNGS: Clear to auscultation. No wheezes or rhonchi. No intercostal retractions. HEART: Irregular rate and rhythm. Systolic murmur at the right upper sternal border and left upper sternal border. Bradycardic. ABDOMEN: Soft No tenderness. EXTREMITIES: 2+ pedal edema. No calf tenderness. NEUROLOGICAL: Patient is lethargic. Assessment: Persistent atrial fibrillation with bradycardia, uncontrolled Hypertension Hyperlipidemia Hypothyroidism, previously high TSH with high T4 Obstructive sleep apnea Chronic diastolic heart failure Lower extremity edema likely some component of venous insufficiency Urinary tract infection Metabolic encephalopathy most likely due to urinary tract infection Plan: Discontinue digoxin completely Resume amiodarone at 200 mg daily starting tomorrow Hold Lopressor for today Treat urinary tract infection Obtain TSH and free T4 and may need to increase levothyroxine for consistently elevated TSH and free T4 Further recommendations as patient progresses Thank you kindly for this consultation Nurse practitioner note has been reviewed, I agree with the documented findings and plan of care. Patient was seen and examined. Past Medical History Past Medical History: Atrial Fibrillation, Hypertension, Osteoarthritis (OA), Sleep Apnea/CPAP/BIPAP, Thyroid Disorder Additional Past Medical History / Comment(s): ETOH abuse-quit october 22, back pain, states positive blood in stool-hospitalized 01/24 to 01/26/22 History of Any Multi-Drug Resistant Organisms: None Reported Past Surgical History: Bariatric Surgery, Cholecystectomy, Hernia Repair, H ysterectomy, Joint Replacement Additional Past Surgical History / Comment(s): bariatric -STOMACH STAPLING (DR ARORA 1999)., HERNIA WITH MESH & REACTION TO MESH WITH REMOVAL., TOTAL LEFT KNEE, right hip surgery 09/28/22, Past Anesthesia/Blood Transfusion Reactions: No Reported Reaction Past Psychological History: Anxiety, Depression Smoking Status: Former smoker Past Alcohol Use History: None Reported Additional Past Alcohol Use History / Comment(s): HX OF 2PPD., STARTED SMOKING AGE 18 AND QUIT HX OF 7-8 BEERS DAILY-quit october. Past Drug Use History: None Reported - Past Family History Mother History Unknown: Yes Additional Family Medical History / Comment(s): kidney cancer. Father History Unknown: Yes Family Medical History: Cancer Additional Family Medical History / Comment(s): PROSTATE CANCER Sister(s) History Unknown: Yes Family Medical History: AFIB, Cancer Additional Family Medical History / Comment(s): ESOPHAGEAL AND THYROID CANCER Medications and Allergies Home Medications Medication Instructions Recorded Confirmed Type Levothyroxine Sodium [Synthroid] 75 mcg PO DAILY@0600 01/24/22 11/19/22 History Rivaroxaban [Xarelto] 20 mg PO HS 01/24/22 11/19/22 History busPIRone HCL [Buspar] 7.5 mg PO BID 01/24/22 11/19/22 History Amiodarone [Cordarone] 200 mg PO BID 09/28/22 11/19/22 History Furosemide [Lasix] 40 mg PO TUFR@0600 09/28/22 11/19/22 History Cyclobenzaprine [Flexeril] 5 mg PO HS #14 tab 10/02/22 11/19/22 Rx Sennosides/Docusate Sodium [Senna 1 cap PO DAILY 10/10/22 11/19/22 History Plus 8.6-50 mg Softgel] Ibandronate Sodium 150 mg PO QMONTHLY 10/26/22 11/19/22 History Venlafaxine HCl ER [Effexor XR] 225 mg PO DAILY 10/26/22 11/19/22 History Thiamine [Vitamin B-1] 100 mg PO DAILY tab 10/30/22 11/19/22 Rx traMADol HCL 50 mg PO HS PRN 3 Days #3 tab 10/30/22 11/19/22 Rx traMADol HCL 100 mg PO DAILY PRN 3 Days #6 tab 10/30/22 11/19/22 Rx Acetaminophen Tab [Tylenol] 650 mg PO Q6H PRN 11/19/22 11/19/22 History Digoxin [Lanoxin] 125 mcg PO DAILY 11/19/22 11/19/22 History HYDROcodone/APAP 5-325MG [[place] 1 tab PO Q6H PRN 11/19/22 11/19/22 History 5-325] Losartan [Cozaar] 50 mg PO BID 11/19/22 11/19/22 History Metoprolol Tartrate [Lopressor] 50 mg PO BID 11/19/22 11/19/22 History Omeprazole [PriLOSEC] 20 mg PO DAILY@0600 11/19/22 11/19/22 History Allergies Allergy/AdvReac Type Severity Reaction Status Date / Time Sulfa (Sulfonamide Allergy Unknown Verified 11/19/22 16:19 Antibiotics) Childhood Physical Exam Vitals: Vital Signs Temp Pulse Pulse Pulse Resp BP BP 11/20/22 03:46 97.3 F L 52 L 16 145/75 11/20/22 02:00 46 L 67 11/20/22 00:00 97.7 F 46 L 16 136/68 11/19/22 20:00 97.7 F 52 L 60 16 128/80 11/19/22 18:57 97.8 F 48 L 16 140/67 11/19/22 17:55 56 L 18 141/76 11/19/22 16:00 48 L 18 148/90 11/19/22 15:14 43 L 18 154/87 11/19/22 13:31 50 L 18 159/84 11/19/22 12:47 98.2 F 42 L 18 134/67 Pulse Ox 11/20/22 03:46 95 11/20/22 02:00 11/20/22 00:00 98 11/19/22 20:00 98 11/19/22 18:57 95 11/19/22 17:55 97 11/19/22 16:00 11/19/22 15:14 96 11/19/22 13:31 98 11/19/22 12:47 98 Intake and Output 11/19/22 11/20/22 11/20/22 22:59 06:59 14:59 Other: Voiding Method Diaper Diaper Weight 80.5 kg Results 11/20/22 08:03 11/20/22 08:03 Cardiac Enzymes 11/19/22 11/19/22 Range/Units 13:28 13:28 AST 65 H (14-36) U/L Troponin I 0.041 H* (0.000-0.034) ng/mL Coagulation 11/19/22 Range/Units 13:28 PT 14.7 H (9.0-12.0) sec APTT 31.7 H (22.0-30.0) sec CBC 11/19/22 Range/Units 13:28 WBC 7.6 (3.8-10.6) k/uL RBC 4.05 (3.80-5.40) m/uL Hgb 13.1 (11.4-16.0) gm/dL Hct 43.0 (34.0-46.0) % Plt Count 494 H (150-450) k/uL Comprehensive Metabolic Panel 11/19/22 Range/Units 13:28 Sodium 136 L (137-145) mmol/L Potassium 4.3 (3.5-5.1) mmol/L Chloride 100 (98-107) mmol/L Carbon Dioxide 26 (22-30) mmol/L BUN 15 (7-17) mg/dL Creatinine 0.77 (0.52-1.04) mg/dL Glucose 84 (74-99) mg/dL Calcium 8.8 (8.4-10.2) mg/dL AST 65 H (14-36) U/L ALT 34 (4-34) U/L Alkaline Phosphatase 218 H (38-126) U/L Total Protein 7.8 (6.3-8.2) g/dL Albumin 3.6 (3.5-5.0) g/dL Current Medications Generic Name Dose Route Start Last Admin Trade Name Freq PRN Reason Stop Dose Admin Acetaminophen 650 mg 11/19/22 17:46 Acetaminophen Tab 325 Mg Tab PO Q6H PRN Pain Buspirone HCl 7.5 mg 11/19/22 21:00 11/19/22 21:04 Buspirone Hcl 5 Mg Tab PO 7.5 mg BID CONNER Administration Furosemide 40 mg 11/20/22 06:00 11/20/22 06:26 Furosemide 40 Mg Tab PO 40 mg TUFR@0600 CONNER Administration Ceftriaxone Sodium 2 gm/ 50 mls @ 100 mls/hr 11/20/22 18:30 Sodium Chloride IVPB Q24HR CONNER Protocol Levothyroxine Sodium 75 mcg 11/20/22 06:00 11/20/22 06:26 Levothyroxine 75 Mcg Tab PO 75 mcg DAILY@0600 CONNER Administration Losartan Potassium 50 mg 11/19/22 21:00 11/19/22 21:05 Losartan 50 Mg Tab PO 50 mg BID CONNER Administration Naloxone HCl 0.2 mg 11/19/22 16:33 Naloxone 0.4 Mg/Ml 1 Ml Vial IV Q2M PRN Opioid Reversal Pantoprazole Sodium 40 mg 11/20/22 06:00 11/20/22 06:26 Pantoprazole 40 Mg Tablet PO 40 mg DAILY@0600 CONNER Administration Rivaroxaban 20 mg 11/19/22 21:00 11/19/22 21:05 Rivaroxaban 20 Mg Tab PO 20 mg HS CONNER Administration Protocol Thiamine HCl 100 mg 11/20/22 09:00 Thiamine 100 Mg Tab PO DAILY CONNER Venlafaxine HCl 225 mg 11/20/22 09:00 Venlafaxine Hcl Er 75 Mg Cap PO DAILY CONNER Intake and Output 11/19/22 11/20/22 11/20/22 22:59 06:59 14:59 Other: Voiding Method Diaper Diaper Weight 80.5 kg 11/19/22 13:28 11/19/22 13:28
[2022-11-20 11:42] LABS: T4, Free (Free Thyroxine) 3.48 ng/dL (0.78-2.19)
--- NOTE | 2022-11-20 14:01 | P.PN ---
Subjective Progress Note Date: 11/20/22 Hospital Course: 77-year-old female with history of atrial fibrillation, hypothyroidism, recent TSH a, recent acute kidney injury and dehydration and A. fib with RVR, and UTI presenting from shelter facility with altered mentation. Patient was empirically treated with Keflex and nursing facility, but encephalopathy worsened, and patient was sent to the emergency. In the ED, patient was noted to be bradycardic in the 40s, rest of the vital signs were otherwise normal. Laboratory workup was significant for normal white count, sodium 136, troponin 0.41, ALP 218, AST 65, ALT 34. Urinalysis showed negative nitrites, large leukocyte esterase. Subjective: Patient seen and examined at bedside. No acute events overnight. Sitter at bedside due to increased confusion overnight. This morning patient is very somnolent, did not have rest last night. No other active complaints. Pertinent positives and negatives as discussed above, a complete review of systems was performed and all other systems are negative. Vitals Signs Reviewed. General: nontoxic, no distress, appears at stated age, somnolent Derm: warm, dry Head: atraumatic, normocephalic, symmetric Eyes: EOMI, no lid lag, anicteric sclera Mouth: no lip lesion, mucus membranes moist Cardiovascular: S1S2 reg, systolic murmur Lungs: CTA bilateral, no rhonchi, no rales , no accessory muscle use Abdominal: soft, nontender to palpation, no guarding, no appreciable organomegaly Ext: no gross muscle atrophy, trace peripheral edema, no contractures Neuro: CN II-XI grossly intact, no focal neuro deficits Psych: Alert, oriented, appropriate affect Data Reviewed Today: Pertinent Labs: WBC 8.6, hemoglobin 10.9, platelet 337, bicarb 21, TSH 5.17, free T4 3.48 Imaging: Right upper quadrant ultrasound consistent with hepatic steatosis or hepatocellular disease Assessment and Plan: Active: Acute metabolic/toxic encephalopathy Polypharmacy Urinary tract infection, present on admission Atrial fibrillation with slow ventricular response Hypothyroidism Chronic Macrocytic anemia -Sedating medications still being held -Pain control with Tylenol oral -Continue venlafaxine -Continue ceftriaxone 2 g daily, ID consulted, blood cultures pending -Cardiology note reviewed, digoxin discontinued, amiodarone resume tomorrow, hold metoprolol -Elevated TSH and free T4, possibly euthyroid sick syndrome, lab work not consistent with hypothyroidism -B12 and folic acid levels ordered Chronic: Hypertension Chronic diastolic heart failure DVT ppx: Xarelto Code status: No code Anticipated discharge place: Pending clinical course Anticipated discharge time: Pending clinical course Objective - Vital Signs Vital signs: Vital Signs Temp 98.1 F 11/20/22 11:34 Pulse 64 11/20/22 11:34 Resp 16 11/20/22 11:34 BP 150/79 11/20/22 11:34 Pulse Ox 94 L 11/20/22 11:34 FiO2 Intake & Output 11/19/22 11/20/22 11/20/22 18:59 06:59 18:59 Output Total 450 Balance -450 Weight 80.5 kg Output: Urine 450 Other: Voiding Method Diaper Diaper Diaper # Voids 2 - Labs CBC & Chem 7: 11/20/22 08:03 11/20/22 08:03 Labs: Abnormal Lab Results - Last 24 Hours (Table) 11/19/22 11/19/22 11/19/22 Range/Units 13:28 13:28 13:28 RBC (3.80-5.40) m/uL Hgb (11.4-16.0) gm/dL MCV (80.0-100.0) fL MCHC (31.0-37.0) g/dL Macrocytosis PT 14.7 H (9.0-12.0) sec INR 1.5 H (<1.2) APTT 31.7 H (22.0-30.0) sec Sodium 136 L (137-145) mmol/L Carbon Dioxide (22-30) mmol/L Glucose (74-99) mg/dL Calcium (8.4-10.2) mg/dL AST 65 H (14-36) U/L Alkaline Phosphatase 218 H (38-126) U/L Creatine Kinase 28 L (30-135) U/L Troponin I 0.041 H* (0.000-0.034) ng/mL Total Protein (6.3-8.2) g/dL Albumin (3.5-5.0) g/dL TSH (0.465-4.680) mIU/L Free T4 (0.78-2.19) ng/dL Urine Appearance (Clear) Urine Protein (Negative) Urine Ketones (Negative) Urine Blood (Negative) Ur Leukocyte Esterase (Negative) Urine WBC (0-5) /hpf Urine WBC Clumps (None) /hpf Amorphous Sediment (None) /hpf Urine Bacteria (None) /hpf U Tricyclic Antidepress (NotDetected) 11/19/22 11/19/22 11/20/22 Range/Units 15:50 15:50 08:03 RBC 3.39 L (3.80-5.40) m/uL Hgb 10.9 L (11.4-16.0) gm/dL MCV 109.4 H (80.0-100.0) fL MCHC 29.6 L (31.0-37.0) g/dL Macrocytosis Marked A PT (9.0-12.0) sec INR (<1.2) APTT (22.0-30.0) sec Sodium (137-145) mmol/L Carbon Dioxide (22-30) mmol/L Glucose (74-99) mg/dL Calcium (8.4-10.2) mg/dL AST (14-36) U/L Alkaline Phosphatase (38-126) U/L Creatine Kinase (30-135) U/L Troponin I (0.000-0.034) ng/mL Total Protein (6.3-8.2) g/dL Albumin (3.5-5.0) g/dL TSH (0.465-4.680) mIU/L Free T4 (0.78-2.19) ng/dL Urine Appearance Cloudy H (Clear) Urine Protein Trace H (Negative) Urine Ketones 1+ H (Negative) Urine Blood Trace H (Negative) Ur Leukocyte Esterase Large H (Negative) Urine WBC 160 H (0-5) /hpf Urine WBC Clumps Moderate H (None) /hpf Amorphous Sediment Rare H (None) /hpf Urine Bacteria Occasional H (None) /hpf U Tricyclic Antidepress Detected H (NotDetected) 11/20/22 11/20/22 Range/Units 08:03 08:03 RBC (3.80-5.40) m/uL Hgb (11.4-16.0) gm/dL MCV (80.0-100.0) fL MCHC (31.0-37.0) g/dL Macrocytosis PT (9.0-12.0) sec INR (<1.2) APTT (22.0-30.0) sec Sodium (137-145) mmol/L Carbon Dioxide 21 L (22-30) mmol/L Glucose 72 L (74-99) mg/dL Calcium 8.3 L (8.4-10.2) mg/dL AST 41 H (14-36) U/L Alkaline Phosphatase 178 H (38-126) U/L Creatine Kinase (30-135) U/L Troponin I (0.000-0.034) ng/mL Total Protein 5.8 L (6.3-8.2) g/dL Albumin 2.6 L (3.5-5.0) g/dL TSH 5.170 H (0.465-4.680) mIU/L Free T4 3.48 H (0.78-2.19) ng/dL Urine Appearance (Clear) Urine Protein (Negative) Urine Ketones (Negative) Urine Blood (Negative) Ur Leukocyte Esterase (Negative) Urine WBC (0-5) /hpf Urine WBC Clumps (None) /hpf Amorphous Sediment (None) /hpf Urine Bacteria (None) /hpf U Tricyclic Antidepress (NotDetected)
[2022-11-20] MEDS: RIVAROXABAN 20 MG TAB PO SCH (20:12)
--- NOTE | 2022-11-20 20:31 | P.CONS ---
History of Present Illness - Reason for Consult Consult date: 11/20/22 Recurrent urinary tract infection Requesting physician: Debbie Cosme - Chief Complaint Mental status changes 1 day - History of Present Illness Patient is a 77-year-old female with a past medical history significant for hypothyroidism atrial fibrillation recent did have right total hip arthroplasty subsequently has been discharged to [facility] acility patient has been sent to the ER last evening for evaluation of mental status changes apparently the patient seem to have any confusion and hallucination started about a week ago with concern for possible UTI and the patient was started on Keflex however the patient did not have significant i mprovement in his symptoms at the patient was sent to [facility] ER for further evaluation on presentation to hospital patient was afebrile and no fever has been recorded subsequently patient has not been hypoxic or need for supplemental oxygen patient did have a normal white count kidney function was normal AST was mildly elevated troponin was mildly elevated patient did have a positive UA with large leukocyte esterase was 60 WBC cultures currently pending urine testing positive for tricyclic patient did have abdominal ultrasound limited exam no hydronephrosis or masses seen hepatic steatosis patient is on Rocephin infectious disease was consulted for further management of antibiotic most information has been obtained from review the chart and nursing staff as the patient was unable to provide any history Review of Systems Positive points has been mentioned in HPI complete review could not be obtained because of his underlying mental status Past Medical History Past Medical History: Atrial Fibrillation, Hypertension, Osteoarthritis (OA), Sleep Apnea/CPAP/BIPAP, Thyroid Disorder Additional Past Medical History / Comment(s): ETOH abuse-quit october 22, back pain, states positive blood in stool-hospitalized 01/24 to 01/26/22 History of Any Multi-Drug Resistant Organisms: None Reported Past Surgical History: Bariatric Surgery, Cholecystectomy, Hernia Repair, Hysterectomy, Joint Replacement Additional Past Surgical History / Comment(s): bariatric -STOMACH STAPLING (DR ARORA 1999)., HERNIA WITH MESH & REACTION TO MESH WITH REMOVAL., TOTAL LEFT KNEE, right hip surgery 09/28/22, Past Anesthesia/Blood Transfusion Reactions: No Reported Reaction Past Psychological History: Anxiety, Depression Smoking Status: Former smoker Past Alcohol Use History: None Reported Additional Past Alcohol Use History / Comment(s): HX OF 2PPD., STARTED SMOKING AGE 18 AND QUIT HX OF 7-8 BEERS DAILY-quit october. Past Drug Use History: None Reported - Past Family History Mother History Unknown: Yes Additional Family Medical History / Comment(s): kidney cancer. Father History Unknown: Yes Family Medical History: Cancer Additional Family Medical History / Comment(s): PROSTATE CANCER Sister(s) History Unknown: Yes Family Medical History: AFIB, Cancer Additional Family Medical History / Comment(s): ESOPHAGEAL AND THYROID CANCER Medications and Allergies Home Medications Medication Instructions Recorded Confirmed Type Rivaroxaban [Xarelto] 20 mg PO HS 01/24/22 11/19/22 History busPIRone HCL [Buspar] 7.5 mg PO BID 01/24/22 11/19/22 History Furosemide [Lasix] 40 mg PO TUFR@0600 09/28/22 11/19/22 History Sennosides/Docusate Sodium [Senna 1 cap PO DAILY 10/10/22 11/19/22 History Plus 8.6-50 mg Softgel] Ibandronate Sodium 150 mg PO QMONTHLY 10/26/22 11/19/22 History Venlafaxine HCl ER [Effexor XR] 225 mg PO DAILY 10/26/22 11/19/22 History Thiamine [Vitamin B-1] 100 mg PO DAILY tab 10/30/22 11/19/22 Rx Acetaminophen Tab [Tylenol] 650 mg PO Q6H PRN 11/19/22 11/19/22 History Losartan [Cozaar] 50 mg PO BID 11/19/22 11/19/22 History Omeprazole [PriLOSEC] 20 mg PO DAILY@0600 11/19/22 11/19/22 History Cefdinir [Omnicef] 300 mg PO Q12HR #14 capsule 11/22/22 Rx Levothyroxine Sodium [Synthroid] 88 mcg PO DAILY@0630 tab 11/22/22 Rx Allergies Allergy/AdvReac Type Severity Reaction Status Date / Time Sulfa (Sulfonamide Allergy Unknown Verified 11/19/22 16:19 Antibiotics) Childhood Physical Exam Vitals: Vital Signs Temp Pulse Pulse Pulse Resp BP BP 11/20/22 09:00 98.0 F 62 16 165/78 11/20/22 03:46 97.3 F L 52 L 16 145/75 11/20/22 02:00 46 L 67 11/20/22 00:00 97.7 F 46 L 16 136/68 11/19/22 20:00 97.7 F 52 L 60 16 128/80 11/19/22 18:57 97.8 F 48 L 16 140/67 11/19/22 17:55 56 L 18 141/76 11/19/22 16:00 48 L 18 148/90 11/19/22 15:14 43 L 18 154/87 11/19/22 13:31 50 L 18 159/84 11/19/22 12:47 98.2 F 42 L 18 134/67 Pulse Ox 11/20/22 09:00 96 11/20/22 03:46 95 11/20/22 02:00 11/20/22 00:00 98 11/19/22 20:00 98 11/19/22 18:57 95 11/19/22 17:55 97 11/19/22 16:00 11/19/22 15:14 96 11/19/22 13:31 98 11/19/22 12:47 98 Intake and Output 11/19/22 11/20/22 11/20/22 22:59 06:59 14:59 Other: Voiding Method Diaper Diaper Weight 80.5 kg OGENERAL DESCRIPTION: Elderly female lying in bed, no distress. No tachypnea or accessory muscle of respiration use. HEENT: Shows Pallor , no scleral icterus. Oral mucous membrane is dry. NECK: Trachea central, no thyromegaly. LUNGS: Unlabored breathing. Clear to auscultation anteriorly. No wheeze or crackle. HEART: S1, S2, regular rate and rhythm. No loud murmur ABDOMEN: Soft, no tenderness , guarding or rigidity EXTREMITIES: No edema of feet. SKIN: No rash, no masses palpable. NEUROLOGICAL: The patient is sleepy lethargic orientation could not be determined Results CBC & Chem 7: 11/21/22 06:59 11/21/22 06:59 Labs: Abnormal Lab Results - Last 24 Hours (Table) 11/19/22 11/19/22 11/19/22 Range/Units 13:28 13:28 13:28 RBC (3.80-5.40) m/uL Hgb (11.4-16.0) gm/dL MCV 106.2 H (80.0-100.0) fL MCHC 30.4 L (31.0-37.0) g/dL Plt Count 494 H (150-450) k/uL Macrocytosis PT 14.7 H (9.0-12.0) sec INR 1.5 H (<1.2) APTT 31.7 H (22.0-30.0) sec Sodium 136 L (137-145) mmol/L Carbon Dioxide (22-30) mmol/L Glucose (74-99) mg/dL Calcium (8.4-10.2) mg/dL AST 65 H (14-36) U/L Alkaline Phosphatase 218 H (38-126) U/L Creatine Kinase 28 L (30-135) U/L Troponin I (0.000-0.034) ng/mL Total Protein (6.3-8.2) g/dL Albumin (3.5-5.0) g/dL Urine Appearance (Clear) Urine Protein (Negative) Urine Ketones (Negative) Urine Blood (Negative) Ur Leukocyte Esterase (Negative) Urine WBC (0-5) /hpf Urine WBC Clumps (None) /hpf Amorphous Sediment (None) /hpf Urine Bacteria (None) /hpf U Tricyclic Antidepress (NotDetected) 11/19/22 11/19/22 11/19/22 Range/Units 13:28 15:50 15:50 RBC (3.80-5.40) m/uL Hgb (11.4-16.0) gm/dL MCV (80.0-100.0) fL MCHC (31.0-37.0) g/dL Plt Count (150-450) k/uL Macrocytosis PT (9.0-12.0) sec INR (<1.2) APTT (22.0-30.0) sec Sodium (137-145) mmol/L Carbon Dioxide (22-30) mmol/L Glucose (74-99) mg/dL Calcium (8.4-10.2) mg/dL AST (14-36) U/L Alkaline Phosphatase (38-126) U/L Creatine Kinase (30-135) U/L Troponin I 0.041 H* (0.000-0.034) ng/mL Total Protein (6.3-8.2) g/dL Albumin (3.5-5.0) g/dL Urine Appearance Cloudy H (Clear) Urine Protein Trace H (Negative) Urine Ketones 1+ H (Negative) Urine Blood Trace H (Negative) Ur Leukocyte Esterase Large H (Negative) Urine WBC 160 H (0-5) /hpf Urine WBC Clumps Moderate H (None) /hpf Amorphous Sediment Rare H (None) /hpf Urine Bacteria Occasional H (None) /hpf U Tricyclic Antidepress Detected H (NotDetected) 11/20/22 11/20/22 Range/Units 08:03 08:03 RBC 3.39 L (3.80-5.40) m/uL Hgb 10.9 L (11.4-16.0) gm/dL MCV 109.4 H (80.0-100.0) fL MCHC 29.6 L (31.0-37.0) g/dL Plt Count (150-450) k/uL Macrocytosis Marked A PT (9.0-12.0) sec INR (<1.2) APTT (22.0-30.0) sec Sodium (137-145) mmol/L Carbon Dioxide 21 L (22-30) mmol/L Glucose 72 L (74-99) mg/dL Calcium 8.3 L (8.4-10.2) mg/dL AST 41 H (14-36) U/L Alkaline Phosphatase 178 H (38-126) U/L Creatine Kinase (30-135) U/L Troponin I (0.000-0.034) ng/mL Total Protein 5.8 L (6.3-8.2) g/dL Albumin 2.6 L (3.5-5.0) g/dL Urine Appearance (Clear) Urine Protein (Negative) Urine Ketones (Negative) Urine Blood (Negative) Ur Leukocyte Esterase (Negative) Urine WBC (0-5) /hpf Urine WBC Clumps (None) /hpf Amorphous Sediment (None) /hpf Urine Bacteria (None) /hpf U Tricyclic Antidepress (NotDetected) Assessment and Plan (1) UTI (urinary tract infection) Status: Acute Code(s): N39.0 - URINARY TRACT INFECTION, SITE NOT SPECIFIED SNOMED Code(s): 79204576 Plan: 1patient was in the hospital mental status changes multifactorial and a possible component of UTI in this patient with a positive UA history of recurrent UTI failing outpatient oral Keflex therapy 2-ultrasound was negative for any structure abnormality to the kidney bladder area 3-Rocephin 2 g daily to continue while waiting for the culture to finalize and gentle IV fluid We will follow on clinical condition and cultures to further adjust medication if needed Thank you for this consultation we will follow the patient along with you Time with Patient: Greater than 30
[2022-11-21] MEDS: LOSARTAN 50 MG TAB PO SCH ×3 (00:01→20:14)
[2022-11-21] MEDS: LEVOTHYROXINE 75 MCG TAB PO SCH (05:02)
[2022-11-21] MEDS: PANTOPRAZOLE 40 MG TABLET PO SCH (05:02)
[2022-11-21 07:44] LABS: Basophils % (A) 1 %; Calcium 8.2 mg/dL (8.4-10.2); Eosinophils # (A) 0.1 k/uL (0-0.7); Eosinophils % (A) 2 %; HGB 11.5 gm/dL (11.4-16.0); Hypochromasia Marked; Lymphocytes # (A) 1.2 k/uL (1.0-4.8); Lymphocytes % (A) 16 %; MCH 32.8 pg (25.0-35.0); MCHC 30.3 g/dL (31.0-37.0); MCV 108.2 fL (80.0-100.0); Macrocytosis Moderate; Mean Platelet Volume 7.4; Monocytes # (A) 0.7 k/uL (0-1.0); Monocytes % (A) 9 %; Neutrophils # (A) 5.5 k/uL (1.3-7.7); Neutrophils % (A) 71 %; Platelet Count 379 k/uL (150-450); Potassium 3.9 mmol/L (3.5-5.1); RBC 3.52 m/uL (3.80-5.40); RDW 13.8 % (11.5-15.5); WBC 7.7 k/uL (3.8-10.6)
[2022-11-21] MEDS ORDERED: AMIODARONE 200 MG TAB PO SCH (09:00)
[2022-11-21] MEDS: busPIRone HCl 5 MG TAB PO SCH ×2 (09:23→20:14)
[2022-11-21] MEDS: THIAMINE 100 MG TAB PO SCH (09:24)
[2022-11-21] MEDS: VENLAFAXINE HCL ER 75 MG CAP PO SCH (09:24)
--- NOTE | 2022-11-21 11:18 | P.PN ---
Subjective Progress Note Date: 11/21/22 Hospital Course: 77-year-old female with history of atrial fibrillation, hypothyroidism, recent NGUYEN, recent acute kidney injury and dehydration and A. fib with RVR, and UTI presenting from group home facility with altered mentation. Patient was empirically treated with Keflex for UTI at nursing facility, but encephalopathy worsened, and patient was sent to the emergency. In the ED, patient was noted to be bradycardic in the 40s, rest of the vital signs were otherwise normal. Laboratory workup was significant for normal white count, sodium 136, troponin 0.41, ALP 218, AST 65, ALT 34. Urinalysis showed negative nitrites, large leukocyte esterase. Cardiology and ID was consulted. Encephalopathy possibly the setting of polypharmacy. Right upper quadrant ultrasound consistent with hepatic steatosis or hepatocellular disease. Subjective: Patient seen and examined at bedside. No acute events overnight. Patient is now awake and alert. Denies any chest pain, shortness of breath, abdominal pain, nausea, vomiting, diarrhea, constipation. Currently has a urinary catheter in place. Pertinent positives and negatives as discussed above, a complete review of systems was performed and all other systems are negative. Vitals Signs Reviewed. General: nontoxic, no distress, appears at stated age Derm: warm, dry Head: atraumatic, normocephalic, symmetric Eyes: EOMI, no lid lag, anicteric sclera Mouth: no lip lesion, mucus membranes moist Cardiovascular: S1S2 reg, systolic murmur Lungs: CTA bilateral, no rhonchi, no rales , no accessory muscle use Abdominal: soft, nontender to palpation, no guarding, no appreciable organomegaly Ext: no gross muscle atrophy, trace peripheral edema, no contractures Neuro: CN II-XI grossly intact, no focal neuro deficits Psych: Alert, oriented, appropriate affect Data Reviewed Today: Pertinent Labs: WBC 7.7, hemoglobin 11.5, platelet 379, potassium 3.9, creatinine 0.70, TSH 3.16, folic acid 28, B12 715 Imaging: None today Assessment and Plan: Active: Acute metabolic/toxic encephalopathy, improving Polypharmacy Urinary tract infection, present on admission Atrial fibrillation with SVR, now rate controlled Hypothyroidism Chronic Macrocytic anemia -Continue to avoid sedating medications -Pain control with Tylenol oral -Continue venlafaxine -Continue ceftriaxone 2 g daily, ID following, blood cultures and urine cultures pending -Cardiology following, digoxin discontinued, amiodarone resume today, hold metoprolol -Elevated TSH and free T4, possibly euthyroid sick syndrome, lab work not consistent with hypothyroidism, repeat TSH within normal limits, TPO antibodies pending. Abnormal thyroid function possibly in the setting of amiodarone use. -B12 and folic acid levels normal, not actively bleeding Chronic: Hypertension Chronic diastolic heart failure DVT ppx: Xarelto Code status: No code Anticipated discharge place: nursing facility Anticipated discharge time: 1-2 days Objective - Vital Signs Vital signs: Vital Signs Temp 98.0 F 11/21/22 09:15 Pulse 71 11/21/22 09:15 Resp 16 11/21/22 09:15 BP 129/70 11/21/22 09:15 Pulse Ox 93 L 11/21/22 09:15 FiO2 Intake & Output 11/20/22 11/21/22 11/21/22 18:59 06:59 18:59 Output Total 700 450 Balance -700 -450 Output: Urine 700 450 Other: Voiding Method Diaper Diaper Diaper External Catheter External Catheter # Voids 2 - Labs CBC & Chem 7: 11/21/22 06:59 11/21/22 06:59 Labs: Abnormal Lab Results - Last 24 Hours (Table) 11/20/22 11/21/22 11/21/22 Range/Units 08:03 06:59 06:59 RBC 3.52 L (3.80-5.40) m/uL MCV 108.2 H (80.0-100.0) fL MCHC 30.3 L (31.0-37.0) g/dL Calcium 8.2 L (8.4-10.2) mg/dL Free T4 3.48 H (0.78-2.19) ng/dL Microbiology - Last 24 Hours (Table) 11/19/22 17:35 Blood Culture - Preliminary Blood 11/19/22 17:20 Blood Culture - Preliminary Blood
--- NOTE | 2022-11-21 11:34 | P.PN ---
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 Sharp, history of hypertension, dyslipidemia and hypothyroidism as well as sleep apnea. Patient has had several hospitalizations in the last few month beginning with a hip fracture and preop clearance on September 28. She subsequently underwent cardioversion on 10/[address] Suresh. Most recently patient was seen during her hospitalization in October at which time she had RVR uncontrolled and digoxin was added. Patient was also treated for urinary tract infection, sta bilized and discharged to [facility]. Patient now presents from [facility] with change in mental status. She has been found to have atrial fibrillation with bradycardic in the 40s. Patient has a sitter at the bedside and is unable to provide any information. Apparently patient was confused all through the night. All rate control medications were placed on hold. Treatment has started for urinary tract infection. EKG atrial fibrillation with ventricular rate of 50 CAT scan of the brain showed degenerative and nonspecific white matter changes. Chest x-ray no acute changes. Home cardiac medications: Amiodarone 200 mg twice daily, digoxin 125 g daily, losartan 50 mg twice daily, Lopressor 50 mg twice daily, Xarelto 20 mg at bedtime, levothyroxine 75 g daily 11/21 Patient is seen today in follow-up. Both TSH and free T4 elevated and we will increase levothyroxine. Heart rate is 73, blood pressure 153/76. Potassium is 4.3, creatinine 0.85. Telemetry atrial fibrillation Physical examination: Gen: This is a 77-year-old female. She is lying flat in bed and appears to be comfortable and in no acute distress. rn care transition is at bedside. VS: reviewed HEENT: Head is atraumatic, normocephalic. Pupils equal, round. Sclerae is anicteric. NECK: Supple. No JVD. . LUNGS: Clear to auscultation. No wheezes or rhonchi. No intercostal retractions. HEART: Irregular rate and rhythm. Systolic murmur at the right upper sternal border and left upper sternal border. Bradycardic. ABDOMEN: Soft No tenderness. EXTREMITIES: 2+ pedal edema. No calf tenderness. NEUROLOGICAL: Patient is lethargic. Assessment: Persistent atrial fibrillation with bradycardia, uncontrolled Hypertension Hyperlipidemia Hypothyroidism, previously high TSH with high T4 Obstructive sleep apnea Chronic diastolic heart failure Lower extremity edema likely some component of venous insufficiency Urinary tract infection Metabolic encephalopathy most likely due to urinary tract infection Plan: Discontinue digoxin completely Discontinue amiodarone completely Hold Lopressor Increase levothyroxine to 88 g daily Treat urinary tract infection Further recommendations as patient progresses Nurse practitioner note has been reviewed, I agree with the documented findings and plan of care. Patient was seen and examined. Objective - Vital Signs Vital signs: Vital Signs Temp 97.7 F 11/21/22 03:36 Pulse 73 11/21/22 03:36 Resp 16 11/21/22 03:36 BP 153/76 11/21/22 03:36 Pulse Ox 96 11/21/22 03:36 FiO2 Intake & Output 11/20/22 11/21/22 11/21/22 18:59 06:59 18:59 Output Total 700 450 Balance -700 -450 Output: Urine 700 450 Other: Voiding Method Diaper Diaper External Catheter # Voids 2 - Labs CBC & Chem 7: 11/21/22 06:59 11/21/22 06:59 Labs: Abnormal Lab Results - Last 24 Hours (Table) 11/20/22 11/20/22 11/20/22 Range/Units 08:03 08:03 08:03 RBC 3.39 L (3.80-5.40) m/uL Hgb 10.9 L (11.4-16.0) gm/dL MCV 109.4 H (80.0-100.0) fL MCHC 29.6 L (31.0-37.0) g/dL Macrocytosis Marked A Carbon Dioxide 21 L (22-30) mmol/L Glucose 72 L (74-99) mg/dL Calcium 8.3 L (8.4-10.2) mg/dL AST 41 H (14-36) U/L Alkaline Phosphatase 178 H (38-126) U/L Total Protein 5.8 L (6.3-8.2) g/dL Albumin 2.6 L (3.5-5.0) g/dL TSH 5.170 H (0.465-4.680) mIU/L Free T4 3.48 H (0.78-2.19) ng/dL 11/21/22 11/21/22 Range/Units 06:59 06:59 RBC 3.52 L (3.80-5.40) m/uL Hgb (11.4-16.0) gm/dL MCV 108.2 H (80.0-100.0) fL MCHC 30.3 L (31.0-37.0) g/dL Macrocytosis Carbon Dioxide (22-30) mmol/L Glucose (74-99) mg/dL Calcium 8.2 L (8.4-10.2) mg/dL AST (14-36) U/L Alkaline Phosphatase (38-126) U/L Total Protein (6.3-8.2) g/dL Albumin (3.5-5.0) g/dL TSH (0.465-4.680) mIU/L Free T4 (0.78-2.19) ng/dL
--- NOTE | 2022-11-21 14:46 | P.PN ---
Subjective Progress Note Date: 11/21/22 Principal diagnosis: Urinary tract infection Patient is a 77-year-old female with a past medical history significant for hypothyroidism atrial fibrillation recent did have right total hip arthroplasty subsequently has been discharged to [facility] patient has been sent to the ER last evening for evaluation of mental status changes, patient did have positive concerning for UTI ultrasound was negative for any hydronephrosis of the kidneys. On today's evaluation that is 11/21/2022, the patient is afebrile the patient is more awake and alert she is breathing comfortably on room air, patient denies having any chest pain or shortness of breath or cough no abdominal pain or diarrhea Objective - Vital Signs Vital signs: Vital Signs Temp 98.2 F 11/21/22 11:14 Pulse 73 11/21/22 11:14 Resp 22 11/21/22 11:14 BP 125/67 11/21/22 11:18 Pulse Ox 99 11/21/22 11:14 FiO2 Intake & Output 11/20/22 11/21/22 11/21/22 18:59 06:59 18:59 Output Total 700 450 Balance -700 -450 Output: Urine 700 450 Other: Voiding Method Diaper Diaper Diaper External Catheter External Catheter # Voids 2 1 # Bowel Movements 1 - Exam GENERAL DESCRIPTION: An elderly female lying in bed in no distress RESPIRATORY SYSTEM: Unlabored breathing , decreased breath sounds at bases HEART: S1 S2 regular rate and rhythm , ABDOMEN: Soft , no tenderness EXTREMITIES: No edema feet - Labs CBC & Chem 7: 11/21/22 06:59 11/21/22 06:59 Labs: Abnormal Lab Results - Last 24 Hours (Table) 11/21/22 11/21/22 Range/Units 06:59 06:59 RBC 3.52 L (3.80-5.40) m/uL MCV 108.2 H (80.0-100.0) fL MCHC 30.3 L (31.0-37.0) g/dL Calcium 8.2 L (8.4-10.2) mg/dL Microbiology - Last 24 Hours (Table) 11/19/22 17:35 Blood Culture - Preliminary Blood 11/19/22 17:20 Blood Culture - Preliminary Blood Assessment and Plan (1) UTI (urinary tract infection) Current Visit: Yes Status: Acute Code(s): N39.0 - URINARY TRACT INFECTION, SITE NOT SPECIFIED SNOMED Code(s): 54180801 Plan: 1patient was in the hospital mental status changes multifactorial and a possible component of UTI in this patient with a positive UA history of recurrent UTI failing outpatient oral Keflex therapy 2-ultrasound was negative for any structure abnormality to the kidney bladder area 3-patient seems to have shown Clinical improvement and will continue with Rocephin 2 g daily to continue while waiting for the culture to finalize and gen tle IV fluid Family the bedside questions were answered Time with Patient: Less than 30
[2022-11-21] MEDS: RIVAROXABAN 20 MG TAB PO SCH (20:14)
[2022-11-21] MEDS: MELATONIN 5 MG TABLET PO SCH (21:49)
[2022-11-22] MEDS ORDERED: CYCLOBENZAPRINE 5 MG TAB PO STA (01:19)
[2022-11-22] MEDS: PANTOPRAZOLE 40 MG TABLET PO SCH (05:31)
[2022-11-22] MEDS: LEVOTHYROXINE 88 MCG TAB PO SCH (05:31)
[2022-11-22] MEDS: THIAMINE 100 MG TAB PO SCH (08:19)
[2022-11-22] MEDS: VENLAFAXINE HCL ER 75 MG CAP PO SCH (08:19)
[2022-11-22] MEDS: LOSARTAN 50 MG TAB PO SCH ×2 (08:19→20:34)
[2022-11-22] MEDS: busPIRone HCl 5 MG TAB PO SCH ×2 (08:19→20:34)
--- NOTE | 2022-11-22 11:27 | P.DS ---
Providers Date of admission: 11/19/22 16:33 Expected date of discharge: 11/22/22 Attending physician: Chastity Singer MD Consults: 11/19/22 16:33 Consult Physician Urgent Consulting Provider: [facility] Consult Reason/Comments: afib with slow ventricular response Do you want consulting provider notified?: Yes Consult Physician Urgent Consulting Provider: Jasmin Dubose Consult Reason/Comments: recurrent uti Do you want consulting provider notified?: Yes Primary care physician: Benjamin Ashton Hospital Course: Discharge Diagnosis: Acute metabolic/toxic encephalopathy, improving Polypharmacy Urinary tract infection, present on admission Atrial fibrillation with SVR, now rate controlled Hypothyroidism Chronic Macrocytic anemia Hospital Course: 77-year-old female with history of atrial fibrillation, hypothyroidism, recent NGUYEN, recent acute kidney injury and dehydration and A. fib with RVR, and UTI presenting from nursing home facility with altered mentation. Patient was empirically treated with Keflex for UTI at nursing facility, but encephalopathy worsened, and patient was sent to the emergency. In the ED, patient was noted to be bradycardic in the 40s, rest of the vital signs were otherwise normal. Laboratory workup was significant for normal white count, sodium 136, troponin 0.41, ALP 218, AST 65, ALT 34. Urinalysis showed negative nitrites, large leukocyte esterase. Cardiology and ID was consulted. Encephalopathy possibly the setting of polypharmacy. Several sedating pain medications were discontinued. Right upper quadrant ultrasound consistent with hepatic steatosis or hepatocellular disease. Encephalopathy improved. Cardiology discontinued the digoxin and amiodarone. Cardiology also increased patient's levothyroxine. ID recommended 7 days of oral cefdinir. Patient seen and examined at bedside. Vital signs reviewed and stable. General: nontoxic, no distress, appears at stated age Derm: warm, dry Head: atraumatic, normocephalic, symmetric Eyes: EOMI, no lid lag, anicteric sclera Mouth: no lip lesion, mucus membranes moist Cardiovascular: S1S2 reg, systolic murmur Lungs: CTA bilateral, no rhonchi, no rales , no accessory muscle use Abdominal: soft, nontender to palpation, no guarding, no appreciable organomegaly Ext: no gross muscle atrophy, trace peripheral edema, no contractures Neuro: CN II-XI grossly intact, no focal neuro deficits Psych: Alert, oriented, appropriate affect A total of 36 minutes of time were spent preparing this complex discharge summary. Patient was discharged on 11/22/22 at 11:27. Patient Condition at Discharge: Stable Plan - Discharge Summary Discharge Rx Participant: No New Discharge Prescriptions: New Levothyroxine Sodium [Synthroid] 88 mcg PO DAILY@0630 tab Cefdinir [Omnicef] 300 mg PO Q12HR #14 capsule Continue Sennosides/Docusate Sodium [Senna Plus 8.6-50 mg Softgel] 1 cap PO DAILY Thiamine [Vitamin B-1] 100 mg PO DAILY tab Acetaminophen Tab [Tylenol] 650 mg PO Q6H PRN PRN Reason: Pain Omeprazole [PriLOSEC] 20 mg PO DAILY@0600 Rivaroxaban [Xarelto] 20 mg PO HS busPIRone HCL [Buspar] 7.5 mg PO BID Furosemide [Lasix] 40 mg PO TUFR@0600 Ibandronate Sodium 150 mg PO QMONTHLY Venlafaxine HCl ER [Effexor XR] 225 mg PO DAILY Losartan [Cozaar] 50 mg PO BID Discontinued Amiodarone [Cordarone] 200 mg PO BID Cyclobenzaprine [Flexeril] 5 mg PO HS #14 tab Metoprolol Tartrate [Lopressor] 50 mg PO BID Digoxin [Lanoxin] 125 mcg PO DAILY Levothyroxine Sodium [Synthroid] 75 mcg PO DAILY@0600 traMADol HCL 50 mg PO HS PRN 3 Days #3 tab PRN Reason: Pain traMADol HCL 100 mg PO DAILY PRN 3 Days #6 tab PRN Reason: Pain HYDROcodone/APAP 5-325MG [[place] 5-325] 1 tab PO Q6H PRN PRN Reason: Pain Discharge Medication List Rivaroxaban [Xarelto] 20 mg PO HS 01/24/22 [History] busPIRone HCL [Buspar] 7.5 mg PO BID 01/24/22 [History] Furosemide [Lasix] 40 mg PO TUFR@0600 09/28/22 [History] Sennosides/Docusate Sodium [Senna Plus 8.6-50 mg Softgel] 1 cap PO DAILY 10/10/22 [History] Ibandronate Sodium 150 mg PO QMONTHLY 10/26/22 [History] Venlafaxine HCl ER [Effexor XR] 225 mg PO DAILY 10/26/22 [History] Thiamine [Vitamin B-1] 100 mg PO DAILY tab 10/30/22 [Rx] Acetaminophen Tab [Tylenol] 650 mg PO Q6H PRN 11/19/22 [History] Losartan [Cozaar] 50 mg PO BID 11/19/22 [History] Omeprazole [PriLOSEC] 20 mg PO DAILY@0600 11/19/22 [History] Cefdinir [Omnicef] 300 mg PO Q12HR #14 capsule 11/22/22 [Rx] Levothyroxine Sodium [Synthroid] 88 mcg PO DAILY@0630 tab 11/22/22 [Rx] Follow up Appointment(s)/Referral(s): Benjamin Ashton MD [Primary Care Provider] - 1-2 days Chaka Turner MD [STAFF PHYSICIAN] - 1 Week Patient Instructions/Handouts: Urinary Tract Infection in Women (DC), Encephalopathy (GEN), Bradycardia (DC) Activity/Diet/Wound Care/Special Instructions: Please see your PCP and glass enamel mixer. Discharge Disposition: TRANSFER TO SNF/ECF
--- NOTE | 2022-11-22 12:08 | P.PN ---
Subjective Progress Note Date: 11/22/22 This is a 77-year-old female patient who sees a package designer out of the town in [place] and at [facility] with a past medical history significant for paroxysmal atrial fibrillation with previous ablation in June [address] Sharp, history of hypertension, dyslipidemia and hypothyroidism as well as sleep apnea. Patient has had several hospitalizations in the last few month beginning with a hip fracture and preop clearance on September 28. She subsequently underwent cardioversion on 10/[address] Suresh. Most recently patient was seen during her hospitalization in October at which time she had RVR uncontrolled and digoxin was added. Patient was also treated for urinary tract infection, sta bilized and discharged to [facility]. Patient now presents from [facility] with change in mental status. She has been found to have atrial fibrillation with bradycardic in the 40s. Patient has a sitter at the bedside and is unable to provide any information. Apparently patient was confused all through the night. All rate control medications were placed on hold. Treatment has started for urinary tract infection. EKG atrial fibrillation with ventricular rate of 50 CAT scan of the brain showed degenerative and nonspecific white matter changes. Chest x-ray no acute changes. Home cardiac medications: Amiodarone 200 mg twice daily, digoxin 125 g daily, losartan 50 mg twice daily, Lopressor 50 mg twice daily, Xarelto 20 mg at bedtime, levothyroxine 75 g daily 11/21 Patient is seen today in follow-up. Both TSH and free T4 elevated and we will increase levothyroxine. Heart rate is 73, blood pressure 153/76. Potassium is 4.3, creatinine 0.85. Telemetry atrial fibrillation 11/22 Patient is seen today in follow-up. Patient's mental status is back to baseline. She remains in atrial fibrillation and heart rate is in the 60s, blood pressure 137/73. Repeat blood work reveals WBC 5.2, hemoglobin 12, platelet count 214. Electrolytes are normal. BUN 30 creatinine 1.2. Liver function tests are normal. Echocardiogram reveals EF of 40-45%, moderately increased left ventricular wall thickness, mild right ventricular dilation, moderately dilated left atrium, moderate mitral regurgitation, RVSP 26, mild to moderate tricuspid regurgitation. Physical examination: Gen: This is a 77-year-old female. She is lying flat in bed and appears to be comfortable and in no acute distress. VS: reviewed HEENT: Head is atraumatic, normocephalic. Pupils equal, round. Sclerae is anict jen. NECK: Supple. No JVD. . LUNGS: Clear to auscultation. No wheezes or rhonchi. No intercostal retractions. HEART: Irregular rate and rhythm. Systolic murmur at the right upper sternal border and left upper sternal border. Bradycardic. ABDOMEN: Soft No tenderness. EXTREMITIES: 2+ pedal edema. No calf tenderness. NEUROLOGICAL: Patient is lethargic. Assessment: Persistent atrial fibrillation with bradycardia, uncontrolled Hypertension Hyperlipidemia Hypothyroidism, previously high TSH with high T4 Obstructive sleep apnea Chronic diastolic heart failure Lower extremity edema likely some component of venous insufficiency Urinary tract infection Metabolic encephalopathy most likely due to urinary tract infection Plan: Discontinue digoxin completely Discontinue amiodarone completely Hold Lopressor Increase levothyroxine to 88 g daily Treat urinary tract infection From cardiology perspective, continue to hold patient's rate control medications until this has recovered. Cardiology will sign off and follow on an as-needed basis. Please reconsult for any new concerns. Nurse practitioner note has been reviewed, I agree with the documented findings and plan of care. Patient was seen and examined. Objective - Vital Signs Vital signs: Vital Signs Temp 98.1 F 11/22/22 03:28 Pulse 72 11/22/22 03:28 Resp 20 11/22/22 03:28 BP 137/73 11/22/22 03:28 Pulse Ox 100 11/22/22 03:28 FiO2 Intake & Output 11/21/22 11/22/22 11/22/22 18:59 06:59 18:59 Output Total 450 Balance -450 Output: Urine 450 Other: Voiding Method Diaper Diaper External Catheter External Catheter # Voids 1 1 # Bowel Movements 1 - Labs CBC & Chem 7: 11/21/22 06:59 11/21/22 06:59 Labs: Abnormal Lab Results - Last 24 Hours (Table) 11/21/22 Range/Units 06:59 Thyroid Peroxidase Ab 39.8 H (0.0-33.0) U/mL Microbiology - Last 24 Hours (Table) 11/19/22 17:35 Blood Culture - Preliminary Blood 11/19/22 17:20 Blood Culture - Preliminary Blood
[2022-11-22 13:44] VITALS: BMI 29.5
--- NOTE | 2022-11-22 15:08 | P.PN ---
Subjective Progress Note Date: 11/22/22 Principal diagnosis: Urinary tract infection Patient is a 77-year-old female with a past medical history significant for hypothyroidism atrial fibrillation recent did have right total hip arthroplasty subsequently has been discharged to [facility] patient has been sent to the ER last evening for evaluation of mental status changes, patient did have positive concerning for UTI ultrasound was negative for any hydronephrosis of the kidneys. On today's evaluation that is 11/22/2022, the patient remains to be afebrile the patient is awake and alert, the patient is breathing comfortably on room air, patient denies having any chest pain or shortness of breath or cough no abdominal pain or diarrhea Objective - Vital Signs Vital signs: Vital Signs Temp 97.3 F L 11/22/22 08:00 Pulse 68 11/22/22 08:00 Resp 16 11/22/22 08:00 BP 139/75 11/22/22 08:00 Pulse Ox 99 11/22/22 08:00 FiO2 Intake & Output 11/21/22 11/22/22 11/22/22 18:59 06:59 18:59 Output Total 450 Balance -450 Output: Urine 450 Other: Voiding Method Diaper Diaper Diaper External Catheter External Catheter External Catheter # Voids 1 1 # Bowel Movements 1 - Exam GENERAL DESCRIPTION: An elderly female lying in bed in no distress RESPIRATORY SYSTEM: Unlabored breathing , decreased breath sounds at bases HEART: S1 S2 regular rate and rhythm , ABDOMEN: Soft , no tenderness EXTREMITIES: No edema feet - Labs CBC & Chem 7: 11/21/22 06:59 11/21/22 06:59 Labs: Abnormal Lab Results - Last 24 Hours (Table) 11/21/22 Range/Units 06:59 Thyroid Peroxidase Ab 39.8 H (0.0-33.0) U/mL Microbiology - Last 24 Hours (Table) 11/19/22 17:35 Blood Culture - Preliminary Blood 11/19/22 17:20 Blood Culture - Preliminary Blood Assessment and Plan (1) UTI (urinary tract infection) Current Visit: Yes Status: Acute Code(s): N39.0 - URINARY TRACT INFECTION, SITE NOT SPECIFIED SNOMED Code(s): 44113648 Plan: 1patient was in the hospital mental status changes multifactorial and a possible component of UTI in this patient with a positive UA history of recurrent UTI failing outpatient oral Keflex therapy 2-ultrasound was negative for any structure abnormality to the kidney bladder area 3-patient seems to have shown Clinical improvement and the patient will continue with Rocephin 2 g daily and finish therapy with oral Ceftin discussed with the admitting team Time with Patient: Less than 30
[2022-11-22] MEDS: RIVAROXABAN 20 MG TAB PO SCH (20:34)
[2022-11-22] MEDS: MELATONIN 5 MG TABLET PO SCH (20:34)
[2022-11-23] MEDS: FUROSEMIDE 40 MG TAB PO SCH (06:02)
[2022-11-23] MEDS: PANTOPRAZOLE 40 MG TABLET PO SCH (06:02)
[2022-11-23] MEDS: LEVOTHYROXINE 88 MCG TAB PO SCH (06:02)
[2022-11-23] MEDS: LOSARTAN 50 MG TAB PO SCH (10:31)
[2022-11-23] MEDS: THIAMINE 100 MG TAB PO SCH (10:31)
[2022-11-23] MEDS: busPIRone HCl 5 MG TAB PO SCH (10:31)
[2022-11-23] MEDS: VENLAFAXINE HCL ER 75 MG CAP PO SCH (10:32)
--- NOTE | 2022-11-23 10:40 | P.DS ---
Providers Date of admission: 11/19/22 16:33 Expected date of discharge: 11/23/22 Attending physician: Chastity Singer MD Consults: 11/19/22 16:33 Consult Physician Urgent Consulting Provider: [facility] Consult Reason/Comments: afib with slow ventricular response Do you want consulting provider notified?: Yes Consult Physician Urgent Consulting Provider: Jasmin Dubose Consult Reason/Comments: recurrent uti Do you want consulting provider notified?: Yes Primary care physician: Benjamin Ashton Hospital Course: Discharge Diagnosis: Acute metabolic/toxic encephalopathy, improving Polypharmacy Urinary tract infection, present on admission Atrial fibrillation with SVR, now rate controlled Hypothyroidism Chronic Macrocytic anemia Hospital Course: 77-year-old female with history of atrial fibrillation, hypothyroidism, recent NGUYEN, recent acute kidney injury and dehydration and A. fib with RVR, and UTI presenting from [facility] facility with altered mentation. Patient was empirically treated with Keflex for UTI at nursing facility, but encephalopathy worsened, and patient was sent to the emergency. In the ED, patient was noted to be bradycardic in the 40s, rest of the vital signs were otherwise normal. Laboratory workup was significant for normal white count, sodium 136, troponin 0.41, ALP 218, AST 65, ALT 34. Urinalysis showed negative nitrites, large leukocyte esterase. Cardiology and ID was consulted. Encephalopathy possibly the setting of polypharmacy. Several sedating pain medications were discontinued. Right upper quadrant ultrasound consistent with hepatic steatosis or hepatocellular disease. Encephalopathy improved. Cardiology discontinued the digoxin and amiodarone. Cardiology also increased patient's levothyroxine. ID recommended 7 days of oral cefdinir. Patient seen and examined at bedside. Vital signs reviewed and stable. General: nontoxic, no distress, appears at stated age Derm: warm, dry Head: atraumatic, normocephalic, symmetric Eyes: EOMI, no lid lag, anicteric sclera Mouth: no lip lesion, mucus membranes moist Cardiovascular: S1S2 reg, systolic murmur Lungs: CTA bilateral, no rhonchi, no rales , no accessory muscle use Abdominal: soft, nontender to palpation, no guarding, no appreciable organomegaly Ext: no gross muscle atrophy, trace peripheral edema, no contractures Neuro: CN II-XI grossly intact, no focal neuro deficits Psych: Alert, oriented, appropriate affect A total of 36 minutes of time were spent preparing this complex discharge summary. Patient was discharged on 11/23/22 at 1039. Patient Condition at Discharge: Stable Plan - Discharge Summary Discharge Rx Participant: No New Discharge Prescriptions: New Levothyroxine Sodium [Synthroid] 88 mcg PO DAILY@0630 tab Cefdinir [Omnicef] 300 mg PO Q12HR #14 capsule Continue Sennosides/Docusate Sodium [Senna Plus 8.6-50 mg Softgel] 1 cap PO DAILY Thiamine [Vitamin B-1] 100 mg PO DAILY tab Acetaminophen Tab [Tylenol] 650 mg PO Q6H PRN PRN Reason: Pain Omeprazole [PriLOSEC] 20 mg PO DAILY@0600 Rivaroxaban [Xarelto] 20 mg PO HS busPIRone HCL [Buspar] 7.5 mg PO BID Furosemide [Lasix] 40 mg PO TUFR@0600 Ibandronate Sodium 150 mg PO QMONTHLY Venlafaxine HCl ER [Effexor XR] 225 mg PO DAILY Losartan [Cozaar] 50 mg PO BID Discontinued Amiodarone [Cordarone] 200 mg PO BID Cyclobenzaprine [Flexeril] 5 mg PO HS #14 tab Metoprolol Tartrate [Lopressor] 50 mg PO BID Digoxin [Lanoxin] 125 mcg PO DAILY Levothyroxine Sodium [Synthroid] 75 mcg PO DAILY@0600 traMADol HCL 50 mg PO HS PRN 3 Days #3 tab PRN Reason: Pain traMADol HCL 100 mg PO DAILY PRN 3 Days #6 tab PRN Reason: Pain HYDROcodone/APAP 5-325MG [[place] 5-325] 1 tab PO Q6H PRN PRN Reason: Pain Discharge Medication List Rivaroxaban [Xarelto] 20 mg PO HS 01/24/22 [History] busPIRone HCL [Buspar] 7.5 mg PO BID 01/24/22 [History] Furosemide [Lasix] 40 mg PO TUFR@0600 09/28/22 [History] Sennosides/Docusate Sodium [Senna Plus 8.6-50 mg Softgel] 1 cap PO DAILY 10/10/22 [History] Ibandronate Sodium 150 mg PO QMONTHLY 10/26/22 [History] Venlafaxine HCl ER [Effexor XR] 225 mg PO DAILY 10/26/22 [History] Thiamine [Vitamin B-1] 100 mg PO DAILY tab 10/30/22 [Rx] Acetaminophen Tab [Tylenol] 650 mg PO Q6H PRN 11/19/22 [History] Losartan [Cozaar] 50 mg PO BID 11/19/22 [History] Omeprazole [PriLOSEC] 20 mg PO DAILY@0600 11/19/22 [History] Cefdinir [Omnicef] 300 mg PO Q12HR #14 capsule 11/22/22 [Rx] Levothyroxine Sodium [Synthroid] 88 mcg PO DAILY@0630 tab 11/22/22 [Rx] Follow up Appointment(s)/Referral(s): Chaka Turner MD [STAFF PHYSICIAN] - 1 Week Benjamin Ashton MD [Primary Care Provider] - 1-2 days Patient Instructions/Handouts: Urinary Tract Infection in Women (DC), Bradycardia (DC), Encephalopathy (GEN) Activity/Diet/Wound Care/Special Instructions: Please see your PCP and offensive coordinator. Discharge Disposition: TRANSFER TO SNF/ECF
[2022-11-23 11:34] VITALS: BP 125/79; PULSE 70; RESP 18; TEMP 97.9
--- NOTE | 2022-11-23 13:23 | P.PN ---
Subjective Progress Note Date: 11/23/22 Principal diagnosis: Urinary tract infection Patient is a 77-year-old female with a past medical history significant for hypothyroidism atrial fibrillation recent did have right total hip arthroplasty subsequently has been discharged to [facility] patient has been sent to the ER last evening for evaluation of mental status changes, patient did have positive concerning for UTI ultrasound was negative for any hydronephrosis of the kidneys. On today's evaluation that is 11/23/2022, the patient continues to be afebrile the patient is breathing comfortably on room air, patient denies having any chest pain or shortness of breath or cough no abdominal pain or diarrhea Objective - Vital Signs Vital signs: Vital Signs Temp 97.9 F 11/23/22 11:32 Pulse 70 11/23/22 11:32 Resp 18 11/23/22 11:32 BP 125/79 11/23/22 11:32 Pulse Ox 99 11/23/22 11:32 FiO2 Intake & Output 11/22/22 11/23/22 11/23/22 18:59 06:59 18:59 Intake Total 120 Output Total 200 100 Balance -80 -100 Weight 80.5 kg Intake: Oral 120 Output: Urine 200 100 Other: Voiding Method Diaper Diaper Diaper External Catheter External Catheter External Catheter # Voids 1 - Exam GENERAL DESCRIPTION: An elderly female lying in bed in no distress RESPIRATORY SYSTEM: Unlabored breathing , decreased breath sounds at bases HEART: S1 S2 regular rate and rhythm , ABDOMEN: Soft , no tenderness EXTREMITIES: No edema feet - Labs CBC & Chem 7: 11/21/22 06:59 11/21/22 06:59 Labs: Microbiology - Last 24 Hours (Table) 11/19/22 17:35 Blood Culture - Preliminary Blood 11/19/22 17:20 Blood Culture - Preliminary Blood Assessment and Plan (1) UTI (urinary tract infection) Current Visit: Yes Status: Acute Code(s): N39.0 - URINARY TRACT INFECTION, SITE NOT SPECIFIED SNOMED Code(s): 26905676 Plan: 1patient was in the hospital mental status changes multifactorial and a possible component of UTI in this patient with a positive UA history of recurrent UTI failing outpatient oral Keflex therapy 2-ultrasound was negative for any structure abnormality to the kidney bladder area 3-patient has shown Clinical improvement with Rocephin 2 g daily and the patient will be able to finish therapy with oral Ceftin on discharge 7 days Time with Patient: Less than 30
== END 2022-11-23 13:47 | DRG 689 ==
LOC: EC 12:26 → 3SCARD 16:33
PROVIDERS: ADMIT Internal Medicine; ATTEND Internal Medicine
DX: N39.0 Urinary tract infection, site not specified (principal); G92.8 Other toxic encephalopathy; F03.92 Unspecified dementia, unspecified severity, with psychotic disturbance; I48.19 Other persistent atrial fibrillation; I50.32 Chronic diastolic (congestive) heart failure; E78.5 Hyperlipidemia, unspecified; D53.9 Nutritional anemia, unspecified; E03.9 Hypothyroidism, unspecified; G47.33 Obstructive sleep apnea (adult) (pediatric); I08.1 Rheumatic disorders of both mitral and tricuspid valves; I11.0 Hypertensive heart disease with heart failure; I25.10 Atherosclerotic heart disease of native coronary artery without angina pectoris; I27.20 Pulmonary hypertension, unspecified; R00.1 Bradycardia, unspecified; I87.2 Venous insufficiency (chronic) (peripheral); Z96.641 Presence of right artificial hip joint; Z66 Do not resuscitate; Z79.01 Long term (current) use of anticoagulants; Z79.890 Hormone replacement therapy; Z79.899 Other long term (current) drug therapy; Z87.440 Personal history of urinary (tract) infections; Z87.891 Personal history of nicotine dependence
CPT/HCPCS: 36415; 70450; 71046; 76705; 80048; 80053; 80306; 80320; 81001; 82550; 82607; 82746; 84439; 84443; 84484; 85025; 85610; 85730; 86376; 93005; 96361; 96374; 99285

== ENCOUNTER 2022-12-15 14:17 | Inpatient (IN) | payer MEDICARE ==
--- NOTE | 2022-12-15 15:00 | ED ---
General Adult HPI - General Chief complaint: Fall Stated complaint: fall Time Seen by Provider: 12/15/22 14:20 Source: patient, EMS Mode of arrival: EMS Limitations: no limitations - History of Present Illness Initial comments: 77-year-old female with past medical history of A. fib, hypertension, alcohol use who presents to the emergency department from home area and daughter do provide the history. states that she came home from rehab last Saturday. She has not been eating or drinking. They do have a home care nurse coming to the house and he states that her vitals have been good up until today. The patient attempted to get out of bed however she slumped to the floor and the patient was found on the ground. She states she was so weak she couldn't walk. and patient deny that she hit her head or loss consciousness at any point. She does not have any pain. EMS was called to get the patient off the floor. Daughter states that her mother has been hallucinating for a couple of days. She was last hospitalized for UTI with polypharmacy causing altered mental status. At that time she also had a significant bradycardia on amiodarone, digoxin and metoprolol. These medications were discontinued and the patient currently does not take any medications for elevated heart rate. She does present in A. fib with RVR. She is extremely anxious and provides poor history. She denies any chest pain but admits to shortness of breath. No nausea or vomiting. Denies headaches. No changes in her bladder or bowel habit s. HPI is limited due to patient's poor condition and is a poor historian - Related Data Home Medications Medication Instructions Recorded Confirmed Rivaroxaban [Xarelto] 20 mg PO HS 01/24/22 11/19/22 busPIRone HCL [Buspar] 7.5 mg PO BID 01/24/22 11/19/22 Furosemide [Lasix] 40 mg PO TUFR@0600 09/28/22 11/19/22 Sennosides/Docusate Sodium [Senna 1 cap PO DAILY 10/10/22 11/19/22 Plus 8.6-50 mg Softgel] Ibandronate Sodium 150 mg PO QMONTHLY 10/26/22 11/19/22 Venlafaxine HCl ER [Effexor XR] 225 mg PO DAILY 10/26/22 11/19/22 Acetaminophen Tab [Tylenol] 650 mg PO Q6H PRN 11/19/22 11/19/22 Losartan [Cozaar] 50 mg PO BID 11/19/22 11/19/22 Omeprazole [PriLOSEC] 20 mg PO DAILY@0600 11/19/22 11/19/22 Previous Rx's Medication Instructions Recorded Thiamine [Vitamin B-1] 100 mg PO DAILY tab 10/30/22 Cefdinir [Omnicef] 300 mg PO Q12HR #14 capsule 11/22/22 Levothyroxine Sodium [Synthroid] 88 mcg PO DAILY@0630 tab 11/22/22 Allergies Allergy/AdvReac Type Severity Reaction Status Date / Time Sulfa (Sulfonamide Allergy Unknown Verified 12/15/22 14:31 Antibiotics) Childhood Review of Systems ROS Statement: Those systems with pertinent positive or pertinent negative responses have been documented in the HPI. ROS Other: All systems not noted in ROS Statement are negative. Past Medical History Past Medical History: Atrial Fibrillation, Hypertension, Osteoarthritis (OA), Sleep Apnea/CPAP/BIPAP, Thyroid Disorder Additional Past Medical History / Comment(s): ETOH abuse, back pain, states positive blood in stool-hospitalized 01/24 to 01/26/22 History of Any Multi-Drug Resistant Organisms: None Reported Past Surgical History: Bariatric Surgery, Cholecystectomy, Hernia Repair, Hysterectomy, Joint Replacement Additional Past Surgical History / Comment(s): bariatric -STOMACH STAPLING (DR ARORA 1999)., HERNIA WITH MESH & REACTION TO MESH WITH REMOVAL., TOTAL LEFT KNEE, right hip surgery 09/28/22, Past Anesthesia/Blood Transfusion Reactions: No Reported Reaction Past Psychological History: Anxiety, Depression Smoking Status: Former smoker Past Alcohol Use History: None Reported Past Drug Use History: None Reported - Past Family History Mother History Unknown: Yes Additional Family Medical History / Comment(s): kidney cancer. Father History Unknown: Yes Family Medical History: Cancer Additional Family Medical History / Comment(s): PROSTATE CANCER Sister(s) History Unknown: Yes Family Medical History: Cancer Additional Family Medical History / Comment(s): ESOPHAGEAL AND THYROID CANCER General Exam Limitations: altered mental status General appearance: alert, anxious, in distress Head exam: Present: atraumatic, normocephalic, normal inspection Eye exam: Present: normal appearance, PERRL, EOMI. Absent: scleral icterus, conjunctival injection, periorbital swelling ENT exam: Present: mucous membranes dry Respiratory exam: Present: normal lung sounds bilaterally, respiratory distress, accessory muscle use. Absent: wheezes, rales Cardiovascular Exam: Present: tachycardia, irregular rhythm GI/Abdominal exam: Present: soft, normal bowel sounds. Absent: distended, tenderness, guarding, rebound, rigid Extremities exam: Present: other (Patient has plantar flexed bilateral lower extremities consistent with atrophy from nonambulatory status) Neurological exam: Present: altered Psychiatric exam: Present: agitated, anxious Skin exam: Present: pallor Course Vital Signs 12/15/22 12/15/22 12/15/22 14:19 14:40 14:48 Temperature 97.0 F L Pulse Rate 66 125 H 142 H Pulse Rate [ Stem Cutter ] Respiratory 36 H 18 30 H Rate Blood Pressure 81/36 119/82 87/59 Blood Pressure [Right Arm] O2 Sat by Pulse 97 91 L Oximetry 12/15/22 12/15/22 12/15/22 14:53 15:00 15:18 Temperature Pulse Rate 129 H Pulse Rate [ Stem Cutter ] Respiratory 30 H 38 H Rate Blood Pressure Blood Pressure 80/64 [Right Arm] O2 Sat by Pulse Oximetry 12/15/22 12/15/22 12/15/22 16:00 16:33 17:15 Temperature Pulse Rate 144 H 138 H Pulse Rate [ Stem Cutter ] Respiratory 30 H Rate Blood Pressure 108/96 Blood Pressure 72/44 [Right Arm] O2 Sat by Pulse Oximetry 12/15/22 12/15/22 12/15/22 17:57 18:00 18:30 Temperature Pulse Rate 121 H Pulse Rate [ 120 H Stem Cutter ] Respiratory 30 H Rate Blood Pressure Blood Pressure 98/49 [Right Arm] O2 Sat by Pulse 100 Oximetry 12/15/22 18:42 Temperature Pulse Rate 120 H Pulse Rate [ Stem Cutter ] Respiratory 28 H Rate Blood Pressure 101/68 Blood Pressure [Right Arm] O2 Sat by Pulse 95 Oximetry - Reevaluation(s) Reevaluation #1: Spoke with Dr. Page who agrees to admit the patient to the ICU 12/15/22 17:31 Reevaluation #2: Dr. Sanchez is in the emergency department and has evaluated the patient - will obtain ct, admit to icu 12/15/22 17:55 EKG Findings - EKG Comments: EKG Findings:: EKG interpreted by me demonstrates A. fib with a rate of 134. QRS 94. QTC of 392. No acute ST segment elevations or depressions Medical Decision Making - Medical Decision Making Was pt. sent in by a medical professional or institution (, [facility], RUNNER WORKER, urgent care, hospital, or penitentiary...) When possible be specific @ -No Did you speak to anyone other than the patient for history (EMS, parent, family, police, friend...)? What history was obtained from this source @ -I spoke with the patient's and her daughter Did you review nursing and triage notes (agree or disagree)? Why? @ -I reviewed and agree with nursing and triage notes Were old charts reviewed (outside hosp., previous admission, EMS record, old EKG, old radiological studies, urgent care reports/EKG's, penitentiary records)? Report findings @ I reviewed old charts on the patient, specifically her admission from 1 month ago where she was admitted for encephalopathy due to UTI and polypharmacy Differential Diagnosis (chest pain, altered mental status, abdominal pain women, abdominal pain men, vaginal bleeding, weakness, fever, dyspnea, syncope, headache, dizziness, GI bleed, back pain, seizure, CVA, palpatations, mental health, musculoskeletal)? @ -Differential Altered Mental Status: Hypoglycemia, DKA, hypercapnia, ETOH, overdose, CO poisoning, trauma, myxedema coma, HTN encephalopathy, infection, encephalitis, psychosis, intercranial hemorrhage, hepatic encephalopathy, meningitis, CVA, this is not meant to be an all-inclusive list EKG interpreted by me (3pts min.). @ -Yes interpreted by me which demonstrates A. fib with RVR X-rays interpreted by me (1pt min.). @ -Yes chest x-ray demonstrates no acute intrathoracic process CT interpreted by me (1pt min.). @ -Yes, CT the brain demonstrates no acute intracranial process U/S interpreted by me (1pt. min.). @ -None done What testing was considered but not performed or refused? (CT, X-rays, U/S, labs)? Why? @ -None What meds were considered but not given or refused? Why? @ -Medications for thyroid storm were considered Did you discuss the management of the patient with other professionals (professionals i.e. , PA, RUNNER WORKER, lab, RT, psych nurse, social organization professor, horticultural therapist, teacher, communications officer, therapeutic case manager)? Give summary @ -Dr. Sanchez and Dr. Fisher Was smoking cessation discussed for >3mins.? @ -No Was critical care preformed (if so, how long)? @ -yes, 35 minutes Were there social determinants of health that impacted care today? How? (Homelessness, low income, unemployed, alcoholism, drug addiction, transportation, low edu. Level, literacy, decrease access to med. care, intermediate, rehab)? @ -No Was there de-escalation of care discussed even if they declined (Discuss DNR or withdrawal of care, Hospice)? DNR status @ -Yes and patient does have an advanced directive that lists her as a no code What co-morbidities impacted this encounter? (DM, HTN, Smoking, COPD, CAD, Cancer, CVA, ARF, Chemo, Hep., AIDS, mental health diagnosis, sleep apnea, morbid obesity)? @ -A. fib with RVR, alcohol use, hypothyroid Was patient admitted / discharged? Hospital course, mention meds given and route, prescriptions, significant lab abnormalities, going to OR and other pertinent info. @ -Upon arrival patient is placed into room 16. She is placed on continuous pulse ox and cardiac monitoring. She appears to have significant respiratory distress however has clear lung sounds. She is placed on a nonrebreather due to hyperventilation. IV is established and laboratory studies were conducted. Patient has multiple markedly abnormal labs including a lactic of 12. Patient is in acute kidney failure. Chest x-ray demonstrates no signs of pulmonary edema and therefore she is given a 2 L bolus of normal saline followed by 130 mL per hour. She is placed on an amiodarone drip for her A. fib with RVR. CT performed the patient's head which demonstrates no acute intracranial process. Results are discussed with Dr. Sanchez who will admit the patient and Dr. Page who will watch the patient in the ICU. Patient has a DO NOT RESUSCITATE status. Her levothyroxine will be held at this time. Ch will be placed. Awaiting urinalysis. Patient taken to the ICU in stable condition with a guarded prognosis Undiagnosed new problem with uncertain prognosis? @ -Yes Drug Therapy requiring intensive monitoring for toxicity (Heparin, Nitro, Insuli n, Cardizem)? @ -Amiodarone Were any procedures done? @ -No Diagnosis/symptom? @ -Acute encephalopathy, metabolic acidosis, lactic acidosis, hyperthyroidism, A. fib with RVR, acute kidney injury Acute, or Chronic, or Acute on Chronic? @ -Acute Uncomplicated (without systemic symptoms) or Complicated (systemic symptoms)? @ -Complicated Side effects of treatment? @ -No Exacerbation, Progression, or Severe Exacerbation? @ -No Poses a threat to life or bodily function? How? (Chest pain, [place], [place], pneumonia, PE, COPD, DKA, ARF, appy, cholecystitis, CVA, Diverticulitis, Homicidal, Suicidal, threat to staff... and all critical care pts) @ -Patient has significant risk for due to unstable vital signs. She w ill be placed the ICU because of this - Lab Data Result diagrams: 12/15/22 20:24 12/15/22 20:24 Lab Results 12/15/22 12/15/22 12/15/22 Range/Units 15:20 15:20 15:20 WBC 7.5 (3.8-10.6) k/uL RBC 3.96 (3.80-5.40) m/uL Hgb 12.5 (11.4-16.0) gm/dL Hct 40.4 (34.0-46.0) % MCV 102.0 H D (80.0-100.0) fL MCH 31.5 (25.0-35.0) pg MCHC 30.9 L (31.0-37.0) g/dL RDW 14.0 (11.5-15.5) % Plt Count 575 H (150-450) k/uL MPV 8.2 Neutrophils % 82 % Lymphocytes % 13 % Monocytes % 3 % Eosinophils % 0 % Basophils % 0 % Neutrophils # 6.2 (1.3-7.7) k/uL Lymphocytes # 1.0 (1.0-4.8) k/uL Monocytes # 0.3 (0-1.0) k/uL Eosinophils # 0.0 (0-0.7) k/uL Basophils # 0.0 (0-0.2) k/uL Hypochromasia Slight Macrocytosis Slight PT 12.9 H (9.0-12.0) sec INR 1.3 H (<1.2) APTT 26.7 (22.0-30.0) sec D-Dimer 1.93 H (<0.60) mg/L FEU VBG pH (7.31-7.41) VBG pCO2 (37-51) mmHg VBG HCO3 (24-28) mmol/L Sodium (137-145) mmol/L Potassium (3.5-5.1) mmol/L Chloride (98-107) mmol/L Carbon Dioxide (22-30) mmol/L Anion Gap mmol/L BUN (7-17) mg/dL Creatinine (0.52-1.04) mg/dL Est GFR (CKD-EPI)AfAm (>60 ml/min/1.73 sqM) Est GFR (CKD-EPI)NonAf (>60 ml/min/1.73 sqM) Glucose (74-99) mg/dL Lactic Ac Sepsis Rflx Plasma Lactic Acid Marcelo (0.7-2.0) mmol/L Calcium (8.4-10.2) mg/dL Total Bilirubin (0.2-1.3) mg/dL AST (14-36) U/L ALT (4-34) U/L Alkaline Phosphatase (38-126) U/L Ammonia (<30) umol/L Troponin I (0.000-0.034) ng/mL NT-Pro-B Natriuret Pep pg/mL Total Protein (6.3-8.2) g/dL Albumin (3.5-5.0) g/dL TSH (0.465-4.680) mIU/L Free T4 (0.78-2.19) ng/dL Urine Color Yellow Urine Appearance Cloudy H (Clear) Urine pH 8.0 (5.0-8.0) Ur Specific Webster 1.010 (1.001-1.035) Urine Protein Negative (Negative) Urine Glucose (UA) Negative (Negative) Urine Ketones Negative (Negative) Urine Blood Negative (Negative) Urine Nitrite Negative (Negative) Urine Bilirubin Negative (Negative) Urine Urobilinogen <2.0 (<2.0) mg/dL Ur Leukocyte Esterase Large H (Negative) Urine RBC 4 (0-5) /hpf Urine WBC 56 H (0-5) /hpf Ur Squamous Epith Cells <1 (0-4) /hpf Urine Bacteria Few H (None) /hpf Hyaline Casts 1 (0-2) /lpf 12/15/22 12/15/22 12/15/22 Range/Units 15:20 15:20 15:20 WBC (3.8-10.6) k/uL RBC (3.80-5.40) m/uL Hgb (11.4-16.0) gm/dL Hct (34.0-46.0) % MCV (80.0-100.0) fL MCH (25.0-35.0) pg MCHC (31.0-37.0) g/dL RDW (11.5-15.5) % Plt Count (150-450) k/uL MPV Neutrophils % % Lymphocytes % % Monocytes % % Eosinophils % % Basophils % % Neutrophils # (1.3-7.7) k/uL Lymphocytes # (1.0-4.8) k/uL Monocytes # (0-1.0) k/uL Eosinophils # (0-0.7) k/uL Basophils # (0-0.2) k/uL Hypochromasia Macrocytosis PT (9.0-12.0) sec INR (<1.2) APTT (22.0-30.0) sec D-Dimer (<0.60) mg/L FEU VBG pH (7.31-7.41) VBG pCO2 (37-51) mmHg VBG HCO3 (24-28) mmol/L Sodium 136 L (137-145) mmol/L Potassium 4.4 (3.5-5.1) mmol/L Chloride 99 (98-107) mmol/L Carbon Dioxide 12 L (22-30) mmol/L Anion Gap 25 mmol/L BUN 29 H (7-17) mg/dL Creatinine 2.24 H (0.52-1.04) mg/dL Est GFR (CKD-EPI)AfAm 24 (>60 ml/min/1.73 sqM) Est GFR (CKD-EPI)NonAf 21 (>60 ml/min/1.73 sqM) Glucose 186 H (74-99) mg/dL Lactic Ac Sepsis Rflx Plasma Lactic Acid Marcelo 12.1 H* (0.7-2.0) mmol/L Calcium 8.5 (8.4-10.2) mg/dL Total Bilirubin 1.4 H (0.2-1.3) mg/dL AST 71 H (14-36) U/L ALT 52 H (4-34) U/L Alkaline Phosphatase 222 H (38-126) U/L Ammonia <9 (<30) umol/L Troponin I 0.032 (0.000-0.034) ng/mL NT-Pro-B Natriuret Pep pg/mL Total Protein 6.6 (6.3-8.2) g/dL Albumin 3.0 L (3.5-5.0) g/dL TSH 11.900 H (0.465-4.680) mIU/L Free T4 3.28 H (0.78-2.19) ng/dL Urine Color Urine Appearance (Clear) Urine pH (5.0-8.0) Ur Specific Webster (1.001-1.035) Urine Protein (Negative) Urine Glucose (UA) (Negative) Urine Ketones (Negative) Urine Blood (Negative) Urine Nitrite (Negative) Urine Bilirubin (Negative) Urine Urobilinogen (<2.0) mg/dL Ur Leukocyte Esterase (Negative) Urine RBC (0-5) /hpf Urine WBC (0-5) /hpf Ur Squamous Epith Cells (0-4) /hpf Urine Bacteria (None) /hpf Hyaline Casts (0-2) /lpf 12/15/22 12/15/22 12/15/22 Range/Units 15:20 16:01 17:00 WBC (3.8-10.6) k/uL RBC (3.80-5.40) m/uL Hgb (11.4-16.0) gm/dL Hct (34.0-46.0) % MCV (80.0-100.0) fL MCH (25.0-35.0) pg MCHC (31.0-37.0) g/dL RDW (11.5-15.5) % Plt Count (150-450) k/uL MPV Neutrophils % % Lymphocytes % % Monocytes % % Eosinophils % % Basophils % % Neutrophils # (1.3-7.7) k/uL Lymphocytes # (1.0-4.8) k/uL Monocytes # (0-1.0) k/uL Eosinophils # (0-0.7) k/uL Basophils # (0-0.2) k/uL Hypochromasia Macrocytosis PT (9.0-12.0) sec INR (<1.2) APTT (22.0-30.0) sec D-Dimer (<0.60) mg/L FEU VBG pH 7.42 H (7.31-7.41) VBG pCO2 22 L (37-51) mmHg VBG HCO3 14 L (24-28) mmol/L Sodium (137-145) mmol/L Potassium (3.5-5.1) mmol/L Chloride (98-107) mmol/L Carbon Dioxide (22-30) mmol/L Anion Gap mmol/L BUN (7-17) mg/dL Creatinine (0.52-1.04) mg/dL Est GFR (CKD-EPI)AfAm (>60 ml/min/1.73 sqM) Est GFR (CKD-EPI)NonAf (>60 ml/min/1.73 sqM) Glucose (74-99) mg/dL Lactic Ac Sepsis Rflx Y Plasma Lactic Acid Marcelo (0.7-2.0) mmol/L Calcium (8.4-10.2) mg/dL Total Bilirubin (0.2-1.3) mg/dL AST (14-36) U/L ALT (4-34) U/L Alkaline Phosphatase (38-126) U/L Ammonia (<30) umol/L Troponin I (0.000-0.034) ng/mL NT-Pro-B Natriuret Pep 3820 pg/mL Total Protein (6.3-8.2) g/dL Albumin (3.5-5.0) g/dL TSH (0.465-4.680) mIU/L Free T4 (0.78-2.19) ng/dL Urine Color Urine Appearance (Clear) Urine pH (5.0-8.0) Ur Specific Webster (1.001-1.035) Urine Protein (Negative) Urine Glucose (UA) (Negative) Urine Ketones (Negative) Urine Blood (Negative) Urine Nitrite (Negative) Urine Bilirubin (Negative) Urine Urobilinogen (<2.0) mg/dL Ur Leukocyte Esterase (Negative) Urine RBC (0-5) /hpf Urine WBC (0-5) /hpf Ur Squamous Epith Cells (0-4) /hpf Urine Bacteria (None) /hpf Hyaline Casts (0-2) /lpf Disposition Clinical Impression: Fall, Hyperthyroidism, Atrial fibrillation with RVR, Lactic acidosis, Metabolic acidosis, MIGUEL ANGEL (acute kidney injury) Disposition: ADMITTED IP TO THIS HOSP Condition: Serious Is patient prescribed a controlled substance at d/c from ED?: No Time of Disposition: 17:55 Decision to Admit Reason: Admit from EC Decision Date: 12/15/22 Decision Time: 17:55
[2022-12-15] MEDS ORDERED: SODIUM CHLORIDE 0.9% 1,000 ML IV ONE ×3 (15:07→20:15)
[2022-12-15] MEDS ORDERED: DEXTROSE 5% IN WATER 100 ML with AMIODARONE 150 MG IV ONE (15:20)
[2022-12-15] MEDS ORDERED: AMIODARONE 360 MG in DEXTROSE 5% IN WATER 200 ML IV ONE ×2 (15:30)
[2022-12-15 15:32] LABS: Basophils % (A) 0 %; Eosinophils % (A) 0 %; HCT 40.4 % (34.0-46.0); HGB 12.5 gm/dL (11.4-16.0); Hypochromasia Slight; Lymphocytes % (A) 13 %; MCH 31.5 pg (25.0-35.0); MCHC 30.9 g/dL (31.0-37.0); Macrocytosis Slight; Mean Platelet Volume 8.2; Monocytes # (A) 0.3 k/uL (0-1.0); Monocytes % (A) 3 %; Neutrophils # (A) 6.2 k/uL (1.3-7.7); Neutrophils % (A) 82 %; Platelet Count 575 k/uL (150-450); RBC 3.96 m/uL (3.80-5.40); WBC 7.5 k/uL (3.8-10.6)
[2022-12-15 15:44] LABS: African American GFR (CKD) 24 (>60 ml/min/1.73 sqM); Anion Gap 25 mmol/L; Blood Urea Nitrogen 29 mg/dL (7-17); Calcium 8.5 mg/dL (8.4-10.2); Carbon Dioxide 12 mmol/L (22-30); Chloride 99 mmol/L (98-107); Glucose 186 mg/dL (74-99); Non-African American GFR(CKD) 21 (>60 ml/min/1.73 sqM); Sodium 136 mmol/L (137-145); Total Bilirubin 1.4 mg/dL (0.2-1.3); Total Protein 6.6 g/dL (6.3-8.2)
[2022-12-15 15:49] LABS: INR 1.3 (<1.2); Partial Thromboplastin Time 26.7 sec (22.0-30.0); Prothrombin Time 12.9 sec (9.0-12.0)
[2022-12-15 16:00] LABS: Lactic Acid, Venous 12.1 mmol/L (0.7-2.0)
[2022-12-15 16:02] LABS: ALT 52 U/L (4-34); AST 71 U/L (14-36); Alkaline Phosphatase 222 U/L (38-126); Potassium 4.4 mmol/L (3.5-5.1)
--- NOTE | 2022-12-15 16:25 | XR ---
EXAMINATION TYPE: XR chest 1V portable DATE OF EXAM: 12/15/2022 HISTORY: Shortness of breath. COMPARISON: 11/19/2022 TECHNIQUE: Single view of the chest is submitted. FINDINGS: Demonstrated are scattered senescent parenchymal change. There is no evidence for focal infiltrate. The heart is stable. Hilar and mediastinal structures are within normal limits. Degenerative changes are seen of the dorsal spine. IMPRESSION: 1. Chronic changes without evidence for acute pulmonary disease.
[2022-12-15 16:48] LABS: T4, Free (Free Thyroxine) 3.28 ng/dL (0.78-2.19)
[2022-12-15 17:44] LABS: VBG PH 7.42 (7.31-7.41)
[2022-12-15] MEDS ORDERED: NALOXONE 0.4 MG/ML 1 ML VIAL IV PRN ×2 (17:56→18:04)
[2022-12-15] MEDS ORDERED: Magnesium Replacement Protocol 1 EACH MISC MISCELLANE PRN (18:04)
[2022-12-15] MEDS ORDERED: Potassium Replacement Protocol 1 EACH MISC MISCELLANE PRN (18:04)
[2022-12-15] MEDS ORDERED: METOPROLOL TARTRATE 25 MG TAB PO STA (18:19)
[2022-12-15] MEDS ORDERED: HEPARIN SODIUM 1,000 UN/ML (10ML VL) IV PRN (18:25)
--- NOTE | 2022-12-15 18:25 | P.HPIM ---
History of Present Illness H&P Date: 12/15/22 Chief Complaint: Fall, A. fib 77-year-old woman with a history of paroxysmal atrial fibrillation, hypertension, hyperlipidemia, hypothyroidism, recent right total hip arthropl asty presented for evaluation after a fall at home with generalized weakness. Patient was brought in by family and does not provide history. History supplemented by daughter who is at bedside. From my understanding, patient had a fall out of bed this morning and has had worsening generalized weakness. She was recently discharged from medical [facility] on approximately one week ago. She has been hospitalized multiple times in the last several months for various issues. She has had trouble with polypharmacy and it is very unclear at this time what medication she is taking for which indication. Specifically, her thyroid function is showing an elevated free T4 is well as an elevated TSH. How ever, she is not clear as to what dose or number of thyroxine tablets she's taking. Furthermore, regarding her atrial fibrillation, she has had many medication changes between her hospitalization, her recent cardioversion, her recent [facility] stay, as well as an unclear picture of how her partner is giving her these meds. As a consequence, she comes in today with generalized weakness, hypotension, atrial fibrillation with rapid ventricular response as well as elevated lactic acid, elevated free T4, elevated TSH, acute kidney injury. Review of systems cannot be accomplished due to patient's mental status. In the emergency room, patient was afebrile, blood pressure between 72-114/44-80 , heart rates oscillating between 110-140, 91% on nonrebreather. CBC shows thrombocytosis to 575, hemoglobin and white blood cell count are within normal limits. Basic metabolic panel shows hyponatremia to 136, CO2 of 12, BUN of 29, creatinine 2.24, anion gap of 25; creatinine is increased from 0.78 baseline. Liver function tests demonstrated total bilirubin of 1.4, AST of 71, ALT 52, alkaline phosphatase of 222, albumin of 3. Lactic acid is 12.1. TSH was 11.9, free T4 is 3.28 coags demonstrated an elevated INR of 1.3. D-dimer is 1.93. Lab work from previous hospitalization was also significant for an elevated thyroid peroxidase antibody level of 39.8 which is mildly elevated. PH was 7.42 on VBG, pCO2 was 22. EKG shows atrial fibrillation with a rate of 134, left axis deviation, T-wave inversions in leads 1, aVL, difficult to exclude ST changes due to wandering baseline. Chest x-ray shows clear parenchyma bilaterally, cardiomegaly with evidence of left atrial enlargement, tortuous aorta, no obvious evidence of pneumonia, infiltrate, heart failure. Case was discussed extensively with the emergency room provider and decision was made to admit the patient to the intensive care unit for elevated lactate, paroxysmal atrial fibrillation with RVR with borderline blood pressures. See above regarding review of systems Gen: in no apparent distress, resting comfortably in bed Eyes: PERRL, no scleral injection or icterus HENT: normocephalic, atraumatic, good hearing acuity, moist mucous membranes Neck: no tracheal deviation, full range of motion Resp: good air exchange, breathing comfortably with no accessory muscle use, no tactile fremitus, no appreciable crackles or wheezing CVS: good distal perfusion x 4, trace pitting edema, JVD is present, heart rate is irregular and tachycardic, without murmurs appreciable GI: soft, NTTP, ND, no hepatosplenomegaly : no suprapubic tenderness, no CVAT, romero catheter not present MSK: no clubbing, no cyanosis, no noted contractures of extremities, dusky toes bilaterally Skin: no noted rashes, petechiae; temperature of skin is appropriate Neuro: moving all extremities without signs of weakness, CN II-XII intact Assessment: Paroxysmal atrial fibrillation with rapid ventricular response Hyperthyroidism suspected to be from polypharmacy/medication noncompliance Acute kidney injury Hypertension Hyperlipidemia Hypothyroidism Polypharmacy Status post recent right total hip arthroplasty Plan: Vital signs reviewed and noted in the HPI Lab work reviewed and noted in the HPI EKG and CXR are personally interpreted and noted in the HPI Case was discussed with the Emergency Room provider and decision was made to admit the patient for elevated lactate, paroxysmal atrial fibrillation with RVR Start patient on IV fluids: Normal saline at 130 mL per hour following second 1000 mL fluid bolus as ordered by the emergency room Start patient on metoprolol 25 mg twice a day Discontinue amiodarone Start patient on heparin drip, monitor PTT for toxicity Will not repeat echocardiogram due to her having one recently in October Cardiology consult for atrial fibrillation Pulmonology consult for intensive care Discussed with daughter in detail that we need a very good understanding of what kind of medications patient has been taking at home and how she's been taking them to have a better sense of how to make appropriate adjustments, she will prepare that information for us by tomorrow. Past Medical History Past Medical History: Atrial Fibrillation, Hypertension, Osteoarthritis (OA), Sleep Apnea/CPAP/BIPAP, Thyroid Disorder Additional Past Medical History / Comment(s): ETOH abuse, back pain, states positive blood in stool-hospitalized 01/24 to 01/26/22 History of Any Multi-Drug Resistant Organisms: None Reported Past Surgical History: Bariatric Surgery, Cholecystectomy, Hernia Repair, Hysterectomy, Joint Replacement Additional Past Surgical History / Comment(s): bariatric -STOMACH STAPLING (DR ARORA 1999)., HERNIA WITH MESH & REACTION TO MESH WITH REMOVAL., TOTAL LEFT KNEE, right hip surgery 09/28/22, Past Anesthesia/Blood Transfusion Reactions: No Reported Reaction Past Psychological History: Anxiety, Depression Smoking Status: Former smoker Past Alcohol Use History: None Reported Past Drug Use History: None Reported - Past Family History Mother History Unknown: Yes Additional Family Medical History / Comment(s): kidney cancer. Father History Unknown: Yes Family Medical History: Cancer Additional Family Medical History / Comment(s): PROSTATE CANCER Sister(s) History Unknown: Yes Family Medical History: Cancer Additional Family Medical History / Comment(s): ESOPHAGEAL AND THYROID CANCER Medications and Allergies Home Medications Medication Instructions Recorded Confirmed Type Rivaroxaban [Xarelto] 20 mg PO HS 01/24/22 11/19/22 History busPIRone HCL [Buspar] 7.5 mg PO BID 01/24/22 11/19/22 History Furosemide [Lasix] 40 mg PO TUFR@0600 09/28/22 11/19/22 History Sennosides/Docusate Sodium [Senna 1 cap PO DAILY 10/10/22 11/19/22 History Plus 8.6-50 mg Softgel] Ibandronate Sodium 150 mg PO QMONTHLY 10/26/22 11/19/22 History Venlafaxine HCl ER [Effexor XR] 225 mg PO DAILY 10/26/22 11/19/22 History Thiamine [Vitamin B-1] 100 mg PO DAILY tab 10/30/22 11/19/22 Rx Acetaminophen Tab [Tylenol] 650 mg PO Q6H PRN 11/19/22 11/19/22 History Losartan [Cozaar] 50 mg PO BID 11/19/22 11/19/22 History Omeprazole [PriLOSEC] 20 mg PO DAILY@0600 11/19/22 11/19/22 History Cefdinir [Omnicef] 300 mg PO Q12HR #14 capsule 11/22/22 Rx Levothyroxine Sodium [Synthroid] 88 mcg PO DAILY@0630 tab 11/22/22 Rx Allergies Allergy/AdvReac Type Severity Reaction Status Date / Time Sulfa (Sulfonamide Allergy Unknown Verified 12/15/22 14:31 Antibiotics) Childhood Physical Exam Osteopathic Statement: *. No significant issues noted on an osteopathic s tructural exam other than those noted in the History and Physical/Consult. Vitals: Vital Signs Temp Pulse Pulse Resp BP BP Pulse Ox 12/15/22 17:57 120 H 30 H 98/49 12/15/22 17:15 30 H 72/44 12/15/22 16:33 138 H 108/96 12/15/22 15:18 38 H 80/64 12/15/22 14:53 30 H 12/15/22 14:48 142 H 30 H 87/59 12/15/22 14:40 125 H 18 119/82 91 L 12/15/22 14:19 97.0 F L 66 36 H 81/36 97 Intake and Output 12/15/22 12/15/22 12/15/22 06:59 14:59 22:59 Other: Weight 81.193 kg Results CBC & Chem 7: 12/15/22 15:20 12/15/22 15:20 Labs: Abnormal Lab Results - Last 24 Hours (Table) 12/15/22 12/15/22 12/15/22 Range/Units 15:20 15:20 15:20 MCV 102.0 H D (80.0-100.0) fL MCHC 30.9 L (31.0-37.0) g/dL Plt Count 575 H (150-450) k/uL PT 12.9 H (9.0-12.0) sec INR 1.3 H (<1.2) D-Dimer 1.93 H (<0.60) mg/L FEU VBG pH (7.31-7.41) VBG pCO2 (37-51) mmHg VBG HCO3 (24-28) mmol/L Sodium 136 L (137-145) mmol/L Carbon Dioxide 12 L (22-30) mmol/L BUN 29 H (7-17) mg/dL Creatinine 2.24 H (0.52-1.04) mg/dL Glucose 186 H (74-99) mg/dL Plasma Lactic Acid Marcelo (0.7-2.0) mmol/L Total Bilirubin 1.4 H (0.2-1.3) mg/dL AST 71 H (14-36) U/L ALT 52 H (4-34) U/L Alkaline Phosphatase 222 H (38-126) U/L Albumin 3.0 L (3.5-5.0) g/dL TSH 11.900 H (0.465-4.680) mIU/L Free T4 3.28 H (0.78-2.19) ng/dL 12/15/22 12/15/22 Range/Units 15:20 17:00 MCV (80.0-100.0) fL MCHC (31.0-37.0) g/dL Plt Count (150-450) k/uL PT (9.0-12.0) sec INR (<1.2) D-Dimer (<0.60) mg/L FEU VBG pH 7.42 H (7.31-7.41) VBG pCO2 22 L (37-51) mmHg VBG HCO3 14 L (24-28) mmol/L Sodium (137-145) mmol/L Carbon Dioxide (22-30) mmol/L BUN (7-17) mg/dL Creatinine (0.52-1.04) mg/dL Glucose (74-99) mg/dL Plasma Lactic Acid Marcelo 12.1 H* (0.7-2.0) mmol/L Total Bilirubin (0.2-1.3) mg/dL AST (14-36) U/L ALT (4-34) U/L Alkaline Phosphatase (38-126) U/L Albumin (3.5-5.0) g/dL TSH (0.465-4.680) mIU/L Free T4 (0.78-2.19) ng/dL
[2022-12-15 18:27] LABS: ABG PO2 282 mmHg (83-108); Allen Test Performed? Yes
[2022-12-15 18:28] LABS: Appearance,Urine Cloudy (Clear); Bacteria,Urine Few /hpf; Bilirubin,Urine Negative (Negative); Blood,Urine Negative (Negative); Color,Urine Yellow; Glucose,Urine (UA) Negative (Negative); Hyaline Casts,Urine 1 /lpf (0-2); Ketones,Urine Negative (Negative); Leukocyte Esterase,Urine Large (Negative); Nitrite,Urine Negative (Negative); Protein,Urine Negative (Negative); RBC,Urine 4 /hpf (0-5); Squamous Epithelial Cell,Urine <1 /hpf (0-4); Urobilinogen,Urine <2.0 mg/dL (<2.0); WBC,Urine 56 /hpf (0-5)
[2022-12-15 18:29] LABS: ABG PH 7.59 (7.35-7.45)
[2022-12-15 18:30] LABS: ABG PCO2 <15 mmHg (35-45)
--- NOTE | 2022-12-15 18:43 | CT ---
EXAMINATION TYPE: CT brain cspine wo con CT DLP: 1401.9 mGycm, Automated exposure control for dose reduction was used. DATE OF EXAM: 12/15/2022 6:23 PM COMPARISON: 11/19/2022 CLINICAL INDICATION:Female, 77 years old with history of fall; ams TECHNIQUE: Brain: Multiple axial CT images of the brain were obtained without IV contrast. Cspine: Axial CT images from the skull base to the inferior aspect of T2 we obtained without intraven ous contrast. Coronal and sagittal reformatted images were also reviewed. FINDINGS: Brain: Extra-axial spaces: No abnormal extra-axial fluid collections. Ventricular system: Dilatation in proportion to cerebral atrophy. 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 Cerebral parenchyma: Cerebral atrophy. No acute intraparenchymal hemorrhage or mass effect. The christy -white junction is well differentiated. Cerebellum: Unremarkable. Mass effect: No evidence of midline shift. Intracranial vasculature: Atherosclerotic calcifications of the intracranial vessels. Soft tissues: Normal. Calvarium/osseous structures: No depressed skull fracture. Paranasal sinuses and mastoid air cells: Clear. Visualized orbits: Bilateral aphakia Cervical spine: Fracture: No acute fractures, chronic Compression deformity of the T3 vertebral body appears chronic. Osseous structures: Multilevel degenerative disc disease changes with endplate spurring and disc oste ophyte complex's. Ankylosis of the C2-C3 screw transverse processes. Vertebral alignment: There is increased lordosis of the spine.. Spinal canal/Neural Foramina: Disc osteophyte complexes at C5-C6 with at least mild spinal canal sten osis. Facet joint uncovertebral joint arthropathy scattered throughout the cervical spine with varyin g degrees of neural foraminal stenosis. Neck soft tissues: Prevertebral soft tissues are within normal limits. Other: The airway is patent. Right upper lung pulmonary nodule atherosclerosis of the carotid bifurca tions. Measuring 2 mm. IMPRESSION: 1. No acute intracranial process. 2. No evidence of cervical spine fracture. 3. Moderate multilevel degenerative disc disease.
[2022-12-15] MEDS ORDERED: METOPROLOL TARTRATE 5 MG/5 ML VIAL IVP PRN (18:53)
[2022-12-15 18:54] LABS: Glucose,Whole Blood 140 mg/dL (70-110)
[2022-12-15] MEDS: SODIUM CHLORIDE 0.9% 1,000 ML IV SCH (19:04)
[2022-12-15] MEDS: HEPARIN SODIUM 1,000 UN/ML (10ML VL) IV ONE ×2 (19:04→20:18)
[2022-12-15] MEDS: HEPARIN SOD,PORK IN 0.45% NACL 25,000 UNIT in 0.45% NACL 1 250ML.BAG IV SCH ×2 (19:04→20:02)
[2022-12-15 20:49] LABS: HCT 36.6 % (34.0-46.0); HGB 11.6 gm/dL (11.4-16.0); Hypochromasia Slight; MCH 32.7 pg (25.0-35.0); MCHC 31.6 g/dL (31.0-37.0); MCV 103.2 fL (80.0-100.0); Macrocytosis Slight; Mean Platelet Volume 7.7; Platelet Count 479 k/uL (150-450); RBC 3.55 m/uL (3.80-5.40); RDW 14.2 % (11.5-15.5); WBC 15.6 k/uL (3.8-10.6)
[2022-12-15 21:07] LABS: Albumin 2.8 g/dL (3.5-5.0); Calcium 7.9 mg/dL (8.4-10.2); Magnesium 1.2 mg/dL (1.6-2.3); Potassium 3.8 mmol/L (3.5-5.1); Total Bilirubin 1.2 mg/dL (0.2-1.3); Total Protein 6.2 g/dL (6.3-8.2)
[2022-12-15] MEDS ORDERED: AMIODARONE 450 MG in DEXTROSE 5% IN WATER 250 ML IV SCH ×2 (21:30)
[2022-12-15] MEDS ORDERED: POTASSIUM CHLORIDE ER 20 MEQ TAB.ER PO SCH (22:00)
[2022-12-15] MEDS: MAGNESIUM SULFATE-D5W PMX 1 GM in DEXTROSE/WATER 1 100ML.BAG IVPB SCH ×2 (22:06→23:26)
[2022-12-15] MEDS: ACETAMINOPHEN TAB 325 MG TAB PO PRN (22:07)
[2022-12-15] MEDS: METOPROLOL TARTRATE 25 MG TAB PO SCH (22:07)
[2022-12-16] MEDS: MAGNESIUM SULFATE-D5W PMX 1 GM in DEXTROSE/WATER 1 100ML.BAG IVPB SCH ×2 (00:37→01:38)
[2022-12-16] MEDS: SODIUM CHLORIDE 0.9% 1,000 ML IV SCH ×3 (02:00→16:42)
[2022-12-16 04:35] LABS: Basophils % (A) 0 %; Eosinophils % (A) 0 %; HGB 10.4 gm/dL (11.4-16.0); Hypochromasia Moderate; Lymphocytes # (A) 1.7 k/uL (1.0-4.8); Lymphocytes % (A) 15 %; MCHC 30.6 g/dL (31.0-37.0); MCV 104.4 fL (80.0-100.0); Macrocytosis Slight; Mean Platelet Volume 8.1; Monocytes # (A) 0.4 k/uL (0-1.0); Monocytes % (A) 4 %; Neutrophils # (A) 8.7 k/uL (1.3-7.7); Neutrophils % (A) 79 %; Platelet Count 369 k/uL (150-450); RBC 3.25 m/uL (3.80-5.40); RDW 13.9 % (11.5-15.5)
[2022-12-16 04:45] LABS: Albumin 2.4 g/dL (3.5-5.0); Calcium 7.3 mg/dL (8.4-10.2); Magnesium 2.4 mg/dL (1.6-2.3); Potassium 4.3 mmol/L (3.5-5.1); Total Bilirubin 0.9 mg/dL (0.2-1.3); Total Protein 5.5 g/dL (6.3-8.2)
[2022-12-16] MEDS ORDERED: ACETAMINOPHEN TAB 325 MG TAB PO PRN (09:13)
--- NOTE | 2022-12-16 09:13 | P.CNPUL ---
History of Present Illness Consult date: 12/16/22 Chief complaint: Hypotension, acute kidney injury, acute renal failure History of present illness: This is a 77-year-old female patient who came into the emergency, lethargic, dehydrated, confused and in atrial fibrillation with rapid ventricular response. The patient was also hypotensive, not eating and drinking. She has become progressively more debilitated. She was discharged from our hospital on 11/23/2022. She is known to have chronic atrial fibrillation and she has undergone previous ablations and cardioversion is a total essentially unsuccessful and the patient has remained in chronic itch of fibrillation. The patient has also undergone a total hip arthroplasty and since then her health has been gradually declining requiring frequent hospitalizations. During the last hospital admission, the patient was encephalopathic and she was treated for an underlying UTI and chronic atrial fibrillation and she was discharged to [facility]. Her health is a progressively declining since.. Noted the patient had a fall at home sustained a right total hip fracture with subsequent arthroplasty.. She has also issues with polypharmacy and generalized debility. In the emergency department, the patient was found to be hypotensive. She was in atrial fibrillation with rapid ventricular response. She was initially placed on 100% nonrebreather facemask and subsequently weaned down to oxygen at 4 L for now. Her chest x-ray was essentially clear. Rest of the blood work showed severe lactic acidosis. Lactic acid level is 1.1 at the time of admission. She had an acute kidney injury with a BUN of 29 and a creatinine of 2.2 and his sodium level was at 136 with a potassium level of 4.4. A TSH was 11.9 and her free T4 was elevated at 3.28. Note that she was taken amiodarone on outpatient basis. LFTs were also normal with an AST of 71, ALP of 52 and a alkaline phosphatase of 222. Troponin was at 0.03. ProBNP level was 3820. White cell count was at 7.5 came up to 15.6 and this morning is down to 11.0. Hemoglobin was 12.5.of 10.4 and a platelet count of essentially within normal. UA showing 56 WBCs, no RBCs. Had previous urine culture from 10/26/2022 was positive for E. coli. CAT scan of the brain was done in the emergency department that showed no acute process. No evidence of any cervical spine. There is moderate multilevel degenerative changes in her C-spine. At the same time, the chest x-ray was done that showed no acute abnormalities. EKG was consistent with chronic atrial fibrillation and Q waves over the anterior leads. The patient has had a previous echocardiogram on 10/30/2022 that showed a normal LV function, moderate degree of pulmonary hypertension and moderate degree of mitral regurgitation. Had right ventricular systolic pressure was estimated to be 52 mmHg. Since yesterday, the patient was given IV fluids a total of 20 L. Subsequent lactic acid level is down to 1.5. Her atrial fibrillation is improved and she is less tachycardic compared to yesterday. Normal saline is still running at a rate of 130 mL an hour. Serum bicarb is up to 20. She is calm and comfortable, confused. Surgical wound over the right hip is clean and intact. No open wounds or sores Review of Systems Constitutional: Reports fatigue, Reports lethargy, Reports poor appetite, Reports weakness Eyes: bilateral decreased vision, denies as per HPI, denies blurred vision, denies bulging eye, denies diplopia, denies discharge, denies dry eye, denies irritation, denies itching, denies pain, denies photophobia, denies loss of peripheral vision, denies loss of vision, denies tunnel vision/blind spots Ears: bilateral: decreased hearing, deny: ear discharge, earache, tinnitus Ears, nose, mouth and throat: Reports as per HPI Breasts: absent: as per HPI, change in shape, gynecomastia, masses, nipple discharge, pain, skin changes, swelling Cardiovascular: Reports decreased exercise tolerance, Reports dyspnea on exertion, Reports irregular heart beat Respiratory: Reports as per HPI Gastrointestinal: Reports as per HPI Genitourinary: Reports as per HPI Menstruation: Reports as per HPI Musculoskeletal: Reports frequent falls Musculoskeletal: absent: ankle pain, ankle stiffness, ankle swelling Integumentary: Reports as per HPI Neurological: Reports balance difficulties, Reports confusion Psychiatric: Reports as per HPI, Reports confusion Endocrine: Reports as per HPI, Reports fatigue Hematologic/Lymphatic: Reports as per HPI Past Medical History Past Medical History: Atrial Fibrillation, Hypertension, Osteoarthritis (OA), Sleep Apnea/CPAP/BIPAP, Thyroid Disorder Additional Past Medical History / Comment(s): ETOH abuse, back pain, states positive blood in stool-hospitalized 01/24 to 7/15/22 History of Any Multi-Drug Resistant Organisms: None Reported Past Surgical History: Bariatric Surgery, Cholecystectomy, Hernia Repair, Hyster ectomy, Joint Replacement Additional Past Surgical History / Comment(s): bariatric -STOMACH STAPLING (DR ARORA 1999)., HERNIA WITH MESH & REACTION TO MESH WITH REMOVAL., TOTAL LEFT KNEE, right hip surgery 09/28/22, Past Anesthesia/Blood Transfusion Reactions: No Reported Reaction Past Psychological History: Anxiety, Depression Smoking Status: Former smoker Past Alcohol Use History: None Reported Past Drug Use History: None Reported - Past Family History Mother History Unknown: Yes Additional Family Medical History / Comment(s): kidney cancer. Father History Unknown: Yes Family Medical History: Cancer Additional Family Medical History / Comment(s): PROSTATE CANCER Sister(s) History Unknown: Yes Family Medical History: Cancer Additional Family Medical History / Comment(s): ESOPHAGEAL AND THYROID CANCER Medications and Allergies Home Medications Medication Instructions Recorded Confirmed Type Rivaroxaban [Xarelto] 20 mg PO HS 01/24/22 11/19/22 History busPIRone HCL [Buspar] 7.5 mg PO BID 01/24/22 11/19/22 History Furosemide [Lasix] 40 mg PO TUFR@0600 09/28/22 11/19/22 History Sennosides/Docusate Sodium [Senna 1 cap PO DAILY 10/10/22 11/19/22 History Plus 8.6-50 mg Softgel] Ibandronate Sodium 150 mg PO QMONTHLY 10/26/22 11/19/22 History Venlafaxine HCl ER [Effexor XR] 225 mg PO DAILY 10/26/22 11/19/22 History Thiamine [Vitamin B-1] 100 mg PO DAILY tab 10/30/22 11/19/22 Rx Acetaminophen Tab [Tylenol] 650 mg PO Q6H PRN 11/19/22 11/19/22 History Losartan [Cozaar] 50 mg PO BID 11/19/22 11/19/22 History Omeprazole [PriLOSEC] 20 mg PO DAILY@0600 11/19/22 11/19/22 History Cefdinir [Omnicef] 300 mg PO Q12HR #14 capsule 11/22/22 Rx Levothyroxine Sodium [Synthroid] 88 mcg PO DAILY@0630 tab 11/22/22 Rx Allergies Allergy/AdvReac Type Severity Reaction Status Date / Time Sulfa (Sulfonamide Allergy Unknown Verified 12/15/22 14:31 Antibiotics) Childhood Physical Exam Vitals: Vital Signs Temp Pulse Pulse Resp BP BP Pulse Ox 12/16/22 08:06 98.2 F 31 H 85/51 94 L 12/16/22 07:00 117 H 29 H 113/69 91 L 12/16/22 06:00 109 H 11 L 87/59 90 L 12/16/22 05:00 96 21 90/28 92 L 12/16/22 04:00 97.7 F 112 H 16 90/63 91 L 12/16/22 03:00 112 H 22 109/82 93 L 12/16/22 02:00 93 16 91/60 92 L 12/16/22 01:00 87 18 102/74 94 L 12/16/22 00:07 98 12 102/74 92 L 12/16/22 00:00 97.4 F L 95 22 111/81 94 L 12/15/22 23:00 96 19 111/78 90 L 12/15/22 22:00 93 17 100/87 90 L 12/15/22 21:00 105 H 18 112/74 88 L 12/15/22 20:00 97.5 F L 113 H 30 H 107/75 91 L 12/15/22 19:00 137 H 12/15/22 18:42 120 H 28 H 101/68 95 12/15/22 18:30 100 12/15/22 18:00 121 H 12/15/22 17:57 120 H 30 H 98/49 12/15/22 17:15 30 H 72/44 12/15/22 16:33 138 H 108/96 12/15/22 16:00 144 H 12/15/22 15:18 38 H 80/64 12/15/22 15:00 129 H 12/15/22 14:53 30 H 12/15/22 14:48 142 H 30 H 87/59 12/15/22 14:40 125 H 18 119/82 91 L 12/15/22 14:19 97.0 F L 66 36 H 81/36 97 Intake and Output 12/15/22 12/16/22 12/16/22 22:59 06:59 14:59 Intake Total 2885.926 6051 Output Total 30 300 Balance 1589.819 870 Intake: IV 1520 1170 Sodium Chloride 0.9% 1, 520 1170 000 ml @ 130 mls/hr IV . Q7H42M [facility] Rx#:[id number] Sodium Chloride 0.9% 1, 1000 000 ml @ 999 mls/hr IV . Q1H1M [facility] Rx#:[id number] Intake, IV Titration 99.819 Amount Amiodarone 360 mg In 97.221 Dextrose 5% in Water 200 ml @ 1 MG/MIN 33.333 mls/ hr IV .Q6H [facility] Rx#: [id number] Heparin Sod,Pork in 0.45% 2.598 NaCl 25,000 unit In 0.45 % NaCl 1 250ml.bag @ 12 UNITS/KG/HR 9.743 mls/hr IV .Q24H [facility] Rx#: [id number] Output: Urine 30 300 Other: Voiding Method Indwelling Catheter Indwelling Catheter Weight 81.193 kg 83.1 kg Gen: in no apparent distress, resting comfortably in bed, she is currently on 4 L of O2 nasal cannula Eyes: PERRL, no scleral injection or icterus HENT: normocephalic, atraumatic, good hearing acuity, moist mucous membranes Neck: no tracheal deviation, full range of motion Resp: good air exchange, breathing comfortably with no accessory muscle use, no tactile fremitus, no appreciable crackles or wheezing CVS: good distal perfusion x 4, trace pitting edema, JVD is present, heart rate is irregular and tachycardic, without murmurs appreciable GI: soft, NTTP, ND, no hepatosplenomegaly : no suprapubic tenderness, no CVAT, romero catheter not present, urine output is in order of 20 mL an hour. MSK: no clubbing, no cyanosis, no noted contractures of extremities, dusky toes bilaterally Skin: no noted rashes, petechiae; temperature of skin is appropriate Neuro: moving all extremities without signs of weakness, CN II-XII intact Results - Laboratory Findings CBC and BMP: 12/16/22 03:57 12/16/22 03:57 ABG ABG pH 7.59 (7.35-7.45) H* 12/15/22 18:24 ABG pCO2 <15 mmHg (35-45) L* 12/15/22 18:24 ABG pO2 282 mmHg (83-108) H 12/15/22 18:24 ABG O2 Saturation 100.0 % (94-97) H 12/15/22 18:24 PT/INR, D-dimer PT 12.9 sec (9.0-12.0) H 12/15/22 15:20 INR 1.3 (<1.2) H 12/15/22 15:20 D-Dimer 1.93 mg/L FEU (<0.60) H 12/15/22 15:20 Abnormal lab findings: Abnormal Labs 12/15/22 12/15/22 12/15/22 15:20 15:20 15:20 WBC RBC Hgb MCV 102.0 H D MCHC 30.9 L Plt Count 575 H Neutrophils # PT 12.9 H INR 1.3 H D-Dimer 1.93 H ABG pH ABG pCO2 ABG pO2 ABG O2 Saturation VBG pH VBG pCO2 VBG HCO3 Sodium Carbon Dioxide BUN Creatinine Glucose POC Glucose (mg/dL) Plasma Lactic Acid Marcelo Calcium Magnesium Total Bilirubin AST ALT Alkaline Phosphatase Total Protein Albumin TSH Free T4 Urine Appearance Cloudy H Ur Leukocyte Esterase Large H Urine WBC 56 H Urine Bacteria Few H 12/15/22 12/15/22 12/15/22 15:20 15:20 17:00 WBC RBC Hgb MCV MCHC Plt Count Neutrophils # PT INR D-Dimer ABG pH ABG pCO2 ABG pO2 ABG O2 Saturation VBG pH 7.42 H VBG pCO2 22 L VBG HCO3 14 L Sodium 136 L Carbon Dioxide 12 L BUN 29 H Creatinine 2.24 H Glucose 186 H POC Glucose (mg/dL) Plasma Lactic Acid Marcelo 12.1 H* Calcium Magnesium Total Bilirubin 1.4 H AST 71 H ALT 52 H Alkaline Phosphatase 222 H Total Protein Albumin 3.0 L TSH 11.900 H Free T4 3.28 H Urine Appearance Ur Leukocyte Esterase Urine WBC Urine Bacteria 12/15/22 12/15/22 12/15/22 18:24 18:52 20:20 WBC RBC Hgb MCV MCHC Plt Count Neutrophils # PT INR D-Dimer ABG pH 7.59 H* ABG pCO2 <15 L* ABG pO2 282 H ABG O2 Saturation 100.0 H VBG pH VBG pCO2 VBG HCO3 Sodium Carbon Dioxide BUN Creatinine Glucose POC Glucose (mg/dL) 140 H Plasma Lactic Acid Marcelo 6.3 H* Calcium Magnesium Total Bilirubin AST ALT Alkaline Phosphatase Total Protein Albumin TSH Free T4 Urine Appearance Ur Leukocyte Esterase Urine WBC Urine Bacteria 12/15/22 12/15/22 12/16/22 20:24 20:24 00:10 WBC 15.6 H RBC 3.55 L Hgb MCV 103.2 H MCHC Plt Count 479 H Neutrophils # PT INR D-Dimer ABG pH ABG pCO2 ABG pO2 ABG O2 Saturation VBG pH VBG pCO2 VBG HCO3 Sodium 135 L Carbon Dioxide 16 L BUN 32 H Creatinine 2.23 H Glucose 183 H POC Glucose (mg/dL) Plasma Lactic Acid Marcelo 3.6 H* Calcium 7.9 L Magnesium 1.2 L Total Bilirubin AST 70 H ALT 53 H Alkaline Phosphatase 198 H Total Protein 6.2 L Albumin 2.8 L TSH Free T4 Urine Appearance Ur Leukocyte Esterase Urine WBC Urine Bacteria 12/16/22 12/16/22 12/16/22 03:57 03:57 03:57 WBC 11.0 H RBC 3.25 L Hgb 10.4 L MCV 104.4 H MCHC 30.6 L Plt Count Neutrophils # 8.7 H PT INR D-Dimer ABG pH ABG pCO2 ABG pO2 ABG O2 Saturation VBG pH VBG pCO2 VBG HCO3 Sodium Carbon Dioxide 20 L BUN 32 H Creatinine 2.23 H Glucose 102 H POC Glucose (mg/dL) Plasma Lactic Acid Marcelo 4.5 H* Calcium 7.3 L Magnesium 2.4 H Total Bilirubin AST 50 H ALT Alkaline Phosphatase 185 H Total Protein 5.5 L Albumin 2.4 L TSH Free T4 Urine Appearance Ur Leukocyte Esterase Urine WBC Urine Bacteria - Diagnostic Findings Chest x-ray: image reviewed Assessment and Plan Plan: Generalized debility, weakness, fall, dehydration and acute renal failure, or being results of debility that followed a right hip arthroplasty. Patient is hospitalized for all these issues. She is a DNR/DNI CODE STATUS, rule out un derlying urinary tract infection, recurrent Suspect UTI, awaiting urine cultures and blood cultures Altered mental status, confusion, CAT scan of the brain essentially negative. Acute kidney injury, secondary to dehydration, resuscitated IV fluids Chronic atrial fibrillation with RVR at the time of presentation, improved. The patient has undergone previous ablations and cardioversions and she is on long- term anticoagulation Severe lactic acidosis, improved Hypotension, improved, not requiring any pressors History of right hip arthroplasty post fall History of hypertension Hyperlipidemia History of hypothyroidism, currently she is hyperthyroid chemically and the free T4 is quite elevated Abnormal LFTs, recent ultrasound the abdomen that was done on 11/20/2022 showed hepatic steatosis without any hepatocellular disease. Gallbladder was surgically absent., Bile duct was obscured. Polypharmacy Generalized debility Previous history of alcoholism Plan Continue with normal saline at the rate of 130 mL an hour Cover the patient with IV Rocephin 1 g every 24 hours pending urine and blood cultures Monitor hemodynamics and urine output, give the patient additional 1 L of normal saline as the patient still is having mucous membrane dry and urine output still low Lactic acid level is improved Monitor renal function Restart anti-coagulation with Xarelto Monitor the mental status and restart Effexor and BuSpar Continue omeprazole 20 mg by mouth daily All the blood pressure medication for now Hold Synthroid for now We'll continue to follow
--- NOTE | 2022-12-16 09:17 | P.CRDCN ---
History of Present Illness Consult date: 12/16/22 History of present illness: History of Present Illness: The patient is a 77-year-old female with history of chronic persistent atrial fibrillation, status post ablation and cardioversion with recurrent atrial fibrillation who fell at home after coming back from rehab. She has not been eating and drinking. On presentation her lactic acid was elevated and she had worsening renal functions. The patient is awake confused at times, she denies any chest discomfort or significant dyspnea. She had a prior admission with UTI and had episodes of confusion. She had an echocardiogram in October that showed an ejection fraction of 50-55% with moderate pulmonary hypertension and moderate mitral regurgitation. She has no history of ischemic heart disease. She denies any history of congestive heart failure. During prior admission she had episode of bradycardia related to her medication. She was a rapid ventricle response on presentation. She has been hypotensive on presentation and has received large amount of fluids. Her lab data revealed worsening of renal functions compared to baseline. Her lactic acid was elevated but better now. Her troponin was 0.032. She had no leukocytosis on presentation Medications: Losartan 50 mg twice a day, Lasix 40 times a week, Xarelto 20 mg daily Review of Systems: Respiratory: She has dyspnea on exertion but no cough GI: No nausea or vomiting . No history of peptic ulcer disease. No recent GI bleed. She has not been eating : No hematuria or dysuria. Nervous System: No stroke or seizure. She has weakness Physical Examination: 77-year-old female, alert with some confusion ,Blood pressure ranging between 80 and 110, Heart rate 110-120 Head: Normocephalic. Eyes: Sclerae nonicteric. Neck: Good carotid upstroke, no bruit, no jugular venous distention. Lungs: Clear to auscultation. Heart: Irregular rate and rhythm, S1-S2, no S3, no rub. Systolic ejection murmur. Abdomen: Soft nontender, positive bowel sounds no organomegaly. Extremities: No edema, intact distal pulses. Labs: WBC 11,000, BUN 32, creatinine 2.23, potassium 4.3. AST 50 ALT 31. Her protein is 5.5. On presentation her transaminase was elevated. Chest x-ray with no acute infiltrate EKG: Atrial fibrillation with rapid ventricle response, poor R-wave progression and nonspecific ST-T wave changes Impression: 1. Hypotension with worsening renal function and elevated lactic acidosis. Evidence of dehydration and poor oral intake. 2. Chronic persistent atrial fibrillation with rapid ventricular response, anticoagulated 3. Acute renal injury 4. Prior history of hypertension 5. Poor oral intake and malnutrition 6. Probable UTI 7. History of alcohol intake Plan: 1. Continue IV fluid 2. And antibiotics as needed 3. Continue beta lorri 4. Restart anticoagulation 5. Follow renal functions and blood pressure 6. Depending on her progress further recommendations will be made, thank you for this consult we will follow with you. Past Medical History Past Medical History: Atrial Fibrillation, Hypertension, Osteoarthritis (OA), Sleep Apnea/CPAP/BIPAP, Thyroid Disorder Additional Past Medical History / Comment(s): ETOH abuse, back pain, states positive blood in stool-hospitalized 01/24 to 01/26/22 History of Any Multi-Drug Resistant Organisms: None Reported Past Surgical History: Bariatric Surgery, Cholecystectomy, Hernia Repair, Hysterectomy, Joint Replacement Additional Past Surgical History / Comment(s): bariatric -STOMACH STAPLING (DR ARORA 1999)., HERNIA WITH MESH & REACTION TO MESH WITH REMOVAL., TOTAL LEFT KNEE, right hip surgery 09/28/22, Past Anesthesia/Blood Transfusion Reactions: No Reported Reaction Past Psychological History: Anxiety, Depression Smoking Status: Former smoker Past Alcohol Use History: None Reported Past Drug Use History: None Reported - Past Family History Mother History Unknown: Yes Additional Family Medical History / Comment(s): kidney cancer. Father History Unknown: Yes Family Medical History: Cancer Additional Family Medical History / Comment(s): PROSTATE CANCER Sister(s) History Unknown: Yes Family Medical History: Cancer Additional Family Medical History / Comment(s): ESOPHAGEAL AND THYROID CANCER Medications and Allergies Home Medications Medication Instructions Recorded Confirmed Type Rivaroxaban [Xarelto] 20 mg PO HS 01/24/22 11/19/22 History busPIRone HCL [Buspar] 7.5 mg PO BID 01/24/22 11/19/22 History Furosemide [Lasix] 40 mg PO TUFR@0600 09/28/22 11/19/22 History Sennosides/Docusate Sodium [Senna 1 cap PO DAILY 10/10/22 11/19/22 History Plus 8.6-50 mg Softgel] Ibandronate Sodium 150 mg PO QMONTHLY 10/26/22 11/19/22 History Venlafaxine HCl ER [Effexor XR] 225 mg PO DAILY 10/26/22 11/19/22 History Thiamine [Vitamin B-1] 100 mg PO DAILY tab 10/30/22 11/19/22 Rx Acetaminophen Tab [Tylenol] 650 mg PO Q6H PRN 11/19/22 11/19/22 History Losartan [Cozaar] 50 mg PO BID 11/19/22 11/19/22 History Omeprazole [PriLOSEC] 20 mg PO DAILY@0600 11/19/22 11/19/22 History Cefdinir [Omnicef] 300 mg PO Q12HR #14 capsule 11/22/22 Rx Levothyroxine Sodium [Synthroid] 88 mcg PO DAILY@0630 tab 11/22/22 Rx Allergies Allergy/AdvReac Type Severity Reaction Status Date / Time Sulfa (Sulfonamide Allergy Unknown Verified 12/15/22 14:31 Antibiotics) Childhood Physical Exam Vitals: Vital Signs Temp Pulse Pulse Resp BP BP Pulse Ox 12/16/22 08:06 98.2 F 31 H 85/51 94 L 12/16/22 07:00 117 H 29 H 113/69 91 L 12/16/22 06:00 109 H 11 L 87/59 90 L 12/16/22 05:00 96 21 90/28 92 L 12/16/22 04:00 97.7 F 112 H 16 90/63 91 L 12/16/22 03:00 112 H 22 109/82 93 L 12/16/22 02:00 93 16 91/60 92 L 12/16/22 01:00 87 18 102/74 94 L 12/16/22 00:07 98 12 102/74 92 L 12/16/22 00:00 97.4 F L 95 22 111/81 94 L 12/15/22 23:00 96 19 111/78 90 L 12/15/22 22:00 93 17 100/87 90 L 12/15/22 21:00 105 H 18 112/74 88 L 12/15/22 20:00 97.5 F L 113 H 30 H 107/75 91 L 12/15/22 19:00 137 H 12/15/22 18:42 120 H 28 H 101/68 95 12/15/22 18:30 100 12/15/22 18:00 121 H 12/15/22 17:57 120 H 30 H 98/49 12/15/22 17:15 30 H 72/44 12/15/22 16:33 138 H 108/96 12/15/22 16:00 144 H 12/15/22 15:18 38 H 80/64 12/15/22 15:00 129 H 12/15/22 14:53 30 H 12/15/22 14:48 142 H 30 H 87/59 12/15/22 14:40 125 H 18 119/82 91 L 12/15/22 14:19 97.0 F L 66 36 H 81/36 97 Intake and Output 12/15/22 12/16/22 12/16/22 22:59 06:59 14:59 Intake Total 1446.806 0436 Output Total 30 300 Balance 1589.819 870 Intake: IV 1520 1170 Sodium Chloride 0.9% 1, 520 1170 000 ml @ 130 mls/hr IV . Q7H42M [facility] Rx#:[id number] Sodium Chloride 0.9% 1, 1000 000 ml @ 999 mls/hr IV . Q1H1M [facility] Rx#:[id number] Intake, IV Titration 99.819 Amount Amiodarone 360 mg In 97.221 Dextrose 5% in Water 200 ml @ 1 MG/MIN 33.333 mls/ hr IV .Q6H [facility] Rx#: [id number] Heparin Sod,Pork in 0.45% 2.598 NaCl 25,000 unit In 0.45 % NaCl 1 250ml.bag @ 12 UNITS/KG/HR 9.743 mls/hr IV .Q24H [facility] Rx#: [id number] Output: Urine 30 300 Other: Voiding Method Indwelling Catheter Indwelling Catheter Weight 81.193 kg 83.1 kg Results 12/16/22 03:57 12/16/22 03:57 Cardiac Enzymes 12/15/22 12/15/22 12/15/22 Range/Units 15:20 15:20 20:24 AST 71 H 70 H (14-36) U/L Troponin I 0.032 (0.000-0.034) ng/mL 12/16/22 Range/Units 03:57 AST 50 H (14-36) U/L Troponin I (0.000-0.034) ng/mL Coagulation 12/15/22 Range/Units 15:20 PT 12.9 H (9.0-12.0) sec APTT 26.7 (22.0-30.0) sec CBC 12/15/22 12/15/22 12/16/22 Range/Units 15:20 20:24 03:57 WBC 7.5 15.6 H 11.0 H (3.8-10.6) k/uL RBC 3.96 3.55 L 3.25 L (3.80-5.40) m/uL Hgb 12.5 11.6 10.4 L (11.4-16.0) gm/dL Hct 40.4 36.6 34.0 (34.0-46.0) % Plt Count 575 H 479 H 369 (150-450) k/uL Comprehensive Metabolic Panel 12/15/22 12/15/22 12/16/22 Range/Units 15:20 20:24 03:57 Sodium 136 L 135 L 138 (137-145) mmol/L Potassium 4.4 3.8 4.3 (3.5-5.1) mmol/L Chloride 99 102 107 (98-107) mmol/L Carbon Dioxide 12 L 16 L 20 L (22-30) mmol/L BUN 29 H 32 H 32 H (7-17) mg/dL Creatinine 2.24 H 2.23 H 2.23 H (0.52-1.04) mg/dL Glucose 186 H 183 H 102 H (74-99) mg/dL Calcium 8.5 7.9 L 7.3 L (8.4-10.2) mg/dL AST 71 H 70 H 50 H (14-36) U/L ALT 52 H 53 H 31 (4-34) U/L Alkaline Phosphatase 222 H 198 H 185 H (38-126) U/L Total Protein 6.6 6.2 L 5.5 L (6.3-8.2) g/dL Albumin 3.0 L 2.8 L 2.4 L (3.5-5.0) g/dL Current Medications Generic Name Dose Route Start Last Admin Trade Name Freq PRN Reason Stop Dose Admin Acetaminophen 650 mg 12/15/22 21:50 12/15/22 22:07 Acetaminophen Tab 325 Mg Tab PO 650 mg Q6HR PRN Administration Fever and/ or Pain Sodium Chloride 1,000 mls @ 130 mls/hr 12/15/22 18:15 12/16/22 02:00 Saline 0.9% IV 130 mls/hr .Q7H42M [facility] Administration Metoprolol Tartrate 25 mg 12/15/22 21:00 12/15/22 22:07 Metoprolol Tartrate 25 Mg Tab PO 25 mg BID [facility] Administration Metoprolol Tartrate 5 mg 12/15/22 18:53 Metoprolol Tartrate 5 Mg/5 Ml Vial IVP Q3H PRN Heart Rate - HIGH Miscellaneous Information 1 each 12/15/22 18:04 Potassium Replacement Protocol 1 Each Misc MISCELLANE DAILY PRN Per Protocol Miscellaneous Information 1 each 12/15/22 18:04 Magnesium Replacement Protocol 1 Each Misc MISCELLANE DAILY PRN Per Protocol Protocol Naloxone HCl 0.2 mg 12/15/22 17:56 Naloxone 0.4 Mg/Ml 1 Ml Vial IV Q2M PRN Opioid Reversal Intake and Output 12/15/22 12/16/22 12/16/22 22:59 06:59 14:59 Intake Total 0640.593 7526 Output Total 30 300 Balance 1589.819 870 Intake: IV 1520 1170 Sodium Chloride 0.9% 1, 520 1170 000 ml @ 130 mls/hr IV . Q7H42M [facility] Rx#:[id number] Sodium Chloride 0.9% 1, 1000 000 ml @ 999 mls/hr IV . Q1H1M [facility] Rx#:[id number] Intake, IV Titration 99.819 Amount Amiodarone 360 mg In 97.221 Dextrose 5% in Water 200 ml @ 1 MG/MIN 33.333 mls/ hr IV .Q6H [facility] Rx#: [id number] Heparin Sod,Pork in 0.45% 2.598 NaCl 25,000 unit In 0.45 % NaCl 1 250ml.bag @ 12 UNITS/KG/HR 9.743 mls/hr IV .Q24H [facility] Rx#: [id number] Output: Urine 30 300 Other: Voiding Method Indwelling Catheter Indwelling Catheter Weight 81.193 kg 83.1 kg 12/16/22 03:57 12/16/22 03:57
[2022-12-16] MEDS ORDERED: SODIUM CHLORIDE 0.9% 1,000 ML IV ONE (09:18)
[2022-12-16] MEDS: METOPROLOL TARTRATE 25 MG TAB PO SCH ×2 (09:35→20:57)
--- NOTE | 2022-12-16 10:51 | P.PN ---
Subjective Progress Note Date: 12/16/22 Pt is awake, but appears confused. Question of dementia is present. I strongly suspect inappropriate medication use as it relates to BP meds and thyroid meds. Gen: in no apparent distress, resting comfortably in bed Eyes: PERRL, no scleral injection or icterus HENT: normocephalic, atraumatic, good hearing acuity, moist mucous membranes Neck: no tracheal deviation, full range of motion Resp: good air exchange, breathing comfortably with no accessory muscle use, no tactile fremitus, no appreciable crackles or wheezing CVS: good distal perfusion x 4, trace pitting edema, JVD is present, heart rate is irregular and tachycardic, without murmurs appreciable GI: soft, NTTP, ND, no hepatosplenomegaly : no suprapubic tenderness, no CVAT, romero catheter not present MSK: no clubbing, no cyanosis, no noted contractures of extremities, dusky toes bilaterally Skin: no noted rashes, petechiae; temperature of skin is appropriate Neuro: moving all extremities without signs of weakness, CN II-XII intact Hospital Course: 77-year-old woman with a history of paroxysmal atrial fibrillation, hypertension , hyperlipidemia, hypothyroidism, recent right total hip arthroplasty presented for evaluation after a fall at home with generalized weakness. In the emergency room, patient was afebrile, blood pressure between 72-114/44-80, heart rates oscillating between 110-140, 91% on nonrebreather. CBC shows thrombocytosis to 575, hemoglobin and white blood cell count are within normal limits. Basic metabolic panel shows hyponatremia to 136, CO2 of 12, BUN of 29, creatinine 2.24, anion gap of 25; creatinine is increased from 0.78 baseline. Liver function tests demonstrated total bilirubin of 1.4, AST of 71, ALT 52, alkaline phosphatase of 222, albumin of 3. Lactic acid is 12.1. TSH was 11.9, free T4 is 3.28 coags demonstrated an elevated INR of 1.3. D-dimer is 1.93. Lab work from previous hospitalization was also significant for an elevated thyroid peroxidase antibody level of 39.8 which is mildly elevated. PH was 7.42 on VBG, pCO2 was 22. EKG shows atrial fibrillation with a rate of 134, left axis deviation, T-wave inversions in leads 1, aVL, difficult to exclude ST changes due to wandering baseline. Chest x-ray shows clear parenchyma bilaterally, cardiomegaly with evidence of left atrial enlargement, tortuous aorta, no obvious evidence of pneumonia, infiltrate, heart failure. Case was discussed extensively with the emergency room provider and decision was made to admit the patient to the intensive care unit for elevated lactate, paroxysmal atrial fibrillation with RVR with borderline blood pressures. Assessment: Paroxysmal atrial fibrillation with rapid ventricular response Hyperthyroidism suspected to be from polypharmacy/medication noncompliance Acute kidney injury Hypertension Hyperlipidemia Hypothyroidism Polypharmacy Status post recent right total hip arthroplasty Plan: Today, patient is 95/45, heart rate 102, 92% on 4 L nasal cannula Blood blood cell count is 11, hemoglobin is 10.4, MCV is 104.4 CO2 improved to 20, BUN is still 32, creatinine is still 2.23 Lactic acid improved from 12-4.5-1.5 Case was discussed with the pulmonology team, provide another fluid bolus and continue IV fluids Cardiology note reviewed, continue metoprolol, agree with IV fluids Continue patient on IV fluids: Normal saline at 130 mL per hour Continue patient on metoprolol 25 mg twice a day Heparin drip was transitioned to Xarelto Will not repeat echocardiogram due to her having one recently in October Cardiology consult for atrial fibrillation Pulmonology consult for intensive care Discussed with daughter in detail that we need a very good understanding of what kind of medications patient has been taking at home and how she's been taking them to have a better sense of how to make appropriate adjustments, she will prepare that information for us by today Objective - Vital Signs Vital signs: Vital Signs Temp 98.2 F 12/16/22 08:06 Pulse 102 H 12/16/22 10:00 Resp 25 H 12/16/22 10:00 BP 95/45 12/16/22 10:00 Pulse Ox 92 L 12/16/22 10:00 FiO2 Intake & Output 12/15/22 12/16/22 12/16/22 18:59 06:59 18:59 Intake Total 2789.819 1590 Output Total 330 60 Balance 2459.819 1530 Weight 81.193 kg 83.1 kg Intake: IV 2690 1390 Sodium Chloride 0.9% 1, 1690 390 000 ml @ 130 mls/hr IV . Q7H42M [facility] Rx#:[id number] Sodium Chloride 0.9% 1, 1000 1000 000 ml @ 999 mls/hr IV . Q1H1M [facility] Rx#:[id number] Intake, IV Titration 99.819 100 Amount Amiodarone 360 mg In 97.221 Dextrose 5% in Water 200 ml @ 1 MG/MIN 33.333 mls/ hr IV .Q6H [facility] Rx#: [id number] Heparin Sod,Pork in 0.45% 2.598 NaCl 25,000 unit In 0.45 % NaCl 1 250ml.bag @ 12 UNITS/KG/HR 9.743 mls/hr IV .Q24H [facility] Rx#: [id number] cefTRIAXone 1 gm In 100 Sodium Chloride 0.9% 50 ml @ 100 mls/hr IVPB Q24HR [facility] Rx#:[id number] Oral 100 Output: Urine 330 60 Other: Voiding Method Indwelling Catheter Indwelling Catheter - Labs CBC & Chem 7: 12/16/22 03:57 12/16/22 03:57 Labs: Abnormal Lab Results - Last 24 Hours (Table) 12/15/22 12/15/22 12/15/22 Range/Units 15:20 15:20 15:20 WBC (3.8-10.6) k/uL RBC (3.80-5.40) m/uL Hgb (11.4-16.0) gm/dL MCV 102.0 H D (80.0-100.0) fL MCHC 30.9 L (31.0-37.0) g/dL Plt Count 575 H (150-450) k/uL Neutrophils # (1.3-7.7) k/uL PT 12.9 H (9.0-12.0) sec INR 1.3 H (<1.2) D-Dimer 1.93 H (<0.60) mg/L FEU ABG pH (7.35-7.45) ABG pCO2 (35-45) mmHg ABG pO2 (83-108) mmHg ABG O2 Saturation (94-97) % VBG pH (7.31-7.41) VBG pCO2 (37-51) mmHg VBG HCO3 (24-28) mmol/L Sodium (137-145) mmol/L Carbon Dioxide (22-30) mmol/L BUN (7-17) mg/dL Creatinine (0.52-1.04) mg/dL Glucose (74-99) mg/dL POC Glucose (mg/dL) (70-110) mg/dL Plasma Lactic Acid Marcelo (0.7-2.0) mmol/L Calcium (8.4-10.2) mg/dL Magnesium (1.6-2.3) mg/dL Total Bilirubin (0.2-1.3) mg/dL AST (14-36) U/L ALT (4-34) U/L Alkaline Phosphatase (38-126) U/L Total Protein (6.3-8.2) g/dL Albumin (3.5-5.0) g/dL TSH (0.465-4.680) mIU/L Free T4 (0.78-2.19) ng/dL Urine Appearance Cloudy H (Clear) Ur Leukocyte Esterase Large H (Negative) Urine WBC 56 H (0-5) /hpf Urine Bacteria Few H (None) /hpf 12/15/22 12/15/22 12/15/22 Range/Units 15:20 15:20 17:00 WBC (3.8-10.6) k/uL RBC (3.80-5.40) m/uL Hgb (11.4-16.0) gm/dL MCV (80.0-100.0) fL MCHC (31.0-37.0) g/dL Plt Count (150-450) k/uL Neutrophils # (1.3-7.7) k/uL PT (9.0-12.0) sec INR (<1.2) D-Dimer (<0.60) mg/L FEU ABG pH (7.35-7.45) ABG pCO2 (35-45) mmHg ABG pO2 (83-108) mmHg ABG O2 Saturation (94-97) % VBG pH 7.42 H (7.31-7.41) VBG pCO2 22 L (37-51) mmHg VBG HCO3 14 L (24-28) mmol/L Sodium 136 L (137-145) mmol/L Carbon Dioxide 12 L (22-30) mmol/L BUN 29 H (7-17) mg/dL Creatinine 2.24 H (0.52-1.04) mg/dL Glucose 186 H (74-99) mg/dL POC Glucose (mg/dL) (70-110) mg/dL Plasma Lactic Acid Marcelo 12.1 H* (0.7-2.0) mmol/L Calcium (8.4-10.2) mg/dL Magnesium (1.6-2.3) mg/dL Total Bilirubin 1.4 H (0.2-1.3) mg/dL AST 71 H (14-36) U/L ALT 52 H (4-34) U/L Alkaline Phosphatase 222 H (38-126) U/L Total Protein (6.3-8.2) g/dL Albumin 3.0 L (3.5-5.0) g/dL TSH 11.900 H (0.465-4.680) mIU/L Free T4 3.28 H (0.78-2.19) ng/dL Urine Appearance (Clear) Ur Leukocyte Esterase (Negative) Urine WBC (0-5) /hpf Urine Bacteria (None) /hpf 12/15/22 12/15/22 12/15/22 Range/Units 18:24 18:52 20:20 WBC (3.8-10.6) k/uL RBC (3.80-5.40) m/uL Hgb (11.4-16.0) gm/dL MCV (80.0-100.0) fL MCHC (31.0-37.0) g/dL Plt Count (150-450) k/uL Neutrophils # (1.3-7.7) k/uL PT (9.0-12.0) sec INR (<1.2) D-Dimer (<0.60) mg/L FEU ABG pH 7.59 H* (7.35-7.45) ABG pCO2 <15 L* (35-45) mmHg ABG pO2 282 H (83-108) mmHg ABG O2 Saturation 100.0 H (94-97) % VBG pH (7.31-7.41) VBG pCO2 (37-51) mmHg VBG HCO3 (24-28) mmol/L Sodium (137-145) mmol/L Carbon Dioxide (22-30) mmol/L BUN (7-17) mg/dL Creatinine (0.52-1.04) mg/dL Glucose (74-99) mg/dL POC Glucose (mg/dL) 140 H (70-110) mg/dL Plasma Lactic Acid Marcelo 6.3 H* (0.7-2.0) mmol/L Calcium (8.4-10.2) mg/dL Magnesium (1.6-2.3) mg/dL Total Bilirubin (0.2-1.3) mg/dL AST (14-36) U/L ALT (4-34) U/L Alkaline Phosphatase (38-126) U/L Total Protein (6.3-8.2) g/dL Albumin (3.5-5.0) g/dL TSH (0.465-4.680) mIU/L Free T4 (0.78-2.19) ng/dL Urine Appearance (Clear) Ur Leukocyte Esterase (Negative) Urine WBC (0-5) /hpf Urine Bacteria (None) /hpf 12/15/22 12/15/22 12/16/22 Range/Units 20:24 20:24 00:10 WBC 15.6 H (3.8-10.6) k/uL RBC 3.55 L (3.80-5.40) m/uL Hgb (11.4-16.0) gm/dL MCV 103.2 H (80.0-100.0) fL MCHC (31.0-37.0) g/dL Plt Count 479 H (150-450) k/uL Neutrophils # (1.3-7.7) k/uL PT (9.0-12.0) sec INR (<1.2) D-Dimer (<0.60) mg/L FEU ABG pH (7.35-7.45) ABG pCO2 (35-45) mmHg ABG pO2 (83-108) mmHg ABG O2 Saturation (94-97) % VBG pH (7.31-7.41) VBG pCO2 (37-51) mmHg VBG HCO3 (24-28) mmol/L Sodium 135 L (137-145) mmol/L Carbon Dioxide 16 L (22-30) mmol/L BUN 32 H (7-17) mg/dL Creatinine 2.23 H (0.52-1.04) mg/dL Glucose 183 H (74-99) mg/dL POC Glucose (mg/dL) (70-110) mg/dL Plasma Lactic Acid Marcelo 3.6 H* (0.7-2.0) mmol/L Calcium 7.9 L (8.4-10.2) mg/dL Magnesium 1.2 L (1.6-2.3) mg/dL Total Bilirubin (0.2-1.3) mg/dL AST 70 H (14-36) U/L ALT 53 H (4-34) U/L Alkaline Phosphatase 198 H (38-126) U/L Total Protein 6.2 L (6.3-8.2) g/dL Albumin 2.8 L (3.5-5.0) g/dL TSH (0.465-4.680) mIU/L Free T4 (0.78-2.19) ng/dL Urine Appearance (Clear) Ur Leukocyte Esterase (Negative) Urine WBC (0-5) /hpf Urine Bacteria (None) /hpf 12/16/22 12/16/22 12/16/22 Range/Units 03:57 03:57 03:57 WBC 11.0 H (3.8-10.6) k/uL RBC 3.25 L (3.80-5.40) m/uL Hgb 10.4 L (11.4-16.0) gm/dL MCV 104.4 H (80.0-100.0) fL MCHC 30.6 L (31.0-37.0) g/dL Plt Count (150-450) k/uL Neutrophils # 8.7 H (1.3-7.7) k/uL PT (9.0-12.0) sec INR (<1.2) D-Dimer (<0.60) mg/L FEU ABG pH (7.35-7.45) ABG pCO2 (35-45) mmHg ABG pO2 (83-108) mmHg ABG O2 Saturation (94-97) % VBG pH (7.31-7.41) VBG pCO2 (37-51) mmHg VBG HCO3 (24-28) mmol/L Sodium (137-145) mmol/L Carbon Dioxide 20 L (22-30) mmol/L BUN 32 H (7-17) mg/dL Creatinine 2.23 H (0.52-1.04) mg/dL Glucose 102 H (74-99) mg/dL POC Glucose (mg/dL) (70-110) mg/dL Plasma Lactic Acid Marcelo 4.5 H* (0.7-2.0) mmol/L Calcium 7.3 L (8.4-10.2) mg/dL Magnesium 2.4 H (1.6-2.3) mg/dL Total Bilirubin (0.2-1.3) mg/dL AST 50 H (14-36) U/L ALT (4-34) U/L Alkaline Phosphatase 185 H (38-126) U/L Total Protein 5.5 L (6.3-8.2) g/dL Albumin 2.4 L (3.5-5.0) g/dL TSH (0.465-4.680) mIU/L Free T4 (0.78-2.19) ng/dL Urine Appearance (Clear) Ur Leukocyte Esterase (Negative) Urine WBC (0-5) /hpf Urine Bacteria (None) /hpf
[2022-12-16] MEDS: NYSTATIN 100,000 UNIT/GM POWD 15 GM TOPICAL SCH ×2 (12:17→21:10)
[2022-12-16] MEDS: busPIRone HCl 5 MG TAB PO SCH ×2 (12:22→21:10)
[2022-12-16] MEDS: VENLAFAXINE HCL ER 75 MG CAP PO SCH (12:40)
[2022-12-16] MEDS ORDERED: busPIRone HCl 5 MG TAB PO SCH (21:00)
[2022-12-16] MEDS: PANTOPRAZOLE 40 MG/10 ML VIAL IVP SCH (21:09)
[2022-12-16] MEDS: RIVAROXABAN 15 MG TAB PO SCH (21:10)
[2022-12-17] MEDS: SODIUM CHLORIDE 0.9% 1,000 ML IV SCH ×3 (01:13→20:11)
[2022-12-17] MEDS: ACETAMINOPHEN TAB 325 MG TAB PO PRN (04:52)
[2022-12-17 04:53] LABS: African American GFR (CKD) 31 (>60 ml/min/1.73 sqM); Anion Gap 14 mmol/L; Blood Urea Nitrogen 28 mg/dL (7-17); Calcium 7.3 mg/dL (8.4-10.2); Carbon Dioxide 15 mmol/L (22-30); Chloride 111 mmol/L (98-107); Glucose 72 mg/dL (74-99); Non-African American GFR(CKD) 27 (>60 ml/min/1.73 sqM); Potassium 2.9 mmol/L (3.5-5.1); Sodium 140 mmol/L (137-145)
[2022-12-17] MEDS ORDERED: Potassium Replacement Protocol 1 EACH MISC MISCELLANE PRN (05:08)
[2022-12-17] MEDS: POTASSIUM CHLORIDE ER 20 MEQ TAB.ER PO SCH ×3 (05:20→13:46)
--- NOTE | 2022-12-17 07:36 | P.PN ---
Subjective History of Present Illness: The patient is a 77-year-old female with history of chronic persistent atrial fibrillation, status post ablation and cardioversion with recurrent atrial fibrillation who fell at home after coming back from rehab. She has not been eating and drinking. On presentation her lactic acid was elevated and she had worsening renal functions. The patient is awake confused at times, she denies any chest discomfort or significant dyspnea. She had a prior admission with UTI and had episodes of confusion. She had an echocardiogram in October that showed an ejection fraction of 50-55% with moderate pulmonary hypertension and moderate mitral regurgitation. She has no history of ischemic heart disease. She denies any history of congestive heart failure. During prior admission she had episode of bradycardia related to her medication. She was a rapid ventricle response on presentation. She has been hypotensive on presentation and has received large amount of fluids. Her lab data revealed worsening of renal functions compared to baseline. Her lactic acid was elevated but better now. Her troponin was 0.032. She had no leukocytosis on presentation Medications: Losartan 50 mg twice a day, Lasix 40 times a week, Xarelto 20 mg daily 12/17 Patient seen and examined. Patient still confused. Lactic acid down to 1. Receiving IV fluids at 120. Blood pressure still borderline in the 90s over 60s and metoprolol has been held. Heart rates 110 to 1:30 range. Denies any chest pain or pressure. States she has a headache and ankle pain however not able to clearly describe any of her symptoms. Physical Examination: Vitals reviewed Head: Normocephalic. Eyes: Sclerae nonicteric. Neck: Good carotid upstroke, no bruit, no jugular venous distention. Lungs: Clear to auscultation. Heart: Irregular rate and rhythm, S1-S2, no S3, no rub. Systolic ejection murmur. Abdomen: Soft nontender, positive bowel sounds no organomegaly. Extremities: No edema, intact distal pulses. Impression: 1. Hypotension with worsening renal function and elevated lactic acidosis. Evidence of dehydration and poor oral intake. 2. Chronic persistent atrial fibrillation with rapid ventricular response, anticoagulated 3. Acute renal injury 4. Prior history of hypertension 5. Poor oral intake and malnutrition 6. Probable UTI 7. History of alcohol intake Plan: Patient previously been seen last admission and had been started on amiodarone as well as digoxin however heart rates in the lower end and then this was discontinued. Much of presentation appears related to confusion, dehydration, poor intake and possible sepsis. Continue with metoprolol as able. If more hypotensive likely start vasopressors as needed. Continue supportive care. Replace K. Objective - Vital Signs Vital signs: Vital Signs Temp 98.6 F 12/17/22 04:00 Pulse 133 H 12/17/22 07:00 Resp 18 12/17/22 07:00 BP 81/55 12/17/22 07:00 Pulse Ox 96 12/17/22 07:00 FiO2 Intake & Output 12/16/22 12/17/22 12/17/22 18:59 06:59 18:59 Intake Total 3455 1680 130 Output Total 250 365 60 Balance 3205 1315 70 Weight 87.4 kg Intake: IV 2430 1560 130 Sodium Chloride 0.9% 1, 1430 1560 130 000 ml @ 130 mls/hr IV . Q7H42M [facility] Rx#:[id number] Sodium Chloride 0.9% 1, 1000 000 ml @ 999 mls/hr IV . Q1H1M [facility] Rx#:[id number] Intake, IV Titration 100 Amount cefTRIAXone 1 gm In 100 Sodium Chloride 0.9% 50 ml @ 100 mls/hr IVPB Q24HR [facility] Rx#:[id number] Oral 925 120 Output: Urine 250 365 60 Other: Voiding Method Indwelling Catheter Indwelling Catheter - Labs CBC & Chem 7: 12/16/22 03:57 12/17/22 03:34 Labs: Abnormal Lab Results - Last 24 Hours (Table) 12/17/22 Range/Units 03:34 Potassium 2.9 L (3.5-5.1) mmol/L Chloride 111 H (98-107) mmol/L Carbon Dioxide 15 L (22-30) mmol/L BUN 28 H (7-17) mg/dL Creatinine 1.81 H (0.52-1.04) mg/dL Glucose 72 L (74-99) mg/dL Calcium 7.3 L (8.4-10.2) mg/dL
[2022-12-17] MEDS: THIAMINE 100 MG TAB PO SCH (08:13)
[2022-12-17] MEDS: METOPROLOL TARTRATE 25 MG TAB PO SCH ×2 (08:13→20:10)
[2022-12-17] MEDS: busPIRone HCl 5 MG TAB PO SCH ×2 (08:13→20:11)
[2022-12-17] MEDS: NYSTATIN 100,000 UNIT/GM POWD 15 GM TOPICAL SCH ×2 (08:15→20:12)
[2022-12-17] MEDS: PANTOPRAZOLE 40 MG/10 ML VIAL IVP SCH ×2 (08:15→20:11)
[2022-12-17] MEDS: VENLAFAXINE HCL ER 75 MG CAP PO SCH (08:16)
[2022-12-17] MEDS ORDERED: VENLAFAXINE HCL ER 75 MG CAP PO SCH (09:00)
--- NOTE | 2022-12-17 09:10 | P.PN ---
Subjective Progress Note Date: 12/17/22 Pt is awake, but appears confused. Question of dementia is present. I strongly suspect inappropriate medication use as it relates to BP meds and thyroid meds. Gen: in no apparent distress, resting comfortably in bed Eyes: PERRL, no scleral injection or icterus HENT: normocephalic, atraumatic, good hearing acuity, moist mucous membranes Neck: no tracheal deviation, full range of motion Resp: good air exchange, breathing comfortably with no accessory muscle use, no tactile fremitus, no appreciable crackles or wheezing CVS: good distal perfusion x 4, trace pitting edema, JVD is present, heart rate is irregular and tachycardic, without murmurs appreciable GI: soft, NTTP, ND, no hepatosplenomegaly : no suprapubic tenderness, no CVAT, romero catheter not present MSK: no clubbing, no cyanosis, no noted contractures of extremities, dusky toes bilaterally Skin: no noted rashes, petechiae; temperature of skin is appropriate Neuro: moving all extremities without signs of weakness, CN II-XII intact Hospital Course: 77-year-old woman with a history of paroxysmal atrial fibrillation, hypertension , hyperlipidemia, hypothyroidism, recent right total hip arthroplasty presented for evaluation after a fall at home with generalized weakness. In the emergency room, patient was afebrile, blood pressure between 72-114/44-80, heart rates oscillating between 110-140, 91% on nonrebreather. CBC shows thrombocytosis to 575, hemoglobin and white blood cell count are within normal limits. Basic metabolic panel shows hyponatremia to 136, CO2 of 12, BUN of 29, creatinine 2.24, anion gap of 25; creatinine is increased from 0.78 baseline. Liver function tests demonstrated total bilirubin of 1.4, AST of 71, ALT 52, alkaline phosphatase of 222, albumin of 3. Lactic acid is 12.1. TSH was 11.9, free T4 is 3.28 coags demonstrated an elevated INR of 1.3. D-dimer is 1.93. Lab work from previous hospitalization was also significant for an elevated thyroid peroxidase antibody level of 39.8 which is mildly elevated. PH was 7.42 on VBG, pCO2 was 22. EKG shows atrial fibrillation with a rate of 134, left axis deviation, T-wave inversions in leads 1, aVL, difficult to exclude ST changes due to wandering baseline. Chest x-ray shows clear parenchyma bilaterally, cardiomegaly with evidence of left atrial enlargement, tortuous aorta, no obvious evidence of pneumonia, infiltrate, heart failure. Case was discussed extensively with the emergency room provider and decision was made to admit the patient to the intensive care unit for elevated lactate, paroxysmal atrial fibrillation with RVR with borderline blood pressures. Patient was started on continuous IV fluids as well as given multiple boluses. Her lactic acidosis resolved. She remains significantly confused and had intermittent bouts of hypotension along with confusion. UA showed concern for UTI and therefore was started on ceftriaxone for presumed sepsis. Her levothyroxine was held given elevated free T4 across multiple visits. Kidney function improved with IV fluids. Assessment: Paroxysmal atrial fibrillation with rapid ventricular response Hyperthyroidism suspected to be from polypharmacy/medication noncompliance Acute kidney injury Hypertension Hyperlipidemia Hypothyroidism Polypharmacy Status post recent right total hip arthroplasty Plan: Today, patient is 81/55, heart rate 133, 96% on room air CO2 is 15 today, BUN is improved to 28, creatinine is improved to 1.8 Cardiology note reviewed, continue metoprolol, agree with IV fluids Continue patient on IV fluids: Normal saline at 130 mL per hour Continue patient on metoprolol 25 mg twice a day Heparin drip was transitioned to Xarelto Will not repeat echocardiogram due to her having one recently in October Hold levothyroxine Continue ceftriaxone Cardiology consult for atrial fibrillation Pulmonology consult for intensive care Discussed with daughter in detail that we need a very good understanding of what kind of medications patient has been taking at home and how she's been taking them to have a better sense of how to make appropriate adjustments, she will prepare that information for us - however, has not been available to discuss in further detail since admission Objective - Vital Signs Vital signs: Vital Signs Temp 98.6 F 12/17/22 04:00 Pulse 133 H 12/17/22 07:00 Resp 18 12/17/22 07:00 BP 81/55 12/17/22 07:00 Pulse Ox 96 12/17/22 07:00 FiO2 Intake & Output 12/16/22 12/17/22 12/17/22 18:59 06:59 18:59 Intake Total 3455 1680 130 Output Total 250 365 60 Balance 3205 1315 70 Weight 87.4 kg Intake: IV 2430 1560 130 Sodium Chloride 0.9% 1, 1430 1560 130 000 ml @ 130 mls/hr IV . Q7H42M [facility] Rx#:[id number] Sodium Chloride 0.9% 1, 1000 000 ml @ 999 mls/hr IV . Q1H1M [facility] Rx#:[id number] Intake, IV Titration 100 Amount cefTRIAXone 1 gm In 100 Sodium Chloride 0.9% 50 ml @ 100 mls/hr IVPB Q24HR [facility] Rx#:[id number] Oral 925 120 Output: Urine 250 365 60 Other: Voiding Method Indwelling Catheter Indwelling Catheter - Labs CBC & Chem 7: 12/16/22 03:57 12/17/22 03:34 Labs: Abnormal Lab Results - Last 24 Hours (Table) 12/17/22 Range/Units 03:34 Potassium 2.9 L (3.5-5.1) mmol/L Chloride 111 H (98-107) mmol/L Carbon Dioxide 15 L (22-30) mmol/L BUN 28 H (7-17) mg/dL Creatinine 1.81 H (0.52-1.04) mg/dL Glucose 72 L (74-99) mg/dL Calcium 7.3 L (8.4-10.2) mg/dL
--- NOTE | 2022-12-17 12:05 | P.PN ---
Subjective Progress Note Date: 12/17/22 Principal diagnosis: Hypotension and acute kidney injury This is a 77-year-old female patient who came into the emergency, lethargic, dehydrated, confused and in atrial fibrillation with rapid ventricular response. The patient was also hypotensive, not eating and drinking. She has become progressively more debilitated. She was discharged from our hospital on 11/23/2022. She is known to have chronic atrial fibrillation and she has undergone previous ablations and cardioversion is a total essentially unsuccessful and the patient has remained in chronic itch of fibrillation. The patient has also undergone a total hip arthroplasty and since then her health has been gradually declining requiring frequent hospitalizations. During the last hospital admission, the patient was encephalopathic and she was treated for an underlying UTI and chronic atrial fibrillation and she was discharged to [facility]. Her health is a progressively declining since.. Noted the patient had a fall at home sustained a right total hip fracture with subsequent arthroplasty.. She has also issues with polypharmacy and generalized debility. In the emergency department, the patient was found to be hypotensive. She was in atrial fibrillation with rapid ventricular response. She was initially placed on 100% nonrebreather facemask and subsequently weaned down to oxygen at 4 L for now. Her chest x-ray was essentially clear. Rest of the blood work showed severe lactic acidosis. Lactic acid level is 1.1 at the time of admission. She had an acute kidney injury with a BUN of 29 and a creatinine of 2.2 and his sodium level was at 136 with a potassium level of 4.4. A TSH was 11.9 and her free T4 was elevated at 3.28. Note that she was taken amiodarone on outpatient basis. LFTs were also normal with an AST of 71, ALP of 52 and a alkaline phosphatase of 222. Troponin was at 0.03. ProBNP level was 3820. White cell count was at 7.5 came up to 15.6 and this morning is down to 11.0. Hemoglobin was 12.5.of 10.4 and a platelet count of essentially within normal. UA showing 56 WBCs, no RBCs. Had previous urine culture from 10/26/2022 was positive for E. coli. CAT scan of the brain was done in the emergency department that showed no acute process. No evidence of any cervical spine. There is moderate multilevel degenerative changes in her C-spine. At the same time, the chest x-ray was done that showed no acute abnormalities. EKG was consistent with chronic atrial fibrillation and Q waves over the anterior leads. The patient has had a previous echocardiogram on 10/30/2022 that showed a normal LV function, moderate degree of pulmonary hypertension and moderate degree of mitral regurgitation. Had right ventricular systolic pressure was estimated to be 52 mmHg. Since yesterday, the patient was given IV fluids a total of 20 L. Subsequent lactic acid level is down to 1.5. Her atrial fibrillation is improved and she is less tachycardic compared to yesterday. Normal saline is still running at a rate of 130 mL an hour. Serum bicarb is up to 20. She is calm and comfortable, confused. Surgical wound over the right hip is clean and intact. No open wounds or sores Patient was seen today 12/17/2022, remains in the ICU. She was seen by Dr. Page yesterday on consultation. Patient presented with hypotension, possible acute urinary tract infection and dehydration, generalized medical debility, acute kidney injury, altered mental status with acute metabolic encephalopathy, chronic atrial fibrillation, severe lactic acidosis, patient continues to have IV fluid at 1 50 mL/h, she received already 3-1/2 L, her electrolytes are normal except for low potassium of 2.9, remains a bit acidotic with a bicarb of 15, BUN is 28 creatinine 1.81. Lactic acid is down to 1.5. This was as high as 12.1 on admission admission back on . Clinically t he patient is feeling better, remains on antibiotics in the form of Rocephin, she is also on Xarelto for her atrial fibrillation, no cultures are available so far. These are pending Objective - Vital Signs Vital signs: Vital Signs Temp 98.6 F 12/17/22 04:00 Pulse 94 12/17/22 11:00 Resp 16 12/17/22 11:00 BP 88/66 12/17/22 11:00 Pulse Ox 97 12/17/22 11:00 FiO2 Intake & Output 12/16/22 12/17/22 12/17/22 18:59 06:59 18:59 Intake Total 3455 1680 130 Output Total 250 365 245 Balance 3205 1315 -115 Weight 87.4 kg Intake: IV 2430 1560 130 Sodium Chloride 0.9% 1, 1430 1560 130 000 ml @ 130 mls/hr IV . Q7H42M [facility] Rx#:[id number] Sodium Chloride 0.9% 1, 1000 000 ml @ 999 mls/hr IV . Q1H1M [facility] Rx#:[id number] Intake, IV Titration 100 Amount cefTRIAXone 1 gm In 100 Sodium Chloride 0.9% 50 ml @ 100 mls/hr IVPB Q24HR [facility] Rx#:[id number] Oral 925 120 Output: Urine 250 365 245 Other: Voiding Method Indwelling Catheter Indwelling Catheter Indwelling Catheter - Exam Physical Exam: Revealed a 77-year-old female in no distress. On room air, O2 sats is 97% HEENT:[Neck is supple.] [No neck masses.] [No thyromegaly.] [No JVD.] Chest: [Clear throughout, no crackles, no rhonchi, no wheezes.] Cardiac Exam: [Normal S1 and S2, no S3 gallop, no murmur.] Abdomen: [Soft, nontender, no megaly, no rebound, no guarding, normal bowel sounds.] Extremities: [No clubbing, no edema, no cyanosis.] Neurological Exam: [No focal neurologic deficit.] However the patient is confused, Psychiatric: Normal mood, flat affect, confused mental status. Skin: No rashes. - Labs CBC & Chem 7: 12/16/22 03:57 12/17/22 03:34 Labs: Abnormal Lab Results - Last 24 Hours (Table) 12/17/22 Range/Units 03:34 Potassium 2.9 L (3.5-5.1) mmol/L Chloride 111 H (98-107) mmol/L Carbon Dioxide 15 L (22-30) mmol/L BUN 28 H (7-17) mg/dL Creatinine 1.81 H (0.52-1.04) mg/dL Glucose 72 L (74-99) mg/dL Calcium 7.3 L (8.4-10.2) mg/dL Assessment and Plan Assessment: Impression: Acute UTI, is suspected Possible urosepsis Acute kidney injury Hypotension secondary to urosepsis Paroxysmal atrial fibrillation with RVR Hyperthyroidism suspect secondary to polypharmacy and medication noncompliance History of hypothyroidism Recent right total hip arthroplasty Generalized medical debility with weakness dehydration and acute renal failure Acute metabolic toxic encephalopathy Severe lactic acidosis on his initial presentation Benign essential hypertension Dyslipidemia hepatic steatosis without any hepatocellular disease, and elevated liver enzymes History of alcoholism Recommendation: Continue IV fluid at 1 50 mL per hour. Continue Rocephin and adjust antibiotics as per urine cultures and blood cultures Continue to monitor in the ICU Restart anticoagulation therapy with Xarelto Resume home meds GI and DVT prophylaxis Hold Synthroid for now We'll continue to follow. Time with Patient: Less than 30
[2022-12-17] MEDS: RIVAROXABAN 15 MG TAB PO SCH (20:10)
[2022-12-18] MEDS: SODIUM CHLORIDE 0.9% 1,000 ML IV SCH ×3 (00:12→21:21)
[2022-12-18] MEDS ORDERED: MELATONIN 3 MG TABLET PO ONE (00:40)
[2022-12-18 01:51] LABS: HCT 29.7 % (34.0-46.0); HGB 9.1 gm/dL (11.4-16.0); Hypochromasia Marked; MCH 32.6 pg (25.0-35.0); MCHC 30.6 g/dL (31.0-37.0); MCV 106.4 fL (80.0-100.0); Macrocytosis Moderate; Mean Platelet Volume 7.7; Platelet Count 284 k/uL (150-450); RBC 2.79 m/uL (3.80-5.40); RDW 14.2 % (11.5-15.5); WBC 5.6 k/uL (3.8-10.6)
[2022-12-18 01:59] LABS: African American GFR (CKD) 42 (>60 ml/min/1.73 sqM); Anion Gap 6 mmol/L; Blood Urea Nitrogen 21 mg/dL (7-17); Calcium 7.2 mg/dL (8.4-10.2); Carbon Dioxide 17 mmol/L (22-30); Chloride 115 mmol/L (98-107); Glucose 67 mg/dL (74-99); Non-African American GFR(CKD) 37 (>60 ml/min/1.73 sqM); Potassium 3.8 mmol/L (3.5-5.1); Sodium 138 mmol/L (137-145)
[2022-12-18 05:26] LABS: Eosinophils # (M) 0.11 k/uL (0-0.7); Lymphocytes # (M) 1.23 k/uL (1.0-4.8); Monocytes # (M) 0.34 k/uL (0-1.0); Neutrophils # (M) 3.92 k/uL (1.3-7.7); Neutrophils % (M) 70 %; Nucleated Red Blood Cells 0 /100 WBC (0-0); Total Cells Counted 100
[2022-12-18] MEDS ORDERED: POTASSIUM CHLORIDE ER 20 MEQ TAB.ER PO SCH (06:00)
[2022-12-18] MEDS: PANTOPRAZOLE 40 MG/10 ML VIAL IVP SCH ×2 (08:35→21:07)
[2022-12-18] MEDS: THIAMINE 100 MG TAB PO SCH (08:35)
[2022-12-18] MEDS: NYSTATIN 100,000 UNIT/GM POWD 15 GM TOPICAL SCH ×2 (08:35→22:23)
[2022-12-18] MEDS: VENLAFAXINE HCL ER 75 MG CAP PO SCH (08:35)
[2022-12-18] MEDS: METOPROLOL TARTRATE 25 MG TAB PO SCH ×2 (08:36→21:07)
[2022-12-18] MEDS: busPIRone HCl 5 MG TAB PO SCH ×2 (08:36→21:07)
--- NOTE | 2022-12-18 09:44 | P.PN ---
Subjective History of Present Illness: The patient is a 77-year-old female with history of chronic persistent atrial fibrillation, status post ablation and cardioversion with recurrent atrial fibrillation who fell at home after coming back from rehab. She has not been eating and drinking. On presentation her lactic acid was elevated and she had worsening renal functions. The patient is awake confused at times, she denies any chest discomfort or significant dyspnea. She had a prior admission with UTI and had episodes of confusion. She had an echocardiogram in October that showed an ejection fraction of 50-55% with moderate pulmonary hypertension and moderate mitral regurgitation. She has no history of ischemic heart disease. She denies any history of congestive heart failure. During prior admission she had episode of bradycardia related to her medication. She was a rapid ventricle response on presentation. She has been hypotensive on presentation and has received large amount of fluids. Her lab data revealed worsening of renal functions compared to baseline. Her lactic acid was elevated but better now. Her troponin was 0.032. She had no leukocytosis on presentation Medications: Losartan 50 mg twice a day, Lasix 40 times a week, Xarelto 20 mg daily 12/17 Patient seen and examined. Patient still confused. Lactic acid down to 1. Receiving IV fluids at 120. Blood pressure still borderline in the 90s over 60s and metoprolol has been held. Heart rates 110 to 1:30 range. Denies any chest pain or pressure. States she has a headache and ankle pain however not able to clearly describe any of her symptoms. 12/18 Patient seen and examined. Patient more calm and appears more comfortable today. Heart rates better controlled and she has been receiving metoprolol with still borderline blood pressures in the 90s to 100. Has not needed any vasopressors. Adequate urine output. IV fluids was decreased from 130 down the 100 mL per hour. Still does have 1-2+ lower extremity edema. Physical Examination: Vitals reviewed Head: Normocephalic. Eyes: Sclerae nonicteric. Neck: Good carotid upstroke, no bruit, no jugular venous distention. Lungs: Clear to auscultation. Heart: Irregular rate and rhythm, S1-S2, no S3, no rub. Systolic ejection murmur. Abdomen: Soft nontender, positive bowel sounds no organomegaly. Extremities: 1-2+ LE edema, intact distal pulses. Impression: 1. Hypotension with worsening renal function and elevated lactic acidosis. Evidence of dehydration and poor oral intake. 2. Chronic persistent atrial fibrillation with rapid ventricular response, anticoagulated 3. Acute renal injury 4. Prior history of hypertension 5. Poor oral intake and malnutrition 6. Probable UTI 7. History of alcohol intake Plan: Continue on the metoprolol for now and heart rates appear better controlled. Majority of RVR likely related to underlying process, dehydration plus or minus sepsis. Continue with hydration however monitor closely and may eventually need diuretics. She does have 1-2+ lower extremity edema. Continue supportive care. Prognosis guarded. Objective - Vital Signs Vital signs: Vital Signs Temp 97.6 F 12/18/22 08:00 Pulse 104 H 12/18/22 09:00 Resp 15 12/18/22 09:00 BP 91/68 12/18/22 09:00 Pulse Ox 100 12/18/22 09:00 FiO2 Intake & Output 12/17/22 12/18/22 12/18/22 18:59 06:59 18:59 Intake Total 530 1560 260 Output Total 470 420 80 Balance 60 1140 180 Weight 91 kg Intake: IV 130 1560 260 Sodium Chloride 0.9% 1, 130 1560 260 000 ml @ 130 mls/hr IV . Q7H42M [facility] Rx#:[id number] Oral 400 Output: Urine 470 420 80 Other: Voiding Method Indwelling Catheter Indwelling Catheter Indwelling Catheter - Labs CBC & Chem 7: 12/18/22 00:50 12/18/22 00:50 Labs: Abnormal Lab Results - Last 24 Hours (Table) 12/18/22 12/18/22 Range/Units 00:50 00:50 RBC 2.79 L (3.80-5.40) m/uL Hgb 9.1 L (11.4-16.0) gm/dL Hct 29.7 L (34.0-46.0) % MCV 106.4 H (80.0-100.0) fL MCHC 30.6 L (31.0-37.0) g/dL Chloride 115 H (98-107) mmol/L Carbon Dioxide 17 L (22-30) mmol/L BUN 21 H (7-17) mg/dL Creatinine 1.40 H (0.52-1.04) mg/dL Glucose 67 L (74-99) mg/dL Calcium 7.2 L (8.4-10.2) mg/dL Microbiology - Last 24 Hours (Table) 12/15/22 20:25 Blood Culture - Preliminary Blood
--- NOTE | 2022-12-18 11:08 | CDI ---
Documentation Clarification Form Date: 12/18/2022 10:47:16 AM From: Hetal Travis RN CCDS Phone: [phone] Admit Date: 12/15/2022 05:56:00 PM Patient Name: Lizet He Visit Number: [id number] Discharge Date: ATTENTION: The Clinical Documentation Specialists (CDI) and [facility] Coding Staff appreciate your assistance in clarifying documentation. Please respond to the clarification below the line at the bottom and electronically sign. The CDI & [facility] Coding staff will review the response and follow-up if needed. Please note: Queries are made part of the Legal Health Record. If you have any questions, please contact the author of this message via ITS. Dr. Peewee James Your patient has been treated with oxygen with a non rebreather and nasal cannula. Based on this information and the findings below, is there an additional diagnosis that is clinically appropriate for this patient? History/Risk Factors: 77-year-old female presents to the ED after a fall at home and generalized weakness. Medical history: Recent right total hip arthroplasty, Atrial fibrillation and sleep apnea. 12/15, H&P Clinical Indicators: Vital signs: 12/15 14:19 b/p 81/36, HR 66, Temp 97.0 F L, RR 36, SpO2 97% 2L nasal cannula 12/15 14:40 B/P 119/52, HR 125, RR 18, SpO2 91% Non Rebreather Lung/Breathing assessment: 12/15 ED Normal lung sounds bilaterally, accessory muscle use. ABG/CB/3 pH 7.59 pO2 282 pCO2 <15 Lactate 12.1 Pulmonary consult 12/16: She was initially placed on 100% nonrebreather facemask and subsequently weaned down to oxygen at 4L now. Treatment: Oxygen: 12/15 14:40 - 12/15 18:30 Non Rebreather: 12/15 18:39 2L nasal cannula Is there an additional diagnosis that is clinically appropriate for this patient? [ x ] Acute Hypoxic Respiratory Failure (pO2 <60 mm Hg or SpO2 <91% on room air) [ ] Acute Hypercapnic Respiratory Failure (pCO2 >50 and pH <7.35) [ ] Acute on Chronic Respiratory Failure [ ] Other Diagnosis, please specify [ ] Unable to determine (Template Last Revised: September 2020) MTDD
--- NOTE | 2022-12-18 11:41 | P.PN ---
Subjective Progress Note Date: 12/18/22 Hospital Course: 77-year-old woman with a history of paroxysmal atrial fibrillation, hy pertension, hyperlipidemia, hypothyroidism, recent right total hip arthroplasty presented for evaluation after a fall at home with generalized weakness. In the emergency room, patient was afebrile, blood pressure between 72-114/44-80, heart rates oscillating between 110-140, 91% on nonrebreather. CBC shows thrombocytosis to 575, hemoglobin and white blood cell count are within normal limits. Basic metabolic panel shows hyponatremia to 136, CO2 of 12, BUN of 29, creatinine 2.24, anion gap of 25; creatinine is increased from 0.78 baseline. Liver function tests demonstrated total bilirubin of 1.4, AST of 71, ALT 52, alkaline phosphatase of 222, albumin of 3. Lactic acid is 12.1. TSH was 11.9, free T4 is 3.28 coags demonstrated an elevated INR of 1.3. D-dimer is 1.93. Lab work from previous hospitalization was also significant for an elevated thyroid peroxidase antibody level of 39.8 which is mildly elevated. PH was 7.42 on VBG, pCO2 was 22. EKG shows atrial fibrillation with a rate of 134, left axis deviation, T-wave inversions in leads 1, aVL, difficult to exclude ST changes due to wandering baseline. Chest x-ray shows clear parenchyma bilaterally, cardiomegaly with evidence of left atrial enlargement, tortuous aorta, no obvious evidence of pneumonia, infiltrate, heart failure. Patient was admitted to the intensive care unit for elevated lactate, paroxysmal atrial fib rillation with RVR with borderline blood pressures. Patient was started on continuous IV fluids as well as given multiple boluses. Her lactic acidosis resolved. She remains significantly confused and had intermittent bouts of hypotension along with confusion. UA showed concern for UTI and therefore was started on ceftriaxone for presumed sepsis. Her levothyroxine was held given elevated free T4 across multiple visits. Kidney function improved with IV fluids. Mental status has not improved. Subjective: Patient seen and examined at bedside. No acute events overnight. Mental status has normalized. Patient claims that she currently lives at home, takes care of her on medication. She gets her medications as a pillpack. She does not have any help at home in terms of medications. Has a Ch catheter in place. Per nursing, patient still has difficulty eating. Pertinent positives and negatives as discussed above, a complete review of systems was performed and all other systems are negative. Vitals Signs Reviewed. General: nontoxic, no distress, appears at stated age Derm: warm, dry Head: atraumatic, normocephalic, symmetric Eyes: EOMI, no lid lag, anicteric sclera Mouth: no lip lesion, mucus membranes moist Cardiovascular: S1S2 reg, no murmur Lungs: CTA bilateral, no rhonchi, no rales , no accessory muscle use Abdominal: soft, nontender to palpation, no guarding, no appreciable organomegaly Ext: no gross muscle atrophy, trace peripheral edema, no contractures, strength 4/5 in all extremities Neuro: CN II-XI grossly intact, no focal neuro deficits Psych: Alert, oriented, appropriate affect Data Reviewed Today: Pertinent Labs: Hemoglobin 9.1, WBC 5.6, platelet 284, creatinine 1.4, potassium 3.8, glucose 67 Imaging: No new imaging today Assessment and Plan: Active: Suspected urinary tract infection, present on admission Paroxysmal atrial fibrillation with rapid ventricular response Hyperthyroidism suspected to be from polypharmacy/medication noncompliance Acute kidney injury, resolving Hypotension, likely secondary to dehydration versus sepsis History of hypertension History of Hypothyroidism Polypharmacy Generalized weakness -Continue ceftriaxone 1 g IV every 24 hours -Urine culture pending -Blood cultures no growth to date -For atrial fibrillation, rate is better controlled, maintain on metoprolol 25 mg twice a day -Cardiology note reviewed, continue metoprolol -Continue to hold levothyroxin -Renal function improving, blood pressure improving, continue oral saline at 100 mL an hour -Holding home antihypertensives -Encephalopathy possibly in the setting of polypharmacy, needs further medication reconciliation the time of discharge -PT/OT for generalized weakness Resolved: Lactic acidosis Hypokalemia Acute metabolic encephalopathy Chronic: Status post recent right total hip arthroplasty DVT ppx: Xarelto Code status: No code Anticipated discharge place: Pending clinical course Anticipated discharge time: Pending clinical course Objective - Vital Signs Vital signs: Vital Signs Temp 97.6 F 12/18/22 08:00 Pulse 104 H 12/18/22 09:00 Resp 15 12/18/22 09:00 BP 91/68 12/18/22 09:00 Pulse Ox 100 12/18/22 09:00 FiO2 Intake & Output 12/17/22 12/18/22 12/18/22 18:59 06:59 18:59 Intake Total 530 1560 260 Output Total 470 420 80 Balance 60 1140 180 Weight 91 kg Intake: IV 130 1560 260 Sodium Chloride 0.9% 1, 130 1560 260 000 ml @ 130 mls/hr IV . Q7H42M [facility] Rx#:[id number] Oral 400 Output: Urine 470 420 80 Other: Voiding Method Indwelling Catheter Indwelling Catheter Indwelling Catheter - Labs CBC & Chem 7: 12/18/22 00:50 12/18/22 00:50 Labs: Abnormal Lab Results - Last 24 Hours (Table) 12/18/22 12/18/22 Range/Units 00:50 00:50 RBC 2.79 L (3.80-5.40) m/uL Hgb 9.1 L (11.4-16.0) gm/dL Hct 29.7 L (34.0-46.0) % MCV 106.4 H (80.0-100.0) fL MCHC 30.6 L (31.0-37.0) g/dL Chloride 115 H (98-107) mmol/L Carbon Dioxide 17 L (22-30) mmol/L BUN 21 H (7-17) mg/dL Creatinine 1.40 H (0.52-1.04) mg/dL Glucose 67 L (74-99) mg/dL Calcium 7.2 L (8.4-10.2) mg/dL Microbiology - Last 24 Hours (Table) 12/15/22 20:25 Blood Culture - Preliminary Blood
--- NOTE | 2022-12-18 12:48 | P.PN ---
Subjective Progress Note Date: 12/18/22 Principal diagnosis: Hypotension and acute kidney injury This is a 77-year-old female patient who came into the emergency, lethargic, dehydrated, confused and in atrial fibrillation with rapid ventricular response. The patient was also hypotensive, not eating and drinking. She has become progressively more debilitated. She was discharged from our hospital on 11/23/2022. She is known to have chronic atrial fibrillation and she has undergone previous ablations and cardioversion is a total essentially unsuccessful and the patient has remained in chronic itch of fibrillation. The patient has also undergone a total hip arthroplasty and since then her health has been gradually declining requiring frequent hospitalizations. During the last hospital admission, the patient was encephalopathic and she was treated for an underlying UTI and chronic atrial fibrillation and she was discharged to [facility]. Her health is a progressively declining since.. Noted the patient had a fall at home sustained a right total hip fracture with subsequent arthroplasty.. She has also issues with polypharmacy and generalized debility. In the emergency department, the patient was found to be hypotensive. She was in atrial fibrillation with rapid ventricular response. She was initially placed on 100% nonrebreather facemask and subsequently weaned down to oxygen at 4 L for now. Her chest x-ray was essentially clear. Rest of the blood work showed severe lactic acidosis. Lactic acid level is 1.1 at the time of admission. She had an acute kidney injury with a BUN of 29 and a creatinine of 2.2 and his sodium level was at 136 with a potassium level of 4.4. A TSH was 11.9 and her free T4 was elevated at 3.28. Note that she was taken amiodarone on outpatient basis. LFTs were also normal with an AST of 71, ALP of 52 and a alkaline phosphatase of 222. Troponin was at 0.03. ProBNP level was 3820. White cell count was at 7.5 came up to 15.6 and this morning is down to 11.0. Hemoglobin was 12.5.of 10.4 and a platelet count of essentially within normal. UA showing 56 WBCs, no RBCs. Had previous urine culture from 10/26/2022 was positive for E. coli. CAT scan of the brain was done in the emergency department that showed no acute process. No evidence of any cervical spine. There is moderate multilevel degenerative changes in her C-spine. At the same time, the chest x-ray was done that showed no acute abnormalities. EKG was consistent with chronic atrial fibrillation and Q waves over the anterior leads. The patient has had a previous echocardiogram on 10/30/2022 that showed a normal LV function, moderate degree of pulmonary hypertension and moderate degree of mitral regurgitation. Had right ventricular systolic pressure was estimated to be 52 mmHg. Since yesterday, the patient was given IV fluids a total of 20 L. Subsequent lactic acid level is down to 1.5. Her atrial fibrillation is improved and she is less tachycardic compared to yesterday. Normal saline is still running at a rate of 130 mL an hour. Serum bicarb is up to 20. She is calm and comfortable, confused. Surgical wound over the right hip is clean and intact. No open wounds or sores Patient was seen today 12/17/2022, remains in the ICU. She was seen by Dr. Page yesterday on consultation. Patient presented with hypotension, possible acute urinary tract infection and dehydration, generalized medical debility, acute kidney injury, altered mental status with acute metabolic encephalopathy, chronic atrial fibrillation, severe lactic acidosis, patient continues to have IV fluid at 1 50 mL/h, she received already 3-1/2 L, her electrolytes are normal except for low potassium of 2.9, remains a bit acidotic with a bicarb of 15, BUN is 28 creatinine 1.81. Lactic acid is down to 1.5. This was as high as 12.1 on admission admission back on . Clinically t he patient is feeling better, remains on antibiotics in the form of Rocephin, she is also on Xarelto for her atrial fibrillation, no cultures are available so far. These are pending Patient was reevaluated today on 12/18/2022, remains in the ICU, presently on room air, her IV fluid is at 1 50 mL/h, intermittently in atrial fibrillation with RVR, she has good urine output about 40 ML's per hour. Remains on Rocephin she is also on Xarelto. Cut down her IV fluid down to 100 mL per hour. And I plan to transfer the patient to [facility]. WBC count is 5.6 hemoglobin is 9.1. Platelets are normal. Electrolytes are normal BUN is 21 creatinine coming down to 1.40 slightly acidotic with bicarb of 17 but improving. Blood cultures remain negative so far. Urine cultures are pending. Remains empirically on Rocephin for presumptive UTI. Objective - Vital Signs Vital signs: Vital Signs Temp 97.6 F 12/18/22 12:00 Pulse 93 12/18/22 12:00 Resp 24 12/18/22 12:00 BP 99/76 12/18/22 12:00 Pulse Ox 99 12/18/22 12:00 FiO2 Intake & Output 12/17/22 12/18/22 12/18/22 18:59 06:59 18:59 Intake Total 530 1560 260 Output Total 470 420 80 Balance 60 1140 180 Weight 91 kg Intake: IV 130 1560 260 Sodium Chloride 0.9% 1, 130 1560 260 000 ml @ 130 mls/hr IV . Q7H42M [facility] Rx#:[id number] Oral 400 Output: Urine 470 420 80 Other: Voiding Method Indwelling Catheter Indwelling Catheter Indwelling Catheter - Exam Physical Exam: Revealed a 77-year-old female in no distress. On room air, O2 sats is 97% HEENT:[Neck is supple.] [No neck masses.] [No thyromegaly.] [No JVD.] Chest: [Clear throughout, no crackles, no rhonchi, no wheezes.] Cardiac Exam: [Normal S1 and S2, no S3 gallop, no murmur.] Abdomen: [Soft, nontender, no megaly, no rebound, no guarding, normal bowel sounds.] Extremities: [No clubbing, no edema, no cyanosis.] Neurological Exam: [No focal neurologic deficit.] However the patient is confused, Psychiatric: Normal mood, flat affect, noted to be generally weak and a bit confused. Skin: No rashes. - Labs CBC & Chem 7: 12/18/22 00:50 12/18/22 00:50 Labs: Abnormal Lab Results - Last 24 Hours (Table) 12/18/22 12/18/22 Range/Units 00:50 00:50 RBC 2.79 L (3.80-5.40) m/uL Hgb 9.1 L (11.4-16.0) gm/dL Hct 29.7 L (34.0-46.0) % MCV 106.4 H (80.0-100.0) fL MCHC 30.6 L (31.0-37.0) g/dL Chloride 115 H (98-107) mmol/L Carbon Dioxide 17 L (22-30) mmol/L BUN 21 H (7-17) mg/dL Creatinine 1.40 H (0.52-1.04) mg/dL Glucose 67 L (74-99) mg/dL Calcium 7.2 L (8.4-10.2) mg/dL Microbiology - Last 24 Hours (Table) 12/15/22 20:25 Blood Culture - Preliminary Blood Assessment and Plan Assessment: Impression: Acute UTI, is suspected, cultures are pending. Possible urosepsis Acute kidney injury, improving. Hypotension secondary to urosepsis, improving. Patient is not requiring any p ressors at this point. Blood pressure remains marginal with good urine output. Paroxysmal atrial fibrillation with RVR, on beta blockers and Xarelto Hyperthyroidism suspect secondary to polypharmacy and medication noncompliance History of hypothyroidism Recent right total hip arthroplasty Generalized medical debility with weakness dehydration and acute renal failure Acute metabolic toxic encephalopathy Severe lactic acidosis on his initial presentation Benign essential hypertension Dyslipidemia hepatic steatosis without any hepatocellular disease, and elevated liver enzymes History of alcoholism Recommendation: Cut down her IV fluid to 100 mL/h Continue Rocephin and adjust antibiotics as per urine cultures and blood cultures Transfer patient to a monitor bed on selective today. Continue Xarelto Resume home meds GI and DVT prophylaxis Hold Synthroid for now We'll continue to follow. Time with Patient: Less than 30
[2022-12-18] MEDS: MELATONIN 3 MG TABLET PO SCH (21:07)
[2022-12-18] MEDS: RIVAROXABAN 15 MG TAB PO SCH (21:08)
[2022-12-18] MEDS: ACETAMINOPHEN TAB 325 MG TAB PO PRN (22:24)
[2022-12-19] MEDS: SODIUM CHLORIDE 0.9% 1,000 ML IV SCH (06:13)
[2022-12-19] MEDS: METOPROLOL TARTRATE 25 MG TAB PO SCH ×2 (09:21→21:07)
[2022-12-19] MEDS: PANTOPRAZOLE 40 MG/10 ML VIAL IVP SCH ×2 (09:21→21:08)
[2022-12-19] MEDS: busPIRone HCl 5 MG TAB PO SCH ×2 (09:21→21:07)
[2022-12-19] MEDS: THIAMINE 100 MG TAB PO SCH (09:21)
[2022-12-19] MEDS: VENLAFAXINE HCL ER 75 MG CAP PO SCH (09:22)
[2022-12-19] MEDS: NYSTATIN 100,000 UNIT/GM POWD 15 GM TOPICAL SCH ×2 (09:23→21:07)
[2022-12-19 11:17] LABS: Basophils % (A) 1 %; Eosinophils # (A) 0.1 k/uL (0-0.7); Eosinophils % (A) 2 %; HCT 32.4 % (34.0-46.0); HGB 9.5 gm/dL (11.4-16.0); Hypochromasia Marked; Lymphocytes # (A) 1.1 k/uL (1.0-4.8); Lymphocytes % (A) 22 %; MCH 31.3 pg (25.0-35.0); MCHC 29.3 g/dL (31.0-37.0); MCV 106.5 fL (80.0-100.0); Macrocytosis Moderate; Mean Platelet Volume 8.4; Monocytes # (A) 0.3 k/uL (0-1.0); Monocytes % (A) 5 %; Neutrophils # (A) 3.3 k/uL (1.3-7.7); Neutrophils % (A) 69 %; Platelet Count 292 k/uL (150-450); RBC 3.04 m/uL (3.80-5.40); RDW 14.5 % (11.5-15.5); WBC 4.8 k/uL (3.8-10.6)
[2022-12-19 11:35] LABS: African American GFR (CKD) 58 (>60 ml/min/1.73 sqM); Anion Gap 6 mmol/L; Blood Urea Nitrogen 14 mg/dL (7-17); Calcium 7.8 mg/dL (8.4-10.2); Carbon Dioxide 18 mmol/L (22-30); Chloride 114 mmol/L (98-107); Glucose 74 mg/dL (74-99); Non-African American GFR(CKD) 50 (>60 ml/min/1.73 sqM); Sodium 138 mmol/L (137-145)
[2022-12-19 11:37] LABS: Potassium 3.9 mmol/L (3.5-5.1)
--- NOTE | 2022-12-19 11:41 | P.PN ---
Subjective Progress Note Date: 12/19/22 Hospital Course: 77-year-old woman with a history of paroxysmal atrial fibrillation, hypertensio n, hyperlipidemia, hypothyroidism, recent right total hip arthroplasty presented for evaluation after a fall at home with generalized weakness. In the emergency room, patient was afebrile, blood pressure between 72-114/44-80, heart rates oscillating between 110-140, 91% on nonrebreather. CBC shows thrombocytosis to 575, hemoglobin and white blood cell count are within normal limits. Basic metabolic panel shows hyponatremia to 136, CO2 of 12, BUN of 29, creatinine 2.24, anion gap of 25; creatinine is increased from 0.78 baseline. Liver function tests demonstrated total bilirubin of 1.4, AST of 71, ALT 52, alkaline phosphatase of 222, albumin of 3. Lactic acid is 12.1. TSH was 11.9, free T4 is 3.28 coags demonstrated an elevated INR of 1.3. D-dimer is 1.93. Lab work from previous hospitalization was also significant for an elevated thyroid peroxidase antibody level of 39.8 which is mildly elevated. PH was 7.42 on VBG, pCO2 was 22. EKG shows atrial fibrillation with a rate of 134, left axis deviation, T-wave inversions in leads 1, aVL, difficult to exclude ST changes due to wandering baseline. Chest x-ray shows clear parenchyma bilaterally, cardiomegaly with evidence of left atrial enlargement, tortuous aorta, no obvious evidence of pneumonia, infiltrate, heart failure. Patient was admitted to the intensive care unit for elevated lactate, paroxysmal atrial fibrillation with RVR with borderline blood pressures. Patient was started on continuous IV fluids as well as given multiple boluses. Her lactic acidosis resolved. She remains significantly confused and had intermittent bouts of hypotension along with confusion. UA showed concern for UTI and therefore was started on ceftriaxone for presumed sepsis. Her levothyroxine was held given elevated free T4 across multiple visits. Kidney function improved with IV fluids. Mental status has not improved. Patient is now out of the ICU. Subjective: Patient seen and examined at bedside. No acute events overnight. Mental status has normalized. Patient claims that she currently lives at home, takes care of her on medication. She gets her medications as a pillpack. She does not have any help at home in terms of medications. Has a Ch catheter in place. Per nursing, patient still has difficulty eating. Pertinent positives and negatives as discussed above, a complete review of systems was performed and all other systems are negative. Vitals Signs Reviewed. General: nontoxic, no distress, appears at stated age Derm: warm, dry Head: atraumatic, normocephalic, symmetric Eyes: EOMI, no lid lag, anicteric sclera Mouth: no lip lesion, mucus membranes moist Cardiovascular: S1S2 reg, no murmur Lungs: CTA bilateral, no rhonchi, no rales , no accessory muscle use Abdominal: soft, nontender to palpation, no guarding, no appreciable organomegaly Ext: no gross muscle atrophy, peripheral edema, no contractures, strength 4/5 in all extremities Neuro: CN II-XI grossly intact, no focal neuro deficits Psych: Alert, oriented, appropriate affect Data Reviewed Today: Pertinent Labs: Hemoglobin 9.5, platelet 92, potassium 3.9, creatinine 1.08 Imaging: No new imaging today Urine culture and blood cultures negative growth to date Assessment and Plan: Active: Suspected urinary tract infection, present on admission Paroxysmal atrial fibrillation with rapid ventricular response, now rate cont rolled Hyperthyroidism suspected to be from polypharmacy/medication noncompliance Acute kidney injury, resolved Hypotension, likely secondary to dehydration versus sepsis History of hypertension History of Hypothyroidism Polypharmacy Generalized weakness -Continue ceftriaxone 1 g IV every 24 hours -Blood cultures and urine cultures no growth to date -For atrial fibrillation, rate is better controlled, maintain on metoprolol 25 mg twice a day -Cardiology following -Continue to hold levothyroxine -Renal function improving, blood pressure improving, IV fluids discontinued -Holding home antihypertensives -Encephalopathy possibly in the setting of polypharmacy, needs further medication reconciliation the time of discharge -PT/OT for generalized weakness -Ch catheter discontinued, voiding trial Resolved: Lactic acidosis Hypokalemia Acute metabolic encephalopathy Chronic: Status post recent right total hip arthroplasty DVT ppx: Xarelto Code status: No code Anticipated discharge place: Pending clinical course Anticipated discharge time: Pending clinical course Objective - Vital Signs Vital signs: Vital Signs Temp 97.9 F 12/19/22 08:00 Pulse 114 H 12/19/22 08:00 Resp 16 12/19/22 08:00 BP 128/88 12/19/22 08:00 Pulse Ox 96 12/19/22 08:00 FiO2 Intake & Output 06/01/0412/19/22 12/19/22 18:59 06:59 18:59 Intake Total 1360 540 Output Total 480 Balance 880 540 Intake: IV 760 Sodium Chloride 0.9% 1, 760 000 ml @ 100 mls/hr IV . Q10H [facility] Rx#:[id number] Oral 600 540 Output: Urine 480 Other: Voiding Method Indwelling Catheter Indwelling Catheter Indwelling Catheter - Labs CBC & Chem 7: 12/19/22 09:52 12/19/22 09:52 Labs: Abnormal Lab Results - Last 24 Hours (Table) 12/19/22 12/19/22 Range/Units 09:52 09:52 RBC 3.04 L (3.80-5.40) m/uL Hgb 9.5 L (11.4-16.0) gm/dL Hct 32.4 L (34.0-46.0) % MCV 106.5 H (80.0-100.0) fL MCHC 29.3 L (31.0-37.0) g/dL Chloride 114 H (98-107) mmol/L Carbon Dioxide 18 L (22-30) mmol/L Creatinine 1.08 H (0.52-1.04) mg/dL Calcium 7.8 L (8.4-10.2) mg/dL Microbiology - Last 24 Hours (Table) 12/15/22 15:00 Urine Culture - Preliminary Urine,Catheterized 12/15/22 20:25 Blood Culture - Preliminary Blood
--- NOTE | 2022-12-19 13:54 | P.PN ---
Subjective Progress Note Date: 12/19/22 History of Present Illness: The patient is a 77-year-old female with history of chronic persistent atrial fibrillation, status post ablation and cardioversion with recurrent atrial fibrillation who fell at home after coming back from rehab. She has not been eating and drinking. On presentation her lactic acid was elevated and she had worsening renal functions. The patient is awake confused at times, she denies any chest discomfort or significant dyspnea. She had a prior admission with UTI and had episodes of confusion. She had an echocardiogram in October that showed an ejection fraction of 50-55% with moderate pulmonary hypertension and moderate mitral regurgitation. She has no history of ischemic heart disease. She denies any history of congestive heart failure. During prior admission she had episode of bradycardia related to her medication. She was a rapid ventricle response on presentation. She has been hypotensive on presentation and has received large amount of fluids. Her lab data revealed worsening of renal functions compared to baseline. Her lactic acid was elevated but better now. Her troponin was 0.032. She had no leukocytosis on presentation Medications: Losartan 50 mg twice a day, Lasix 40 times a week, Xarelto 20 mg daily 12/17 Patient seen and examined. Patient still confused. Lactic acid down to 1. Receiving IV fluids at 120. Blood pressure still borderline in the 90s over 60s and metoprolol has been held. Heart rates 110 to 1:30 range. Denies any chest pain or pressure. States she has a headache and ankle pain however not able to clearly describe any of her symptoms. 12/18 Patient seen and examined. Patient more calm and appears more comfortable today. Heart rates better controlled and she has been receiving metoprolol with still borderline blood pressures in the 90s to 100. Has not needed any vasopressors. Adequate urine output. IV fluids was decreased from 130 down the 100 mL per hour. Still does have 1-2+ lower extremity edema. 12/19 Patient states that she is breathing better today. Family member noticed that she is more awake today. Patient does not remember what brought her into the hospital. She was transferred out of the intensive care unit yesterday and is seen today on the cardiac step unit. Patient is not having much appetite but otherwise no new concerns and is feeling better. Potassium is 3.9, BUN 14 and creatinine 0.8, hemoglobin 9.5. Physical Examination: Vitals reviewed Head: Normocephalic. Eyes: Sclerae nonicteric. Neck: Good carotid upstroke, no bruit, no jugular venous distention. Lungs: Clear to auscultation. Heart: Irregular rate and rhythm, S1-S2, no S3, no rub. Systolic ejection murmur. Abdomen: Soft nontender, positive bowel sounds no organomegaly. Extremities: 1+ LE edema, intact distal pulses. Impression: 1. Hypotension with worsening renal function and elevated lactic acidosis. Evidence of dehydration and poor oral intake. 2. Chronic persistent atrial fibrillation with rapid ventricular response, anticoagulated 3. Acute renal injury 4. Prior history of hypertension 5. Poor oral intake and malnutrition 6. Probable UTI 7. History of alcohol intake Plan: Continue on the metoprolol for now and heart rates appear better controlled. Majority of RVR likely related to underlying process, dehydration plus or minus sepsis. Continue with hydration however monitor closely and may eventually need diuretics. Continue supportive care. Prognosis guarded. Nurse practitioner note has been reviewed, I agree with the documented findings and plan of care. Patient was seen and examined. Objective - Vital Signs Vital signs: Vital Signs Temp 97.9 F 12/19/22 08:00 Pulse 118 H 12/19/22 12:00 Resp 16 12/19/22 12:00 BP 132/91 12/19/22 12:00 Pulse Ox 98 12/19/22 12:00 FiO2 Intake & Output 12/18/22 12/19/22 12/19/22 18:59 06:59 18:59 Intake Total 1360 1240 Output Total 480 Balance 880 1240 Intake: IV 760 Sodium Chloride 0.9% 1, 760 000 ml @ 100 mls/hr IV . Q10H [facility] Rx#:[id number] Oral 600 1240 Output: Urine 480 Other: Voiding Method Indwelling Catheter Indwelling Catheter Indwelling Catheter - Labs CBC & Chem 7: 12/19/22 09:52 12/19/22 09:52 Labs: Abnormal Lab Results - Last 24 Hours (Table) 12/19/22 12/19/22 Range/Units 09:52 09:52 RBC 3.04 L (3.80-5.40) m/uL Hgb 9.5 L (11.4-16.0) gm/dL Hct 32.4 L (34.0-46.0) % MCV 106.5 H (80.0-100.0) fL MCHC 29.3 L (31.0-37.0) g/dL Chloride 114 H (98-107) mmol/L Carbon Dioxide 18 L (22-30) mmol/L Creatinine 1.08 H (0.52-1.04) mg/dL Calcium 7.8 L (8.4-10.2) mg/dL Microbiology - Last 24 Hours (Table) 12/15/22 15:00 Urine Culture - Preliminary Urine,Catheterized 12/15/22 20:25 Blood Culture - Preliminary Blood
--- NOTE | 2022-12-19 15:07 | P.PN ---
Subjective Progress Note Date: 12/19/22 Principal diagnosis: Hypotension and acute kidney injury This is a 77-year-old female patient who came into the emergency, lethargic, dehydrated, confused and in atrial fibrillation with rapid ventricular response. The patient was also hypotensive, not eating and drinking. She has become progressively more debilitated. She was discharged from our hospital on 11/23/2022. She is known to have chronic atrial fibrillation and she has undergone previous ablations and cardioversion is a total essentially unsuccessful and the patient has remained in chronic itch of fibrillation. The patient has also undergone a total hip arthroplasty and since then her health has been gradually declining requiring frequent hospitalizations. During the last hospital admission, the patient was encephalopathic and she was treated for an underlying UTI and chronic atrial fibrillation and she was discharged to [facility]. Her health is a progressively declining since.. Noted the patient had a fall at home sustained a right total hip fracture with subsequent arthroplasty.. She has also issues with polypharmacy and generalized debility. In the emergency department, the patient was found to be hypotensive. She was in atrial fibrillation with rapid ventricular response. She was initially placed on 100% nonrebreather facemask and subsequently weaned down to oxygen at 4 L for now. Her chest x-ray was essentially clear. Rest of the blood work showed severe lactic acidosis. Lactic acid level is 1.1 at the time of admission. She had an acute kidney injury with a BUN of 29 and a creatinine of 2.2 and his sodium level was at 136 with a potassium level of 4.4. A TSH was 11.9 and her free T4 was elevated at 3.28. Note that she was taken amiodarone on outpatient basis. LFTs were also normal with an AST of 71, ALP of 52 and a alkaline phosphatase of 222. Troponin was at 0.03. ProBNP level was 3820. White cell count was at 7.5 came up to 15.6 and this morning is down to 11.0. Hemoglobin was 12.5.of 10.4 and a platelet count of essentially within normal. UA showing 56 WBCs, no RBCs. Had previous urine culture from 10/26/2022 was positive for E. coli. CAT scan of the brain was done in the emergency department that showed no acute process. No evidence of any cervical spine. There is moderate multilevel degenerative changes in her C-spine. At the same time, the chest x-ray was done that showed no acute abnormalities. EKG was consistent with chronic atrial fibrillation and Q waves over the anterior leads. The patient has had a previous echocardiogram on 10/30/2022 that showed a normal LV function, moderate degree of pulmonary hypertension and moderate degree of mitral regurgitation. Had right ventricular systolic pressure was estimated to be 52 mmHg. Since yesterday, the patient was given IV fluids a total of 20 L. Subsequent lactic acid level is down to 1.5. Her atrial fibrillation is improved and she is less tachycardic compared to yesterday. Normal saline is still running at a rate of 130 mL an hour. Serum bicarb is up to 20. She is calm and comfortable, confused. Surgical wound over the right hip is clean and intact. No open wounds or sores Patient was seen today 12/17/2022, remains in the ICU. She was seen by Dr. Page yesterday on consultation. Patient presented with hypotension, possible acute urinary tract infection and dehydration, generalized medical debility, acute kidney injury, altered mental status with acute metabolic encephalopathy, chronic atrial fibrillation, severe lactic acidosis, patient continues to have IV fluid at 1 50 mL/h, she received already 3-1/2 L, her electrolytes are normal except for low potassium of 2.9, remains a bit acidotic with a bicarb of 15, BUN is 28 creatinine 1.81. Lactic acid is down to 1.5. This was as high as 12.1 on admission admission back on . Clinically t he patient is feeling better, remains on antibiotics in the form of Rocephin, she is also on Xarelto for her atrial fibrillation, no cultures are available so far. These are pending Patient was reevaluated today on 12/18/2022, remains in the ICU, presently on room air, her IV fluid is at 1 50 mL/h, intermittently in atrial fibrillation with RVR, she has good urine output about 40 ML's per hour. Remains on Rocephin she is also on Xarelto. Cut down her IV fluid down to 100 mL per hour. And I plan to transfer the patient to [facility]. WBC count is 5.6 hemoglobin is 9.1. Platelets are normal. Electrolytes are normal BUN is 21 creatinine coming down to 1.40 slightly acidotic with bicarb of 17 but improving. Blood cultures remain negative so far. Urine cultures are pending. Remains empirically on Rocephin for presumptive UTI. Reevaluated today on 12/19/2022, patient is now on the medical floor, doing well, relatively asymptomatic, overall she is feeling better, she does have a poor appetite. Renal functioning continues to steadily improve, her creatinine is down to 1.08, it was as high as 2.24 on admission. Blood cultures remain negative, and urine cultures remain negative, WBC is 4.8 hemoglobin is 9.5 electrodes are normal. Objective - Vital Signs Vital signs: Vital Signs Temp 97.9 F 12/19/22 08:00 Pulse 118 H 12/19/22 12:00 Resp 16 12/19/22 12:00 BP 132/91 12/19/22 12:00 Pulse Ox 98 12/19/22 12:00 FiO2 Intake & Output 12/18/22 12/19/22 12/19/22 18:59 06:59 18:59 Intake Total 1360 1714 Output Total 480 Balance 880 1714 Intake: IV 760 Sodium Chloride 0.9% 1, 760 000 ml @ 100 mls/hr IV . Q10H [facility] Rx#:[id number] Oral 600 1714 Output: Urine 480 Other: Voiding Method Indwelling Catheter Indwelling Catheter Indwelling Catheter - Exam Physical Exam: Revealed a 77-year-old female in no distress. On room air, O2 sats is 97% HEENT:[Neck is supple.] [No neck masses.] [No thyromegaly.] [No JVD.] Chest: [Clear throughout, no crackles, no rhonchi, no wheezes.] Cardiac Exam: [Normal S1 and S2, no S3 gallop, no murmur.] Abdomen: [Soft, nontender, no megaly, no rebound, no guarding, normal bowel sounds.] Extremities: [No clubbing, no edema, no cyanosis.] Neurological Exam: [No focal neurologic deficit.] More alert, and she was wide she was in the ICU and more oriented. Psychiatric: Normal mood, flat affect, Skin: No rashes. - Labs CBC & Chem 7: 12/19/22 09:52 12/19/22 09:52 Labs: Abnormal Lab Results - Last 24 Hours (Table) 06/07/23 06/07/23 Range/Units 09:52 09:52 RBC 3.04 L (3.80-5.40) m/uL Hgb 9.5 L (11.4-16.0) gm/dL Hct 32.4 L (34.0-46.0) % MCV 106.5 H (80.0-100.0) fL MCHC 29.3 L (31.0-37.0) g/dL Chloride 114 H (98-107) mmol/L Carbon Dioxide 18 L (22-30) mmol/L Creatinine 1.08 H (0.52-1.04) mg/dL Calcium 7.8 L (8.4-10.2) mg/dL Microbiology - Last 24 Hours (Table) 12/15/22 20:25 Blood Culture - Preliminary Blood 12/15/22 15:00 Urine Culture - Preliminary Urine,Catheterized Assessment and Plan Assessment: Impression: Hypotension with evidence of dehydration on presentation. Probable urinary tract infection cultures have been negative Possible urosepsis Acute kidney injury, cultures have been negative so far. resolved. Hypotension secondary to urosepsis, resolved. Paroxysmal atrial fibrillation with RVR, on beta blockers and Xarelto Hyperthyroidism suspect secondary to polypharmacy and medication noncompliance History of hypothyroidism Recent right total hip arthroplasty Generalized medical debility with weakness dehydration and acute renal failure Acute metabolic toxic encephalopathy Severe lactic acidosis on his initial presentation Benign essential hypertension Dyslipidemia hepatic steatosis without any hepatocellular disease, and elevated liver enzymes History of alcoholism Recommendation: Continue Rocephin Continue Xarelto Check final cultures of urine and blood. GI and DVT prophylaxis Hold Synthroid for now Consider discharge planning/placement. We'll continue to follow. Time with Patient: Less than 30
[2022-12-19] MEDS: MELATONIN 3 MG TABLET PO SCH (21:07)
[2022-12-19] MEDS: RIVAROXABAN 15 MG TAB PO SCH (21:07)
[2022-12-19] MEDS: ACETAMINOPHEN TAB 325 MG TAB PO PRN (21:09)
[2022-12-20] MEDS: PANTOPRAZOLE 40 MG/10 ML VIAL IVP SCH ×2 (08:47→19:55)
[2022-12-20] MEDS: busPIRone HCl 5 MG TAB PO SCH ×2 (08:48→19:55)
[2022-12-20] MEDS: VENLAFAXINE HCL ER 75 MG CAP PO SCH (08:49)
[2022-12-20] MEDS: THIAMINE 100 MG TAB PO SCH (08:49)
[2022-12-20] MEDS: METOPROLOL TARTRATE 25 MG TAB PO SCH ×2 (08:50→19:55)
[2022-12-20] MEDS: NYSTATIN 100,000 UNIT/GM POWD 15 GM TOPICAL SCH ×2 (08:55→19:55)
--- NOTE | 2022-12-20 09:48 | CDI ---
Documentation Clarification Form Date: 12/20/2022 09:13:02 AM From: Hetal Travis RN CCDS Phone: [phone] Admit Date: 12/15/2022 05:56:00 PM Patient Name: Lizet He Visit Number: [id number] Discharge Date: ATTENTION: The Clinical Documentation Specialists (CDI) and [facility] Coding Staff appreciate your assistance in clarifying documentation. Please respond to the clarification below the line at the bottom and electronically sign. The CDI & [facility] Coding staff will review the response and follow-up if needed. Please note: Queries are made part of the Legal Health Record. If you have any questions, please contact the author of this message via ITS. Dr. Peewee James, The patient has presumed sepsis, Medicine note, 12/17. Based on this information and the findings below, is there an additional diagnosis that is clinically appropriate for this patient? History/Risk Factors: 77-year-old female presents to the ED after a fall at home and generalized weakness. Recent right total hip arthroplasty and discharged from [facility] approximately one week before admission. Medical History: HTN , Atrial fibrillation. Sleep apnea and OA. 12/15, H&P. Clinical Indicators: WBC: 12/15 7.5; 12/15 15.6; Lactic acid: 12/15 12.1; 12/15 6.3 Creatinine 2.24 UA: 12/15 Appearance Cloudy; Leukocyte Esterase Large; Wbc 56; Urine bacteria Few; Hyaline Casts 1 Blood cultures: Negative UA Cultures: Negative Vitals signs: 12/15 B/P 81/36; HR 66; Temp 97.0 F Oral; RR 36; SpO2 97% 2L nasal cannula Pulmonary note, 12/17: Hypotension secondary to urosepsis. Treatment: 12/15 6/7 0.9ns 100cc/hr; Antibiotics: 12/16 Ceftriaxone IVPB Q24HR IV Bolus: 12/15 0.9NS 1L bolus x 3; 12/16 0.9NS 1L Bolus Is there an additional diagnosis that is clinically appropriate for this patient? [ x ] Sepsis with Septic Shock present on admission [ ] Other, please specify [ ] Unable to determine SIRS Criteria: 2 or more of the following may indicate SIRS Temperature < 96.8F (36C) or > 101.0F (38.3C) Heart Rate > 90 bpm Respiratory Rate > 20 breaths/min or PaCO2 < 32 mmHg White Blood Cell Count > 12,000 or < 4,000 cells/mm3 or > 10% bands (Template Last Reviewed: July 2022) MTDD
--- NOTE | 2022-12-20 12:13 | P.PN ---
Subjective Progress Note Date: 12/20/22 Hospital Course: 77-year-old woman with a history of paroxysmal atrial fibrillation, hyp ertension, hyperlipidemia, hypothyroidism, recent right total hip arthroplasty presented for evaluation after a fall at home with generalized weakness. In the emergency room, patient was afebrile, blood pressure between 72-114/44-80, heart rates oscillating between 110-140, 91% on nonrebreather. CBC shows thrombocytosis to 575, hemoglobin and white blood cell count are within normal limits. Basic metabolic panel shows hyponatremia to 136, CO2 of 12, BUN of 29, creatinine 2.24, anion gap of 25; creatinine is increased from 0.78 baseline. Liver function tests demonstrated total bilirubin of 1.4, AST of 71, ALT 52, alkaline phosphatase of 222, albumin of 3. Lactic acid is 12.1. TSH was 11.9, free T4 is 3.28 coags demonstrated an elevated INR of 1.3. D-dimer is 1.93. Lab work from previous hospitalization was also significant for an elevated thyroid peroxidase antibody level of 39.8 which is mildly elevated. PH was 7.42 on VBG, pCO2 was 22. EKG shows atrial fibrillation with a rate of 134, left axis deviation, T-wave inversions in leads 1, aVL, difficult to exclude ST changes due to wandering baseline. Chest x-ray shows clear parenchyma bilaterally, cardiomegaly with evidence of left atrial enlargement, tortuous aorta, no obvious evidence of pneumonia, infiltrate, heart failure. Patient was admitted to the intensive care unit for elevated lactate, paroxysmal atrial fibr illation with RVR with borderline blood pressures. Patient was started on continuous IV fluids as well as given multiple boluses. Her lactic acidosis resolved. She remains significantly confused and had intermittent bouts of hypotension along with confusion. UA showed concern for UTI and therefore was started on ceftriaxone for presumed sepsis. Her levothyroxine was held given elevated free T4 across multiple visits. Kidney function improved with IV fluids. Mental status has not improved. Patient is now out of the ICU. pending rehab bed. Subjective: Patient seen and examined at bedside. No acute events overnight. Mental status has normalized. Complaining of tiredness. Denies any other complaints. Pertinent positives and negatives as discussed above, a complete review of sys tems was performed and all other systems are negative. Vitals Signs Reviewed. General: nontoxic, no distress, appears at stated age Derm: warm, dry Head: atraumatic, normocephalic, symmetric Eyes: EOMI, no lid lag, anicteric sclera Mouth: no lip lesion, mucus membranes moist Cardiovascular: S1S2 irregular, no murmur Lungs: CTA bilateral, no rhonchi, no rales , no accessory muscle use Abdominal: soft, nontender to palpation, no guarding, no appreciable organomegaly Ext: no gross muscle atrophy, peripheral edema, no contractures, strength 4/5 in all extremities Neuro: CN II-XI grossly intact, no focal neuro deficits Psych: Alert, oriented, appropriate affect Data Reviewed Today: No new labs today Imaging: No new imaging today Urine culture and blood cultures negative growth to date Assessment and Plan: Active: Urinary tract infection, present on admission Paroxysmal atrial fibrillation with rapid ventricular response, now rate controlled Hyperthyroidism suspected to be from polypharmacy/medication noncompliance Acute kidney injury, resolved Hypotension, likely secondary to dehydration versus sepsis History of hypertension History of Hypothyroidism Polypharmacy Generalized weakness -Continue ceftriaxone 1 g IV every 24 hours, continue for 2 more days -Blood cultures and urine cultures no growth to date -For atrial fibrillation, rate is better controlled, maintain on metoprolol 25 mg twice a day -Cardiology following -Continue to hold levothyroxine -Renal function improving, blood pressure improving, IV fluids discontinued -Holding home antihypertensives -Encephalopathy possibly in the setting of polypharmacy, needs further medication reconciliation the time of discharge -PT/OT for generalized weakness Resolved: Lactic acidosis Hypokalemia Acute metabolic encephalopathy Chronic: Status post recent right total hip arthroplasty DVT ppx: Xarelto Code status: No code Anticipated discharge place: Pending rehab bed Anticipated discharge time: Pending clinical course Objective - Vital Signs Vital signs: Vital Signs Temp 98 F 12/19/22 20:00 Pulse 103 H 12/20/22 08:00 Resp 16 12/20/22 08:00 BP 125/81 12/20/22 08:00 Pulse Ox 95 12/20/22 08:00 FiO2 Intake & Output 12/19/22 12/20/22 12/20/22 18:59 06:59 18:59 Intake Total 1950 200 540 Output Total 500 Balance 1950 -300 540 Intake: Oral 1950 200 540 Output: Urine 500 Other: Voiding Method Indwelling Catheter Bedside Commode Bedside Commode Diaper Diaper # Voids 0 0 - Labs CBC & Chem 7: 12/19/22 09:52 12/19/22 09:52 Labs: Microbiology - Last 24 Hours (Table) 12/15/22 20:25 Blood Culture - Preliminary Blood
--- NOTE | 2022-12-20 14:44 | P.PN ---
Subjective Progress Note Date: 12/20/22 History of Present Illness: The patient is a 77-year-old female with history of chronic persistent atrial fibrillation, status post ablation and cardioversion with recurrent atrial fibrillation who fell at home after coming back from rehab. She has not been eating and drinking. On presentation her lactic acid was elevated and she had worsening renal functions. The patient is awake confused at times, she denies any chest discomfort or significant dyspnea. She had a prior admission with UTI and had episodes of confusion. She had an echocardiogram in October that showed an ejection fraction of 50-55% with moderate pulmonary hypertension and moderate mitral regurgitation. She has no history of ischemic heart disease. She denies any history of congestive heart failure. During prior admission she had episode of bradycardia related to her medication. She was a rapid ventricle response on presentation. She has been hypotensive on presentation and has received large amount of fluids. Her lab data revealed worsening of renal functions compared to baseline. Her lactic acid was elevated but better now. Her troponin was 0.032. She had no leukocytosis on presentation Medications: Losartan 50 mg twice a day, Lasix 40 times a week, Xarelto 20 mg daily 12/17 Patient seen and examined. Patient still confused. Lactic acid down to 1. Receiving IV fluids at 120. Blood pressure still borderline in the 90s over 60s and metoprolol has been held. Heart rates 110 to 1:30 range. Denies any chest pain or pressure. States she has a headache and ankle pain however not able to clearly describe any of her symptoms. 12/18 Patient seen and examined. Patient more calm and appears more comfortable today. Heart rates better controlled and she has been receiving metoprolol with still borderline blood pressures in the 90s to 100. Has not needed any vasopressors. Adequate urine output. IV fluids was decreased from 130 down the 100 mL per hour. Still does have 1-2+ lower extremity edema. 12/19 Patient states that she is breathing better today. Family member noticed that she is more awake today. Patient does not remember what brought her into the hospital. She was transferred out of the intensive care unit yesterday and is seen today on the cardiac step unit. Patient is not having much appetite but otherwise no new concerns and is feeling better. Potassium is 3.9, BUN 14 and creatinine 0.8, hemoglobin 9.5. 12/20 Patient states that she feels okay this morning. She is found laying in bed. She was up to the bathroom in the morning. Heart rate is 106. Swelling is improved. Blood pressure 131/83. Physical Examination: Vitals reviewed Head: Normocephalic. Eyes: Sclerae nonicteric. Neck: Good carotid upstroke, no bruit, no jugular venous distention. Lungs: Clear to auscultation. Heart: Irregular rate and rhythm, S1-S2, no S3, no rub. Systolic ejection murmur. Abdomen: Soft nontender, positive bowel sounds no organomegaly. Extremities: 1+ LE edema, intact distal pulses. Impression: 1. Hypotension with worsening renal function and elevated lactic acidosis. Evidence of dehydration and poor oral intake. 2. Chronic persistent atrial fibrillation with rapid ventricular response, anticoagulated 3. Acute renal injury 4. Prior history of hypertension 5. Poor oral intake and malnutrition 6. Probable UTI 7. History of alcohol intake Plan: Continue on the metoprolol for now and heart rates appear better controlled. Continue to hold Lasix at this time and plan to resume as needed Cardiology will sign off and follow on an as-needed basis. Patient to follow-up with her primary director of marketing in 1 week Nurse practitioner note has been reviewed, I agree with the documented findings and plan of care. Patient was seen and examined. Objective - Vital Signs Vital signs: Vital Signs Temp 98 F 12/19/22 20:00 Pulse 103 H 12/20/22 08:00 Resp 16 12/20/22 08:00 BP 125/81 12/20/22 08:00 Pulse Ox 95 12/20/22 08:00 FiO2 Intake & Output 12/19/22 12/20/22 12/20/22 18:59 06:59 18:59 Intake Total 195 200 540 Output Total 500 Balance 1951 -300 540 Intake: Oral 1950 200 540 Output: Urine 500 Other: Voiding Method Indwelling Catheter Bedside Commode Bedside Commode Diaper Diaper # Voids 0 0 - Labs CBC & Chem 7: 12/19/22 09:52 12/19/22 09:52 Labs: Microbiology - Last 24 Hours (Table) 12/15/22 20:25 Blood Culture - Preliminary Blood
[2022-12-20] MEDS: RIVAROXABAN 15 MG TAB PO SCH (19:55)
[2022-12-20] MEDS: MELATONIN 3 MG TABLET PO SCH (19:55)
[2022-12-21] MEDS: METOPROLOL TARTRATE 25 MG TAB PO SCH (01:01)
[2022-12-21] MEDS: PANTOPRAZOLE 40 MG/10 ML VIAL IVP SCH ×2 (09:04→20:18)
[2022-12-21] MEDS: busPIRone HCl 5 MG TAB PO SCH ×2 (09:04→20:17)
[2022-12-21] MEDS: VENLAFAXINE HCL ER 75 MG CAP PO SCH (09:05)
[2022-12-21] MEDS: NYSTATIN 100,000 UNIT/GM POWD 15 GM TOPICAL SCH ×2 (09:05→20:18)
[2022-12-21] MEDS: THIAMINE 100 MG TAB PO SCH (09:05)
[2022-12-21] MEDS: METOPROLOL TARTRATE 50 MG TAB PO SCH ×2 (09:05→20:17)
--- NOTE | 2022-12-21 12:19 | P.PN ---
Subjective Progress Note Date: 12/21/22 Hospital Course: 77-year-old woman with a history of paroxysmal atrial fibrillation, hypertensio n, hyperlipidemia, hypothyroidism, recent right total hip arthroplasty presented for evaluation after a fall at home with generalized weakness. In the emergency room, patient was afebrile, blood pressure between 72-114/44-80, heart rates oscillating between 110-140, 91% on nonrebreather. CBC shows thrombocytosis to 575, hemoglobin and white blood cell count are within normal limits. Basic metabolic panel shows hyponatremia to 136, CO2 of 12, BUN of 29, creatinine 2.24, anion gap of 25; creatinine is increased from 0.78 baseline. Liver function tests demonstrated total bilirubin of 1.4, AST of 71, ALT 52, alkaline phosphatase of 222, albumin of 3. Lactic acid is 12.1. TSH was 11.9, free T4 is 3.28 coags demonstrated an elevated INR of 1.3. D-dimer is 1.93. Lab work from previous hospitalization was also significant for an elevated thyroid peroxidase antibody level of 39.8 which is mildly elevated. PH was 7.42 on VBG, pCO2 was 22. EKG shows atrial fibrillation with a rate of 134, left axis deviation, T-wave inversions in leads 1, aVL, difficult to exclude ST changes due to wandering baseline. Chest x-ray shows clear parenchyma bilaterally, cardiomegaly with evidence of left atrial enlargement, tortuous aorta, no obvious evidence of pneumonia, infiltrate, heart failure. Patient was admitted to the intensive care unit for elevated lactate, paroxysmal atrial fibrillation with RVR with borderline blood pressures. Patient was started on continuous IV fluids as well as given multiple boluses. Her lactic acidosis resolved. She remains significantly confused and had intermittent bouts of hypotension along with confusion. UA showed concern for UTI and therefore was started on ceftriaxone for presumed sepsis. Her levothyroxine was held given elevated free T4 across multiple visits. Kidney function improved with IV fluids. Mental status has not improved. Patient is now out of the ICU. pending rehab bed. Was tachycardic again, metoprolol increased. Subjective: Patient seen and examined at bedside. has been tachycardic again. Mental status has normalized. Complaining of tiredness. Denies any other complaints. Pertinent positives and negatives as discussed above, a complete review of systems was performed and all other systems are negative. Vitals Signs Reviewed. General: nontoxic, no distress, appears at stated age Derm: warm, dry Head: atraumatic, normocephalic, symmetric Eyes: EOMI, no lid lag, anicteric sclera Mouth: no lip lesion, mucus membranes moist Cardiovascular: S1S2 irregular, no murmur, tachycardic Lungs: CTA bilateral, no rhonchi, no rales , no accessory muscle use Abdominal: soft, nontender to palpation, no guarding, no appreciable organomegaly Ext: no gross muscle atrophy, peripheral edema, no contractures, strength 4/5 in all extremities Neuro: CN II-XI grossly intact, no focal neuro deficits Psych: Alert, oriented, appropriate affect Data Reviewed Today: No new labs today Imaging: No new imaging today Urine culture and blood cultures negative growth to date Assessment and Plan: Active: Urinary tract infection, present on admission Paroxysmal atrial fibrillation with rapid ventricular response Hyperthyroidism suspected to be from polypharmacy/medication noncompliance Acute kidney injury, resolved Hypotension, likely secondary to dehydration versus sepsis, now resolved History of hypertension History of Hypothyroidism Polypharmacy Generalized weakness -Continue ceftriaxone 1 g IV every 24 hours, continue for 1 more days -Blood cultures and urine cultures no growth to date -For atrial fibrillation, metoprolol increased to 50 mg BID -Cardiology signed off -Continue to hold levothyroxine -Renal function improving, blood pressure improving, IV fluids discontinued -Holding home antihypertensives Resolved: Lactic acidosis Hypokalemia Acute metabolic encephalopathy Chronic: Status post recent right total hip arthroplasty DVT ppx: Xarelto Code status: No code Anticipated discharge place: Pending rehab bed Anticipated discharge time: likely saturday Objective - Vital Signs Vital signs: Vital Signs Temp 97.4 F L 12/21/22 12:00 Pulse 87 12/21/22 12:00 Resp 18 12/21/22 12:00 BP 117/88 12/21/22 12:00 Pulse Ox 93 L 12/21/22 12:00 FiO2 Intake & Output 12/20/22 12/21/22 12/21/22 18:59 06:59 18:59 Intake Total 780 120 Balance 780 120 Intake: Oral 780 120 Other: Voiding Method Bedside Commode Bedside Commode Bedside Commode Diaper Diaper Diaper # Voids 0 2 - Labs CBC & Chem 7: 12/19/22 09:52 12/19/22 09:52
[2022-12-21 13:22] VITALS: BMI 33.3
[2022-12-21] MEDS: RIVAROXABAN 15 MG TAB PO SCH (20:18)
[2022-12-21] MEDS: MELATONIN 3 MG TABLET PO SCH (20:18)
[2022-12-22] MEDS: THIAMINE 100 MG TAB PO SCH (08:43)
[2022-12-22] MEDS: NYSTATIN 100,000 UNIT/GM POWD 15 GM TOPICAL SCH ×2 (08:43→19:51)
[2022-12-22] MEDS: METOPROLOL TARTRATE 50 MG TAB PO SCH ×2 (08:43→19:50)
[2022-12-22] MEDS: busPIRone HCl 5 MG TAB PO SCH ×2 (08:43→19:50)
[2022-12-22] MEDS: VENLAFAXINE HCL ER 75 MG CAP PO SCH (08:44)
[2022-12-22] MEDS: PANTOPRAZOLE 40 MG/10 ML VIAL IVP SCH ×3 (09:42→19:53)
--- NOTE | 2022-12-22 12:36 | P.PN ---
Subjective Progress Note Date: 12/22/22 Hospital Course: 77-year-old woman with a history of paroxysmal atrial fibrillation, hype rtension, hyperlipidemia, hypothyroidism, recent right total hip arthroplasty presented for evaluation after a fall at home with generalized weakness. In the emergency room, patient was afebrile, blood pressure between 72-114/44-80, heart rates oscillating between 110-140, 91% on nonrebreather. CBC shows thrombocytosis to 575, hemoglobin and white blood cell count are within normal limits. Basic metabolic panel shows hyponatremia to 136, CO2 of 12, BUN of 29, creatinine 2.24, anion gap of 25; creatinine is increased from 0.78 baseline. Liver function tests demonstrated total bilirubin of 1.4, AST of 71, ALT 52, alkaline phosphatase of 222, albumin of 3. Lactic acid is 12.1. TSH was 11.9, free T4 is 3.28 coags demonstrated an elevated INR of 1.3. D-dimer is 1.93. Lab work from previous hospitalization was also significant for an elevated thyroid peroxidase antibody level of 39.8 which is mildly elevated. PH was 7.42 on VBG, pCO2 was 22. EKG shows atrial fibrillation with a rate of 134, left axis deviation, T-wave inversions in leads 1, aVL, difficult to exclude ST changes due to wandering baseline. Chest x-ray shows clear parenchyma bilaterally, cardiomegaly with evidence of left atrial enlargement, tortuous aorta, no obvious evidence of pneumonia, infiltrate, heart failure. Patient was admitted to the intensive care unit for elevated lactate, paroxysmal atrial fibrillation with RVR with borderline blood pressures. Patient was started on continuous IV fluids as well as given multiple boluses. Her lactic acidosis resolved. She remains significantly confused and had intermittent bouts of hypotension along with confusion. UA showed concern for UTI and therefore was started on ceftriaxone for presumed sepsis. Her levothyroxine was held given elevated free T4 across multiple visits. Kidney function improved with IV fluids. Mental status has not improved. Patient is now out of the ICU. Was tachycardic again, metoprolol increased. Now rate controlled. Pending rehab. Subjective: Patient seen and examined at bedside. Mental status has normalized. Complaining of tiredness. Denies any other complaints. Pertinent positives and negatives as discussed above, a complete review of systems was performed and all other systems are negative. Vitals Signs Reviewed. General: nontoxic, no distress, appears at stated age Derm: warm, dry Head: atraumatic, normocephalic, symmetric Eyes: EOMI, no lid lag, anicteric sclera Mouth: no lip lesion, mucus membranes moist Cardiovascular: S1S2 irregular, no murmur Lungs: CTA bilateral, no rhonchi, no rales , no accessory muscle use Abdominal: soft, nontender to palpation, no guarding, no appreciable org anomegaly Ext: no gross muscle atrophy, peripheral edema, no contractures, strength 4/5 in all extremities Neuro: CN II-XI grossly intact, no focal neuro deficits Psych: Alert, oriented, appropriate affect Data Reviewed Today: No new labs today Imaging: No new imaging today Urine culture and blood cultures negative growth to date Assessment and Plan: Active: Urinary tract infection, present on admission Paroxysmal atrial fibrillation with rapid ventricular response, now rate controlled Hyperthyroidism suspected to be from polypharmacy/medication noncompliance Acute kidney injury, resolved Hypotension, likely secondary to dehydration versus sepsis, now resolved History of hypertension History of Hypothyroidism Polypharmacy Generalized weakness -Complete a course of ceftriaxone -Blood cultures and urine cultures no growth to date -For atrial fibrillation, metoprolol at 50 mg BID -Cardiology signed off -Continue to hold levothyroxine -Renal function improving, blood pressure improving, IV fluids discontinued -Holding home antihypertensives Resolved: Lactic acidosis Hypokalemia Acute metabolic encephalopathy Chronic: Status post recent right total hip arthroplasty DVT ppx: Xarelto Code status: No code Anticipated discharge place: Pending rehab bed Anticipated discharge time: likely saturday Objective - Vital Signs Vital signs: Vital Signs Temp 98.1 F 12/22/22 08:30 Pulse 111 H 12/22/22 08:30 Resp 17 12/22/22 08:30 BP 120/79 12/22/22 08:30 Pulse Ox 98 12/22/22 08:30 FiO2 Intake & Output 12/21/22 12/22/22 12/22/22 18:59 06:59 18:59 Intake Total 360 240 0 Balance 360 240 0 Weight 91 kg Intake: Oral 360 240 0 Other: Voiding Method Bedside Commode Bedside Commode Bedside Commode Diaper Diaper Diaper # Voids 1 1 - Labs CBC & Chem 7: 12/19/22 09:52 12/19/22 09:52
[2022-12-22] MEDS: RIVAROXABAN 15 MG TAB PO SCH (19:50)
[2022-12-22] MEDS: MELATONIN 3 MG TABLET PO SCH (19:50)
[2022-12-23] MEDS: METOPROLOL TARTRATE 50 MG TAB PO SCH ×2 (08:04→19:47)
[2022-12-23] MEDS: THIAMINE 100 MG TAB PO SCH (08:05)
[2022-12-23] MEDS: busPIRone HCl 5 MG TAB PO SCH ×2 (08:05→19:47)
[2022-12-23] MEDS: NYSTATIN 100,000 UNIT/GM POWD 15 GM TOPICAL SCH ×2 (08:06→19:49)
[2022-12-23] MEDS: VENLAFAXINE HCL ER 75 MG CAP PO SCH (09:06)
[2022-12-23] MEDS: PANTOPRAZOLE 40 MG/10 ML VIAL IVP SCH ×2 (09:12→19:47)
--- NOTE | 2022-12-23 10:41 | P.PN ---
Subjective Progress Note Date: 12/23/22 Hospital Course: 77-year-old woman with a history of paroxysmal atrial fibrillation, hyp ertension, hyperlipidemia, hypothyroidism, recent right total hip arthroplasty presented for evaluation after a fall at home with generalized weakness. In the emergency room, patient was afebrile, blood pressure between 72-114/44-80, heart rates oscillating between 110-140, 91% on nonrebreather. CBC shows thrombocytosis to 575, hemoglobin and white blood cell count are within normal limits. Basic metabolic panel shows hyponatremia to 136, CO2 of 12, BUN of 29, creatinine 2.24, anion gap of 25; creatinine is increased from 0.78 baseline. Liver function tests demonstrated total bilirubin of 1.4, AST of 71, ALT 52, alkaline phosphatase of 222, albumin of 3. Lactic acid is 12.1. TSH was 11.9, free T4 is 3.28 coags demonstrated an elevated INR of 1.3. D-dimer is 1.93. Lab work from previous hospitalization was also significant for an elevated thyroid peroxidase antibody level of 39.8 which is mildly elevated. PH was 7.42 on VBG, pCO2 was 22. EKG shows atrial fibrillation with a rate of 134, left axis deviation, T-wave inversions in leads 1, aVL, difficult to exclude ST changes due to wandering baseline. Chest x-ray shows clear parenchyma bilaterally, cardiomegaly with evidence of left atrial enlargement, tortuous aorta, no obvious evidence of pneumonia, infiltrate, heart failure. Patient was admitted to the intensive care unit for elevated lactate, paroxysmal atrial fibr illation with RVR with borderline blood pressures. Patient was started on continuous IV fluids as well as given multiple boluses. Her lactic acidosis resolved. She remained significantly confused and had intermittent bouts of hypotension along with confusion. UA showed concern for UTI and therefore was started on ceftriaxone for presumed sepsis, now completed course. Her levothyroxine was held given elevated free T4 across multiple visits. Kidney function improved with IV fluids. Mental status has now improved, back to baseline. Patient is now out of the ICU. Was pending discharge but became tachycardic again, metoprolol increased. Now rate controlled. Pending rehab placement. Subjective: Patient seen and examined at bedside. No acute events overnight. Denies any other complaints. Pertinent positives and negatives as discussed above, a complete review of systems was performed and all other systems are negative. Vitals Signs Reviewed. General: nontoxic, no distress, appears at stated age Derm: warm, dry Head: atraumatic, normocephalic, symmetric Eyes: EOMI, no lid lag, anicteric sclera Mouth: no lip lesion, mucus membranes moist Cardiovascular: S1S2 irregular, no murmur Lungs: CTA bilateral, no rhonchi, no rales , no accessory muscle use Abdominal: soft, nontender to palpation, no guarding, no appreciable organomegaly Ext: no gross muscle atrophy, peripheral edema, no contractures, strength 4/5 in all extremities Neuro: CN II-XI grossly intact, no focal neuro deficits Psych: Alert, oriented, appropriate affect Data Reviewed Today: No new labs today Imaging: No new imaging today Urine culture positive for Enterobacter and blood cultures negative growth to date Assessment and Plan: Active: Paroxysmal atrial fibrillation with rapid ventricular response, now rate controlled Hyperthyroidism suspected to be from polypharmacy/medication noncompliance History of Hypothyroidism History of hypertension Polypharmacy Generalized weakness -For atrial fibrillation, metoprolol at 50 mg BID -Cardiology signed off -Continue to hold levothyroxine -Holding home antihypertensives -Pending rehab Resolved: Lactic acidosis Hypokalemia Acute metabolic encephalopathy Urinary tract infection, present on admission Acute kidney injury Hypotension in the setting of dehydration versus sepsis Chronic: Status post recent right total hip arthroplasty DVT ppx: Xarelto Code status: No code Anticipated discharge place: Pending rehab bed Anticipated discharge time: likely saturday Objective - Vital Signs Vital signs: Vital Signs Temp 98.6 F 12/23/22 07:40 Pulse 96 12/23/22 07:40 Resp 18 12/23/22 07:40 BP 113/64 12/23/22 07:40 Pulse Ox 96 12/23/22 07:40 FiO2 Intake & Output 12/22/22 12/23/22 12/23/22 18:59 06:59 18:59 Intake Total 0 0 Output Total 400 Balance 0 -400 0 Intake: Oral 0 0 Output: Urine 400 Other: Voiding Method Bedside Commode Bedside Commode Bedside Commode Diaper Diaper Diaper # Voids 1 - Labs CBC & Chem 7: 12/19/22 09:52 12/19/22 09:52 Labs: Microbiology - Last 24 Hours (Table) 12/15/22 15:00 Urine Culture - Preliminary Urine,Catheterized Enterobacter cloacae Enterobacter cloacae#2 12/15/22 20:25 Blood Culture - Final Blood
[2022-12-23] MEDS: MELATONIN 3 MG TABLET PO SCH (19:47)
[2022-12-23] MEDS: RIVAROXABAN 15 MG TAB PO SCH (19:47)
[2022-12-24] MEDS: THIAMINE 100 MG TAB PO SCH (10:51)
[2022-12-24] MEDS: busPIRone HCl 5 MG TAB PO SCH ×2 (10:51→21:14)
[2022-12-24] MEDS: PANTOPRAZOLE 40 MG/10 ML VIAL IVP SCH ×3 (10:51→21:14)
[2022-12-24] MEDS: VENLAFAXINE HCL ER 75 MG CAP PO SCH (10:51)
[2022-12-24] MEDS: METOPROLOL TARTRATE 50 MG TAB PO SCH ×2 (12:50→21:14)
--- NOTE | 2022-12-24 13:50 | P.PN ---
Subjective Progress Note Date: 12/24/22 Pt has no complaints today. HRs stable. Gen: in no apparent distress, resting comfortably in bed Eyes: PERRL, no scleral injection or icterus HENT: normocephalic, atraumatic, good hearing acuity, moist mucous membranes Neck: no tracheal deviation, full range of motion Resp: good air exchange, breathing comfortably with no accessory muscle use, no tactile fremitus, no appreciable crackles or wheezing CVS: good distal perfusion x 4, trace pitting edema, JVD is present, heart rate is irregular and tachycardic, without murmurs appreciable GI: soft, NTTP, ND, no hepatosplenomegaly : no suprapubic tenderness, no CVAT, romero catheter not present MSK: no clubbing, no cyanosis, no noted contractures of extremities, dusky toes bilaterally Skin: no noted rashes, petechiae; temperature of skin is appropriate Neuro: moving all extremities without signs of weakness, CN II-XII intact Hospital Course: 77-year-old woman with a history of paroxysmal atrial fibrillation, hypertension, hyperlipidemia, hypothyroidism, recent right total hip arthroplasty presented for evaluation after a fall at home with generalized weakness. In the emergency room, patient was afebrile, blood pressure between 72-114/44-80, heart rates oscillating between 110-140, 91% on nonrebreather. CBC shows thrombocytosis to 575, hemoglobin and white blood cell count are within normal limits. Basic metabolic panel shows hyponatremia to 136, CO2 of 12, BUN of 29, creatinine 2.24, anion gap of 25; creatinine is increased from 0.78 baseline. Liver function tests demonstrated total bilirubin of 1.4, AST of 71, ALT 52, alkaline phosphatase of 222, albumin of 3. Lactic acid is 12.1. TSH was 11.9, free T4 is 3.28 coags demonstrated an elevated INR of 1.3. D- dimer is 1.93. Lab work from previous hospitalization was also significant for an elevated thyroid peroxidase antibody level of 39.8 which is mildly elevated. PH was 7.42 on VBG, pCO2 was 22. EKG shows atrial fibrillation with a rate of 134, left axis deviation, T-wave inversions in leads 1, aVL, difficult to exclude ST changes due to wandering baseline. Chest x-ray shows clear parenchyma bilaterally, cardiomegaly with evidence of left atrial enlargement, tortuous aorta, no obvious evidence of pneumonia, infiltrate, heart failure. Case was discussed extensively with the emergency room provider and decision was made to admit the patient to the intensive care unit for elevated lactate, paroxysmal atrial fibrillation with RVR with borderline blood pressures. Patient was started on continuous IV fluids as well as given multiple boluses. Her lactic acidosis resolved. She remains significantly confused and had intermittent bouts of hypotension along with confusion. UA showed concern for UTI and therefore was started on ceftriaxone for presumed sepsis. Her levothyroxine was held given elevated free T4 across multiple visits. Kidney function improved with IV fluids. Assessment: Paroxysmal atrial fibrillation with rapid ventricular response Hyperthyroidism suspected to be from polypharmacy/medication noncompliance Acute kidney injury Hypertension Hyperlipidemia Hypothyroidism Polypharmacy Status post recent right total hip arthroplasty Plan: Today, patient is 86/54, heart rate 93, 98% on room air UCx reviewed, CRE felt to be contaminant given clinical improvement in patient condition Continue patient on metoprolol 50 mg twice a day Continue Donaldo Will not repeat echocardiogram due to her having one recently in October Hold levothyroxine until repeat labs in 6 weeks Completed ceftriaxone course Pt is No code Objective - Vital Signs Vital signs: Vital Signs Temp 97.9 F 12/24/22 08:10 Pulse 93 12/24/22 08:10 Resp 17 12/24/22 08:10 BP 86/54 12/24/22 08:10 Pulse Ox 94 L 12/24/22 09:33 FiO2 Intake & Output 12/23/22 12/24/22 12/24/22 18:59 06:59 18:59 Intake Total 0 Output Total 100 Balance 0 -100 Intake: Oral 0 Output: Urine 100 Other: Voiding Method Bedside Commode Bedside Commode Diaper Diaper - Labs CBC & Chem 7: 12/19/22 09:52 12/19/22 09:52
[2022-12-24] MEDS: NYSTATIN 100,000 UNIT/GM POWD 15 GM TOPICAL SCH ×2 (17:09→23:40)
[2022-12-24] MEDS: MELATONIN 3 MG TABLET PO SCH (21:14)
[2022-12-24] MEDS: RIVAROXABAN 15 MG TAB PO SCH (21:14)
[2022-12-24] MEDS: ACETAMINOPHEN TAB 325 MG TAB PO PRN (23:39)
[2022-12-25] MEDS: PANTOPRAZOLE 40 MG/10 ML VIAL IVP SCH (08:58)
[2022-12-25] MEDS: METOPROLOL TARTRATE 50 MG TAB PO SCH (09:02)
[2022-12-25] MEDS: THIAMINE 100 MG TAB PO SCH (09:02)
[2022-12-25] MEDS: VENLAFAXINE HCL ER 75 MG CAP PO SCH (09:02)
[2022-12-25] MEDS: NYSTATIN 100,000 UNIT/GM POWD 15 GM TOPICAL SCH (09:02)
[2022-12-25] MEDS: busPIRone HCl 5 MG TAB PO SCH (09:02)
--- NOTE | 2022-12-25 13:40 | P.DS ---
Providers Date of admission: 12/15/22 17:56 Expected date of discharge: 12/25/22 Attending physician: Danielle Sanchez MD Consults: 12/15/22 17:56 Consult Physician Urgent Consulting Provider: [facility] Consult Reason/Comments: afib with rvr Do you want consulting provider notified?: Yes 12/15/22 18:04 Consult Physician Stat Consulting Provider: Apurva Page Consult Reason/Comments: acute encephalopathy, afib with rvr, yoli Do you want consulting provider notified?: Already Contacted Primary care physician: Benjamin Eric [facility] Course: Assessment: Paroxysmal atrial fibrillation with rapid ventricular response Hyperthyroidism suspected to be from polypharmacy/medication noncompliance Acute kidney injury Hypertension Hyperlipidemia Hypothyroidism Polypharmacy Status post recent right total hip arthroplasty Hospital Course: 77-year-old woman with a history of paroxysmal atrial fibrillation, hypertension, hyperlipidemia, hypothyroidism, recent right total hip arthroplasty presented for evaluation after a fall at home with generalized weakness. In the emergency room, patient was afebrile, blood pressure between 72-114/44-80, heart rates oscillating between 110-140, 91% on nonrebreather. CBC shows thrombocytosis to 575, hemoglobin and white blood cell count are within normal limits. Basic metabolic panel shows hyponatremia to 136, CO2 of 12, BUN of 29, creatinine 2.24, anion gap of 25; creatinine is increased from 0.78 baseline. Liver function tests demonstrated total bilirubin of 1.4, AST of 71, ALT 52, alkaline phosphatase of 222, albumin of 3. Lactic acid is 12.1. TSH was 11.9, free T4 is 3.28 coags demonstrated an elevated INR of 1.3. D- dimer is 1.93. Lab work from previous hospitalization was also significant for an elevated thyroid peroxidase antibody level of 39.8 which is mildly elevated. PH was 7.42 on VBG, pCO2 was 22. EKG shows atrial fibrillation with a rate of 134, left axis deviation, T-wave inversions in leads 1, aVL, difficult to exclude ST changes due to wandering baseline. Chest x-ray shows clear parenchyma bilaterally, cardiomegaly with evidence of left atrial enlargement, tortuous aorta, no obvious evidence of pneumonia, infiltrate, heart failure. Case was discussed extensively with the emergency room provider and decision was made to admit the patient to the intensive care unit for elevated lactate, paroxysmal atrial fibrillation with RVR with borderline blood pressures. Patient was started on continuous IV fluids as well as given multiple boluses. Her lactic acidosis resolved. She remains significantly confused and had intermittent bouts of hypotension along with confusion. UA showed concern for UTI and therefore was started on ceftriaxone for presumed sepsis. Her levo thyroxine was held given elevated free T4 across multiple visits. Kidney function improved with IV fluids. Patient's hypotension and urinary tract infection improved with IV fluids and antibiotics. 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 Patient was discharged to rehab for further management. She was instructed to stop levothyroxine supplementation for another 4 weeks, obtain repeat thyroid function tests at that time to determine appropriate levothyroxine dosing. I spent 40 minutes coordinating this discharge on 12/25 Gen: in no apparent distress, resting comfortably in bed Eyes: PERRL, no scleral injection or icterus HENT: normocephalic, atraumatic, good hearing acuity, moist mucous membranes Neck: no tracheal deviation, full range of motion Resp: good air exchange, breathing comfortably with no accessory muscle use, no tactile fremitus, no appreciable crackles or wheezing CVS: good distal perfusion x 4, trace pitting edema, JVD is present, heart rate is irregular and tachycardic, without murmurs appreciable GI: soft, NTTP, ND, no hepatosplenomegaly : no suprapubic tenderness, no CVAT, romero catheter not present MSK: no clubbing, no cyanosis, no noted contractures of extremities, dusky toes bilaterally Skin: no noted rashes, petechiae; temperature of skin is appropriate Neuro: moving all extremities without signs of weakness, CN II-XII intact Patient Condition at Discharge: Good Plan - Discharge Summary Discharge Rx Participant: Yes New Discharge Prescriptions: New Venlafaxine HCl ER [Effexor XR] 225 mg PO DAILY cap Acetaminophen Tab [Tylenol] 650 mg PO Q6HR PRN tab PRN Reason: Fever And/ Or Pain Thiamine [Vitamin B-1] 100 mg PO DAILY tab Rivaroxaban [Xarelto] 15 mg PO HS tab Metoprolol Tartrate [Lopressor] 50 mg PO BID tab Continue Acetaminophen Tab [Tylenol] 650 mg PO Q6H PRN PRN Reason: Pain Omeprazole [PriLOSEC] 20 mg PO DAILY Potassium Chloride ER [K-Dur 20] 20 meq PO DAILY Nystatin 100,000 Unit/gm Powd [Mycostatin Powder] 1 applic TOPICAL BID busPIRone HCL [Buspar] 7.5 mg PO BID Cyclobenzaprine [Flexeril] 5 mg PO BID PRN PRN Reason: Muscle Spasm Discontinued Levothyroxine Sodium [Synthroid] 88 mcg PO DAILY Rivaroxaban [Xarelto] 20 mg PO HS Furosemide [Lasix] 40 mg PO BID Losartan [Cozaar] 50 mg PO BID Discharge Medication List busPIRone HCL [Buspar] 7.5 mg PO BID 01/24/22 [History] Acetaminophen Tab [Tylenol] 650 mg PO Q6H PRN 11/19/22 [History] Omeprazole [PriLOSEC] 20 mg PO DAILY 11/19/22 [History] Cyclobenzaprine [Flexeril] 5 mg PO BID PRN 12/16/22 [History] Nystatin 100,000 Unit/gm Powd [Mycostatin Powder] 1 applic TOPICAL BID 12/16/22 [History] Potassium Chloride ER [K-Dur 20] 20 meq PO DAILY 12/16/22 [History] Acetaminophen Tab [Tylenol] 650 mg PO Q6HR PRN tab 12/25/22 [Rx] Metoprolol Tartrate [Lopressor] 50 mg PO BID tab 12/25/22 [Rx] Rivaroxaban [Xarelto] 15 mg PO HS tab 12/25/22 [Rx] Thiamine [Vitamin B-1] 100 mg PO DAILY tab 12/25/22 [Rx] Venlafaxine HCl ER [Effexor XR] 225 mg PO DAILY cap 12/25/22 [Rx] Follow up Appointment(s)/Referral(s): None,Stated [REFERRING] - 1-2 days Activity/Diet/Wound Care/Special Instructions: Patient will need thyroid function tests rechecked in 4 weeks to determine appropriate levothyroxine dosing, until then hold off on levothyroxine. Discharge Disposition: TRANSFER TO [facility]/F
[2022-12-25 16:12] VITALS: BP 123/87; PULSE 112; RESP 18; TEMP 98.7
== END 2022-12-25 16:52 | DRG 871 ==
LOC: EC 14:17 → 2SICU 17:56 → 3SCARD 12-18 15:49
PROVIDERS: ADMIT Internal Medicine; ATTEND Internal Medicine
PROC: 05HC33Z Insertion of Infusion Device into Left Basilic Vein, Percutaneous Approach (ICD-10-PCS; principal; 2022-12-17 08:30)
DX: A41.9 Sepsis, unspecified organism (principal); G92.8 Other toxic encephalopathy; J96.01 Acute respiratory failure with hypoxia; R65.21 Severe sepsis with septic shock; I48.19 Other persistent atrial fibrillation; E46 Unspecified protein-calorie malnutrition; E87.20 Acidosis, unspecified; N17.9 Acute kidney failure, unspecified; N39.0 Urinary tract infection, site not specified; E87.1 Hypo-osmolality and hyponatremia; Z79.01 Long term (current) use of anticoagulants; E05.90 Thyrotoxicosis, unspecified without thyrotoxic crisis or storm; W06.XXXA Fall from bed, initial encounter; G47.30 Sleep apnea, unspecified; Z66 Do not resuscitate; Y92.009 Unspecified place in unspecified non-institutional (private) residence as the place of occurrence of the external cause; R79.1 Abnormal coagulation profile; E86.0 Dehydration; E03.9 Hypothyroidism, unspecified; T50.915A Adverse effect of multiple unspecified drugs, medicaments and biological substances, initial encounter; Z91.148 Patient's other noncompliance with medication regimen for other reason; K76.0 Fatty (change of) liver, not elsewhere classified; Z68.33 Body mass index [BMI] 33.0-33.9, adult; I27.20 Pulmonary hypertension, unspecified; I34.0 Nonrheumatic mitral (valve) insufficiency; I10 Essential (primary) hypertension; R53.81 Other malaise; F32.A Depression, unspecified; D75.839 Thrombocytosis, unspecified; F41.9 Anxiety disorder, unspecified; M54.9 Dorsalgia, unspecified; F10.21 Alcohol dependence, in remission; E87.6 Hypokalemia; E78.5 Hyperlipidemia, unspecified; M25.579 Pain in unspecified ankle and joints of unspecified foot; Z96.641 Presence of right artificial hip joint; Z96.652 Presence of left artificial knee joint; Z28.310 Unvaccinated for COVID-19; Z88.2 Allergy status to sulfonamides; Z98.84 Bariatric surgery status; Z79.899 Other long term (current) drug therapy; Z87.440 Personal history of urinary (tract) infections; Z79.890 Hormone replacement therapy; Z75.1 Person awaiting admission to adequate facility elsewhere; Z87.891 Personal history of nicotine dependence
CPT/HCPCS: 36410; 36415; 36600; 70450; 71045; 72125; 76937; 80048; 80053; 81001; 82140; 82803; 82805; 83605; 83735; 83880; 84439; 84443; 84484; 85025; 85027; 85379; 85610; 85730; 87040; 87086; 93005; 94760; 96361; 96365; 96366; 99291